=== PATIENT | male | born 1945 | race Caucasian/White ===

== ENCOUNTER 2025-01-19 14:40 | Outpatient (CLI) | payer MEDICARE, SELFPAY ==
--- OUTSIDE RECORDS SUMMARY | 2025-01-13 06:00 | XMS_ITS ---
Author Organization [facility] Address [address] [place] [id number] Care Team Providers Care [employer] Associate Name Role Phone UNRULY SYKES Primary Care Provider [phone] REASON FOR VISIT LV, acute for L arm swelling Medications Medication SIG (Take, Route, Frequency, Duration) Notes Start Date End Date Status Aspirin Adult Low Dose 81 MG Tablet Delayed Release 1 tablet Orally Once a day Active traMADol HCl 50 MG Tablet 1 tablet as ne eded Orally every 6 hours; Duration: 30 days 01/01/2025 Active Arginaid - Packet 1 pack with meals Or ally daily Active Silvadene 1 % Cream 1 application [place] Cutter ally Once a day Active Acetaminophen 500 MG Tablet 2 TABLET Ora lly 3 times a day Active Lansoprazole 30 MG Capsule Delayed Release 1 capsule 1/2 to 1 hour before morning meal Orally Once a day Active Remeron 15 MG Tablet 1 tablet at bedtime Orally Once a day Active Modafinil 100 MG Tablet 2 tablet in the morning Orally Once a day 11/16/2024 Active Midodrine HCl 5 MG Tablet 1 tablet as ne eded Orally Twice a day Active metFORMIN HCl 500 MG Tablet 1 tablet wit h a meal Orally Once a day Active Gabapentin 300 MG Capsule 1 capsule Oral ly 3 times a day; Duration: 30 days 11/27/2024 Active Farxiga 10 MG Tablet 1 tablet Orally Onc e a day Active Bisacodyl 10 MG Suppository 1 suppository Rectal Once a day after dinner Active Atorvastatin Calcium 40 MG Tablet 2 tablet Orally Once a day at bedtime Active Encounters Encounter Location Date Provider Diagnosis [facility] [address] [place] [id number] 01/13/2025 UNRULY SYKES Plan Of Treatment Next Appt Details Provider Name:Anjali Paez , 01/22/2025 06:30:00 AM, [address], [place], [address], History and Physical Notes * HPI (History of Present Illness) Category Sub-Category Detail Notes Category Not es Redacted due to State Laws: He has got left arm swelling. Reportedly had an ultrasound a while ago with no DVT concerns, but nursing reports at times he does feel cold and hot in his arm. Also, has color changes in his arm, but currently, it is warm. He reports no fevers, no chest pain, no shortness of breath, and no edema on exam, except for in the left arm. Planning to repeat the ultrasound to rule out DVT. Also, gets CT of his left shoulder and chest to rule out any type of obstruction with contrast. Progress Notes * Elvin MCCLUREOB:1945 (79 yo M)Acc No.[id number]:01/13/2025 Patient: Pillo Rodarte Provider: Adriane Sykes DO :1945 A ge:79 Y S ex:Male Date:01/13/2025 Address:[address] [place] [address] Subjective: * Chief Complaints: * L V, acute for L arm swelling * HPI: R edacted due to State Laws:: He has got left arm swelling. Reportedly had an ultrasound a while ago with no DVT concerns, but nursing reports at times he does feel cold and hot in his arm. Also, has color changes in his arm, but currently, it is warm. He reports no fevers, no chest pain, no shortness of breath, and no edema on exam, except for in the left arm. Planning to repeat the ultrasound to rule out DVT. Also, gets CT of his left shoulder and chest to rule out any type of obstruction with contrast. * Medications: T akingAcetaminophen 500 MG Tablet 2 TABLET Orally 3 times a day Arginaid - Packet 1 pack with meals Orally daily Aspirin Adult Low Dose 81 MG Tablet Delayed Release 1 tablet Orally Once a day Atorvastatin Calcium 40 MG Tablet 2 tablet Orally Once a day at bedtimeBisacodyl 10 MG Suppository 1 suppository Rectal Once a day after dinnerFarxiga 10 MG Tablet 1 tablet Orally Once a day Gabapentin 300 MG Capsule 1 capsule Orally 3 times a day Lansoprazole 30 MG Capsule Delayed Release 1 capsule 1/2 to 1 hour before morning meal Orally Once a day metFORMIN HCl 500 MG Tablet 1 tablet with a meal Orally Once a day Midodrine HCl 5 MG Tablet 1 tablet as needed Orally Twice a day Modafinil 100 MG Tablet 2 tablet in the morning Orally Once a day Remeron 15 MG Tablet 1 tablet at bedtime Orally Once a day Silvadene 1 % Cream 1 application Externally Once a day traMADol HCl 50 MG Tablet 1 tablet as needed Orally every 6 hours Taking Acetaminophen 500 MG Tablet 2 TABLET Orally 3 times a day Taking Arginaid - Packet 1 pack with meals Orally daily Taking Aspirin Adult Low Dose 81 MG Tablet Delayed Release 1 tablet Orally Once a day Taking Atorvastatin Calcium 40 MG Tablet 2 tablet Orally Once a day at bedtimeTaking Bisacodyl 10 MG Suppository 1 suppository Rectal Once a day after dinnerTaking Farxiga 10 MG Tablet 1 tablet Orally Once a day Taking Gabapentin 300 MG Capsule 1 capsule Orally 3 times a day Taking Lansoprazole 30 MG Capsule Delayed Release 1 capsule 1/2 to 1 hour before morning meal Orally Once a day Taking metFORMIN HCl 500 MG Tablet 1 tablet with a meal Orally Once a day Taking Midodrine HCl 5 MG Tablet 1 tablet as needed Orally Twice a day Taking Modafinil 100 MG Tablet 2 tablet in the morning Orally Once a day Taking Remeron 15 MG Tablet 1 tablet at bedtime Orally Once a day Taking Silvadene 1 % Cream 1 application Externally Once a day Taking traMADol HCl 50 MG Tablet 1 tablet as needed Orally every 6 hours * Electronic signature of UNRULY SYKES D.O. on 01/19/2025 at 02:45 PM CDT Sign off status: Pending * Provider: Adriane Sykes DO Date: 01/13/2025 Generated for Lay chadwick/Lasha/Cherelle on: 01/19/2025 02:45 PM CDT
--- NOTE | ~2025-01-19 | CT_ITS ---
EXAMINATION: CT diagnostic chest w con DATE: 01/19/2025 16:19 INDICATION: Swelling and pain. We brachial pressure. TECHNIQUE: Computed tomography (CT) of the chest was performed with 100 cc Omnipaque 350 intravenous contrast. The dose-length product was 443.43 mGy-cm. Automated exposure control and iterative reconstruction technique were employed. COMPARISON: None FINDINGS: There is pulmonary embolism involving the left upper and lower lobe pulmonary arteries, moderate thrombus burden. No significant pleural or pericardial effusion. No thoracic lymphadenopathy. Status post median sternotomy for CABG. There is a 1.7 x 0.9 8 x 1.5 cm pleural-based mass right lower lobe. No thoracic lymphadenopathy. There is dependent atelectasis in the lower lobes. No endobronchial lesions. Elevation of the right diaphragm. Small 3 mm fissural nodule on the left, likely benign. Mild thoracic spondylosis. No focal lytic or sclerotic lesions. IMPRESSION: 1. Left-sided pulmonary embolism, moderate thrombus burden. 2: Right lower lobe pleural-based 1.7 x 0.9 x1.5 cm mass, suspicious for bronchogenic carcinoma. Recommend further evaluation with percutaneous biopsy or pet/CT scan. Attempts are being made to contact Dr. John Sykes regarding patient information. Reviewed, dictated and finalized at location O. IMPRESSION: 1. Left-sided pulmonary embolism, moderate thrombus burden. 2: Right lower lobe pleural-based 1.7 x 0.9 x1.5 cm mass, suspicious for bronc hogenic carcinoma. Recommend further evaluation with percutaneous biopsy or pet /CT scan. Attempts are being made to contact Dr. John Sykes regarding patient information .
--- NOTE | ~2025-01-19 | CT_ITS ---
Clinical history:Swelling, pain, weak brachial pulse EXAM:CTA upper extremity left TECHNIQUE:Multiple contiguous axial images were obtained of the left upper extremity. Sagittal and coronal reformatted images were obtained. IV contrast was administered. Comparisons:None available FINDINGS: The left subclavian artery, left axillary artery, left radial artery, left ulnar artery are patent. The visualized arteries in the left wrist and hand are patent. There is a moderate to severe atherosclerotic disease from calcified plaques in the distal left radial artery causing approximately 75% stenosis. Nonspecific left hip joint effusion. There are a few small patchy opacities in the left lower lung. 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 If continued concern, consider an ultrasound for further assessment. 2.Otherwise, grossly unremarkable study. 3.Nonspecific left hip joint effusion. Reviewed, dictated and finalized at location Q. IMPRESSION: 1.Moderate to severe atherosclerotic disease in the distal left radial artery c ausing approximately 75% stenosis. If continued concern, consider an ultrasound for further assessment. 2.Otherwise, grossly unremarkable study. 3.Nonspecific left hip joint effusion.
--- OUTSIDE RECORDS SUMMARY | 2025-01-19 14:45 | XMS_ITS | Patient Health Record ---
Author Organization [facility] Address [address] [place] [phone] Care Team Providers Care Drawing Tender Name Role Phone UNRULY RINCON Primary Care Provider Anjali Paez Unavailable [phone] Krystal Engle Unavailable [phone] Allergies Allergen (clinical drug ingredient) Drug/Non Drug Allergy documented on EMR Reaction Allergy Type Onset Date Status sulfacetamide Sulfacetamide Sodium Unknown Drug Allergy Active Results Component Value Reference Range Notes Lipid Panel Reviewed date:10/23/2024 10:59:06 AM Interpretation: Performing Lab: Notes/Report: Comp. 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 (I69.254) Referral Organization [facility] Referring Provider First Name UNRULY Referring Provider Last Name SERGEY Referring Provider Speciality Internal M edicine Referred Organization [facility] Referred Address [address] [place] [phone],[place] Referred Provider Specialty Neurology Referral Priority Routine Reason Arterial disease wit h possible stenosis Diagnosis 1 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 (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.01) Referral Organization [facility] Referring Provider First Name Anjali Referring Provider Last Name Philippe Referred Organization [facility] Referred Address [address] [place] [phone] Referred Provider Specialty Vascular [place] Referral Priority Routine Medications Medication SIG (Take, Route, Frequency, Duration) Notes Start Date End Date Status Modafinil 100 MG Tablet 2 tablet in the morning Orally Once a day 11/16/2024 Active Lansoprazole 30 MG Capsule Delayed Release 1 capsule 1/2 to 1 hour before morning meal Orally Once a day Active Gabapentin 300 MG Capsule 1 capsule Oral ly 3 times a day; Duration: 30 days 11/27/2024 Active Farxiga 10 MG Tablet 1 tablet Orally Onc e a day Active Bisacodyl 10 MG Suppository 1 suppository Rectal Once a day after dinner Active Atorvastatin Calcium 40 MG Tablet 2 tablet Orally Once a day at bedtime Active Aspirin Adult Low Dose 81 MG Tablet Delayed Release 1 tablet Orally Once a day Active traMADol HCl 50 MG Tablet 1 tablet as ne eded Orally every 6 hours; Duration: 30 days 01/01/2025 Active Arginaid - Packet 1 pack with meals Or ally daily Active Silvadene 1 % Cream 1 application Return To Vendor ally Once a day Active Acetaminophen 500 MG Tablet 2 TABLET Ora lly 3 times a day Active Remeron 15 MG Tablet 1 tablet at bedtime Orally Once a day Active Midodrine HCl 5 MG Tablet 1 tablet as ne eded Orally Twice a day Active metFORMIN HCl 500 MG Tablet 1 tablet wit h a meal Orally Once a day Active Social History Tobacco Use: Social History Observation Description Date Details (start date - stop date) Never Smoker NA - NA Social History Drug/Alcohol: Social Info Question Answer Notes Drugs Have you used drugs other than those for medical reasons in the past 12 months? No AUDIT-C (Standard) Did you have a drink containing alcohol in the past year? 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) Active confirmed Problem Hemiplegia of nondominant side as late effect of cerebrovascular disease (140918145) 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) Active confirmed Problem Gastro-esophageal reflux disease without esophagitis (097489057) Gastro-esophageal reflux disease without esophagitis (K21.9) Active confirmed Problem Constipation (59602759) Constipation, unspecified (K59.00) Active confirmed Problem Dysphagia (02095944) Dysphagia, unspecified (R13.10) Active confirmed Problem Somnolence (55298119) Somnolence (R40.0) Active confirmed Problem Type II diabetes mellitus without complication (470917078) Type 2 diabetes mellitus without complication, unspecified whether snf insulin use (E11.9) Active confirmed Problem Hyperlipidemia (12900270) Hyperlipidemia (E78.5) Active confirmed Problem Recurrent major depression (disorder) (71710326) Major depressive disorder, recurrent episode, unspecified (F33.9) Active confirmed Vital Signs Heart Rate 98 /min 12/25/2024 Temperature 97.8 degrees Fahrenheit 12/25/2024 Respiratory Rate 18 /min 12/25/2024 Height-cm 182.88 cm 12/08/2024 Oximetry 94 % 12/25/2024 Blood pressure diastolic 56 mm Hg 12/25/2024 Weight-kg 84.23 kg 12/25/2024 Height 72 in 12/08/2024 BMI Percentile 25.63 % 10/28/2024 Blood pressure systolic 98 mm Hg 12/25/2024 Weight 185.7 lbs 12/25/2024 Encounters Encounter Location Date Provider Diagnosis [address] [address] 01/13/[address] [address] 10/16/[address] [address] 10/21/2024 Anjali Paez 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 I69.254 ; Physical deconditioning R53.81 ; Essential (primary) hypertension I10 ; Major depressive disorder, recurrent episode, unspecified F33.9 ; Hyperlipidemia E78.5 and Left hip pain M25.[address] [address] 10/23/2024 Anjali Paez 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 I69.254 ; Physical deconditioning R53.81 ; Essential (primary) hypertension I10 ; Major depressive disorder, recurrent episode, unspecified F33.9 ; Hyperlipidemia E78.5 and Left hip pain M25.552 [place] [id number] 10/28/2024 Anjali Paez 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 I69.254 ; Physical deconditioning R53.81 ; Essential (primary) hypertension I10 ; Major depressive disorder, recurrent episode, unspecified F33.9 ; Hyperlipidemia E78.5 and Left hip pain M25.552 [place] [id number] 10/30/2024 Anjali Paez 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 I69.254 ; Physical deconditioning R53.81 ; Essential (primary) hypertension I10 ; Major depressive disorder, recurrent episode, unspecified F33.9 ; Hyperlipidemia E78.5 and Left hip pain M25.552 [place] [id number] 11/03/2024 Anjali Paez 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 I69.254 ; Physical deconditioning R53.81 ; Essential (primary) hypertension I10 ; Major depressive disorder, recurrent episode, unspecified F33.9 ; Hyperlipidemia E78.5 and Left hip pain M25.552 [place] [id number] 11/06/2024 Krystal Engle 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 I69.254 ; Physical deconditioning R53.81 ; Essential (primary) hypertension I10 ; Major depressive disorder, recurrent episode, unspecified F33.9 and Left hip pain M25.552 [place] [id number] 11/10/2024 Anjali Paez 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 I69.254 ; Physical deconditioning R53.81 ; Essential (primary) hypertension I10 ; Major depressive disorder, recurrent episode, unspecified F33.9 ; Hyperlipidemia E78.5 ; Left hip pain M25.552 and Weight loss R63.4 [place] [id number] 11/17/2024 Anjali Paez 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 I69.254 ; Physical deconditioning R53.81 ; Essential (primary) hypertension I10 ; Major depressive disorder, recurrent episode, unspecified F33.9 ; Hyperlipidemia E78.5 ; Left hip pain M25.552 and Weight loss R63.4 [place] [id number] 11/20/2024 Anjali Paez 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 I69.254 ; Physical deconditioning R53.81 ; Essential (primary) hypertension I10 ; Major depressive disorder, recurrent episode, unspecified F33.9 ; Hyperlipidemia E78.5 ; Left hip pain M25.552 and Weight loss R63.4 [place] [id number] 11/24/2024 Anjali Paez 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 I69.254 ; Physical deconditioning R53.81 ; Essential (primary) hypertension I10 ; Major depressive disorder, recurrent episode, unspecified F33.9 ; Hyperlipidemia E78.5 ; Left hip pain M25.552 and Weight loss R63.[address] [address] 11/26/2024 Anjali Paez 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 I69.254 ; Physical deconditioning R53.81 ; Essential (primary) hypertension I10 ; Major depressive disorder, recurrent episode, unspecified F33.9 ; Hyperlipidemia E78.5 ; Left hip pain M25.552 and Weight loss R63.[address] [address] 12/01/2024 Anjali Philippe 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 I69.254 ; Physical deconditioning R53.81 ; Essential (primary) hypertension I10 ; Major depressive disorder, recurrent episode, unspecified F33.9 ; Hyperlipidemia E78.5 ; Left hip pain M25.552 and Weight loss R63.4 [place] [id number] 12/03/2024 Anjali Paez 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 I69.254 ; Physical deconditioning R53.81 ; Essential (primary) hypertension I10 ; Major depressive disorder, recurrent episode, unspecified F33.9 ; Hyperlipidemia E78.5 ; Left hip pain M25.552 and Weight loss R63.4 [place] [id number] 12/08/2024 Anjali Paez 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 I69.254 ; Physical deconditioning R53.81 ; Essential (primary) hypertension I10 ; Major depressive disorder, recurrent episode, unspecified F33.9 ; Hyperlipidemia E78.5 ; Left hip pain M25.552 and Weight loss R63.4 [place] [id number] 12/10/2024 Anjali Paez 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 I69.254 ; Physical deconditioning R53.81 ; Essential (primary) hypertension I10 ; Major depressive disorder, recurrent episode, unspecified F33.9 ; Hyperlipidemia E78.5 ; Left hip pain M25.552 and Weight loss R63.[address] [address] 12/15/2024 Anjali Paez 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 I69.254 ; Physical deconditioning R53.81 ; Essential (primary) hypertension I10 ; Major depressive disorder, recurrent episode, unspecified F33.9 ; Hyperlipidemia E78.5 ; Left hip pain M25.552 and Weight loss R63.4 [place] [id number] 12/18/2024 UNRULY RINCON [place] [address] [place] [address] 12/25/2024 UNRULY RINCON [place] [address] [place] [address] 10/15/2024 UNRULY RINCON [place] [address] [place] [address] 10/16/2024 Anjali Paez [place] [address] [place] [address] 10/20/2024 UNRULY RINCON [place] [address] [place] [address] 10/20/2024 Anjali Paez [facility] [address] [id number] 10/21/2024 Anjali Paez [place] [address] [place] [address] 10/22/2024 Anjalialva Paez [place] [address] [place] [address] 10/28/2024 Anjali Paez [place] [address] [place] [address] 10/30/2024 Anjali Paez [place] [address] [place] [address] 11/02/2024 Anjali [place] [address] [place] [address] 11/05/2024 Krystal Engle [place] [address] [place] [address] 11/09/2024 UNRULY RINCON [place] [address] [place] [address] 11/10/2024 Anjali Paez [place] [address] [place] [address] 11/12/2024 Anjali Paez [place] [address] [place] [address] 11/16/2024 Anjali [place] [address] [place] [address] 11/16/2024 Anjali Paez [place] [address] [place] [address] 11/23/2024 Anjali Paez [place] [address] [place] [address] 11/23/2024 Anjali Paez [place] [address] [place] [address] 12/02/2024 UNRULY RINCON [place] [address] [address] 12/02/2024 UNRULY RINCON [place] [address] [address] 12/08/2024 [place] [address] [address] 12/10/2024 UNRULY RINCON [place] [address] [address] 12/15/2024 UNRULY RINCON [place] [address] [address] 12/15/2024 Anjali Paez [place] [address] [place] [address] 12/16/2024 UNRULY RINCON [place] [address] [address] 12/18/2024 UNRULY RINCON [place] [address] [address] 12/22/2024 UNRULY RINCON [place] [address] [address] 12/23/2024 UNRULY RINCON [place] [address] [address] 12/23/2024 Anjali Paez [place] [address] [address] 12/24/2024 UNRULY RINCON [address] [address] 01/01/[address] [address] 01/04/2025 UNRULY RINCON [address] [address] 01/12/2025 UNRULY RINCON [place] [address] [address] 01/14/2025 UNRULY RINCON Assessments Encounter Date Diagnosis (ICD Code) Assessment Notes Treatment Notes Treatment Clinical Notes Section Notes 10/21/2024 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 He is unable to move the left side very well. 10/21/2024 Physical deconditioning (ICD-10 - R53.81) The patient working with PT&OT for strengthening and mobility. Reports that therapy is going okay. He utilizes a high back wheelchair for ambulation and a Kin lift for transfers. 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 He is unable to move the left side very well. 10/23/2024 Physical deconditioning (ICD-10 - R53.81) The patient working with PT&OT for strengthening and mobility. Reports that therapy is going okay. He utilizes a high back wheelchair for ambulation and a Kin lift for transfers. 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 He is unable to move the left side very well. 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 He is unable to move the left side very well. 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 He is unable to move the left side very well. 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 (ICD-10 - I69.254) The following can help prevent another stroke and reduce the risk of heart attack: Take all of your prescription medication as prescribed Follow up with your medical providers as recommended Goal is to keep your blod pressure under 130/80 Goal is to keep your bad cholesterol (LDL) under 70% If you are diabetic, goal is to keep your HgbA1C under 8% Eat plenty of fruits and vegetables, whole grains, fish and lean proteins Limit saturated fats and processed sugars Education provided on when to call 911 for transport to ER if stroke symptoms occur 11/06/2024 Physical deconditioning (ICD-10 - R53.81) Frail older adults are at increased risk of falls, disability, hospitalizations, and . Frailty may initially be overlooked or incorrectly identified as part of the normal aging process because of the variable nature of the presentation and diagnosis. Symptoms include generalized weakness, exhaustion, slow gait, poor balance, decreased physical activity, cognitive impairment, and weight loss. 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 He is unable to move the left side very well. 11/10/2024 Physical deconditioning (ICD-10 - R53.81) The patient working with PT&OT for strengthening and mobility. Reports that therapy is going okay. He utilizes a high back wheelchair for ambulation and a Kin lift for transfers. 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 Continue to use ice for comfort. 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 Continue to use ice for comfort. 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 Continue to use ice for comfort. 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 Continues to have some discomfort in the left arm. He reports that he does get comfort in the left arm with the ice. Continue to use ice for comfort. 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 Continues to have some discomfort in the left arm. He reports that he does get comfort in the left arm with the ice. Continue to use ice for comfort. 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 Continues to have some discomfort in the left arm. He reports that he does get comfort in the left arm with the ice. Continue to use ice for comfort. 12/15/2024 Physical deconditioning (ICD-10 - R53.81) The patient working with PT&OT for strengthening and mobility. Reports that therapy is going okay. He utilizes a high back wheelchair for ambulation and a Kin lift for transfers. 12/10/2024 Physical deconditioning (ICD-10 - R53.81) The patient working with PT&OT for strengthening and mobility. Reports that therapy is going okay. He utilizes a high back wheelchair for ambulation and a Kin lift for transfers. 12/08/2024 Physical deconditioning (ICD-10 - R53.81) The patient working with PT&OT for strengthening and mobility. Reports that therapy is going okay. He utilizes a high back wheelchair for ambulation and a Kin lift for transfers. 12/03/2024 Physical deconditioning (ICD-10 - R53.81) The patient working with PT&OT for strengthening and mobility. Reports that therapy is going okay. He utilizes a high back wheelchair for ambulation and a Kin lift for transfers. 12/01/2024 Physical deconditioning (ICD-10 - R53.81) The patient working with PT&OT for strengthening and mobility. Reports that therapy is going okay. He utilizes a high back wheelchair for ambulation and a Kin lift for transfers. 11/26/2024 Physical deconditioning (ICD-10 - R53.81) The patient working with PT&OT for strengthening and mobility. Reports that therapy is going okay. He utilizes a high back wheelchair for ambulation and a Kin lift for transfers. 11/24/2024 Physical deconditioning (ICD-10 - R53.81) The patient working with PT&OT for strengthening and mobility. Reports that therapy is going okay. He utilizes a high back wheelchair for ambulation and a Kin lift for transfers. 11/20/2024 Physical deconditioning (ICD-10 - R53.81) The patient working with PT&OT for strengthening and mobility. Reports that therapy is going okay. He utilizes a high back wheelchair for ambulation and a Kin lift for transfers. 11/10/2024 Essential (primary) hypertension (ICD-10 - I10) The patient's blood pressure is stable. Managed well on current medications. Continue current treatment plan and monitoring. 11/17/2024 Physical deconditioning (ICD-10 - R53.81) The patient working with PT&OT for strengthening and mobility. Reports that therapy is going okay. He utilizes a high back wheelchair for ambulation and a Kin lift for transfers. 11/06/2024 Essential (primary) hypertension (ICD-10 - I10) Stable with current management Continue current medication Report persistent BP elevated greater than 140/90 Report new or worsening symptoms of h/a, dizziness, chest pain, shortness of breath, new or worsening edema 11/03/2024 Physical deconditioning (ICD-10 - R53.81) The patient working with PT&OT for strengthening and mobility. Reports that therapy is going okay. He utilizes a high back wheelchair for ambulation and a Kin lift for transfers. 10/23/2024 Essential (primary) hypertension (ICD-10 - I10) The patient's blood pressure is stable. Managed well on current medications. Continue current treatment plan and monitoring. 10/30/2024 Physical deconditioning (ICD-10 - R53.81) The patient working with PT&OT for strengthening and mobility. Reports that therapy is going okay. He utilizes a high back wheelchair for ambulation and a Kin lift for transfers. 10/28/2024 Physical deconditioning (ICD-10 - R53.81) The patient working with PT&OT for strengthening and mobility. Reports that therapy is going okay. He utilizes a high back wheelchair for ambulation and a Kin lift for transfers. 10/21/2024 Essential (primary) hypertension (ICD-10 - I10) The patient's blood pressure is stable. Managed well on current medications. Continue current treatment plan and monitoring. 10/21/2024 Major depressive disorder, recurrent episode, unspecified (ICD-10 - F33.9) The patient denies any problems at this time. Not currently on any medications. 10/23/2024 Major depressive disorder, recurrent episode, unspecified (ICD-10 - F33.9) The patient denies any problems at this time. Not currently on any medications. 10/28/2024 Essential (primary) hypertension (ICD-10 - I10) The patient's blood pressure is stable. Managed well on current medications. Continue current treatment plan and monitoring. 10/30/2024 Essential (primary) hypertension (ICD-10 - I10) The patient's blood pressure is stable. Managed well on current medications. Continue current treatment plan and monitoring. 11/03/2024 Essential (primary) hypertension (ICD-10 - I10) The patient's blood pressure is stable. Managed well on current medications. Continue current treatment plan and monitoring. 11/06/2024 Major depressive disorder, recurrent episode, unspecified (ICD-10 - F33.9) stable with current management Continue to assist with ADL/IADL as needed Provide redirection as needed Report changes or concerns as needed 11/10/2024 Major depressive disorder, recurrent episode, unspecified (ICD-10 - F33.9) The patient denies any problems at this time. Not currently on any medications. 11/17/2024 Essential (primary) hypertension (ICD-10 - I10) The patient's blood pressure is stable. Managed well on current medications. Continue current treatment plan and monitoring. 11/20/2024 Essential (primary) hypertension (ICD-10 - I10) The patient's blood pressure is stable. Managed well on current medications. Continue current treatment plan and monitoring. 11/26/2024 Essential (primary) hypertension (ICD-10 - I10) Blood pressure is stable. Managed well on current medications. Continue current treatment plan and monitoring. 11/24/2024 Essential (primary) hypertension (ICD-10 - I10) Blood pressure is slightly elevated today. Continue to monitor and update provider if continues to be elevated. 12/01/2024 Essential (primary) hypertension (ICD-10 - I10) Blood pressure is stable. Managed well on current medications. Continue current treatment plan and monitoring. 12/03/2024 Essential (primary) hypertension (ICD-10 - I10) Blood pressure is stable. Managed well on current medications. Continue current treatment plan and monitoring. 12/10/2024 Essential (primary) hypertension (ICD-10 - I10) Blood pressure is stable. Managed well on current medications. Continue current treatment plan and monitoring. 12/08/2024 Essential (primary) hypertension (ICD-10 - I10) Blood pressure is stable. Managed well on current medications. Continue current treatment plan and monitoring. 12/15/2024 Essential (primary) hypertension (ICD-10 - I10) Blood pressure is stable. Managed well on current medications. Continue current treatment plan and monitoring. 12/15/2024 Major depressive disorder, recurrent episode, unspecified (ICD-10 - F33.9) The patient denies any problems at this time. Not currently on any medications. 12/08/2024 Major depressive disorder, recurrent episode, unspecified (ICD-10 - F33.9) The patient denies any problems at this time. Not currently on any medications. 12/10/2024 Major depressive disorder, recurrent episode, unspecified (ICD-10 - F33.9) The patient denies any problems at this time. Not currently on any medications. 12/03/2024 Major depressive disorder, recurrent episode, unspecified (ICD-10 - F33.9) The patient denies any problems at this time. Not currently on any medications. 12/01/2024 Major depressive disorder, recurrent episode, unspecified (ICD-10 - F33.9) The patient denies any problems at this time. Not currently on any medications. 11/24/2024 Major depressive disorder, recurrent episode, unspecified (ICD-10 - F33.9) The patient denies any problems at this time. Not currently on any medications. 11/26/2024 Major depressive disorder, recurrent episode, unspecified (ICD-10 - F33.9) The patient denies any problems at this time. Not currently on any medications. 11/20/2024 Major depressive disorder, recurrent episode, unspecified (ICD-10 - F33.9) The patient denies any problems at this time. Not currently on any medications. 11/10/2024 Hyperlipidemia (ICD-10 - E78.5) On 10/22/2024, the lipid panel showed trigclyrides were slightly elevated at 156. HDL was low at 30. Encouraged low saturated fat diet and to repeat the lipid panel in one year. 11/17/2024 Major depressive disorder, recurrent episode, unspecified (ICD-10 - F33.9) The patient denies any problems at this time. Not currently on any medications. 11/03/2024 Major depressive disorder, recurrent episode, unspecified (ICD-10 - F33.9) The patient denies any problems at this time. Not currently on any medications. 11/06/2024 Left hip pain (ICD-10 - M25.552) pain continues but has improved with pain regimen 10/30/2024 Major depressive disorder, recurrent episode, unspecified (ICD-10 - F33.9) The patient denies any problems at this time. Not currently on any medications. 10/28/2024 Major depressive disorder, recurrent episode, unspecified (ICD-10 - F33.9) The patient denies any problems at this time. Not currently on any medications. 10/23/2024 Hyperlipidemia (ICD-10 - E78.5) On 10/22/2024, the lipid panel showed trigclyrides were slightly elevated at 156. HDL was low at 30. Encouraged low saturated fat diet and to repeat the lipid panel in one year. 10/21/2024 Hyperlipidemia (ICD-10 - E78.5) On 10/22/2024, the lipid panel showed trigclyrides were slightly elevated at 156. HDL was low at 30. Encouraged low saturated fat diet and to repeat the lipid panel in one year. 10/21/2024 Left hip pain (ICD-10 - M25.552) Script for hydrocodone 5/325 one tab q. 6h p.r.n. was given. Change the Tylenol that was scheduled to p.r.n. and do not exceed 4 gm of Tylenol in 24 hours. 10/23/2024 Left hip pain (ICD-10 - M25.552) Reports that the left hip pain has improved with taking the hydrocodone. 10/28/2024 Hyperlipidemia (ICD-10 - E78.5) On 10/22/2024, the lipid panel showed trigclyrides were slightly elevated at 156. HDL was low at 30. Encouraged low saturated fat diet and to repeat the lipid panel in one year. 10/30/2024 Hyperlipidemia (ICD-10 - E78.5) On 10/22/2024, the lipid panel showed trigclyrides were slightly elevated at 156. HDL was low at 30. Encouraged low saturated fat diet and to repeat the lipid panel in one year. 11/03/2024 Hyperlipidemia (ICD-10 - E78.5) On 10/22/2024, the lipid panel showed trigclyrides were slightly elevated at 156. HDL was low at 30. Encouraged low saturated fat diet and to repeat the lipid panel in one year. 11/20/2024 Hyperlipidemia (ICD-10 - E78.5) On 10/22/2024, the lipid panel showed trigclyrides were slightly elevated at 156. HDL was low at 30. Encouraged low saturated fat diet and to repeat the lipid panel in one year. 11/17/2024 Hyperlipidemia (ICD-10 - E78.5) On 10/22/2024, the lipid panel showed trigclyrides were slightly elevated at 156. HDL was low at 30. Encouraged low saturated fat diet and to repeat the lipid panel in one year. 11/10/2024 Left hip pain (ICD-10 - M25.552) The patient reports that he feels like the pain to his left has gotten slightly better since starting the gabapentin. We will continue with that treatment plan and see how it goes. 11/24/2024 Hyperlipidemia (ICD-10 - E78.5) On 10/22/2024, the lipid panel showed trigclyrides were slightly elevated at 156. HDL was low at 30. Encouraged low saturated fat diet and to repeat the lipid panel in one year. 11/26/2024 Hyperlipidemia (ICD-10 - E78.5) On 10/22/2024, the lipid panel showed trigclyrides were slightly elevated at 156. HDL was low at 30. Encouraged low saturated fat diet and to repeat the lipid panel in one year. 12/03/2024 Hyperlipidemia (ICD-10 - E78.5) On 10/22/2024, the lipid panel showed trigclyrides were slightly elevated at 156. HDL was low at 30. Encouraged low saturated fat diet and to repeat the lipid panel in one year. 12/01/2024 Hyperlipidemia (ICD-10 - E78.5) On 10/22/2024, the lipid panel showed trigclyrides were slightly elevated at 156. HDL was low at 30. Encouraged low saturated fat diet and to repeat the lipid panel in one year. 12/08/2024 Hyperlipidemia (ICD-10 - E78.5) On 10/22/2024, the lipid panel showed trigclyrides were slightly elevated at 156. HDL was low at 30. Encouraged low saturated fat diet and to repeat the lipid panel in one year. 12/10/2024 Hyperlipidemia (ICD-10 - E78.5) On 10/22/2024, the lipid panel showed trigclyrides were slightly elevated at 156. HDL was low at 30. Encouraged low saturated fat diet and to repeat the lipid panel in one year. 12/15/2024 Hyperlipidemia (ICD-10 - E78.5) On 10/22/2024, the lipid panel showed trigclyrides were slightly elevated at 156. HDL was low at 30. Encouraged low saturated fat diet and to repeat the lipid panel in one year. 12/15/2024 Left hip pain (ICD-10 - M25.552) The patient reports that his left hip pain continues especially when moved. Continue current treatment plan and monitoring. Advised the patient to ask for pain medication if needed. 12/10/2024 Left hip pain (ICD-10 - M25.552) The patient reports that his left hip pain continues especially when moved. Continue current treatment plan and monitoring. Advised the patient to ask for pain medication if needed. 12/08/2024 Left hip pain (ICD-10 - M25.552) The patient reports that his left hip pain continues especially when moved. Continue current treatment plan and monitoring. Advised the patient to ask for pain medication if needed. 12/03/2024 Left hip pain (ICD-10 - M25.552) The patient reports that his left hip pain continues especially when moved. Continue current treatment plan and monitoring. Advised the patient to ask for pain medication if needed. 12/01/2024 Left hip pain (ICD-10 - M25.552) The patient reports that his left hip pain continues especially when moved. Continue current treatment plan and monitoring. Advised the patient to ask for pain medication if needed. 11/26/2024 Left hip pain (ICD-10 - M25.552) The patient reports that his let-sidedp pain has been more in the last two days It seems to be better at night with the higher dose of gabapentin. New order given to increase the gabapentin to 300 mg t.i.d. and update if it makes him too sleepy. 11/24/2024 Left hip pain (ICD-10 - M25.552) The patient reports that the left hip pain seems to have gotten better with the increase of the gabapentin at bedtime. We will continue to monitor. 11/20/2024 Left hip pain (ICD-10 - M25.552) The patient reports that the left hip pain seems to have gotten better with the increase of the gabapentin at bedtime. We will continue to monitor. 11/10/2024 Weight loss (ICD-10 - R63.4) The patient is concerned with patient not eatingenough. Ordered to get weekly weightsand update if weight continues to drop. 11/17/2024 Left hip pain (ICD-10 - M25.552) Patient does continue to have left hip pain, especially when he's being rolled, but reports that it does seem to be getting a little bit better since starting the Gabapentin, but is unable to sleep very well at night due to the discomfort in that left hip. Order given to increase Gabapentin to 300 mg at bedtime and to continue the 100 mg in the morning and noon dose. 11/03/2024 Left hip pain (ICD-10 - M25.552) left hip still bothering patient, very painful. Thinking it may be nerve related, start gabapentin 100 mg TID for for left hip pain. _update in one week on how it is helping. 10/30/2024 Left hip pain (ICD-10 - M25.552) The patient reports that his left hip is bothering him more again. Order given to change hydrocodoen to q. 4h as-needed. _update if that is not helping patient. 10/28/2024 Left hip pain (ICD-10 - M25.552) Reports that the left hip pain has improved with taking the hydrocodone. 11/17/2024 Weight loss (ICD-10 - R63.4) Continue to monitor weekly weights and update provider any concern arise. 11/20/2024 Weight loss (ICD-10 - R63.4) The patient agreed to start appetite stimulant medication. Order given for Remeron 15 mg at h.s. Another order written for weekly weights due to them not putting in her weight for this week. Asked them to update once the weight was received. 11/24/2024 Weight loss (ICD-10 - R63.4) Remeron 15 mg at h.s. was started last week. The patient reports that his appetite could be better. I explained that it would take a little bit time for the medication to take a full effect. The patient verbalizes understaindg. No weekly weights were given again this week. Asked staff to please update their system with the new weight weekly. 11/26/2024 Weight loss (ICD-10 - R63.4) Remeron 15 mg at h.s. was started last week. The patient reports that his appetite could be better. I explained that it would take a little bit time for the medication to take a full effect. The patient verbalizes understanding. No weekly weights were given again this week. Asked staff to please update their system with the new weight weekly. 12/01/2024 Weight loss (ICD-10 - R63.4) The patient reports that appetite is still not very good. He continues on the Remeron at bedtime. No other suggestions at this time. 12/03/2024 Weight loss (ICD-10 - R63.4) The patient reports that appetite is still not very good. He continues on the Remeron at bedtime. No other suggestions at this time. 12/08/2024 Weight loss (ICD-10 - R63.4) The patient reports that appetite is still not very good. He continues on the Remeron at bedtime. No other suggestions at this time. 12/10/2024 Weight loss (ICD-10 - R63.4) The patient reports that appetite is still not very good. He continues on the Remeron at bedtime. No other suggestions at this time. 12/15/2024 Weight loss (ICD-10 - R63.4) The patient does not have any complaints at this time. He appears to be eating okay at this time. Continue current plan and monitoring. 10/21/2024 Other Continue current treatment plan. Staff to continue to monitor and report any changes. Patient education provided and questions/concern s addressed. Follow up in 1 week unless necessary sooner. Reviewed HIPAA Right to Privacy Practices with patient/family/ca regiver. 10/23/2024 Other Continue current treatment plan. Staff to continue to monitor and report any changes. Patient education provided and questions/concern s addressed. Follow up in 1 week unless necessary sooner. Reviewed HIPAA Right to Privacy Practices with patient/family/ca regiver. 10/28/2024 Other Continue current treatment plan. Staff to continue to monitor and report any changes. Patient education provided and questions/concern s addressed. Follow up in 1 week unless necessary sooner. Reviewed HIPAA Right to Privacy Practices with patient/family/ca regiver. 10/30/2024 Other Continue current treatment plan. Staff to continue to monitor and report any changes. Patient education provided and questions/concern s addressed. Follow up in 1 week unless necessary sooner. Reviewed HIPAA Right to Privacy Practices with patient/family/ca regiver. 11/03/2024 Other Continue current treatment plan. Staff to continue to monitor and report any changes. Patient education provided and questions/concern s addressed. Follow up in 1 week unless necessary sooner. Reviewed HIPAA Right to Privacy Practices with patient/family/ca regiver. 11/06/2024 Other REVIEWED HIPAA RIGHTS PRIVACY PRACTICES WITH PT/FAMILY/CAREGIV ER COPY OF HIPAA RIGHTS PRIVACY PRACTICES GIVEN TO PT/FAMLY/CAREGIVE R 11/10/2024 Other Continue current treatment plan. Staff to continue to monitor and report any changes. Patient education provided and questions/concern s addressed. Follow up in 1 week unless necessary sooner. Reviewed HIPAA Right to Privacy Practices with patient/family/ca regiver. 11/17/2024 Other Continue current treatment plan. Staff to continue to monitor and report any changes. Patient education provided and questions/concern s addressed. Follow up in 1 week unless necessary sooner. Reviewed HIPAA Right to Privacy Practices with patient/family/ca regiver. 11/20/2024 Other Continue current treatment plan. Staff to continue to monitor and report any changes. Patient education provided and questions/concern s addressed. Follow up in 1 week unless necessary sooner. Reviewed HIPAA Right to Privacy Practices with patient/family/ca regiver. 11/24/2024 Other Continue current treatment plan. Staff to continue to monitor and report any changes. Patient education provided and questions/concern s addressed. Follow up in 1 week unless necessary sooner. Reviewed HIPAA Right to Privacy Practices with patient/family/ca regiver. 11/26/2024 Other Continue current treatment plan. Staff to continue to monitor and report any changes. Patient education provided and questions/concern s addressed. Follow up in 1 week unless necessary sooner. Reviewed HIPAA Right to Privacy Practices with patient/family/ca regiver. 12/01/2024 Other Continue current treatment plan. Staff to continue to monitor and report any changes. Patient education provided and questions/concern s addressed. Follow up in 1 week unless necessary sooner. Reviewed HIPAA Right to Privacy Practices with patient/family/ca regiver. 12/03/2024 Other Continue current treatment plan. Staff to continue to monitor and report any changes. Patient education provided and questions/concern s addressed. Follow up in 1 week unless necessary sooner. Reviewed HIPAA Right to Privacy Practices with patient/family/ca regiver. 12/08/2024 Other Continue current treatment plan. Staff to continue to monitor and report any changes. Patient education provided and questions/concern s addressed. Follow up in 1 week unless necessary sooner. Reviewed HIPAA Right to Privacy Practices with patient/family/ca regiver. 12/10/2024 Other Continue current treatment plan. Staff to continue to monitor and report any changes. Patient education provided and questions/concern s addressed. Follow up in 1 week unless necessary sooner. Reviewed HIPAA Right to Privacy Practices with patient/family/ca regiver. 12/15/2024 Other Continue current treatment plan. Staff to continue to monitor and report any changes. Patient education provided and questions/concern s addressed. Follow up in 1 week unless necessary sooner. Plan Of Treatment Next Appt Details Provider Name:Anjali Paez , 01/22/2025 06:30:00 AM, [address], [place], [address], Insurance Providers Payer Name Payer Address Payer Phone Subscriber Number Group Number Insured Name Patient Relationship to Insured Coverage Start Date Coverage End Date [employer] of [place] [address] [place] [id number] Pillo Mcclure Self - patient is the insured [facility] [address] [place], [place] [id number] Pillo Mcclure Self - patient is the insured Medical (General) History Medical History History ICD Code 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
[2025-01-19 15:42] LABS: Estimated Glomerular Filt Rate > 60
== END 2025-01-19 14:41 | disposition home or self-care (01) ==
PROVIDERS: PCP Internal Medicine; Visit Provider Internal Medicine
DX: I66.01 Occlusion and stenosis of right middle cerebral artery (principal); I69.254 Hemiplegia and hemiparesis following other nontraumatic intracranial hemorrhage affecting left non-dominant side; E11.9 Type 2 diabetes mellitus without complications; I50.9 Heart failure, unspecified; R13.11 Dysphagia, oral phase; M62.81 Muscle weakness (generalized)
CPT/HCPCS: 71260; 73206; Q9967

== ENCOUNTER 2025-02-11 21:17 | Inpatient (IN) | payer MEDICARE, SELFPAY ==
--- NOTE | ~2025-02-11 | CT_ITS ---
EXAMINATION: CT brain wo con DATE: 02/11/2025 21:25 INDICATION: Stroke TECHNIQUE: Computed tomography (CT) of the head was performed without intravenous contrast. Sagittal and coronal reconstructions were performed. The mA was adjusted according to patient size. Iterative reconstruction technique was employed. The dose-length product was 681.00 mGy-cm. COMPARISON: None FINDINGS: There is a large region of encephalomalacia involving portions of the right frontal, parietal and temporal lobes as well as portions of the insula and right basal ganglia consistent with chronic infarct involving the right middle cerebral artery vascular distribution. No acute intracranial hemorrhage, acute infarction or abnormal extra axial fluid collection. Symmetric prominence of the sulci and ventricles consistent with mild age-appropriate diffuse cerebral volume loss. No mass/mass effect. Intracranial calcified cerebral atherosclerosis is noted at the bilateral carotid siphons. The orbits, paranasal sinuses and mastoid air cells are normal. IMPRESSION: 1. No acute intracranial process. 2. 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 Reviewed, dictated and finalized at location A. IMPRESSION: 1. No acute intracranial process. 2. Large chronic infarct with encephalomalacia involving the right middle cereb ral artery vascular distribution.
--- NOTE | ~2025-02-11 | CT_ITS ---
CTA NECK, CTA HEAD Clinical History: cva w/u Comparison: Noncontrast CT head stenosis TECHNIQUE: Helical images thoracic inlet to vertex 100 mL Omnipaque 350 Coronal, sagittal reformats. Multi planar MIPS CT images acquired with automatic exposure control for dose reduction DLP: 1267 mGy-cm Findings: NASCET Criteria utilized CTA NECK Aortic arch: No aneurysm or dissection. Great vessel origins: No stenosis. CCAs: No stenosis. Cervical ICAs: Significant bulb disease but no stenosis. Vertebral Arteries: Patent. Left side dominant. Right-sided diminutive Lung Apices: Clear. Thyroid: Unremarkable. Nodes: No enlarged nodes. Bones: No acute bony abnormality. CTA HEAD: Aneurysms: None. Intracranial ICAs: Cavernous segment calcifications but patent. ACAs and their distal branches: Patent, unremarkable. A-Comm: Identified. Patent, unremarkable. MCAs and their distal branches: Patent, unremarkable. Basilar artery: Patent, unremarkable. manufactured buildings repairer and their distal branches: Patent, unremarkable. P-Comms: Neither definitely identified. IMPRESSION: CTA NECK: 1. No acute findings. CTA HEAD: 1. No acute findings. Reviewed, dictated and finalized at location R.
--- NOTE | ~2025-02-11 | CT_ITS ---
EXAMINATION: CT brain wo con DATE: 02/13/2025 20:42 INDICATION: Decreased level of consciousness. TECHNIQUE: Computed tomography (CT) of the head was performed without intravenous contrast. The mA was adjusted according to patient size. Iterative reconstruction technique was employed. The dose-length product was 983.67 mGy-cm. COMPARISON: CTA 02/11/2025 FINDINGS: There is an old infarct involving the right frontal lobe, right temporal lobe, right insula, and right basal ganglia. 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 There are scattered areas of low attenuation in the cerebral white matter, likely chronic small vessel ischemic disease. There is no intracranial hemorrhage, acute infarction, or abnormal intracranial mass lesion. There is ex vacuo dilatation of right lateral ventricle. There is mild mucosal thickening in the paranasal sinuses. The orbits are normal. The mastoid air cells are normal. IMPRESSION: 1. Large old infarct in the expected distribution of right middle cerebral artery. Reviewed, dictated and finalized at location E. IMPRESSION: 1. Large old infarct in the expected distribution of right middle cerebral ignacio ry.
--- NOTE | ~2025-02-11 | MR_ITS ---
EXAMINATION: MR brain/brain stem wo con DATE: 02/16/2025 13:06 INDICATION: Possible new seizure TECHNIQUE: Magnetic resonance imaging (MRI) of the brain and brainstem was performed without intravenous contrast. Sequences included sagittal and axial T1-weighted SE, axial diffusion-weighted FS SE, axial T2*-weighted GRE, axial T2-weighted FLAIR, and axial T2-weighted FSE. Apparent diffusion coefficient (ADC) maps were created. COMPARISON: Head CT and CT angiogram dated 02/11/2025 FINDINGS: Again seen is a large region of encephalomalacia involving portions of the right frontal, parietal and temporal lobes as well as portions of the insula and right basal ganglia consistent with chronic infarct involving the right middle cerebral artery vascular distribution. There is some serpiginous increased T1 signal along the margins of the region of infarct consistent with secondary laminar necrosis. There are no areas of restricted diffusion to suggest acute infarction. No intracranial hemorrhage or abnormal intracranial mass lesion. There is nonspecific mild increased T2-weighted signal intensity in the kevin as well as the right cerebral peduncle and in the right thalamus. There are no intraparenchymal signal abnormalities seen on the other pulse sequences. The ventricles are symmetric and normal in size. There are no abnormal extra-axial fluid collections. Flow voids are seen in the cerebral arteries on the T2- weighted sequences consistent with their expected patency. Left vertebral artery is dominant. Visualized orbits and soft tissues are unremarkable. IMPRESSION: 1. 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 No acute intracranial process. 2. Increased white matter T2 hyperintensity kevin, right cerebral peduncle and right thalamus which suggests possible Wallerian degeneration related to the right middle cerebral artery infarct with differential including sequela of chronic small vessel ischemic disease. Reviewed, dictated and finalized at location A. IMPRESSION: 1. Large chronic infarct with encephalomalacia involving the right middle cereb ral artery vascular distribution. No acute intracranial process. 2. Increased white matter T2 hyperintensity kevin, right cerebral peduncle and r ight thalamus which suggests possible Wallerian degeneration related to the rig ht middle cerebral artery infarct with differential including sequela of chroni c small vessel ischemic disease.
--- NOTE | ~2025-02-11 | US_ITS ---
EXAMINATION: US venous doppler [facility] DATE: 02/17/2025 16:47 INDICATION: Left lower limb swelling TECHNIQUE: Grayscale ultrasound images without and with compression and Doppler ultrasound images of the left lower extremity veins were obtained. COMPARISON: None. FINDINGS: The visualized portions of left common femoral vein, profunda (deep) femoral vein, femoral vein, popliteal vein, gastrocnemius vein and greater saphenous vein outflow are patent. The left posterior tibial and peroneal veins do not appear compressed on the provided images however visualization of the vessels is very poor which decreases specificity. IMPRESSION: 1. Possible noncompressible deep venous thrombosis in the left posterior tibial and peroneal veins however specificity is decreased by the poor visualization of the vessels. No deep venous thrombosis at or proximal to the left popliteal vein. Reviewed, dictated and finalized at location A. IMPRESSION: 1. Possible noncompressible deep venous thrombosis in the left posterior tibia l and peroneal veins however specificity is decreased by the poor visualization of the vessels. No deep venous thrombosis at or proximal to the left popliteal vein.
--- NOTE | ~2025-02-11 | US_ITS ---
EXAMINATION: US venous doppler [facility] DATE: 02/17/2025 16:47 INDICATION: Left upper limb swelling TECHNIQUE: Grayscale images without and with compression and Doppler images of the left upper extremity veins were obtained. COMPARISON: None. FINDINGS: The left internal jugular vein, subclavian vein, axillary vein, brachial vein, basilic vein, cephalic vein, radial vein, and ulnar vein are patent. IMPRESSION: 1. Patent left upper extremity veins. No evidence of venous thrombosis. Reviewed, dictated and finalized at location A.
--- NOTE | ~2025-02-11 | XR_ITS ---
Examination: XR chest 1V Clinical History: cva w/u Comparison: None Technique: Portable AP Findings: Loop recorder. Heart size normal. Elevated right hemidiaphragm with associated basilar atelectasis. Trace left basilar atelectasis. No acute bony abnormality. IMPRESSION: 1. No acute cardiopulmonary findings given portable technique. Reviewed, dictated and finalized at location R.
--- NOTE | ~2025-02-11 | XR_ITS ---
MODIFIED ESOPHAGRAM HISTORY: Looking TECHNIQUE: Modified barium esophagram was performed on 02/15/2025. I administered fluoroscopy and performed the exam with speech pathologist. Patient was seated for lateral fluoroscopic imaging for ingestion of thin liquids, pudding, solids and quantified amounts, followed by thin liquids in uncontrolled amounts. This was recorded on tape. A single fluoroscopic spot image was also recorded. The DAP for this procedure was 3.536 Gycm2. The amount of fluoroscopy time used during this procedure was 5.1 minutes. FINDINGS: Oral stage: Prolonged oral bolus holding which could be due to decreased cognition versus apraxia. Pharyngeal stage: Reduced laryngeal elevation and adduction. Reduced tongue base retraction. Minimal vallecular and piriform sinus residue. There was laryngeal penetration with aspiration. Cervical/esophageal stage: Adequate function. IMPRESSION: Oropharyngeal dysphagia with laryngeal penetration and aspiration. Please correlate with speech pathologist findings and specific feeding recommendations. Reviewed, dictated and finalized at location A. IMPRESSION: Oropharyngeal dysphagia with laryngeal penetration and aspiration. Please correlate with speech pathologist findings and specific feeding recomme ndations.
--- NOTE | ~2025-02-11 | US_ITS ---
Clinical History: hx cva Examination: US carotid duplex BI Comparison: CTA head and neck one day prior Technique: Grayscale, color, duplex/spectral Doppler sonography carotid and vertebral arteries. Distal CCA and Peak ICA systolic velocities provided. Society of Radiologists in Ultrasound (SRU) consensus criteria utilized, indirectly assessing stenosis by velocities. Findings: Scattered plaque and severe carotid bulb plaque Right side: CCA - 56 cm/sec. ICA - 71 cm/sec. ICA/CCA - 1.3 Left Side: CCA - 60 cm/sec. ICA - 91 cm/sec. ICA/CCA - 1.5 Normal antegrade flow measured bilateral vertebral arteries. IMPRESSION: 1. No hemodynamically significant ICA stenosis (i.e., if any stenosis, less than 50%). 2. Normal bilateral antegrade vertebral artery flow. Stenosis measured by Society of Radiologists in Ultrasound (SRU) criteria. Reviewed, dictated and finalized at location R. IMPRESSION: 1. No hemodynamically significant ICA stenosis (i.e., if any stenosis, less th an 50%). 2. Normal bilateral antegrade vertebral artery flow. Stenosis measured by Society of Radiologists in Ultrasound (SRU) criteria.
[2025-02-11 21:26] LABS: Estimated Glomerular Filt Rate > 60
[2025-02-11 21:33] LABS: Hematocrit 39.1 % (42.0-52.0); Hemoglobin 12.7 g/dL (14.0-18.0); Immature Granulocyte Percent A 0.4 % (0-0.5); Lymphocytes Absolute Auto 2.79 K/mm3 (0.9-3.2); Mean Corpuscular HGB Conc 32.5 g/dl (32-36); Mean Corpuscular Hemoglobin 28.5 pg (26-34); Mean Corpuscular Volume 87.7 fl (80-100); Nucleated Red Blood Cells Absolute Auto 0.000 K/mm3 (0.0-0.012); Nucleated Red Blood Cells Perc 0.0 % (0.0-0.2); Platelet Count Result 320 k/mm3 (150-375); Red Blood Count 4.46 M/mm3 (4.6-6.20); White Blood Count 7.9 K/mm3 (4.5-10.0)
[2025-02-11 21:41] LABS: INR 1.1; Prothrombin Time 13.9 Seconds (11.1-14.7)
[2025-02-11 21:42] LABS: Partial Thromboplastin Time 37.3 Seconds (22.3-36.8)
[2025-02-11 21:48] LABS: Alanine Aminotransferase 35 U/L (6-50); Albumin Level 3.5 g/dL (3.5-5.1); Alkaline Phosphatase 158 U/L (38-126); Anion Gap 7 mmol/L (4-12); Aspartate Amino Transferase 44 U/L (17-59); Bilirubin,Total 0.6 mg/dL (0.2-1.3); Blood Urea Nitrogen 13 mg/dL (9-20); Calcium 8.6 mg/dL (8.4-10.2); Carbon Dioxide 34 mmol/L (22-30); Chloride 93 mmol/L (98-107); Estimated Glomerular Filt Rate > 60; Glucose 138 mg/dL (65-110); Potassium 2.7 mmol/L (3.4-5.0); Sodium 134 mmol/L (137-145); Total Protein 7.3 g/dL (6.3-8.2)
[2025-02-11 21:51] VITALS: BP 133/94; PULSE 117; RESP 17; TEMP 36.8; O2SAT 94
[2025-02-11 21:52] LABS: Troponin I 0.031 ng/mL (0.000-0.034)
[2025-02-11 21:55] VITALS: BP 133/94; PULSE 116; RESP 17; O2SAT 95
[2025-02-11 21:56] VITALS: PULSE 117
--- NOTE | 2025-02-11 22:07 | ECG_ITS ---
Test Date: 2025-02-11 22:07:21 Measurements Intervals [place] Rate: 111 P: 76 DC: 160 QRS: 74 QRSD: 174 T: 75 QT: 442 QTc: 603 Interpretive Statements SINUS TACHYCARDIA WITH OCCASIONAL VENTRICULAR PREMATURE COMPLEXES POSSIBLE LEFT ATRIAL ENLARGEMENT [-0.1mV P WAVE IN V1/V2] RIGHT BUNDLE BRANCH BLOCK [120+ ms QRS DURATION, UPRIGHT V1, 40+ ms S IN I/aVL/V4/V5/V6] ANTERIOR MYOCARDIAL INFARCTION , OF INDETERMINATE AGE [40+ ms Q WAVE AND/OR ST/T ABNORMALITY IN V3/V4] ABNORMAL ECG No previous ECG available for comparison Electronically Signed On 02-12-2025 08:07:02 CDT by Juvenal Minor M.D.
[2025-02-11 22:16] LABS: Magnesium 1.4 mg/dL (1.6-2.3)
--- NOTE | 2025-02-11 22:20 | PC.NURSE ---
pt daughter states pt has hx of blood clot in his lungs, three in left leg, one in the left arm, and one in the bottom of his heart.
[2025-02-11] MEDS: POTASSIUM CHLORIDE 20 MEQ PACKET (FOR LIQUID) 40 MEQ PO (22:21)
[2025-02-11] MEDS: LACTATED RINGERS 1,000 ML 999 ML IV CONT (22:24)
[2025-02-11] MEDS: POTASSIUM CHLORIDE INJ 40 MEQ in SODIUM CHLORIDE 0.9% IV 500 ML 130 MEQ IVPB (23:45)
[2025-02-11] MEDS: SODIUM CHLORIDE 0.9% IV 250 ML 100 ML (23:46)
[2025-02-12] VITALS (10 sets, daily range): BP systolic 105–153; BP diastolic 46–98; PULSE 56–101; RESP 16–100; TEMP 36.2–36.9; O2SAT 70–100; BMI 21.5
--- NOTE | 2025-02-12 | ECHO_ITS ---
Patient Info Name: Pillo Danielle Age: 79 years : 1945 Gender: Male Ht: 75 in Wt: 172 lbs BSA: 2.02 m2 HR: 101 bpm BP: 139 / 75 mmHg Technical Quality: Good Exam Date: 02/12/2025 9:25 AM Patient Status: I Admit Date: 02/12/2025 Exam Type: CA echo dop bubble study w con Complete two-dimentional, color flow and Doppler transthoracic echocardiogram is performed with agitated saline and with contrast to opacify the left ventricle and to improve the delineation of the left ventricle endocardial borders. Staff Referring Physician: Lissa Wilson Wood Patternmaker Apprentice: Skye Sun Attending Provider: Linda Copeland Contrast/Agitated Saline Contrast/Ag. Saline: Definity Amount: 2.00 ml Contrast/Ag. Saline: Agitated Saline Amount: 20.00 ml Summary 1. Definity contrast administered improved wall motion interpretation. 2. Left ventricular chamber dimension is severely enlarged. 3. Left ventricular systolic function is severely globally reduced, estimated at 25-30. 4. There is moderate concentric increased left ventricular wall thickness. 5. Mid to apical anteroseptum and septum are akinetic. 6. E/e' 7 is not elevated. 7. Left atrial chamber dimension is mildly enlarged. 8. There is mild aortic valve sclerosis. 9. There is mild mitral valve regurgitation. 10. There is trace tricuspid valve regurgitation. 11. No pulmonary hypertension, estimated pulmonary arterial systolic pressure is 17 mmHg. Left Ventricle E/e' 7 is not elevated. Left ventricular chamber dimension is severely enlarged. Left ventricular systolic function is severely globally reduced, estimated at 25-30. There is moderate concentric increased left ventricular wall thickness. The left ventricular diastolic function is grade I diastolic dysfunction. Definity contrast administered improved wall motion interpretation. Mid to apical anteroseptum and septum are akinetic. Right Ventricle Right ventricular chamber dimension is normal. Right ventricular systolic function is normal and with normal TAPSE 1.8 cm. Left Atria Left atrial chamber dimension is mildly enlarged. Right Atria Right atrial chamber dimension is normal. Atrial Septum Intact interatrial septum visualized by 2D and agitated saline imaging. Agitated saline injection with and without valsalva maneuver opacified right side cardiac chambers without shunt to left side cardiac chambers. Aortic Valve The aortic valve is trileaflet. There is mild aortic valve sclerosis. There is no aortic valve stenosis. There is no aortic valve regurgitation. Pulmonic Valve There is no pulmonic regurgitation. Mitral Valve There is no mitral valve stenosis. There is mild mitral valve regurgitation. Tricuspid Valve There is trace tricuspid valve regurgitation. No pulmonary hypertension, estimated pulmonary arterial systolic pressure is 17 mmHg. Pericardium/Pleural There is no pericardial effusion. Inferior Vena Cava Normal inferior vena cava with >50% collapse upon inspiration consistent with normal right atrial pressure, 5 mmHg. Aorta The aortic root size at the sinus of Valsalva is normal. Left Ventricular Outflow Tract Name Value Normal LVOT 2D LVOT Diameter 2.1 cm LVOT Doppler LVOT Peak Velocity 82 cm/s LVOT Peak Gradient 3 mmHg LVOT Mean Gradient 2 mmHg LVOT VTI 19 cm LVOT VTI/AV VTI Ratio 0.8 LVOT Stroke Volume 64 ml LVOT CO 13.0 l/min LVOT CI 6.4 l/min/m2 Pulmonic Valve Name Value Normal PV Doppler PV Peak Velocity 80 cm/s PV Peak Gradient 3 mmHg Mitral Valve Name Value Normal MV Diastolic Function MV E Peak Velocity 44 cm/s MV A Peak Velocity 73 cm/s MV E/A 0.6 MV Decel Time (PW) 70 ms MV Annular TDI MV E/e' (Septal) 8.3 MV E/e' (Lateral) 6.1 MV E/e' (Average) 7.2 Tricuspid Valve Name Value Normal TV Regurgitation Doppler TR Peak Velocity 176 cm/s TR Peak Gradient 11 mmHg Estimated PAP/RSVP RA Pressure 5 mmHg <=5 PA Systolic Pressure 17 mmHg <36 RV Systolic Pressure 17 mmHg <36 TV Annular TDI TV Lateral Yue s' Velocity 10.3 cm/s >=9.5 Aorta Name Value Normal Ascending Aorta Ao Root Diameter (MM) 3.5 cm Ao Root Diam Index (MM) 1.7 cm/m2 Aortic Valve Name Value Normal AV Doppler AV Peak Velocity 122 cm/s AV Peak Gradient 6 mmHg AV Mean Gradient 3 mmHg AV VTI 23 cm AV Area (Cont Eq VTI) 2.8 cm2 >=3.0 AV Area (Cont Eq Jas) 2.3 cm2 AV DI (Jas) 0.67 AV Regurgitation 2D LVOT Area 3.4 cm2 Ventricles Name Value Normal LV Dimensions 2D/MM IVS Diastolic Thickness (2D) 1.5 cm 0.6-1.0 LVID Diastole (2D) 5.3 cm 4.2-5.8 LVIW Diastolic Thickness (2D) 1.3 cm 0.6-1.0 LVID Systole (2D) 4.0 cm 2.5-4.0 LVOT Diameter 2.1 cm LV Mass (2D Cubed) 324.28 g 88.00-224.00 LV Mass Index (2D Cubed) 160 g/m2 49-115 Relative Wall Thickness (2D) 0.50 <=0.42 LV Fractional Shortening/Ejection Fraction 2D/MM LV Fractional Shortening (2D) 25 % 25-43 LV EF (2D Teichholz) 49 % LV Diastolic Volume (4C MOD) 202 ml LV EF (4C MOD) 30 % LV Diastolic Volume (2C MOD) 167 ml LV EF (2C MOD) 37 % LV Diastolic Volume (BP MOD) 184 ml 62-150 LV Diastolic Volume Index (BP MOD) 91 ml/m2 34-74 LV Systolic Volume (BP MOD) 129 ml 21-61 LV Systolic Volume Index (BP MOD) 64 ml/m2 11-31 LV EF (BP MOD) 30 % 52-72 LV Diastolic Length (4C) 9.6 cm LV Systolic Length (4C) 9.6 cm LV Stroke Volume (4C MOD) 61 ml RV Dimensions 2D/MM RVID Diastole (2D) 4.3 cm 2.1-3.5 Atria Name Value Normal LA Dimensions LA Dimension (MM) 3.2 cm 3.0-4.0 LA Volume (4C A-L) 66 ml LA Volume (BP A-L) 61 ml RA Dimensions RA Systolic Major [place] Length (4C) 4.2 cm 2.1-2.7 RA Area (4C) 16.1 cm2 <=18.0 Report Signatures
--- NOTE | 2025-02-12 00:02 | ED_ITS ---
HPI - Neuro Symptoms/Deficit General Chief Complaint: Suspected CVA Stated Complaint: POSSIBLE CVA VS SZ History of Present Illness HPI Narrative: Patient presenting here after being seen at the long-term altered, foaming at the mouth, had last been seen normal by his family member around 4 or 5 tonight. Has history of prior stroke with left-sided deficits. Patient slow to speech currently but denies any pain anywhere. Is not sure why he is here. Can not recall what happened. No history of seizure Related Data Allergies Allergy/AdvReac Type Severity Reaction Status Date / Time Sulfa (Sulfonamide Allergy Unknown Unknown Verified 02/11/25 22:21 Antibiotics) Review of Systems 2 Review of Systems: All systems reviewed & are unremarkable except as noted in HPI and below Exam 2 Narrative: EXAMINATION OF ORGAN SYSTEMS/BODY AREAS: Constitutional: Vital signs per nursing GENERAL:[No acute distress, non-toxic appearing.] Appears slightly tired HEAD: Normal with no signs of head trauma. EYES: EOMI, conjunctiva normal ENT: Hearing grossly intact LUNGS: Nonlabored breathing. HEART: [Regular rate and rhythm] ABD: [Soft], [nontender to palpation] EXT: No obvious deformity SKIN: [No rashes or lesions.] NEURO: [Slightly tired but able to tell me his name. Obvious left-sided paralysis] PSYCH: Normal affect Course Vital Signs Vital signs: Vital Signs Temperature 98.3 F 02/11/25 21:51 Pulse Rate 117 H 02/11/25 21:51 Respiratory Rate 17 02/11/25 21:51 Blood Pressure 133/94 H 02/11/25 21:51 Pulse Oximetry 94 02/11/25 21:51 Oxygen Delivery Room Air 02/11/25 21:51 Temperature 98.3 F 02/11/25 21:51 Pulse Rate 117 H 02/11/25 21:56 Respiratory Rate 17 02/11/25 21:55 Blood Pressure 133/94 H 02/11/25 21:55 Pulse Oximetry 95 02/11/25 21:55 Oxygen Delivery Room Air 02/11/25 21:51 MDM - Neuro Symptoms/Deficit MDM Narrative Medical decision making narrative: Patient presents here with episode of altered mental status, found around 8:30 p.m. at long-term, frothing at the mouth. Since arrival here with EMS they report that he has started coming back, is a little bit more alert. On exam he has left-sided flaccid paralysis which is reported to be normal for him, he is moving his right side without issues, NIH stroke scale here is 13 (though this may be baseline). I suspect likely seizure based on his history and postictal state here, also consider possible CVA, CT brain without any obvious signs of acute stroke, regardless he is not a tPA candidate if he is on blood thinners and last known well was 4+ hours ago. Labs notable for low potassium and magnesium which are repleted. EKG on my independent interpretation shows sinus tachycardia rate 111, OK 160, QRS 174, QTC 508. No obvious ST elevations or depressions or signs of acute ischemia or arrhythmia On re-evaluation patient now back to baseline per family, he cannot recall exactly what happened. Discussed this with neurologist on-call, recommend starting Keppra at this time, 750mg twice a day, admission for EEG and MRI. It turns out that we will not have a neurologist this weekend, discussed this with the patient and family at bedside, this likely will not influence management or treatment, especially if he is already on all treatment for CVA and is not candidate for any intervention at this time. They are offered transfer if desired for a neurologist specialist for the weekend, and after long discussion with patient and family, and hospitalist here, they are agreeable to staying here and can re-evaluate after scans performed. They already have a neurologist appointment set up in the next week with his own neurologist. Lab Data 02/11/25 21:22 02/11/25 21:23 Labs: Lab Results 02/11/25 02/11/25 Range/Units 21:22 21:23 WBC 7.9 (4.5-10.0) K/mm3 RBC 4.46 L (4.6-6.20) M/mm3 Hgb 12.7 L (14.0-18.0) g/dL Hct 39.1 L (42.0-52.0) % MCV 87.7 (80-100) fl MCH 28.5 (26-34) pg MCHC 32.5 (32-36) g/dl RDW 15.4 H (11.5-14.5) % Plt Count 320 (150-375) k/mm3 MPV 9.6 (7.4-10.4) fl Immature Gran % (Auto) 0.4 (0-0.5) % Neut % (Auto) 54.0 (45.5-73.1) % Lymph % (Auto) 35.2 (18.3-44.2) % [place] % (Auto) 8.0 (2.6-8.5) % Eos % (Auto) 2.0 (0-4.4) % Baso % (Auto) 0.4 (0.2-1.2) % Lymph # (Auto) 2.79 (0.9-3.2) K/mm3 [place] # (Auto) 0.6 (0.1-0.6) K/mm3 Eos # (Auto) 0.2 (0-0.3) K/mm3 Baso # (Auto) 0.0 (0.0-0.1) K/mm3 Abs Immat Gran (auto) 0.03 (0.00-0.031) K/mm3 Absolute Neuts (auto) 4.3 (1.3-6.7) K/mm3 Absolute Nucleated RBC 0.000 (0.0-0.012) K/mm3 Nucleated RBC % 0.0 (0.0-0.2) % PT 13.9 (11.1-14.7) Seconds INR 1.1 APTT 37.3 H (22.3-36.8) Seconds Sodium 134 L (137-145) mmol/L Potassium 2.7 L* (3.4-5.0) mmol/L Chloride 93 L (98-107) mmol/L Carbon Dioxide 34 H (22-30) mmol/L Anion Gap 7 (4-12) mmol/L BUN 13 (9-20) mg/dL Creatinine 0.60 L 0.70 L (0.7-1.3) mg/dL Estim Creat Clear Calc Not Reportable Not Reportable Estimated GFR > 60 > 60 (59 - ) Glucose 138 H (65-110) mg/dL Calcium 8.6 (8.4-10.2) mg/dL Magnesium 1.4 L (1.6-2.3) mg/dL Total Bilirubin 0.6 (0.2-1.3) mg/dL AST 44 (17-59) U/L ALT 35 (6-50) U/L Alkaline Phosphatase 158 H (38-126) U/L Troponin I 0.031 (0.000-0.034) ng/mL Total Protein 7.3 (6.3-8.2) g/dL Albumin 3.5 (3.5-5.1) g/dL Critical Care Time Critical Care Time Critical Care Time: Yes Total Critical Care Time: 31 Discharge Plan Discharge Clinical Impression: Acute alteration in mental status, Hypokalemia, Hypomagnesemia Patient Disposition: Still a Patient Condition: Stable Patient Language: Venezuelan Follow-up/Referrals: Onel,John Kirk DO [Primary Care Provider, Unknown]
--- NOTE | 2025-02-12 00:06 | PM.IMHP ---
H&P: HPI History of Present Illness Date/Time: 02/12/25 00:06 Chief Complaint: Suspected CVA Narrative: This is a 79-year-old male patient with a history of CVA with left-sided affect who currently resides at [facility]. 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 The patient presented to the emergency room after he was found to have altered mentation at the half-way. It was noted that the patient was foaming at the mouth. Patient's last normal was over 4 hours ago. The patient is answering some of the questions with the family members are helping him. The patient has no prior history of any seizure activity. He has been on a statin and aspirin for his previous stroke. According to the family members he has no new acute neurological symptoms. Head CT was read as no acute intracranial process. 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 CTA brain carotid was read as atherosclerotic calcifications without atheromatous changes involving the left carotid bifurcation. All 3 of his children are at the bedside. The patient is a modified code with no intubation. I had a long discussion with all through the children in the patient. I explained that there is a neurologist environmental economist [facility] who is aware of the patient. I explained to the family that the neurologist would not be available to evaluate the patient in person. We offered to transfer the patient to [facility] however the family members declined at this time. It was explained to the family that the patient is already on Eliquis and aspirin. The patient is outside the window and is not a candidate for anti thrombolytics. The ER physician also discussed this with the family members. The ER physician determine that the patient is not a candidate for tPA. His potassium level was 2.7 and he was given supplemental potassium in the emergency room. His magnesium level was 1.4 and was replaced in the emergency room. The patient is being admitted to observation status on medical tele on the date of service of 02/12/2025 Review of Systems Constitutional: Constitutional: Reports as per HPI and Reports no additional constitutional complaints Eyes: Eyes: Reports as per HPI and Reports no additional eye complaints ENT: Reports no additional ear, nose, mouth, and throat complaints and Reports Normal hearing present Cardiovascular: Cardiovascular: Reports no additional cardiovascular complaints Respiratory: Respiratory: Reports as per HPI and Reports no additional respiratory complaints Gastrointestinal: Gastrointestinal: Reports as per HPI and Reports no additional gastrointestinal complaints Musculoskeletal: Musculoskeletal: Reports no additional musculoskeletal complaints Integumentary/Breasts: Skin/Breast: Reports system reviewed and no additional complaints, except as docu Neurologic: Reports no additional neurologic complaints and Reports Normal hearing present Psychiatric: Psychiatric: Reports no additional psychiatric complaints and Reports as per HPI Hematologic/Lymphatic: Hematologic/Lymphatic: Reports no additional hematologic/lymphatic complaints Allergic/Immunologic: Allergic/Immunologic: Reports no additional allergic/immunologic complaints [facility] Past Medical History Medical History (Updated 02/12/25 @ 03:53 by Anna Ray APRN) CABG (coronary artery bypass graft) planned Depression Hemiplegia left side Hyperlipidemia Pressure ulcer HTN (hypertension) with goal to be determined Chronic GERD Congestive heart failure Implantable loop recorder present Pulmonary embolism DM2 (diabetes mellitus, type 2) CVA (cerebral vascular accident) Family History Family History Mother Congestive heart failure Sibling Hypertension Social History Social History (Updated 02/12/25 @ 03:55 by Anna Ray APRN) Social History: He resides that [facility] currently. 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 Code status: Modify no intubation. Smoking status: Never smoker Alcohol intake: never Substance use: never Lack of Transportation: No Lack of Food: Never True Current Housing: I Have Housing Concerned About Future Housing: No Difficulty Paying Gas/Electric Bills: No Difficulty Paying for Meds: No Currently Unemployed: No Education: High School Diploma/GED Difficulty w/ Childcare or Family Care: No Spiritual care concerns: No Meds Home Medications and Allergies Home Medications ?Medication ?Instructions ?Recorded ?Confirmed ?Type acetaminophen 500 mg capsule 1,000 mg PO TID PRN fever or pain 02/12/25 02/12/25 History apixaban 5 mg tablet (Eliquis) 5 mg PO BID 02/12/25 02/12/25 History arginine-vitamin C-vitamin E oral 4.5 g PO .WM 02/12/25 02/12/25 History 4.5 gram-156 mg/9.2 gram powder pkt (Arginaid) aspirin 81 mg tablet,delayed 81 mg PO DAILY 02/12/25 02/12/25 History release (Adult Aspirin Regimen) atorvastatin 80 mg tablet 80 mg PO QPM 02/12/25 02/12/25 History dapagliflozin propanediol 10 mg 10 mg PO DAILY 02/12/25 02/12/25 History tablet (Farxiga) eplerenone 25 mg tablet 25 mg PO DAILY 02/12/25 02/12/25 History gabapentin 300 mg capsule 300 mg PO TID 02/12/25 02/12/25 History lansoprazole 30 mg capsule,delayed 30 mg PO DAILY 02/12/25 02/12/25 History release lisinopril 20 mg tablet 20 mg PO DAILY 02/12/25 02/12/25 History metformin 500 mg tablet 500 mg PO DAILY 02/12/25 02/12/25 History metoprolol succinate 100 mg 100 mg PO DAILY 02/12/25 02/12/25 History tablet,extended release 24 hr midodrine 5 mg tablet 5 mg PO Q8H PRN LOW BP 02/12/25 02/12/25 History mirtazapine 15 mg tablet 15 mg PO HS 02/12/25 02/12/25 History modafinil 200 mg tablet 200 mg PO QAM 02/12/25 02/12/25 History silver sulfadiazine 1 % topical 1 applic topical DAILY 02/12/25 02/12/25 History cream tramadol 50 mg tablet 50 mg PO Q6H PRN pain 02/12/25 02/12/25 History Allergies Allergy/AdvReac Type Severity Reaction Status Date / Time Sulfa (Sulfonamide Allergy Unknown Unknown Verified 02/11/25 22:21 Antibiotics) Vital Signs Vital Signs - 24 hr 02/11/25 21:51 02/11/25 21:55 02/11/25 21:56 Temperature 98.3 F Pulse Rate 117 H 116 H 117 H Respiratory Rate 17 17 Blood Pressure 133/94 H 133/94 H Pulse Oximetry 94 95 Oxygen Delivery Room Air Exam Const: General: cooperative, comfortable, no acute distress, well developed, awake and Physically active Nutritional Appearance: underweight Orientation/consciousness: oriented to person and oriented to place HENMT: Head: normal to inspection, No palpable skull fracture present, normocephalic, atraumatic and abrasion Ears: hearing grossly normal bilaterally Eyes: General: appearance normal, both eyes and all related structures Alignment and Position: alignment normal Periorbital: periorbital findings normal Eyelids: eyelids normal Pupils: Equal, round and reactive pupils present and Pupil accommodation reflex normal EOM: EOMs intact bilaterally Neck: Neck: normal visual inspection, full ROM, no lymphadenopathy, trachea midline and supple Chest: Chest palpation & inspection: normal inspection of the chest Resp: Effort & Inspection: normal respiratory effort Auscultation: clear to auscultation bilaterally Cardio: Palpation: normal PMI Rate: regular rate Rhythm: regular rhythm Heart sounds: S1 normal heart sound present and S2 normal heart sound present Peripheral pulses: Peripheral pulses 2+ throughout GI: Inspection: normal to inspection Auscultation: normal bowel sounds Rectal Exam: deferred Back/Spine/Pelvis: Back: no CVA tenderness Cervical Spine: cervical ROM normal Thoracic/Lumbar Spine: thoracic and lumbar spine normal to inspection Pelvis: no pain with anterior-posterior compression Skin: General skin exam: normal color Lesions: no lesions Rashes: no rashes Trauma: no lacerations or abrasions Wounds: no wounds Hair: normal Nails: normal Other: Pressure ulcer noted to sacral area unstageable. No drainage noted Neuro: General: oriented to person, oriented to place, oriented to time and patient oriented x3 Cranial nerves: Yes Equal, round and reactive pupils present Speech: Abnormal speech present Motor exam (neuro): Abnormal muscle tone present (Left arm flaccid from previous CVA, left facial droop from previous CVA,) Other: Left lower extremity flaccid from previous CVA. Patient is forgetful at times. Patient has word searching at times. Extrem: General: normal to inspection Right upper extremity: normal to inspection and shoulder/upper arm Other: Left upper and left lower extremity flaccid from previous CVA Psych: Appearance: grossly normal Mental Status: mental status grossly normal Speech and movement: Normal speech and movement present Affect: normal affect Attitude: cooperative Thought process: Normal thought process present Thought content: Yes Normal thought content present H&P: Results Labs Labs: Short CBC 02/11/25 Range/Units 21:22 WBC 7.9 (4.5-10.0) K/mm3 Hgb 12.7 L (14.0-18.0) g/dL Hct 39.1 L (42.0-52.0) % Plt Count 320 (150-375) k/mm3 [facility] 02/11/25 02/11/25 21:22 21:23 Sodium 134 L Potassium 2.7 L* Chloride 93 L Carbon Dioxide 34 H BUN 13 Creatinine 0.60 L 0.70 L Glucose 138 H Calcium 8.6 Cardiac Enzymes 02/11/25 Range/Units 21:22 Troponin I 0.031 (0.000-0.034) ng/mL Liver Function 02/11/25 Range/Units 21:22 Total Bilirubin 0.6 (0.2-1.3) mg/dL AST 44 (17-59) U/L ALT 35 (6-50) U/L Alkaline Phosphatase 158 H (38-126) U/L Albumin 3.5 (3.5-5.1) g/dL Imaging CT scan - head: Radiologist's impression: Impressions Head CT 02/11/25 21:29 IMPRESSION: 1. No acute intracranial process. 2. 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 Assessment and Plan Assessment and plan (1) CVA (cerebral vascular accident): Code(s): I63.9 - Cerebral infarction, unspecified Status: Acute Assessment and Plan: -Head CT 02/11/25 21:29 IMPRESSION: 1. No acute intracranial process. 2. 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 -the ER physician and I had a long talk with the family members concerning possible transfer. It was explained to the family that the patient is outside the window for any tPA and does not fit criteria for tPA. The patient is contraindicated for tPA. We did offer transfer to [facility] at the patient's family wanted this. However the patient is already on current treatment for his most recent CVA. The patient has no new neurological symptoms. It was explained to the patient's family that Neurology is unavailable after tonight and would not be able to physically assess the patient our evaluate the patient at this facility at this time. After all of this has been explained to the family, they declined transfer to tertiary care. The ER physician had spoken with the neurologist who gave orders to start Keppra for possible seizure. The family is agreeable to further workup here and declined transfer to tertiary care at this time. -he has flaccid left upper lower extremity with a left facial droop. The family stated this is his baseline with no new neurological symptoms. -he is on aspirin, atorvastatin, and Eliquis -MRI of the brain, ultrasound carotid Dopplers, and echo have been ordered. -eeg (2) Acute alteration in mental status: Code(s): R41.82 - Altered mental status, unspecified Status: Acute Assessment and Plan: -the ER physician did talk to the neurologist environmental economist tonight it is felt that the patient may have had a seizure. However family members are agreeable to further workup in the hospital and they are aware that the neurologist not available to evaluate the patient. -the ER physician spoke with the neurologist who agreed to start the patient on Keppra. (3) Hemiplegia: Code(s): G81.90 - Hemiplegia, unspecified affecting unspecified side Status: Acute Assessment and Plan: -according the family members this is from her his previous stroke -PT OT evaluation greatly appreciated. (4) Hypomagnesemia: Code(s): E83.42 - Hypomagnesemia Status: Acute Assessment and Plan: -his magnesium level was 1.4 and it has been replaced. -the goal is to keep the magnesium level above 2 -repeat magnesium level this a.m.. (5) DM2 (diabetes mellitus, type 2): Code(s): E11.9 - Type 2 diabetes mellitus without complications Status: Acute Assessment and Plan: -metformin is on hold at this time due CT dye -Accu-Cheks AC and HS with sliding scale insulin. -check A1c -his glucose is 138 on his chemistry. (6) Pulmonary embolism: Code(s): I26.99 - Other pulmonary embolism without acute cor pulmonale Status: Acute Assessment and Plan: -continue with Eliquis and aspirin (7) Hyperlipidemia: Code(s): E78.5 - Hyperlipidemia, unspecified Status: Acute Assessment and Plan: -continue with statin and monitor liver function (8) Congestive heart failure: Code(s): I50.9 - Heart failure, unspecified Status: Acute Assessment and Plan: -continue with Eplerenone and Farxiga -continue metoprolol lisinopril -echo ordered (9) HTN (hypertension) with goal to be determined: Code(s): I10 - Essential (primary) hypertension Status: Acute Assessment and Plan: Continue with metoprolol and lisinopril (10) Depression: Code(s): F32.A - Depression, unspecified Status: Acute Assessment and Plan: -continue with current treatment (11) Pressure ulcer: Code(s): L89.90 - Pressure ulcer of unspecified site, unspecified stage Status: Acute Assessment and Plan: -wound care consult greatly be appreciated. -may consider specialty mattress. -may consider dietary consult for healing process (12) Hypokalemia: Code(s): E87.6 - Hypokalemia Status: Acute Assessment and Plan: -potassium was 2.7 and has been replaced in the emergency room. -daily BMP Quality VTE Prophylaxis VTE prophylaxis: pharmacologic ordered
--- NOTE | 2025-02-12 00:32 | ADMGEN ---
This patient, Pillo Danielle, was admitted to Medical Room 341-01. Patient/family oriented to hospital policies and general routines including ID bracelet, bed and alarms, visiting hours, pain management, procedures, bathroom and other care routines, personal items, smoking policy, room service/diet, and visiting hours. Information on how to activate the Rapid Response Team has been discussed. Patient/Family are encouraged to report perceived risks to care and to ask questions if they do not understand what they are told or what they should do.
--- NOTE | 2025-02-12 00:45 | WNDPHOTO ---
PHOTO ONLY - See Nursing Notes and/ or assessments for documentation.
[2025-02-12] MEDS: levETIRAcetam 1500MG/NACL100ML 1,500 MG/100 ML BAG 400 MG IVPB (02:10)
[2025-02-12] MEDS: MAGNESIUM SULF 2 GM/WATER 50ML 2 GM/50 ML BAG IVPB (02:48)
[2025-02-12] MEDS: traMADol HCL (*CRX) 50 MG TABLET PO ×3 (04:53→15:11)
[2025-02-12 05:55] LABS: Hematocrit 36.7 % (42.0-52.0); Hemoglobin 12.0 g/dL (14.0-18.0); Immature Granulocyte Percent A 0.4 % (0-0.5); Lymphocytes Absolute Auto 2.15 K/mm3 (0.9-3.2); Mean Corpuscular HGB Conc 32.7 g/dl (32-36); Mean Corpuscular Hemoglobin 29.0 pg (26-34); Mean Corpuscular Volume 88.6 fl (80-100); Nucleated Red Blood Cells Absolute Auto 0.000 K/mm3 (0.0-0.012); Nucleated Red Blood Cells Perc 0.0 % (0.0-0.2); Platelet Count Result 326 k/mm3 (150-375); Red Blood Count 4.14 M/mm3 (4.6-6.20); White Blood Count 8.9 K/mm3 (4.5-10.0)
[2025-02-12 06:09] LABS: Anion Gap 3 mmol/L (4-12); Blood Urea Nitrogen 10 mg/dL (9-20); Calcium 8.3 mg/dL (8.4-10.2); Carbon Dioxide 37 mmol/L (22-30); Chloride 95 mmol/L (98-107); Estimated CRCL calculation 114 ml/min; Estimated Glomerular Filt Rate > 60; Glucose 91 mg/dL (65-110); Magnesium 1.8 mg/dL (1.6-2.3); Potassium 2.9 mmol/L (3.4-5.0); Sodium 135 mmol/L (137-145)
--- NOTE | 2025-02-12 06:40 | PC.NURSE ---
LATE ENTRY This note is being entered to document information to the patient's record. The following information was omitted on 02/12/25 by Cortney HIGH. Pt family stated concerns about using IV due to pt blood clot in the left arm and weakness with right due to past stroke. EDP aware of these concerns. EDP ok to use current IV line. This RN started potassium due to pt having a critical lab value. EDP wanting having potassium run first.
[2025-02-12 06:59] LABS: Hemoglobin A1C 5.4 % (<5.7)
[2025-02-12] MEDS: GABAPENTIN 300 MG CAPSULE PO ×3 (08:26→17:34)
[2025-02-12] MEDS: EMPAGLIFLOZIN 25 MG TABLET BY MOUTH (08:27)
[2025-02-12] MEDS: APIXABAN 5 MG TABLET PO ×2 (08:27→20:53)
[2025-02-12] MEDS: METOPROLOL SUCCINATE EXT REL 100 MG TABCR PO (08:27)
[2025-02-12] MEDS: ASPIRIN 81 MG ENTERIC TABLET PO (08:27)
[2025-02-12] MEDS: PANTOPRAZOLE 40 MG TABLET PO (08:27)
[2025-02-12] MEDS: modafiniL (*CRX) 200 MG TABLET PO (08:39)
[2025-02-12] MEDS: PERFLUTREN LIPID MICROSPHERES 1.5 ML VIAL DILUTED TO 10 ML TOTAL VOLUME IV PUSH (09:40)
[2025-02-12] MEDS: SILVER SULFADIAZINE 1% CR 400 GM JAR (*BKC) 1 APPLIC TOPICAL (10:30)
[2025-02-12] MEDS: POTASSIUM CHLORIDE INJ 40 MEQ in SODIUM CHLORIDE 0.9% IV 500 ML 130 MEQ IVPB (10:30)
--- NOTE | 2025-02-12 10:43 | IVDEFINITY ---
Prior to administration of IV Definity the patient was educated on the risks and benefits of the imaging enhancing agent including potential adverse side effects. The patient verbalized understanding. Allergies were verified. No exclusion criteria were identified and at least one of the following inclusion criteria were met: 1) physician request, 2) patient technically difficult to image (per the [place] [employer] guidelines of two or more segments not discernable within the apical view), or 3) questionable left ventricular function. ?
--- NOTE | 2025-02-12 13:42 | PCPTNOTE ---
Pt is a tanya lift/wheelchair at baseline. Pt is a long term in a half-way. No physical therapy needs noted at this time.
--- NOTE | 2025-02-12 14:42 | PCOTNOTE ---
Spoke with pt and daughter. Pt [place] a [place] resident at [facility] since September and has been using a tanya lift for transfers with assist for ADLs. Pt is currently at his functional baseline at this time and has no skilled acute OT needs. Will d/c order.
[2025-02-12 16:48] LABS: Anion Gap 2 mmol/L (4-12); Blood Urea Nitrogen 10 mg/dL (9-20); Calcium 8.3 mg/dL (8.4-10.2); Carbon Dioxide 36 mmol/L (22-30); Chloride 96 mmol/L (98-107); Estimated CRCL calculation 103 ml/min; Estimated Glomerular Filt Rate > 60; Glucose 121 mg/dL (65-110); Magnesium 1.8 mg/dL (1.6-2.3); Potassium 3.5 mmol/L (3.4-5.0); Sodium 134 mmol/L (137-145)
[2025-02-12] MEDS: ATORVASTATIN 40 MG TABLET 80 MG PO (17:34)
[2025-02-12] MEDS: MIRTAZAPINE 15 MG TABLET PO (20:53)
[2025-02-13] VITALS (11 sets, daily range): BP systolic 109–130; BP diastolic 55–70; PULSE 59–71; RESP 14–20; TEMP 36.6–37.1; O2SAT 96–100
[2025-02-13 05:59] LABS: Hematocrit 38.3 % (42.0-52.0); Hemoglobin 12.1 g/dL (14.0-18.0); Immature Granulocyte Percent A 0.3 % (0-0.5); Lymphocytes Absolute Auto 2.35 K/mm3 (0.9-3.2); Mean Corpuscular HGB Conc 31.6 g/dl (32-36); Mean Corpuscular Hemoglobin 28.3 pg (26-34); Mean Corpuscular Volume 89.7 fl (80-100); Nucleated Red Blood Cells Absolute Auto 0.000 K/mm3 (0.0-0.012); Nucleated Red Blood Cells Perc 0.0 % (0.0-0.2); Platelet Count Result 308 k/mm3 (150-375); Red Blood Count 4.27 M/mm3 (4.6-6.20); White Blood Count 7.2 K/mm3 (4.5-10.0)
[2025-02-13 06:17] LABS: Anion Gap 2 mmol/L (4-12); Blood Urea Nitrogen 10 mg/dL (9-20); Calcium 8.7 mg/dL (8.4-10.2); Carbon Dioxide 35 mmol/L (22-30); Chloride 99 mmol/L (98-107); Estimated CRCL calculation 97 ml/min; Estimated Glomerular Filt Rate > 60; Glucose 70 mg/dL (65-110); Potassium 3.5 mmol/L (3.4-5.0); Sodium 136 mmol/L (137-145)
[2025-02-13] MEDS: ASPIRIN 81 MG ENTERIC TABLET PO (08:45)
[2025-02-13] MEDS: EMPAGLIFLOZIN 25 MG TABLET BY MOUTH (08:45)
[2025-02-13] MEDS: APIXABAN 5 MG TABLET PO (08:45)
[2025-02-13] MEDS: GABAPENTIN 300 MG CAPSULE PO ×2 (08:45→12:56)
[2025-02-13] MEDS: modafiniL (*CRX) 200 MG TABLET PO (08:45)
[2025-02-13] MEDS: PANTOPRAZOLE 40 MG TABLET PO (08:45)
[2025-02-13] MEDS: METOPROLOL SUCCINATE EXT REL 100 MG TABCR PO (08:45)
--- NOTE | 2025-02-13 12:57 | PCSTNOTE ---
Please refer to the Bedside Swallow Evaluation in the EMR. Please note, silent aspiration cannot be ruled out at bedside.
--- NOTE | 2025-02-13 13:10 | PM.IMPN ---
Progress Note: A&P Assessment and Plan (1) Acute alteration in mental status: Code(s): R41.82 - Altered mental status, unspecified Status: Acute Plan Altered mental status now resolved. No evidence of CVA on CT brain. Pending MRI, could not have a completed on 02/12/2025 due to the patient fidgeting too much. Nursing staff report will try again. Neurology back on Saturday02/15/2025. Continue Keppra for possible seizure. EEG procedure has been completed, awaiting neurology interpretation. He is at his baseline left facial droop, left-sided paralysis. Continue [employer] aspirin atorvastatin and Eliquis. Hypo magnesemia resolved status post replacement. Daily labs. Accu-Cheks a.c. HS. Wound care consulted. Patient did not do well with liquids. I spoke with the speech pathologist. Planning for barium swallow on 02/15/2025, for now he will be on thin liquids. Full code. Pending MRI. Pending EEG interpretation and Neurology consultation. Aspiration and fall precautions. Time Spent With Patient Time with patient: Greater than 35 minutes Subjective Date/time seen: 02/13/25 13:10 Interval history: Patient unable to obtain MRI yesterday because he was fidgeting too much. Patient denies any complaints today. He reports chronic swelling of his left upper extremity after the stroke. Review of Systems Review of Systems: All systems reviewed & are unremarkable except as noted in HPI and below (Subjective) Exam Const: General: comfortable and no acute distress Other: A&O x3, dysarthria HENMT: Mouth: Yes moist mucous membranes Eyes: Pupils: Equal, round and reactive pupils present Neck: Neck: supple Resp: Effort & Inspection: normal respiratory effort Auscultation: clear to auscultation bilaterally Cardio: Rate: regular rate Rhythm: regular rhythm GI: GI Palp: Yes Soft to palpation Extrem: General: no edema Objective Data Vital Signs Vital Signs: Vital Signs - 24 hr 02/12/25 14:00 02/12/25 14:00 02/12/25 16:00 Temperature 98.4 F Pulse Rate 70 70 Respiratory Rate 100 H Blood Pressure 105/46 L Pulse Oximetry 97 70 L Oxygen Delivery Room Air 02/12/25 21:00 02/12/25 21:00 02/12/25 21:00 Temperature 97.8 F Pulse Rate 56 L 70 Respiratory Rate 16 Blood Pressure 118/50 L Pulse Oximetry 98 Oxygen Delivery Room Air 02/13/25 00:00 02/13/25 04:00 02/13/25 04:12 Temperature 97.8 F Pulse Rate 59 L 62 69 Respiratory Rate 14 Blood Pressure 130/64 Pulse Oximetry 100 Oxygen Delivery 02/13/25 08:00 02/13/25 08:45 Temperature Pulse Rate 69 Respiratory Rate Blood Pressure Pulse Oximetry Oxygen Delivery Room Air Intake/Output Intake/Output: Intake & Output 02/10/25 02/11/25 02/12/25 02/13/25 23:59 23:59 23:59 23:59 Intake Total 1015.2 1670 220 Output Total 1000 900 Balance 1015.2 670 -680 Meds/Results Medications: Active Medications Generic Name Dose Route Start Last Admin Trade Name Freq PRN Reason Stop Dose Admin Acetaminophen 1,000 mg 02/12/25 03:49 Acetaminophen 500 Mg Tablet PO TID PRN fever or pain 1-3 Apixaban 5 mg 02/12/25 09:00 02/13/25 08:45 Apixaban 5 Mg Tablet PO 5 mg Q12HR ELISA Administration Aspirin 81 mg 02/12/25 09:00 02/13/25 08:45 Aspirin 81 Mg Enteric Tablet PO 81 mg DAILY ELISA Administration Atorvastatin Calcium 80 mg 02/12/25 18:00 02/12/25 17:34 Atorvastatin 40 Mg Tablet PO 80 mg QPM ELISA Administration Dextrose 12.5 gm 02/12/25 03:52 Dextrose 50% 25 Gm/50 Ml Syringe IV PUSH PRN PRN Hypoglycemia Protocol Empagliflozin 25 mg 02/12/25 09:00 02/13/25 08:45 Empagliflozin 25 Mg Tablet BY MOUTH 25 mg DAILY ELISA Administration Gabapentin 300 mg 02/12/25 09:00 02/13/25 12:56 Gabapentin 300 Mg Capsule PO 300 mg TID ELISA Administration Glucagon 1 mg 02/12/25 03:52 Glucagon For Inj 1 Mg Vial IM PRN PRN Hypoglycemia Protocol Glucose 15 gm 02/12/25 03:52 Glucose Oral Gel 15 Gm Of Glucse In 37.5 Gm Tube PO PRN PRN Hypoglycemia Protocol Dextrose 1,000 mls @ 100 mls/hr 02/12/25 03:52 Dextrose 5% 1,000 Ml IVPB PRN PRN Hypoglycemia Protocol Insulin Aspart 1 - 2 units 02/12/25 21:00 02/12/25 20:53 Insulin Aspart (*Bkc) 100 Units/Ml SUB-Q Not Given HS [facility] Protocol Insulin Aspart 2 - 5 units 02/12/25 08:00 02/13/25 12:55 Insulin Aspart (*Bkc) 100 Units/Ml SUB-Q Not Given TIDWM [facility] Protocol Lisinopril 20 mg 02/12/25 09:00 02/13/25 08:45 Lisinopril 20 Mg Tablet PO 20 mg DAILY ELISA Administration Metoprolol Succinate 100 mg 02/12/25 09:00 02/13/25 08:45 Metoprolol Succinate Ext Rel 100 Mg Tabcr PO 100 mg DAILY [facility] Administration Midodrine 5 mg 02/12/25 03:39 Midodrine Hcl 2.5 Mg Tablet PO Q8H PRN LOW BP Mirtazapine 15 mg 02/12/25 21:00 02/12/25 20:53 Mirtazapine 15 Mg Tablet PO 15 mg HS [facility] Administration Modafinil 200 mg 02/12/25 09:00 02/13/25 08:45 Modafinil (*Crx) 200 Mg Tablet PO 200 mg QAM [facility] Administration Non-Formulary Medication 25 mg 02/12/25 09:00 Eplerenone PO 03/14/25 08:59 DAILY [facility] Pantoprazole Sodium 40 mg 02/12/25 09:00 02/13/25 08:45 Pantoprazole 40 Mg Tablet PO 40 mg QAM [facility] Administration Silver Sulfadiazine 1 applic 02/12/25 09:00 02/12/25 10:30 Silver Sulfadiazine 1% Cr 400 Gm Jar (*Bkc) TOPICAL 1 applic DAILY [facility] Administration Tramadol HCl 50 mg 02/12/25 03:46 02/12/25 15:11 Tramadol Hcl (*Crx) 50 Mg Tablet PO 50 mg Q6H PRN Administration Pain Rated 4-6 Radiology Results: ITS Impressions Head CT 02/11/25 21:29 IMPRESSION: 1. No acute intracranial process. 2. 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 Chest X-Ray 02/12/25 06:03 IMPRESSION: 1. No acute cardiopulmonary findings given portable technique. Head/Neck CTA 02/12/25 06:45 IMPRESSION: CTA NECK: 1. No acute findings. CTA HEAD: 1. No acute findings. Carotid Doppler Study 02/12/25 10:44 IMPRESSION: 1. No hemodynamically significant ICA stenosis (i.e., if any stenosis, less than 50%). 2. Normal bilateral antegrade vertebral artery flow. Stenosis measured by Society of Radiologists in Ultrasound (SRU) criteria. Labs Labs: Laboratory Results - last 24 hr 02/11/25 02/12/25 02/12/25 21:04 16:22 17:18 WBC RBC Hgb Hct MCV MCH MCHC RDW Plt Count MPV Immature Gran % (Auto) Neut % (Auto) Lymph % (Auto) Whitman % (Auto) Eos % (Auto) Baso % (Auto) Lymph # (Auto) Whitman # (Auto) Eos # (Auto) Baso # (Auto) Abs Immat Gran (auto) Absolute Neuts (auto) Absolute Nucleated RBC Nucleated RBC % Sodium 134 L Potassium 3.5 Chloride 96 L Carbon Dioxide 36 H Anion Gap 2 L BUN 10 Creatinine 0.55 L Estim Creat Clear Calc 103 Estimated GFR > 60 Glucose 121 H POC Capillary Glucose 137 H 130 H Calcium 8.3 L Magnesium 1.8 02/12/25 02/13/25 02/13/25 20:51 05:20 08:11 WBC 7.2 RBC 4.27 L Hgb 12.1 L Hct 38.3 L MCV 89.7 MCH 28.3 MCHC 31.6 L RDW 15.9 H Plt Count 308 MPV 10.0 Immature Gran % (Auto) 0.3 Neut % (Auto) 51.3 Lymph % (Auto) 32.8 Whitman % (Auto) 10.9 H Eos % (Auto) 4.0 Baso % (Auto) 0.7 Lymph # (Auto) 2.35 Whitman # (Auto) 0.8 H Eos # (Auto) 0.3 Baso # (Auto) 0.1 Abs Immat Gran (auto) 0.02 Absolute Neuts (auto) 3.7 Absolute Nucleated RBC 0.000 Nucleated RBC % 0.0 Sodium 136 L Potassium 3.5 Chloride 99 Carbon Dioxide 35 H Anion Gap 2 L BUN 10 Creatinine 0.59 L Estim Creat Clear Calc 97 Estimated GFR > 60 Glucose 70 POC Capillary Glucose 81 85 Calcium 8.7 Magnesium 02/13/25 12:18 WBC RBC Hgb Hct MCV MCH MCHC RDW Plt Count MPV Immature Gran % (Auto) Neut % (Auto) Lymph % (Auto) Whitman % (Auto) Eos % (Auto) Baso % (Auto) Lymph # (Auto) Whitman # (Auto) Eos # (Auto) Baso # (Auto) Abs Immat Gran (auto) Absolute Neuts (auto) Absolute Nucleated RBC Nucleated RBC % Sodium Potassium Chloride Carbon Dioxide Anion Gap BUN Creatinine Estim Creat Clear Calc Estimated GFR Glucose POC Capillary Glucose 96 Calcium Magnesium
[2025-02-13 20:31] LABS: Hematocrit 38.2 % (42.0-52.0); Hemoglobin 12.1 g/dL (14.0-18.0); Immature Granulocyte Percent A 0.5 % (0-0.5); Lymphocytes Absolute Auto 2.17 K/mm3 (0.9-3.2); Mean Corpuscular HGB Conc 31.7 g/dl (32-36); Mean Corpuscular Hemoglobin 28.5 pg (26-34); Mean Corpuscular Volume 90.1 fl (80-100); Nucleated Red Blood Cells Absolute Auto 0.000 K/mm3 (0.0-0.012); Nucleated Red Blood Cells Perc 0.0 % (0.0-0.2); Platelet Count Result 299 k/mm3 (150-375); Red Blood Count 4.24 M/mm3 (4.6-6.20); White Blood Count 8.0 K/mm3 (4.5-10.0)
[2025-02-13 21:06] LABS: Anion Gap 1 mmol/L (4-12); Blood Urea Nitrogen 14 mg/dL (9-20); Calcium 8.7 mg/dL (8.4-10.2); Carbon Dioxide 37 mmol/L (22-30); Chloride 97 mmol/L (98-107); Estimated CRCL calculation 86 ml/min; Estimated Glomerular Filt Rate > 60; Glucose 94 mg/dL (65-110); Potassium 3.7 mmol/L (3.4-5.0); Sodium 135 mmol/L (137-145)
[2025-02-13] MEDS: levETIRAcetam 500MG/NACL 100ML 500 MG/100 ML BAG 400 MG IVPB (21:33)
[2025-02-13] MEDS: LIDOCAINE 2% VISC SOLN 30 ML, ALUMINUM/MAGNESIUM/SIMETH SUSP 30 ML, diphenhydrAMINE HCl... PO (21:39)
[2025-02-14] VITALS (10 sets, daily range): BP systolic 102–138; BP diastolic 64–73; PULSE 59–75; RESP 18–20; TEMP 36.3–36.9; O2SAT 98–100
--- NOTE | 2025-02-14 05:49 | PCRCNOTE ---
pt refused ABG RN is aware
[2025-02-14 05:56] LABS: Hematocrit 39.5 % (42.0-52.0); Hemoglobin 12.5 g/dL (14.0-18.0); Immature Granulocyte Percent A 0.2 % (0-0.5); Lymphocytes Absolute Auto 2.22 K/mm3 (0.9-3.2); Mean Corpuscular HGB Conc 31.6 g/dl (32-36); Mean Corpuscular Hemoglobin 28.5 pg (26-34); Mean Corpuscular Volume 90.2 fl (80-100); Nucleated Red Blood Cells Absolute Auto 0.000 K/mm3 (0.0-0.012); Nucleated Red Blood Cells Perc 0.0 % (0.0-0.2); Platelet Count Result 299 k/mm3 (150-375); Red Blood Count 4.38 M/mm3 (4.6-6.20); White Blood Count 8.6 K/mm3 (4.5-10.0)
[2025-02-14 06:55] LABS: Anion Gap 3 mmol/L (4-12); Blood Urea Nitrogen 13 mg/dL (9-20); Calcium 8.6 mg/dL (8.4-10.2); Carbon Dioxide 34 mmol/L (22-30); Chloride 99 mmol/L (98-107); Estimated CRCL calculation 95 ml/min; Estimated Glomerular Filt Rate > 60; Glucose 82 mg/dL (65-110); Magnesium 1.8 mg/dL (1.6-2.3); Potassium 3.5 mmol/L (3.4-5.0); Sodium 136 mmol/L (137-145)
--- NOTE | 2025-02-14 08:21 | P.PNIM_ITS ---
Progress Note: A&P Assessment and Plan (1) Acute alteration in mental status: Code(s): R41.82 - Altered mental status, unspecified Status: Acute Assessment and Plan: * Altered mental status now resolved. No evidence of CVA on CT brain. * Pending MRI, could not have a completed on 02/12/2025 due to the patient fidgeting too much. Nursing staff report will try again. * Neurology back on Saturday02/15/2025 for consult * Continue Keppra for possible seizure. * EEG procedure has been completed - awaiting neurology interpretation. (2) Hemiplegia: Code(s): G81.90 - Hemiplegia, unspecified affecting unspecified side Status: Acute Assessment and Plan: * according the family members this is from her his previous stroke * PT OT evaluation greatly appreciated. (3) Dysphagia: Code(s): R13.10 - Dysphagia, unspecified Status: Acute Assessment and Plan: * Speech therapy consulted regarding aspiration risk * Noted coughing and choking episode * Puree diet started on 02/[address] recommendations * Barium swallow study ordered - planned for Saturday (4) Hypomagnesemia: Code(s): E83.42 - Hypomagnesemia Status: Acute Assessment and Plan: * his magnesium level was 1.4 and it has been replaced. * the goal is to keep the magnesium level above 2 * 02/14: 1.8 (5) DM2 (diabetes mellitus, type 2): Code(s): E11.9 - Type 2 diabetes mellitus without complications Status: Acute Assessment and Plan: * metformin is on hold at this time due CT dye * Accu-Cheks AC and HS with sliding scale insulin. * check A1c 5.4 * 02/14: 82 (6) Pressure ulcer: Code(s): L89.90 - Pressure ulcer of unspecified site, unspecified stage Status: Acute Assessment and Plan: * wound care consult greatly be appreciated. * may consider specialty mattress. * may consider dietary consult for healing process (7) Hypokalemia: Code(s): E87.6 - Hypokalemia Status: Acute Assessment and Plan: * potassium was 2.7 and has been replaced in the emergency room. * daily BMP (8) Pulmonary embolism: Code(s): I26.99 - Other pulmonary embolism without acute cor pulmonale Status: Acute Assessment and Plan: * continue with Eliquis and aspirin (9) Congestive heart failure: Code(s): I50.9 - Heart failure, unspecified Status: Acute Assessment and Plan: * continue with Eplerenone and Farxiga * continue metoprolol lisinopril * echo ordered Plan Patient did not do well with liquids. I spoke with the speech pathologist. Planning for barium swallow on 02/15/2025, for now he will be on thin liquids. Subjective Date/time seen: 02/14/25 08:21 Interval history: 79-year-old male patient with a history of CVA with left-sided affect who currently resides at [facility]. 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 The patient presented to the emergency room after he was found to have altered mentation at the intermediate. 02/14/2025 Patient sitting comfortably in bed at time of exam. Denies any chest pain, shortness of breath, n/v at this time. MRI pending, EEG taken but results are pending. Neurology back on Saturday and will assess for possible seizure like activity. Puree diet started 02/14 lunchtime. Barium swallow to be performed tomorrow. Pt otherwise has no concerns at this time. Review of Systems Review of Systems: All systems reviewed & are unremarkable except as noted in HPI and below (Subjective) Constitutional: Constitutional: Reports as per HPI and Reports no additional constitutional complaints Eyes: Eyes: Reports as per HPI and Reports no additional eye complaints ENT: Reports system reviewed and no additional complaints, except as documented and Reports Normal hearing present Cardiovascular: Cardiovascular: Reports no additional cardiovascular complaints Respiratory: Respiratory: Reports as per HPI and Reports no additional respiratory complaints Gastrointestinal: Gastrointestinal: Reports as per HPI and Reports no additional gastrointestinal complaints Musculoskeletal: Musculoskeletal: Reports no additional musculoskeletal complaints Integumentary/Breasts: Skin/Breast: Reports system reviewed and no additional complaints, except as docu Neurologic: Reports system reviewed and no additional complaints, except as documented, Reports Normal hearing present and Reports Abnormal speech present Psychiatric: Psychiatric: Reports no additional psychiatric complaints and Reports as per HPI Hematologic/Lymphatic: Hematologic/Lymphatic: Reports no additional hematologic/lymphatic complaints Allergic/Immunologic: Allergic/Immunologic: Reports no additional allergic/immunologic complaints Exam Const: General: cooperative, comfortable, no acute distress, well developed, awake, Physically active and underweight Nutritional Appearance: underweight Orientation/consciousness: oriented to person, oriented to place, oriented to time and patient oriented x3 Other: A&O x3, dysarthria HENMT: Head: normal to inspection, No palpable skull fracture present, normocephalic, atraumatic and abrasion Ears: hearing grossly normal bilaterally Mouth: Yes moist mucous membranes Eyes: General: appearance normal, both eyes and all related structures Alignment and Position: alignment normal Periorbital: periorbital findings normal Eyelids: eyelids normal Pupils: Equal, round and reactive pupils present and Pupil accommodation reflex normal EOM: EOMs intact bilaterally Neck: Neck: normal visual inspection, full ROM, no lymphadenopathy, trachea midline and supple Chest: Chest palpation & inspection: normal inspection of the chest Resp: Effort & Inspection: normal respiratory effort Auscultation: clear to auscultation bilaterally Cardio: Palpation: normal PMI Rate: regular rate Rhythm: regular rhythm Heart sounds: S1 normal heart sound present and S2 normal heart sound present Peripheral pulses: Peripheral pulses 2+ throughout GI: Inspection: normal to inspection Auscultation: normal bowel sounds Rectal Exam: deferred : General: Yes no CVA tenderness Back/Spine/Pelvis: Back: no CVA tenderness Cervical Spine: cervical ROM normal Thoracic/Lumbar Spine: thoracic and lumbar spine normal to inspection Pelvis: no pain with anterior-posterior compression Skin: General skin exam: normal color Lesions: no lesions Rashes: no rashes Trauma: no lacerations or abrasions Wounds: no wounds Hair: normal Nails: normal Other: Pressure ulcer noted to sacral area unstageable. 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 Patient is forgetful at times. Patient has word searching at times. Extrem: General: normal to inspection and no edema Right upper extremity: normal to inspection and shoulder/upper arm Other: Left upper and left lower extremity flaccid from previous CVA Psych: Appearance: grossly normal Mental Status: mental status grossly normal Speech and movement: Normal speech and movement present Affect: normal affect Attitude: cooperative Thought process: Normal thought process present Objective Data Vital Signs Vital Signs: Vital Signs - 24 hr 02/13/25 08:45 02/13/25 12:00 02/13/25 14:00 Temperature 98.3 F Pulse Rate 69 71 66 Respiratory Rate 20 Blood Pressure 109/55 L Pulse Oximetry 98 Oxygen Delivery Fraction of Inspired Oxygen 02/13/25 16:00 02/13/25 20:00 02/13/25 20:00 Temperature Pulse Rate 62 68 Respiratory Rate Blood Pressure Pulse Oximetry Oxygen Delivery Room Air Fraction of Inspired Oxygen 02/13/25 20:52 02/13/25 21:09 02/14/25 00:00 Temperature 98.8 F Pulse Rate 63 61 59 L Respiratory Rate 20 16 Blood Pressure 128/70 Pulse Oximetry 96 99 Oxygen Delivery Room Air Fraction of Inspired Oxygen 21 02/14/25 04:00 02/14/25 06:00 Temperature 97.4 F L Pulse Rate 63 66 Respiratory Rate 18 Blood Pressure 132/73 Pulse Oximetry 100 Oxygen Delivery Fraction of Inspired Oxygen Intake/Output Intake/Output: Intake & Output 02/11/25 02/12/25 02/13/25 02/14/25 23:59 23:59 23:59 23:59 Intake Total 1015.2 1670 1040 240 Output Total 1000 1700 800 Balance 1015.2 099 -425 -581 Meds/Results Medications: Active Medications Generic Name Dose Route Start Last Admin Trade Name Freq PRN Reason Stop Dose Admin Acetaminophen 1,000 mg 02/12/25 03:49 Acetaminophen 500 Mg Tablet PO On Hold: 02/13/25 18:49 TID PRN fever or pain 1-3 Apixaban 5 mg 02/12/25 09:00 02/13/25 08:45 Apixaban 5 Mg Tablet PO 5 mg On Hold: 02/13/25 18:49 Q12HR ELISA Administration Aspirin 81 mg 02/12/25 09:00 02/13/25 08:45 Aspirin 81 Mg Enteric Tablet PO 81 mg On Hold: 02/13/25 18:49 DAILY ELISA Administration Atorvastatin Calcium 80 mg 02/12/25 18:00 02/13/25 18:31 Atorvastatin 40 Mg Tablet PO Not Given On Hold: 02/13/25 18:49 QPM ELISA Lidocaine HCl 30 ml/ Al Hydrox 0 ml 02/13/25 21:00 02/14/25 07:36 /Mg Hydrox/Simethicone 30 ml/ PO Not Given Diphenhydramine HCl 75 mg Q4HWA [facility] Dextrose 12.5 gm 02/12/25 03:52 Dextrose 50% 25 Gm/50 Ml Syringe IV PUSH PRN PRN Hypoglycemia Protocol Empagliflozin 25 mg 02/12/25 09:00 02/13/25 08:45 Empagliflozin 25 Mg Tablet BY MOUTH 25 mg On Hold: 02/13/25 18:50 DAILY ELISA Administration Gabapentin 300 mg 02/12/25 09:00 02/13/25 18:31 Gabapentin 300 Mg Capsule PO Not Given On Hold: 02/13/25 18:50 TID ELIAS Glucagon 1 mg 02/12/25 03:52 Glucagon For Inj 1 Mg Vial IM PRN PRN Hypoglycemia Protocol Glucose 15 gm 02/12/25 03:52 Glucose Oral Gel 15 Gm Of Glucse In 37.5 Gm Tube PO PRN PRN Hypoglycemia Protocol Dextrose 1,000 mls @ 100 mls/hr 02/12/25 03:52 Dextrose 5% 1,000 Ml IVPB PRN PRN Hypoglycemia Protocol Levetiracetam 500 mg in 100 mls @ 400 mls/hr 02/13/25 21:00 02/13/25 21:50 Keppra Iv IVPB Infused Q12HR ELISA Infusion Insulin Aspart 1 - 2 units 02/12/25 21:00 02/13/25 20:14 Insulin Aspart (*Bkc) 100 Units/Ml SUB-Q Not Given HS [facility] Protocol Insulin Aspart 2 - 5 units 02/12/25 08:00 02/13/25 17:31 Insulin Aspart (*Bkc) 100 Units/Ml SUB-Q Not Given TIDWM [facility] Protocol Levetiracetam 250 mg/ 750 mg 02/13/25 21:00 Levetiracetam 500 mg PO On Hold: 02/13/25 21:00 Q12HR [facility] Lisinopril 20 mg 02/12/25 09:00 02/13/25 08:45 Lisinopril 20 Mg Tablet PO 20 mg On Hold: 02/13/25 18:50 DAILY ELISA Administration Metoprolol Succinate 100 mg 02/12/25 09:00 02/13/25 08:45 Metoprolol Succinate Ext Rel 100 Mg Tabcr PO 100 mg On Hold: 02/13/25 18:50 DAILY ELISA Administration Midodrine 5 mg 02/12/25 03:39 Midodrine Hcl 2.5 Mg Tablet PO On Hold: 02/13/25 18:51 Q8H PRN LOW BP Mirtazapine 15 mg 02/12/25 21:00 02/12/25 20:53 Mirtazapine 15 Mg Tablet PO 15 mg On Hold: 02/13/25 18:51 HS ELISA Administration Modafinil 200 mg 02/12/25 09:00 02/13/25 08:45 Modafinil (*Crx) 200 Mg Tablet PO 200 mg On Hold: 02/13/25 18:51 QAM ELISA Administration Non-Formulary Medication 25 mg 02/12/25 09:00 Eplerenone PO 03/14/25 08:59 DAILY ELISA Pantoprazole Sodium 40 mg 02/12/25 09:00 02/13/25 08:45 Pantoprazole 40 Mg Tablet PO 40 mg On Hold: 02/13/25 18:51 QAM ELISA Administration Silver Sulfadiazine 1 applic 02/12/25 09:00 02/13/25 18:30 Silver Sulfadiazine 1% Cr 400 Gm Jar (*Bkc) TOPICAL Not Given DAILY ELISA Tramadol HCl 50 mg 02/12/25 03:46 02/12/25 15:11 Tramadol Hcl (*Crx) 50 Mg Tablet PO 50 mg On Hold: 02/13/25 18:51 Q6H PRN Administration Pain Rated 4-6 Radiology Results: ITS Impressions Chest X-Ray 02/12/25 06:03 IMPRESSION: 1. No acute cardiopulmonary findings given portable technique. Head/Neck CTA 02/12/25 06:45 IMPRESSION: CTA NECK: 1. No acute findings. CTA HEAD: 1. No acute findings. Carotid Doppler Study 02/12/25 10:44 IMPRESSION: 1. No hemodynamically significant ICA stenosis (i.e., if any stenosis, less than 50%). 2. Normal bilateral antegrade vertebral artery flow. Stenosis measured by Society of Radiologists in Ultrasound (SRU) criteria. Labs Labs: Laboratory Results - last 24 hr 02/12/25 02/13/25 02/13/25 05:03 08:11 12:18 WBC RBC Hgb Hct MCV MCH MCHC RDW Plt Count MPV Immature Gran % (Auto) Neut % (Auto) Lymph % (Auto) Dickson % (Auto) Eos % (Auto) Baso % (Auto) Lymph # (Auto) Dickson # (Auto) Eos # (Auto) Baso # (Auto) Abs Immat Gran (auto) Absolute Neuts (auto) Absolute Nucleated RBC Nucleated RBC % Sodium Potassium Chloride Carbon Dioxide Anion Gap BUN Creatinine Estim Creat Clear Calc Estimated GFR Glucose POC Capillary Glucose 85 96 Calcium Magnesium Urine Color Cancelled Urine Appearance Cancelled Urine pH Cancelled Ur Specific [place] Cancelled Urine Protein Cancelled Urine Glucose (UA) Cancelled Urine Ketones Cancelled Ur Blood (Man) Cancelled Urine Nitrate Cancelled Urine Bilirubin Cancelled Urine Urobilinogen Cancelled Add Ur Microanalysis Cancelled Leukocyte Esterase Rfl Cancelled Urine RBC Cancelled Urine WBC Cancelled Urine WBC Clumps Cancelled Ur Squamous Epith Cells Cancelled Ur Transition Epith Cell Cancelled Ur Renal Epithelial Cell Cancelled [place] Biurate Crystals Cancelled Calcium Carbonate Cryst Cancelled Calcium Phosphate Cryst Cancelled Calcium Oxalate Crystal Cancelled Leucine Crystals Cancelled Cystine Crystals Cancelled Uric Acid Crystals Cancelled Triple Phos Crystals Cancelled Sulfonamide Crystals Cancelled Cholesterol Crystals Cancelled Talc Crystals Cancelled Tyrosine Crystals Cancelled Hippuric Acid Crystals Cancelled Bilirubin Crystals Cancelled Other Crystals Cancelled Amorphous Sediment Cancelled Other Sediment Cancelled Urine Bacteria Cancelled Urine Casts Cancelled Cellular Casts Cancelled Epithelial Casts Cancelled Fatty Casts Cancelled Hyaline Casts Cancelled Granular Casts Cancelled Waxy Casts Cancelled Broad Casts Cancelled RBC Casts Cancelled WBC Casts Cancelled Urine Starch Cancelled Urine Mucus Cancelled Urine Trichomonas Cancelled Urine Yeast (Budding) Cancelled Ur Oval Fat Bodies Cancelled Sperm Presence Cancelled 02/13/25 02/13/25 02/13/25 17:26 19:47 20:26 WBC 8.0 RBC 4.24 L Hgb 12.1 L Hct 38.2 L MCV 90.1 MCH 28.5 MCHC 31.7 L RDW 16.1 H Plt Count 299 MPV 9.3 Immature Gran % (Auto) 0.5 Neut % (Auto) 59.9 Lymph % (Auto) 27.1 Dickson % (Auto) 8.6 H Eos % (Auto) 3.4 Baso % (Auto) 0.5 Lymph # (Auto) 2.17 Dickson # (Auto) 0.7 H Eos # (Auto) 0.3 Baso # (Auto) 0.0 Abs Immat Gran (auto) 0.04 H Absolute Neuts (auto) 4.8 Absolute Nucleated RBC 0.000 Nucleated RBC % 0.0 Sodium 135 L Potassium 3.7 Chloride 97 L Carbon Dioxide 37 H Anion Gap 1 L BUN 14 Creatinine 0.67 L Estim Creat Clear Calc 86 Estimated GFR > 60 Glucose 94 POC Capillary Glucose 153 H 99 Calcium 8.7 Magnesium Urine Color Urine Appearance Urine pH Ur Specific [place] Urine Protein Urine Glucose (UA) Urine Ketones Ur Blood (Man) Urine Nitrate Urine Bilirubin Urine Urobilinogen Add Ur Microanalysis Leukocyte Esterase Rfl Urine RBC Urine WBC Urine WBC Clumps Ur Squamous Epith Cells Ur Transition Epith Cell Ur Renal Epithelial Cell Alvin Biurate Crystals Calcium Carbonate Cryst Calcium Phosphate Cryst Calcium Oxalate Crystal Leucine Crystals Cystine Crystals Uric Acid Crystals Triple Phos Crystals Sulfonamide Crystals Cholesterol Crystals Talc Crystals Tyrosine Crystals Hippuric Acid Crystals Bilirubin Crystals Other Crystals Amorphous Sediment Other Sediment Urine Bacteria Urine Casts Cellular Casts Epithelial Casts Fatty Casts Hyaline Casts Granular Casts Waxy Casts Broad Casts RBC Casts WBC Casts Urine Starch Urine Mucus Urine Trichomonas Urine Yeast (Budding) Ur Oval Fat Bodies Sperm Presence 02/14/25 05:17 WBC 8.6 RBC 4.38 L Hgb 12.5 L Hct 39.5 L MCV 90.2 MCH 28.5 MCHC 31.6 L RDW 16.0 H Plt Count 299 MPV 10.0 Immature Gran % (Auto) 0.2 Neut % (Auto) 61.5 Lymph % (Auto) 25.8 Dickson % (Auto) 8.3 Eos % (Auto) 3.7 Baso % (Auto) 0.5 Lymph # (Auto) 2.22 Dickson # (Auto) 0.7 H Eos # (Auto) 0.3 Baso # (Auto) 0.0 Abs Immat Gran (auto) 0.02 Absolute Neuts (auto) 5.3 Absolute Nucleated RBC 0.000 Nucleated RBC % 0.0 Sodium 136 L Potassium 3.5 Chloride 99 Carbon Dioxide 34 H Anion Gap 3 L BUN 13 Creatinine 0.60 L Estim Creat Clear Calc 95 Estimated GFR > 60 Glucose 82 POC Capillary Glucose Calcium 8.6 Magnesium 1.8 Urine Color Urine Appearance Urine pH Ur Specific [place] Urine Protein Urine Glucose (UA) Urine Ketones Ur Blood (Man) Urine Nitrate Urine Bilirubin Urine Urobilinogen Add Ur Microanalysis Leukocyte Esterase Rfl Urine RBC Urine WBC Urine WBC Clumps Ur Squamous Epith Cells Ur Transition Epith Cell Ur Renal Epithelial Cell Alvin Biurate Crystals Calcium Carbonate Cryst Calcium Phosphate Cryst Calcium Oxalate Crystal Leucine Crystals Cystine Crystals Uric Acid Crystals Triple Phos Crystals Sulfonamide Crystals Cholesterol Crystals Talc Crystals Tyrosine Crystals Hippuric Acid Crystals Bilirubin Crystals Other Crystals Amorphous Sediment Other Sediment Urine Bacteria Urine Casts Cellular Casts Epithelial Casts Fatty Casts Hyaline Casts Granular Casts Waxy Casts Broad Casts RBC Casts WBC Casts Urine Starch Urine Mucus Urine Trichomonas Urine Yeast (Budding) Ur Oval Fat Bodies Sperm Presence Quality VTE Prophylaxis VTE prophylaxis: pharmacologic ordered
[2025-02-14] MEDS: levETIRAcetam 500MG/NACL 100ML 500 MG/100 ML BAG 400 MG IVPB ×2 (08:49→21:07)
[2025-02-14] MEDS: LIDOCAINE 2% VISC SOLN 30 ML, ALUMINUM/MAGNESIUM/SIMETH SUSP 30 ML, diphenhydrAMINE HCl... PO ×3 (08:49→21:07)
[2025-02-14] MEDS: SILVER SULFADIAZINE 1% CR 50 GM JAR (*BKC) 1 APPLIC TOPICAL (12:08)
[2025-02-15] VITALS (8 sets, daily range): BP systolic 151–156; BP diastolic 61–72; PULSE 67–86; RESP 16–20; TEMP 35.9–36.4; O2SAT 97–100
[2025-02-15] MEDS: levETIRAcetam 500MG/NACL 100ML 500 MG/100 ML BAG 400 MG IVPB (08:32)
[2025-02-15] MEDS: SILVER SULFADIAZINE 1% CR 50 GM JAR (*BKC) 1 APPLIC TOPICAL (08:33)
[2025-02-15] MEDS: LIDOCAINE 2% VISC SOLN 30 ML, ALUMINUM/MAGNESIUM/SIMETH SUSP 30 ML, diphenhydrAMINE HCl... PO ×3 (08:35→20:57)
--- NOTE | 2025-02-15 10:18 | WPDNEUROLOGY ---
Neurology EEG Report General Information Date of Study: 02/12/25 TEST EEG DIAGNOSIS Possible seizures CONDITION OF RECORDING awake, drowsy and asleep. EEG NUMBER [id number] CLINICAL HISTORY 79 years old male had a possible seizure. Patient needed reinforcement throughout the whole tracing and recording , seemed confused about instructions being given. Patient complained of multiple for the body hurting repetitively. Patient had trouble talking because he said he bit his tongue but patient was also talking slowly. EEG DESCRIPTION Diffuse low-voltage 15 to 18 hertz per 2nd beta activity seen admixed with multiple eye movement artifacts and movement artifacts generally. Intermittent 6 to 7 hertz per 2nd theta activity is seen during drowsiness. Bilateral symmetrical sleep activity is noted with symmetrical sleep spindles. Photic stimulation not done. Hyperventilation not done. Non paroxysmal. Nonfocal P nonlateralizing. IMPRESSION No significant abnormalities noted. Clinical correlation recommended as this tracing is not diagnostic of seizure but the EEG can be normal with a history of seizure disorder.
--- NOTE | 2025-02-15 11:13 | P.PNIM_ITS ---
Progress Note: A&P Assessment and Plan (1) Acute alteration in mental status: Code(s): R41.82 - Altered mental status, unspecified Status: Acute Assessment and Plan: Altered mental status improved. Not yet back to prior baseline. No evidence of CVA on CT brain. Consider arrhthymia given electrolyte abnormalities and heart failure * Pending MRI, could not have a completed on 02/12/2025 due to the patient fi dgeting too much. Nursing staff report will try again. * Neurology consulted, appreciate recommendations. Changed keppra to depakote. Stopped tramadol * Continue Keppra for possible seizure. * EEG procedure has been completed - awaiting neurology interpretation. * Interrogate loop recorder ([employer]) * Continue to monitor on telemetry (2) Hemiplegia: Code(s): G81.90 - Hemiplegia, unspecified affecting unspecified side Status: Acute Assessment and Plan: * according the family members this is from her his previous stroke * PT OT evaluation greatly appreciated. * q2 turns (3) Dysphagia: Code(s): R13.10 - Dysphagia, unspecified Status: Acute Assessment and Plan: * Speech therapy consulted regarding aspiration risk * Noted coughing and choking episode * Puree diet started on 02/[address] recommendations * Barium swallow study ordered -Recommended pureed and thickened liquids. Holding food in mouth. Alternating bites and sips, 1:1 supervision (4) Hypomagnesemia: Code(s): E83.42 - Hypomagnesemia Status: Acute Assessment and Plan: * his magnesium level was 1.4 and it has been replaced. * Follow magnesium (5) DM2 (diabetes mellitus, type 2): Code(s): E11.9 - Type 2 diabetes mellitus without complications Status: Acute Assessment and Plan: * metformin is on hold at this time due CT dye * Continuing empagliflozine * Accu-Cheks AC and HS with sliding scale insulin. * check A1c 5.4 * Blood sugars controlled (6) Pressure ulcer: Code(s): L89.90 - Pressure ulcer of unspecified site, unspecified stage Status: Acute Assessment and Plan: * wound care consult greatly be appreciated. * may consider specialty mattress. * may consider dietary consult for healing process (7) Hypokalemia: Code(s): E87.6 - Hypokalemia Status: Acute Assessment and Plan: * potassium was 2.7 and has been replaced in the emergency room. * daily BMP (8) Pulmonary embolism: Code(s): I26.99 - Other pulmonary embolism without acute cor pulmonale Status: Acute Assessment and Plan: * continue with Eliquis and aspirin (9) Congestive heart failure: Code(s): I50.9 - Heart failure, unspecified Status: Acute Assessment and Plan: * continue with Eplerenone and Farxiga * continue metoprolol lisinopril * echo ordered Plan Patient did not do well with liquids. I spoke with the speech pathologist. Planning for barium swallow on 02/15/2025, for now he will be on thin liquids. Time Spent With Patient Time: 59 minutes Subjective Date/time seen: 02/15/25 11:13 Interval history: Family at bedside reports he is not yet back to his baseline. His daughter reports she recently saw him 02/11 during the day and he was A&Ox4, speech less slurred. He has needed to get up in a lift since his stroke due to residual left sided weakness. Also noted chronic left sided pain and had planned follow up with [facility] On tele he is NSR with frequent PVC's. Has a [employer] loop recorder. Will request interrogation given episode of unresponsiveness. TTE showed LVEF 25-30% with WMA's Denies chest pain or shortness of breath MBS done today. Pureed diet but holding food in his mouth, likely change of cognition. Discussed 1:1 supervision, alternating bites and sips. EEG no evidence of seizures Reason for hospitalization 79-year-old male patient with a history of recent CVA, heart failure, with residual left-sided weakness, at [facility]. Found at the The patient presented to the emergency room after he was found to have altered mentation at the intermediate. On arrival he was noted to have very low potassium and magnesium levels Exam Narrative: General - Awake and alert. No acute distress Eyes - PERRLA, EOM intact ENT - No thrush, No erythema Neck - No noticeable or palpable swelling Lymph Nodes - No lymphadenopathy Cardiovascular - RRR no m/r/g, no JVD Lungs: Clear to auscultation, No wheezing, use of accessory muscles, no crackles Skin - Skin warm and dry, no wounds or rashes Abdomen - Normal bowel sounds, abdomen soft and nontender Extremities - No edema, cyanosis or clubbing Musculoskeletal - 1/5 strength left, 2/5 strength Right leg, Left arm flaccid, mild edema. No swollen or erythematous joints. Neurological ? Alert and oriented x 1-2, CN 2-12 grossly intact. Making jokes Psych: Normal mood and affect Objective Data Vital Signs Vital Signs: Vital Signs - 24 hr 02/14/25 12:00 02/14/25 14:00 02/14/25 16:00 Temperature 98.4 F Pulse Rate 61 68 62 Respiratory Rate 20 Blood Pressure 102/64 Pulse Oximetry 100 Oxygen Delivery Fraction of Inspired Oxygen 02/14/25 20:00 02/14/25 20:00 02/14/25 20:21 Temperature 97.8 F Pulse Rate 75 75 75 Respiratory Rate 18 18 Blood Pressure 138/71 Pulse Oximetry 98 98 Oxygen Delivery Room Air Fraction of Inspired Oxygen 21 02/14/25 23:35 02/15/25 03:19 02/15/25 06:00 Temperature 96.9 F L Pulse Rate 69 72 67 Respiratory Rate 16 Blood Pressure 156/61 H Pulse Oximetry 97 Oxygen Delivery Fraction of Inspired Oxygen Intake/Output Intake/Output: Intake & Output 02/12/25 02/13/25 02/14/25 02/15/25 23:59 23:59 23:59 23:59 Intake Total 1670 1040 1720 Output Total 1000 1700 800 Balance 670 -660 920 Meds/Results Medications: Active Medications Generic Name Dose Route Start Last Admin Trade Name Freq PRN Reason Stop Dose Admin Acetaminophen 1,000 mg 02/12/25 03:49 Acetaminophen 500 Mg Tablet PO On Hold: 02/13/25 18:49 TID PRN fever or pain 1-3 Apixaban 5 mg 02/12/25 09:00 02/13/25 08:45 Apixaban 5 Mg Tablet PO 5 mg On Hold: 02/13/25 18:49 Q12HR ELISA Administration Aspirin 81 mg 02/12/25 09:00 02/13/25 08:45 Aspirin 81 Mg Enteric Tablet PO 81 mg On Hold: 02/13/25 18:49 DAILY ELISA Administration Atorvastatin Calcium 80 mg 02/12/25 18:00 02/13/25 18:31 Atorvastatin 40 Mg Tablet PO Not Given On Hold: 02/13/25 18:49 QPM ELISA Lidocaine HCl 30 ml/ Al Hydrox 0 ml 02/13/25 21:00 02/15/25 08:35 /Mg Hydrox/Simethicone 30 ml/ PO 5 ml Diphenhydramine HCl 75 mg Q4HWA ELISA Administration Dextrose 12.5 gm 02/12/25 03:52 Dextrose 50% 25 Gm/50 Ml Syringe IV PUSH PRN PRN Hypoglycemia Protocol Empagliflozin 25 mg 02/12/25 09:00 02/13/25 08:45 Empagliflozin 25 Mg Tablet BY MOUTH 25 mg On Hold: 02/13/25 18:50 DAILY ELISA Administration Gabapentin 300 mg 02/12/25 09:00 02/13/25 18:31 Gabapentin 300 Mg Capsule PO Not Given On Hold: 02/13/25 18:50 TID ELISA Glucagon 1 mg 02/12/25 03:52 Glucagon For Inj 1 Mg Vial IM PRN PRN Hypoglycemia Protocol Glucose 15 gm 02/12/25 03:52 Glucose Oral Gel 15 Gm Of Glucse In 37.5 Gm Tube PO PRN PRN Hypoglycemia Protocol Dextrose 1,000 mls @ 100 mls/hr 02/12/25 03:52 Dextrose 5% 1,000 Ml IVPB PRN PRN Hypoglycemia Protocol Levetiracetam 500 mg in 100 mls @ 400 mls/hr 02/13/25 21:00 02/15/25 08:32 Keppra Iv IVPB 400 mls/hr Q12HR ELISA Administration Insulin Aspart 1 - 2 units 02/12/25 21:00 02/14/25 21:05 Insulin Aspart (*Bkc) 100 Units/Ml SUB-Q Not Given HS ELISA Protocol Insulin Aspart 2 - 5 units 02/12/25 08:00 02/15/25 08:17 Insulin Aspart (*Bkc) 100 Units/Ml SUB-Q Not Given TIDWM ELISA Protocol Levetiracetam 250 mg/ 750 mg 02/13/25 21:00 Levetiracetam 500 mg PO On Hold: 02/13/25 21:00 Q12HR ELISA Lisinopril 20 mg 02/12/25 09:00 02/13/25 08:45 Lisinopril 20 Mg Tablet PO 20 mg On Hold: 02/13/25 18:50 DAILY ELISA Administration Metoprolol Succinate 100 mg 02/12/25 09:00 02/13/25 08:45 Metoprolol Succinate Ext Rel 100 Mg Tabcr PO 100 mg On Hold: 02/13/25 18:50 DAILY ELISA Administration Midodrine 5 mg 02/12/25 03:39 Midodrine Hcl 2.5 Mg Tablet PO On Hold: 02/13/25 18:51 Q8H PRN LOW BP Mirtazapine 15 mg 02/12/25 21:00 02/12/25 20:53 Mirtazapine 15 Mg Tablet PO 15 mg On Hold: 02/13/25 18:51 HS ELISA Administration Miscellaneous Information 1 each 02/15/25 00:01 Order Clarification -Eplerenone 25 Mg Tablet Is Non-Formulary XX 03/17/25 00:00 CLARIFY ELISA Modafinil 200 mg 02/12/25 09:00 02/13/25 08:45 Modafinil (*Crx) 200 Mg Tablet PO 200 mg On Hold: 02/13/25 18:51 QAM ELISA Administration Non-Formulary Medication 25 mg 02/12/25 09:00 Eplerenone PO 03/14/25 08:59 DAILY ELISA Pantoprazole Sodium 40 mg 02/12/25 09:00 02/13/25 08:45 Pantoprazole 40 Mg Tablet PO 40 mg On Hold: 02/13/25 18:51 QAM ELISA Administration Silver Sulfadiazine 1 applic 02/14/25 09:00 02/15/25 08:33 Silver Sulfadiazine 1% Cr 50 Gm Jar (*Bkc) TOPICAL 1 applic DAILY ELISA Administration Tramadol HCl 50 mg 02/12/25 03:46 02/12/25 15:11 Tramadol Hcl (*Crx) 50 Mg Tablet PO 50 mg On Hold: 02/13/25 18:51 Q6H PRN Administration Pain Rated 4-6 Radiology Results: ITS Impressions Chest X-Ray 02/12/25 06:03 IMPRESSION: 1. No acute cardiopulmonary findings given portable technique. Head/Neck CTA 02/12/25 06:45 IMPRESSION: CTA NECK: 1. No acute findings. CTA HEAD: 1. No acute findings. Carotid Doppler Study 02/12/25 10:44 IMPRESSION: 1. No hemodynamically significant ICA stenosis (i.e., if any stenosis, less than 50%). 2. Normal bilateral antegrade vertebral artery flow. Stenosis measured by Society of Radiologists in Ultrasound (SRU) criteria. Head CT 02/14/25 08:46 IMPRESSION: 1. Large old infarct in the expected distribution of right middle cerebral artery. Labs Labs: Laboratory Results - last 24 hr 02/13/25 02/14/25 02/14/25 20:47 12:27 17:16 Puncture Site Cancelled ABG pH Cancelled ABG pCO2 Cancelled ABG pO2 Cancelled ABG PO2/FiO2 Ratio Cancelled ABG HCO3 Cancelled ABG O2 Saturation Cancelled ABG O2 Content Cancelled ABG Base Excess Cancelled A-a Gradient Cancelled Oxyhemoglobin Cancelled Total Hemoglobin Cancelled O2 Delivery Device Cancelled O2 Liters/Min Cancelled FiO2 Cancelled POC Capillary Glucose 118 H 85 02/14/25 02/15/25 20:33 08:15 Puncture Site ABG pH ABG pCO2 ABG pO2 ABG PO2/FiO2 Ratio ABG HCO3 ABG O2 Saturation ABG O2 Content ABG Base Excess A-a Gradient Oxyhemoglobin Total Hemoglobin O2 Delivery Device O2 Liters/Min FiO2 POC Capillary Glucose 90 75 Quality VTE Prophylaxis VTE prophylaxis: pharmacologic ordered Hospitalist [facility] Advance Care Plan I have confirmed that the patient's Advanced Care Plan is present, code status is documented, or surrogate decision maker is listed in patient medical record.: Yes Medication Reconciliation I have utilized all available resources to obtain, update and review the patients current medications (includes all prescriptions, OTC, herbals, cannabis, and nutritional supplements).: Yes
--- NOTE | 2025-02-15 11:57 | PCSTNOTE ---
Please refer to the Modified Barium Swallow Evaluation in the EMR. The above pt was seen for an MBS due to overt s/s of aspiration exhibited during the BSE; pt has a h/o a CVA and dysphagia with residual left facial droop/weakness; the left arm is flaccid. Pt was admitted after a suspected seizure and was very confused during the MBS; pt is edentulous. Pt was seated for a lateral view and presented with thin liquids via spoon, cup sip, and straw sip, mildly thick liquid via a cup sip, pudding consistency barium via a spoon, and a crumbled cracker via a spoon. For all trials, during the oral stages, the pt held the contents in his mouth, which at times lasted up to 25 seconds. Oral hold is felt to be either r/t swallow apraxia or related to his obvious cognitive impairment. With the crumbled cracker, due to length of time of the oral hold, a cup sip was given to facilitate oral/bolus movement. Oral hold continued for another 5 seconds before he propelled contents posteriorly. No oral leakage or residual was exhibited once pt propelled contents posteriorly and triggered the swallow. During the pharyngeal stage, reduced laryngeal elevation was exhibited as evidenced by laryngeal penetration during the swallow of thin liquids; reduced tongue base retraction was also exhibited as evidenced by vallecular residue (mild), with pudding, crumbled cracker, and the thin liquid when taken via the straw. Pt independently dry swallow and at least partially cleared vallecular and pyriform sinus residuals with each swallow. Reduced laryngeal closure was exhibited as evidenced by aspiration during the swallow of thin liquid when taken via the straw. A weak cough occurred after the aspiration, but no contents were ejected. Impression: Moderate oral and pharyngeal dysphagia; long abnormal oral hold at times up to 25 seconds; pt also aspirated thin liquids when taken via a straw. Weak cough did not clear any aspirate. Recommendation: level 4 puree with level 2 mildly thick liquids; 1:1 supervision during all oral intake for small sips and bites and monitor that he swallows before taking the next bite. Pt should be positioned upright with all oral intake. ST to treat.
--- NOTE | 2025-02-15 11:59 | WPDNEURCNPN ---
Assessment and Plan Assessment and plan (1) Acute alteration in mental status: Code(s): R41.82 - Altered mental status, unspecified Status: Acute Assessment and Plan: The patient was noted to have some foaming around the mouth and there was change in altered mental status. He has history of stroke and he developed memory loss after that. It was suspected that he might have had a seizure. His started on anticonvulsant. Currently on Keppra 500 mg twice a day. He has not had any further spells since admission. An MRI of the brain has a performed the results of which awaited. CT angiogram of the head and neck did not show any significant abnormalities. A carotid Doppler study also performed did not show any significant narrowing. (2) CVA (cerebral vascular accident): Code(s): I63.9 - Cerebral infarction, unspecified Status: Acute (3) Pulmonary embolism: Code(s): I26.99 - Other pulmonary embolism without acute cor pulmonale Status: Acute (4) Congestive heart failure: Code(s): I50.9 - Heart failure, unspecified Status: Acute (5) Hyperlipidemia: Code(s): E78.5 - Hyperlipidemia, unspecified Status: Acute (6) DM2 (diabetes mellitus, type 2): Code(s): E11.9 - Type 2 diabetes mellitus without complications Status: Acute Plan The patient appears to be aggressive and combative and I am concerned about him being on Keppra which can cause this problem a certain number patients. Hence I will suggest to discontinue Keppra and put him on Depakote ER 500 mg twice a day. Which should follow up the results MRI of the brain. Overall this no evidence for new stroke however certainly MRI would be helpful further evaluation of this finding. An EEG may also be helpful. Would also suggest to stop tramadol in view of the possibility of seizure. He is also on modafinil the reason for this is not clear to me but since this is all was also a stimulant probably need to investigate the reason for him to be on this Consult date: 02/15/25 HPI: Pillo Danielle is a 79 year old male with history of previous stroke with residual left hemiplegia [facility] was brought to the emergency room with history that he was found to have some foaming around the mouth has altered mental status. The ER physician talked to me and I advised to start him on anticonvulsant. Patient known to have cardiac disease with a ejection fraction of 25-30%. A CT scan of brain was performed which shows a large infarct in the right cerebral hemisphere. CT angiogram did not show any large vessel occlusion. The patient has been belligerent and has been fighting nursing staff in at times coursing them. He is currently on Keppra 1500 mg a day. He has not had any further seizure-like events. According to history the patient has had memory loss after his stroke and MRI of the brain has a performed this morning the results are pending. Prior to the 2 attempts made to get MRI but he was unable to cooperate. He has 3 children. He has history of coronary artery bypass grafting diabetes mellitus and he has implanted loop recorder. History of diabetes mellitus and pulmonary embolism. He is currently on anticoagulation. Further I noted that the dose of levetiracetam has been reduced to 500 mg twice a day. He is also on tramadol and modafinil. Review of Systems Review of Systems: Patient does not appear to be reliable historian however he denies any specific symptoms. [facility] Past Medical History Medical History CABG (coronary artery bypass graft) planned Depression Hemiplegia left side Hyperlipidemia Pressure ulcer HTN (hypertension) with goal to be determined Chronic GERD Congestive heart failure Implantable loop recorder present Pulmonary embolism DM2 (diabetes mellitus, type 2) CVA (cerebral vascular accident) Family History Family History Mother Congestive heart failure Sibling Hypertension Social History Social History Social History: He resides that [facility] currently. The patient is a and has 3 children who are his power of divorce attorney. He is a retired red. Code status: Modify no intubation. Smoking status: Never smoker Alcohol intake: never Substance use: never Lack of Transportation: No Lack of Food: Never True Current Housing: I Have Housing Concerned About Future Housing: No Difficulty Paying Gas/Electric Bills: No Difficulty Paying for Meds: No Currently Unemployed: No Education: High School Diploma/GED Difficulty w/ Childcare or Family Care: No Spiritual care concerns: No Meds Home Medications and Allergies Home Medications ?Medication ?Instructions ?Recorded ?Confirmed ?Type acetaminophen 500 mg capsule 1,000 mg PO TID PRN fever or pain 02/12/25 02/12/25 History apixaban 5 mg tablet (Eliquis) 5 mg PO BID 02/12/25 02/12/25 History arginine-vitamin C-vitamin E oral 4.5 g PO .WM 02/12/25 02/12/25 History 4.5 gram-156 mg/9.2 gram powder pkt (Arginaid) aspirin 81 mg tablet,delayed 81 mg PO DAILY 02/12/25 02/12/25 History release (Adult Aspirin Regimen) atorvastatin 80 mg tablet 80 mg PO QPM 02/12/25 02/12/25 History dapagliflozin propanediol 10 mg 10 mg PO DAILY 02/12/25 02/12/25 History tablet (Farxiga) eplerenone 25 mg tablet 25 mg PO DAILY 02/12/25 02/12/25 History gabapentin 300 mg capsule 300 mg PO TID 02/12/25 02/12/25 History lansoprazole 30 mg capsule,delayed 30 mg PO DAILY 02/12/25 02/12/25 History release lisinopril 20 mg tablet 20 mg PO DAILY 02/12/25 02/12/25 History metformin 500 mg tablet 500 mg PO DAILY 02/12/25 02/12/25 History metoprolol succinate 100 mg 100 mg PO DAILY 02/12/25 02/12/25 History tablet,extended release 24 hr midodrine 5 mg tablet 5 mg PO Q8H PRN LOW BP 02/12/25 02/12/25 History mirtazapine 15 mg tablet 15 mg PO HS 02/12/25 02/12/25 History modafinil 200 mg tablet 200 mg PO QAM 02/12/25 02/12/25 History silver sulfadiazine 1 % topical 1 applic topical DAILY 02/12/25 02/12/25 History cream tramadol 50 mg tablet 50 mg PO Q6H PRN pain 02/12/25 02/12/25 History Allergies Allergy/AdvReac Type Severity Reaction Status Date / Time Sulfa (Sulfonamide Allergy Unknown Unknown Verified 02/11/25 22:21 Antibiotics) Vital Signs Vital Signs - 24 hr 02/14/25 12:00 02/14/25 14:00 02/14/25 16:00 Temperature 98.4 F Pulse Rate 61 68 62 Respiratory Rate 20 Blood Pressure 102/64 Pulse Oximetry 100 Oxygen Delivery Fraction of Inspired Oxygen 02/14/25 20:00 02/14/25 20:00 02/14/25 20:21 Temperature 97.8 F Pulse Rate 75 75 75 Respiratory Rate 18 18 Blood Pressure 138/71 Pulse Oximetry 98 98 Oxygen Delivery Room Air Fraction of Inspired Oxygen 21 02/14/25 23:35 02/15/25 03:19 02/15/25 06:00 Temperature 96.9 F L Pulse Rate 69 72 67 Respiratory Rate 16 Blood Pressure 156/61 H Pulse Oximetry 97 Oxygen Delivery Fraction of Inspired Oxygen 02/15/25 08:00 Temperature Pulse Rate Respiratory Rate Blood Pressure Pulse Oximetry Oxygen Delivery Room Air Fraction of Inspired Oxygen Exam Narrative: Fully conscious alert no aphasia and dysarthria. Examination head and neck shows no evidence of external trauma. No carotid bruit. Cranial nerves is mild flattening of the left nasolabial fold. No tongue deviation. Extraocular movements intact. Visual hightower by confrontation were normal. Motor system he has significant weakness of the left upper limb is unable to move her lift against gravity. Left lower limb also weak but he does not cooperate well with the lower limb examination at this time. Deep tendon reflexes did not show any significant spasticity. Sensory examination also could not be reliably performed. No involuntary movements are seen. Specifically no cogwheeling. Results Labs 02/14/25 05:17 02/14/25 05:17 Imaging Attestation: I personally reviewed and interpreted this imaging study as follows: (CT scan of brain) My impression: Old large infarct in the right middle cerebral artery distribution. Radiologist's impression: Same
[2025-02-15 14:00] LABS: Cholesterol 204 mg/dL (0-200); HDL Direct 36 mg/dL; Triglycerides 146 mg/dL (<150)
[2025-02-15 14:31] LABS: Thyroid Stimulating Hormone 1.860 uIU/mL (0.465-4.680)
[2025-02-15 15:06] LABS: Vitamin B12 724.0 pg/mL (239-931)
[2025-02-15] MEDS: DIVALPROEX SODIUM SPRINKLE 125 MG CAP.DR 500 MG PO (18:05)
[2025-02-16] VITALS (10 sets, daily range): BP systolic 144–157; BP diastolic 67–89; PULSE 72–93; RESP 16–18; TEMP 36.3–36.9; O2SAT 97–100
[2025-02-16] MEDS: LIDOCAINE 2% VISC SOLN 30 ML, ALUMINUM/MAGNESIUM/SIMETH SUSP 30 ML, diphenhydrAMINE HCl... PO ×4 (05:55→23:48)
[2025-02-16 06:37] LABS: Anion Gap 4 mmol/L (4-12); Blood Urea Nitrogen 13 mg/dL (9-20); Calcium 8.3 mg/dL (8.4-10.2); Carbon Dioxide 34 mmol/L (22-30); Chloride 97 mmol/L (98-107); Estimated CRCL calculation 100 ml/min; Estimated Glomerular Filt Rate > 60; Glucose 94 mg/dL (65-110); Potassium 3.2 mmol/L (3.4-5.0); Sodium 135 mmol/L (137-145)
[2025-02-16] MEDS: SILVER SULFADIAZINE 1% CR 50 GM JAR (*BKC) 1 APPLIC TOPICAL (08:16)
--- NOTE | 2025-02-16 10:33 | P.PNIM_ITS ---
Progress Note: A&P Assessment and Plan (1) Acute alteration in mental status: Code(s): R41.82 - Altered mental status, unspecified Status: Acute Assessment and Plan: Altered mental status improved. Not yet back to prior baseline. No evidence of CVA on CT brain. Consider arrhthymia given electrolyte abnormalities and heart failure * Pending MRI, could not have a completed on 02/12/2025 due to the patient fi dgeting too much. Nursing staff report will try again. * Neurology consulted, appreciate recommendations. Changed keppra to depakote. Stopped tramadol * Continue depakote for possible seizure. * EEG procedure has been completed - awaiting neurology interpretation. * Interrogate loop recorder ([facility]) * Continue to monitor on telemetry (2) Hemiplegia: Code(s): G81.90 - Hemiplegia, unspecified affecting unspecified side Status: Acute Assessment and Plan: * according the family members this is from her his previous stroke * PT OT evaluation greatly appreciated. * q2 turns (3) Dysphagia: Code(s): R13.10 - Dysphagia, unspecified Status: Acute Assessment and Plan: * Speech therapy consulted regarding aspiration risk * Noted coughing and choking episode * Puree diet started on 02/[address] recommendations * Barium swallow study ordered -Recommended pureed and thickened liquids. Holding food in mouth. Alternating bites and sips, 1:1 supervision (4) Hypomagnesemia: Code(s): E83.42 - Hypomagnesemia Status: Acute Assessment and Plan: * his magnesium level was 1.4 and it has been replaced. * Follow magnesium (5) DM2 (diabetes mellitus, type 2): Code(s): E11.9 - Type 2 diabetes mellitus without complications Status: Acute Assessment and Plan: * metformin is on hold at this time due CT dye * Continuing empagliflozine * Accu-Cheks AC and HS with sliding scale insulin. * check A1c 5.4 * Blood sugars controlled (6) Pressure ulcer: Code(s): L89.90 - Pressure ulcer of unspecified site, unspecified stage Status: Acute Assessment and Plan: * wound care consult greatly be appreciated. * may consider specialty mattress. * may consider dietary consult for healing process (7) Hypokalemia: Code(s): E87.6 - Hypokalemia Status: Acute Assessment and Plan: * potassium was 2.7 and has been replaced in the emergency room. * daily BMP (8) Pulmonary embolism: Code(s): I26.99 - Other pulmonary embolism without acute cor pulmonale Status: Acute Assessment and Plan: * continue with Eliquis and aspirin (9) Congestive heart failure: Code(s): I50.9 - Heart failure, unspecified Status: Acute Assessment and Plan: * continue with Eplerenone and Farxiga * continue metoprolol--decrease to 50mg daily, continue lisinopril 02/15 TTE 1. Definity contrast administered improved wall motion interpretation. 2. Left ventricular chamber dimension is severely enlarged. 3. Left ventricular systolic function is severely globally reduced, estimated at 25-30. 4. There is moderate concentric increased left ventricular wall thickness. 5. Mid to apical anteroseptum and septum are akinetic. 6. E/e' 7 is not elevated. 7. Left atrial chamber dimension is mildly enlarged. 8. There is mild aortic valve sclerosis. 9. There is mild mitral valve regurgitation. 10. There is trace tricuspid valve regurgitation. 11. No pulmonary hypertension, estimated pulmonary arterial systolic pressure is 17 mmHg. Plan Time Spent With Patient Time: 57 minutes Subjective Date/time seen: 02/16/25 15:35 Interval history: Somnolent this morning, didn't eat breakfast. Was able to eat lunch. Awake and alert this afternoon Interrogation done but results not in chart. Calling medtronic 40meq Kcl for 3.2 Reason for hospitalization 79-year-old male patient with a history of recent CVA, heart failure, with residual left-sided weakness, at [facility]. Found at the The patient presented to the emergency room after he was found to have altered mentation at the senior living. On arrival he was noted to have very low potassium and magnesium levels Exam Narrative: General - Awake and alert. No acute distress Eyes - PERRLA, EOM intact ENT - No thrush, No erythema Neck - No noticeable or palpable swelling Lymph Nodes - No lymphadenopathy Cardiovascular - RRR no m/r/g, no JVD Lungs: Clear to auscultation, No wheezing, use of accessory muscles, no crackles Skin - Skin warm and dry, no wounds or rashes Abdomen - Normal bowel sounds, abdomen soft and nontender Extremities - No edema, cyanosis or clubbing Musculoskeletal - 1/5 strength left, 2/5 strength Right leg, Left arm flaccid, mild edema. No swollen or erythematous joints. Neurological ? Alert and oriented x 1-2, CN 2-12 grossly intact. Making jokes Psych: Normal mood and affect Objective Data Vital Signs Vital Signs: Vital Signs - 24 hr 02/15/25 15:51 02/15/25 16:00 02/15/25 19:27 Temperature 96.6 F L Pulse Rate 83 86 75 Respiratory Rate 17 20 Blood Pressure 153/72 H Pulse Oximetry 99 98 Oxygen Delivery Room Air Fraction of Inspired Oxygen 02/15/25 19:52 02/15/25 19:52 02/15/25 20:33 Temperature 97.6 F Pulse Rate 75 75 76 Respiratory Rate 20 20 Blood Pressure 151/69 H Pulse Oximetry 98 100 Oxygen Delivery Room Air Fraction of Inspired Oxygen 02/16/25 00:00 02/16/25 03:54 02/16/25 05:48 Temperature 97.4 F L Pulse Rate 78 73 74 Respiratory Rate 16 Blood Pressure 144/85 H Pulse Oximetry 98 Oxygen Delivery Fraction of Inspired Oxygen 02/16/25 08:17 Temperature Pulse Rate Respiratory Rate Blood Pressure Pulse Oximetry Oxygen Delivery Room Air Fraction of Inspired Oxygen Intake/Output Intake/Output: Intake & Output 02/13/25 02/14/25 02/15/25 02/16/25 23:59 23:59 23:59 23:59 Intake Total 1040 1720 240 0 Output Total 1700 853 833 9340 Balance -660 920 -260 -1200 Meds/Results Medications: Active Medications Generic Name Dose Route Start Last Admin Trade Name Dario PRN Reason Stop Dose Admin Acetaminophen 1,000 mg 02/12/25 03:49 Acetaminophen 500 Mg Tablet PO On Hold: 02/13/25 18:49 TID PRN fever or pain 1-3 Apixaban 5 mg 02/12/25 09:00 02/13/25 08:45 Apixaban 5 Mg Tablet PO 5 mg On Hold: 02/13/25 18:49 Q12HR ELISA Administration Aspirin 81 mg 02/12/25 09:00 02/13/25 08:45 Aspirin 81 Mg Enteric Tablet PO 81 mg On Hold: 02/13/25 18:49 DAILY ELISA Administration Atorvastatin Calcium 80 mg 02/12/25 18:00 02/13/25 18:31 Atorvastatin 40 Mg Tablet PO Not Given On Hold: 02/13/25 18:49 QPM ELISA Lidocaine HCl 30 ml/ Al Hydrox 0 ml 02/13/25 21:00 02/16/25 05:55 /Mg Hydrox/Simethicone 30 ml/ PO 5 ml Diphenhydramine HCl 75 mg Q4HWA ELISA Administration Dextrose 12.5 gm 02/12/25 03:52 Dextrose 50% 25 Gm/50 Ml Syringe IV PUSH PRN PRN Hypoglycemia Protocol Divalproex Sodium 500 mg 02/15/25 17:55 02/15/25 18:05 Divalproex Sodium Sprinkle 125 Mg Cap.Dr PO 500 mg BID ELISA Administration Empagliflozin 25 mg 02/12/25 09:00 02/13/25 08:45 Empagliflozin 25 Mg Tablet BY MOUTH 25 mg On Hold: 02/13/25 18:50 DAILY ELISA Administration Gabapentin 300 mg 02/12/25 09:00 02/13/25 18:31 Gabapentin 300 Mg Capsule PO Not Given On Hold: 02/13/25 18:50 TID ELISA Glucagon 1 mg 02/12/25 03:52 Glucagon For Inj 1 Mg Vial IM PRN PRN Hypoglycemia Protocol Glucose 15 gm 02/12/25 03:52 Glucose Oral Gel 15 Gm Of Glucse In 37.5 Gm Tube PO PRN PRN Hypoglycemia Protocol Dextrose 1,000 mls @ 100 mls/hr 02/12/25 03:52 Dextrose 5% 1,000 Ml IVPB PRN PRN Hypoglycemia Protocol Insulin Aspart 1 - 2 units 02/12/25 21:00 02/15/25 20:56 Insulin Aspart (*Bkc) 100 Units/Ml SUB-Q Not Given HS ELISA Protocol Insulin Aspart 2 - 5 units 02/12/25 08:00 02/15/25 18:04 Insulin Aspart (*Bkc) 100 Units/Ml SUB-Q Not Given TIDWM ELISA Protocol Lisinopril 20 mg 02/12/25 09:00 02/13/25 08:45 Lisinopril 20 Mg Tablet PO 20 mg On Hold: 02/13/25 18:50 DAILY ELISA Administration Metoprolol Succinate 100 mg 02/12/25 09:00 02/13/25 08:45 Metoprolol Succinate Ext Rel 100 Mg Tabcr PO 100 mg On Hold: 02/13/25 18:50 DAILY ELISA Administration Midodrine 5 mg 02/12/25 03:39 Midodrine Hcl 2.5 Mg Tablet PO On Hold: 02/13/25 18:51 Q8H PRN LOW BP Mirtazapine 15 mg 02/12/25 21:00 02/12/25 20:53 Mirtazapine 15 Mg Tablet PO 15 mg On Hold: 02/13/25 18:51 HS ELISA Administration Miscellaneous Information 1 each 02/15/25 00:01 02/16/25 05:54 Order Clarification -Eplerenone 25 Mg Tablet Is Non-Formulary XX 03/17/25 00:00 Not Given CLARIFY ELISA Modafinil 200 mg 02/12/25 09:00 02/13/25 08:45 Modafinil (*Crx) 200 Mg Tablet PO 200 mg On Hold: 02/13/25 18:51 QAM ELISA Administration Non-Formulary Medication 25 mg 02/12/25 09:00 Eplerenone PO 03/14/25 08:59 DAILY ELISA Pantoprazole Sodium 40 mg 02/12/25 09:00 02/13/25 08:45 Pantoprazole 40 Mg Tablet PO 40 mg On Hold: 02/13/25 18:51 QAM ELISA Administration Silver Sulfadiazine 1 applic 02/14/25 09:00 02/16/25 08:16 Silver Sulfadiazine 1% Cr 50 Gm Jar (*Bkc) TOPICAL 1 applic DAILY ELISA Administration Radiology Results: ITS Impressions Chest X-Ray 02/12/25 06:03 IMPRESSION: 1. No acute cardiopulmonary findings given portable technique. Head/Neck CTA 02/12/25 06:45 IMPRESSION: CTA NECK: 1. No acute findings. CTA HEAD: 1. No acute findings. Carotid Doppler Study 02/12/25 10:44 IMPRESSION: 1. No hemodynamically significant ICA stenosis (i.e., if any stenosis, less than 50%). 2. Normal bilateral antegrade vertebral artery flow. Stenosis measured by Society of Radiologists in Ultrasound (SRU) criteria. Head CT 02/14/25 08:46 IMPRESSION: 1. Large old infarct in the expected distribution of right middle cerebral artery. Modified Barium Swallow 02/15/25 12:11 IMPRESSION: Oropharyngeal dysphagia with laryngeal penetration and aspiration. Please correlate with speech pathologist findings and specific feeding recommendations. Labs Labs: Laboratory Results - last 24 hr 02/12/25 02/13/25 02/15/25 05:03 20:47 12:01 Puncture Site Cancelled ABG pH Cancelled ABG pCO2 Cancelled ABG pO2 Cancelled ABG PO2/FiO2 Ratio Cancelled ABG HCO3 Cancelled ABG O2 Saturation Cancelled ABG O2 Content Cancelled ABG Base Excess Cancelled A-a Gradient Cancelled Oxyhemoglobin Cancelled Total Hemoglobin Cancelled O2 Delivery Device Cancelled O2 Liters/Min Cancelled FiO2 Cancelled Sodium Potassium Chloride Carbon Dioxide Anion Gap BUN Creatinine Estim Creat Clear Calc Estimated GFR Glucose POC Capillary Glucose 77 Calcium Phosphorus Triglycerides Cholesterol LDL Cholesterol Direct HDL Direct Vitamin B12 Vitamin D 25-Hydroxy Folate TSH Add Ur Microanalysis Not Reportable Urine RBC Not Reportable Urine WBC Not Reportable Urine WBC Clumps Not Reportable Ur Squamous Epith Cells Not Reportable Ur Transition Epith Cell Not Reportable Ur Renal Epithelial Cell Not Reportable [place] Biurate Crystals Not Reportable Calcium Carbonate Cryst Not Reportable Calcium Phosphate Cryst Not Reportable Calcium Oxalate Crystal Not Reportable Leucine Crystals Not Reportable Cystine Crystals Not Reportable Uric Acid Crystals Not Reportable Triple Phos Crystals Not Reportable Sulfonamide Crystals Not Reportable Cholesterol Crystals Not Reportable Talc Crystals Not Reportable Tyrosine Crystals Not Reportable Hippuric Acid Crystals Not Reportable Bilirubin Crystals Not Reportable Other Crystals Not Reportable Amorphous Sediment Not Reportable Other Sediment Not Reportable Urine Bacteria Not Reportable Urine Casts Not Reportable Cellular Casts Not Reportable Epithelial Casts Not Reportable Fatty Casts Not Reportable Hyaline Casts Not Reportable Granular Casts Not Reportable Waxy Casts Not Reportable Broad Casts Not Reportable RBC Casts Not Reportable WBC Casts Not Reportable Urine Starch Not Reportable Urine Mucus Not Reportable Urine Trichomonas Not Reportable Urine Yeast (Budding) Not Reportable Ur Oval Fat Bodies Not Reportable Sperm Presence Not Reportable 02/15/25 02/15/25 02/15/25 13:32 17:34 20:39 Puncture Site ABG pH ABG pCO2 ABG pO2 ABG PO2/FiO2 Ratio ABG HCO3 ABG O2 Saturation ABG O2 Content ABG Base Excess A-a Gradient Oxyhemoglobin Total Hemoglobin O2 Delivery Device O2 Liters/Min FiO2 Sodium Potassium Chloride Carbon Dioxide Anion Gap BUN Creatinine Estim Creat Clear Calc Estimated GFR Glucose POC Capillary Glucose 135 H 119 H Calcium Phosphorus Triglycerides 146 Cholesterol 204 H LDL Cholesterol Direct 106 HDL Direct 36 Vitamin B12 724.0 Vitamin D 25-Hydroxy 22.4 Folate 4.7 TSH 1.860 Add Ur Microanalysis Urine RBC Urine WBC Urine WBC Clumps Ur Squamous Epith Cells Ur Transition Epith Cell Ur Renal Epithelial Cell Alvin Biurate Crystals Calcium Carbonate Cryst Calcium Phosphate Cryst Calcium Oxalate Crystal Leucine Crystals Cystine Crystals Uric Acid Crystals Triple Phos Crystals Sulfonamide Crystals Cholesterol Crystals Talc Crystals Tyrosine Crystals Hippuric Acid Crystals Bilirubin Crystals Other Crystals Amorphous Sediment Other Sediment Urine Bacteria Urine Casts Cellular Casts Epithelial Casts Fatty Casts Hyaline Casts Granular Casts Waxy Casts Broad Casts RBC Casts WBC Casts Urine Starch Urine Mucus Urine Trichomonas Urine Yeast (Budding) Ur Oval Fat Bodies Sperm Presence 02/16/25 02/16/25 05:20 08:06 Puncture Site ABG pH ABG pCO2 ABG pO2 ABG PO2/FiO2 Ratio ABG HCO3 ABG O2 Saturation ABG O2 Content ABG Base Excess A-a Gradient Oxyhemoglobin Total Hemoglobin O2 Delivery Device O2 Liters/Min FiO2 Sodium 135 L Potassium 3.2 L Chloride 97 L Carbon Dioxide 34 H Anion Gap 4 BUN 13 Creatinine 0.57 L Estim Creat Clear Calc 100 Estimated GFR > 60 Glucose 94 POC Capillary Glucose 86 Calcium 8.3 L Phosphorus 3.1 Triglycerides Cholesterol LDL Cholesterol Direct HDL Direct Vitamin B12 Vitamin D 25-Hydroxy Folate TSH Add Ur Microanalysis Urine RBC Urine WBC Urine WBC Clumps Ur Squamous Epith Cells Ur Transition Epith Cell Ur Renal Epithelial Cell Alvin Biurate Crystals Calcium Carbonate Cryst Calcium Phosphate Cryst Calcium Oxalate Crystal Leucine Crystals Cystine Crystals Uric Acid Crystals Triple Phos Crystals Sulfonamide Crystals Cholesterol Crystals Talc Crystals Tyrosine Crystals Hippuric Acid Crystals Bilirubin Crystals Other Crystals Amorphous Sediment Other Sediment Urine Bacteria Urine Casts Cellular Casts Epithelial Casts Fatty Casts Hyaline Casts Granular Casts Waxy Casts Broad Casts RBC Casts WBC Casts Urine Starch Urine Mucus Urine Trichomonas Urine Yeast (Budding) Ur Oval Fat Bodies Sperm Presence Quality VTE Prophylaxis VTE prophylaxis: pharmacologic ordered Hospitalist MIPS Advance Care Plan I have confirmed that the patient's Advanced Care Plan is present, code status is documented, or surrogate decision maker is listed in patient medical record.: Yes Medication Reconciliation I have utilized all available resources to obtain, update and review the patients current medications (includes all prescriptions, OTC, herbals, cannabis, and nutritional supplements).: Yes
--- NOTE | 2025-02-16 11:05 | PCSTNOTE ---
TECHNICAL PROJECT COORDINATOR attempted swallowing therapy at 10:50 on this date; patient would not arouse for treatment.
[2025-02-16] MEDS: POTASSIUM CHLORIDE 20 MEQ PACKET (FOR LIQUID) 40 MEQ PO (14:14)
[2025-02-16] MEDS: DIVALPROEX SODIUM SPRINKLE 125 MG CAP.DR 500 MG PO (16:59)
[2025-02-16] MEDS: APIXABAN 5 MG TABLET PO (22:22)
[2025-02-17] VITALS (11 sets, daily range): BP systolic 106–151; BP diastolic 60–81; PULSE 80–105; RESP 16; TEMP 36.7–36.9; O2SAT 96–98
[2025-02-17] MEDS: LIDOCAINE 2% VISC SOLN 30 ML, ALUMINUM/MAGNESIUM/SIMETH SUSP 30 ML, diphenhydrAMINE HCl... PO ×5 (04:40→22:26)
[2025-02-17 05:47] LABS: Anion Gap 3 mmol/L (4-12); Blood Urea Nitrogen 16 mg/dL (9-20); Calcium 8.6 mg/dL (8.4-10.2); Carbon Dioxide 31 mmol/L (22-30); Chloride 98 mmol/L (98-107); Estimated CRCL calculation 105 ml/min; Estimated Glomerular Filt Rate > 60; Glucose 94 mg/dL (65-110); Magnesium 1.9 mg/dL (1.6-2.3); Potassium 3.5 mmol/L (3.4-5.0); Sodium 132 mmol/L (137-145)
[2025-02-17] MEDS: ASPIRIN 81 MG ENTERIC TABLET PO (09:08)
[2025-02-17] MEDS: APIXABAN 5 MG TABLET PO ×2 (09:08→22:27)
[2025-02-17] MEDS: DIVALPROEX SODIUM SPRINKLE 125 MG CAP.DR 500 MG PO ×2 (09:08→17:24)
[2025-02-17] MEDS: PANTOPRAZOLE 40 MG TABLET PO (09:08)
[2025-02-17] MEDS: SILVER SULFADIAZINE 1% CR 50 GM JAR (*BKC) 1 APPLIC TOPICAL (09:17)
--- NOTE | 2025-02-17 09:45 | P.PNIM_ITS ---
Progress Note: A&P Assessment and Plan (1) Acute alteration in mental status: Code(s): R41.82 - Altered mental status, unspecified Status: Acute Assessment and Plan: Altered mental status improved. Not yet back to prior baseline. No evidence of CVA on CT brain. Consider arrhthymia given electrolyte abnormalities and heart failure * Pending MRI, could not have a completed on 02/12/2025 due to the patient fi dgeting too much. Nursing staff report will try again. * Neurology consulted, appreciate recommendations. Changed keppra to depakote. Stopped tramadol * Continue depakote for possible seizure. * EEG procedure has been completed - awaiting neurology interpretation. * Interrogate loop recorder ([employer]) [address] with PVC's and PAC's, rate of 160's at 8:26 pm * Continue to monitor on telemetry (2) Hemiplegia: Code(s): G81.90 - Hemiplegia, unspecified affecting unspecified side Status: Acute Assessment and Plan: * according the family members this is from her his previous stroke * PT OT evaluation greatly appreciated. * q2 turns (3) Dysphagia: Code(s): R13.10 - Dysphagia, unspecified Status: Acute Assessment and Plan: * Speech therapy consulted regarding aspiration risk * Noted coughing and choking episode * Puree diet started on 02/[address] recommendations * Barium swallow study ordered -Recommended pureed and thickened liquids. Holding food in mouth. Alternating bites and sips, 1:1 supervision (4) Hypomagnesemia: Code(s): E83.42 - Hypomagnesemia Status: Acute Assessment and Plan: * his magnesium level was 1.4 and it has been replaced. * Follow magnesium (5) DM2 (diabetes mellitus, type 2): Code(s): E11.9 - Type 2 diabetes mellitus without complications Status: Acute Assessment and Plan: * metformin is on hold at this time due CT dye * Continuing empagliflozine * Accu-Cheks AC and HS with sliding scale insulin. * check A1c 5.4 * Blood sugars controlled (6) Pressure ulcer: Code(s): L89.90 - Pressure ulcer of unspecified site, unspecified stage Status: Acute Assessment and Plan: * wound care consult greatly be appreciated. * may consider specialty mattress. * may consider dietary consult for healing process (7) Hypokalemia: Code(s): E87.6 - Hypokalemia Status: Acute Assessment and Plan: * potassium was 2.7 and has been replaced in the emergency room. * daily BMP (8) Pulmonary embolism: Code(s): I26.99 - Other pulmonary embolism without acute cor pulmonale Status: Acute Assessment and Plan: * continue with Eliquis and aspirin (9) Congestive heart failure: Code(s): I50.9 - Heart failure, unspecified Status: Acute Assessment and Plan: * continue with Eplerenone and Farxiga * continue metoprolol--additional 50mg today and resume 100mg daily tomorrow, continue lisinopril 02/15 TTE 1. Definity contrast administered improved wall motion interpretation. 2. Left ventricular chamber dimension is severely enlarged. 3. Left ventricular systolic function is severely globally reduced, estimated at 25-30. 4. There is moderate concentric increased left ventricular wall thickness. 5. Mid to apical anteroseptum and septum are akinetic. 6. E/e' 7 is not elevated. 7. Left atrial chamber dimension is mildly enlarged. 8. There is mild aortic valve sclerosis. 9. There is mild mitral valve regurgitation. 10. There is trace tricuspid valve regurgitation. 11. No pulmonary hypertension, estimated pulmonary arterial systolic pressure is 17 mmHg. Plan Time Spent With Patient Time: 57 minutes Subjective Date/time seen: 02/17/25 09:45 Interval history: Interrogated [employer] device and night of admission had an episode of ST with PVC's and PAC's at 2025, rate 160's for 38 seconds. Otherwise no concerning arrhythmias Sodium 132. Potassium 3.5 meq--giving 40meq Follow intake, more awake this morning Reason for hospitalization 79-year-old male patient with a history of recent CVA, heart failure, with residual left-sided weakness, at [facility]. Found at the The patient presented to the emergency room after he was found to have altered mentation at the [facility]. On arrival he was noted to have very low potassium and magnesium levels Exam Narrative: General - Awake and alert. No acute distress Eyes - PERRLA, EOM intact ENT - No thrush, No erythema Neck - No noticeable or palpable swelling Lymph Nodes - No lymphadenopathy Cardiovascular - RRR no m/r/g, no JVD Lungs: Clear to auscultation, No wheezing, use of accessory muscles, no crackles Skin - Skin warm and dry, no wounds or rashes Abdomen - Normal bowel sounds, abdomen soft and nontender Extremities - No edema, cyanosis or clubbing Musculoskeletal - 1/5 strength left, 2/5 strength Right leg, Left arm flaccid, mild edema. No swollen or erythematous joints. Neurological ? Alert and oriented x 1-2, CN 2-12 grossly intact. Making jokes Psych: Normal mood and affect Objective Data Vital Signs Vital Signs: Vital Signs - 24 hr 02/16/25 12:06 02/16/25 14:00 02/16/25 16:05 Temperature 98.2 F Pulse Rate 72 88 77 Respiratory Rate 18 Blood Pressure 146/67 H Pulse Oximetry 100 Oxygen Delivery 02/16/25 20:00 02/16/25 20:00 02/16/25 20:23 Temperature 98.5 F Pulse Rate 93 92 Respiratory Rate 18 Blood Pressure 157/89 H Pulse Oximetry 98 Oxygen Delivery Room Air 02/16/25 21:01 02/17/25 00:00 02/17/25 04:00 Temperature Pulse Rate 89 81 Respiratory Rate Blood Pressure Pulse Oximetry 97 Oxygen Delivery Room Air 02/17/25 04:16 Temperature 98.4 F Pulse Rate 83 Respiratory Rate 16 Blood Pressure 151/81 H Pulse Oximetry 98 Oxygen Delivery Intake/Output Intake/Output: Intake & Output 02/14/25 02/15/25 02/16/25 02/17/25 23:59 23:59 23:59 23:59 Intake Total 1720 240 270 115 Output Total 375 355 5080 300 Balance 922 -260 -1680 -185 Meds/Results Medications: Active Medications Generic Name Dose Route Start Last Admin Trade Name Freq PRN Reason Stop Dose Admin Acetaminophen 1,000 mg 02/16/25 17:30 Acetaminophen 500 Mg Tablet PO Q8HR PRN fever or pain 1-3 Apixaban 5 mg 02/12/25 09:00 02/17/25 09:08 Apixaban 5 Mg Tablet PO 5 mg Q12HR ELISA Administration Aspirin 81 mg 02/12/25 09:00 02/17/25 09:08 Aspirin 81 Mg Enteric Tablet PO 81 mg DAILY ELISA Administration Atorvastatin Calcium 80 mg 02/12/25 18:00 02/16/25 22:23 Atorvastatin 40 Mg Tablet PO Not Given QPM ELISA Lidocaine HCl 30 ml/ Al Hydrox 0 ml 02/13/25 21:00 02/17/25 09:15 /Mg Hydrox/Simethicone 30 ml/ PO 5 ml Diphenhydramine HCl 75 mg Q4HWA ELISA Administration Dextrose 12.5 gm 02/12/25 03:52 Dextrose 50% 25 Gm/50 Ml Syringe IV PUSH PRN PRN Hypoglycemia Protocol Divalproex Sodium 500 mg 02/15/25 17:55 02/17/25 09:08 Divalproex Sodium Sprinkle 125 Mg Cap.Dr PO 500 mg BID ELISA Administration Empagliflozin 25 mg 02/12/25 09:00 02/13/25 08:45 Empagliflozin 25 Mg Tablet BY MOUTH 25 mg On Hold: 02/13/25 18:50 DAILY ELISA Administration Gabapentin 300 mg 02/12/25 09:00 02/13/25 18:31 Gabapentin 300 Mg Capsule PO Not Given On Hold: 02/13/25 18:50 TID ELISA Glucagon 1 mg 02/12/25 03:52 Glucagon For Inj 1 Mg Vial IM PRN PRN Hypoglycemia Protocol Glucose 15 gm 02/12/25 03:52 Glucose Oral Gel 15 Gm Of Glucse In 37.5 Gm Tube PO PRN PRN Hypoglycemia Protocol Dextrose 1,000 mls @ 100 mls/hr 02/12/25 03:52 Dextrose 5% 1,000 Ml IVPB PRN PRN Hypoglycemia Protocol Insulin Aspart 1 - 2 units 02/12/25 21:00 02/16/25 22:21 Insulin Aspart (*Bkc) 100 Units/Ml SUB-Q Not Given HS ELISA Protocol Insulin Aspart 2 - 5 units 02/12/25 08:00 02/17/25 09:14 Insulin Aspart (*Bkc) 100 Units/Ml SUB-Q Not Given TIDWM [facility] Protocol Lisinopril 20 mg 02/12/25 09:00 02/13/25 08:45 Lisinopril 20 Mg Tablet PO 20 mg On Hold: 02/13/25 18:50 DAILY ELISA Administration Metoprolol Succinate 50 mg 02/17/25 09:00 Metoprolol Succinate Ext Rel 50 Mg Tabcr PO On Hold: 02/17/25 09:00 DAILY ELISA Midodrine 5 mg 02/12/25 03:39 Midodrine Hcl 2.5 Mg Tablet PO Q8H PRN LOW BP Mirtazapine 15 mg 02/12/25 21:00 02/12/25 20:53 Mirtazapine 15 Mg Tablet PO 15 mg On Hold: 02/13/25 18:51 HS ELISA Administration Miscellaneous Information 1 each 02/15/25 00:01 02/16/25 05:54 Order Clarification -Eplerenone 25 Mg Tablet Is Non-Formulary XX 03/17/25 00:00 Not Given CLARIFY ELISA Modafinil 200 mg 02/12/25 09:00 02/13/25 08:45 Modafinil (*Crx) 200 Mg Tablet PO 200 mg QAM ELISA Administration Non-Formulary Medication 25 mg 02/12/25 09:00 Eplerenone PO 03/14/25 08:59 DAILY ELISA Pantoprazole Sodium 40 mg 02/12/25 09:00 02/17/25 09:08 Pantoprazole 40 Mg Tablet PO 40 mg QAM ELISA Administration Silver Sulfadiazine 1 applic 02/14/25 09:00 02/17/25 09:17 Silver Sulfadiazine 1% Cr 50 Gm Jar (*Bkc) TOPICAL 1 applic DAILY ELISA Administration Radiology Results: ITS Impressions Chest X-Ray 02/12/25 06:03 IMPRESSION: 1. No acute cardiopulmonary findings given portable technique. Head/Neck CTA 02/12/25 06:45 IMPRESSION: CTA NECK: 1. No acute findings. CTA HEAD: 1. No acute findings. Carotid Doppler Study 02/12/25 10:44 IMPRESSION: 1. No hemodynamically significant ICA stenosis (i.e., if any stenosis, less than 50%). 2. Normal bilateral antegrade vertebral artery flow. Stenosis measured by Society of Radiologists in Ultrasound (SRU) criteria. Head CT 02/14/25 08:46 IMPRESSION: 1. Large old infarct in the expected distribution of right middle cerebral artery. Modified Barium Swallow 02/15/25 12:11 IMPRESSION: Oropharyngeal dysphagia with laryngeal penetration and aspiration. Please correlate with speech pathologist findings and specific feeding recommendations. Brain MRI 02/16/25 14:14 IMPRESSION: 1. 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 No acute intracranial process. 2. Increased white matter T2 hyperintensity kevin, right cerebral peduncle and right thalamus which suggests possible Wallerian degeneration related to the right middle cerebral artery infarct with differential including sequela of chronic small vessel ischemic disease. Labs Labs: Laboratory Results - last 24 hr 02/16/25 02/16/25 02/16/25 11:27 16:36 20:28 Sodium Potassium Chloride Carbon Dioxide Anion Gap BUN Creatinine Estim Creat Clear Calc Estimated GFR Glucose POC Capillary Glucose 93 104 118 H Calcium Magnesium 02/17/25 02/17/25 05:02 08:38 Sodium 132 L Potassium 3.5 Chloride 98 Carbon Dioxide 31 H Anion Gap 3 L BUN 16 Creatinine 0.54 L Estim Creat Clear Calc 105 Estimated GFR > 60 Glucose 94 POC Capillary Glucose 88 Calcium 8.6 Magnesium 1.9 Hospitalist [facility] Advance Care Plan I have confirmed that the patient's Advanced Care Plan is present, code status is documented, or surrogate decision maker is listed in patient medical record.: Yes Medication Reconciliation The patient is not eligible for med reconciliation; the patient is in a emergent medical situation where delaying treatment would jeopardize the patients health.: Yes
[2025-02-17] MEDS: modafiniL (*CRX) 200 MG TABLET PO (10:05)
[2025-02-17] MEDS: POTASSIUM CHLORIDE 20 MEQ PACKET (FOR LIQUID) 40 MEQ PO (10:05)
--- NOTE | 2025-02-17 11:21 | PCNFU ---
Nutrition Follow-Up Complete: Increased Protein needs as related to wounds as evidenced by pressure ulcers reported. Goal:adequate intake of at least 75% of meals/supplements Pt not meeting goal, continue with same goal Pt current nutrition is Pureed level 4, level 2 thickened liquids per PUG MACHINE OPERATOR and bedside eval. Nutrition recommendation: Add Ensure TID with meals for an additional 350kcals, 20g protein per shake Last recorded weight is 78.1 kg. Bowel Motility: +BM 02/17 Labs Reviewed: NA:132, Cr:0.54 Meds Noted:remeron, protonix, novolog, MVI, jardiance Skin: Stage III to sacrum Additional Notes: Pt diet downgraded to pureed level 4, level 2 mildly thick liquids per speech evaluation. Breakfast tray at bedside and barely touched. Pt states he is not hungry. Encouraged po intake of meals and supplements. Will add Ensure shakes TID RD will monitor weight, labs, skin, diet orders, meds every 5 days.
[2025-02-17] MEDS: ATORVASTATIN 40 MG TABLET 80 MG PO (17:23)
[2025-02-17] MEDS: METOPROLOL SUCCINATE EXT REL 50 MG TABCR PO (17:24)
[2025-02-18] VITALS (11 sets, daily range): BP systolic 109–146; BP diastolic 60–71; PULSE 60–77; RESP 16–20; TEMP 36.7–36.9; O2SAT 95–97
[2025-02-18] MEDS: LIDOCAINE 2% VISC SOLN 30 ML, ALUMINUM/MAGNESIUM/SIMETH SUSP 30 ML, diphenhydrAMINE HCl... PO ×5 (05:52→20:48)
[2025-02-18 06:35] LABS: Anion Gap 4 mmol/L (4-12); Blood Urea Nitrogen 17 mg/dL (9-20); Calcium 8.6 mg/dL (8.4-10.2); Carbon Dioxide 33 mmol/L (22-30); Chloride 98 mmol/L (98-107); Estimated CRCL calculation 97 ml/min; Estimated Glomerular Filt Rate > 60; Glucose 94 mg/dL (65-110); Potassium 3.8 mmol/L (3.4-5.0); Sodium 135 mmol/L (137-145)
[2025-02-18] MEDS: DIVALPROEX SODIUM SPRINKLE 125 MG CAP.DR 500 MG PO ×2 (09:08→17:47)
[2025-02-18] MEDS: METOPROLOL SUCCINATE EXT REL 50 MG TABCR 100 MG PO (09:08)
[2025-02-18] MEDS: PANTOPRAZOLE 40 MG TABLET PO (09:09)
[2025-02-18] MEDS: ASPIRIN 81 MG ENTERIC TABLET PO (09:09)
[2025-02-18] MEDS: APIXABAN 5 MG TABLET PO ×2 (09:09→20:47)
[2025-02-18] MEDS: modafiniL (*CRX) 200 MG TABLET PO (09:09)
[2025-02-18] MEDS: THERAPEUTIC MULTIVITAMINS/MINERALS TAB (*BKC) 1 TABLET PO (09:09)
[2025-02-18] MEDS: SILVER SULFADIAZINE 1% CR 50 GM JAR (*BKC) 1 APPLIC TOPICAL (09:09)
--- NOTE | 2025-02-18 12:09 | WNDPHOTO ---
PHOTO ONLY - See Nursing Notes and/ or assessments for documentation.
--- NOTE | 2025-02-18 15:20 | PM.IMPN ---
Progress Note: A&P Assessment and Plan (1) Acute alteration in mental status: Code(s): R41.82 - Altered mental status, unspecified Status: Acute Assessment and Plan: Altered mental status improved. Not yet back to prior baseline. No evidence of CVA on CT brain. Consider arrhthymia given electrolyte abnormalities and heart failure Pending MRI, could not have a completed on 02/12/2025 due to the patient fidgeting too much. Nursing staff report will try again. Neurology consulted, appreciate recommendations. Changed keppra to depakote. Stopped tramadol Continue depakote for possible seizure. EEG procedure has been completed - awaiting neurology interpretation. Interrogate loop recorder ([place]) [address] with PVC's and PAC's, rate of 160's at 8:26 pm Continue to monitor on telemetry. Had a 5 beat run of NSVT (2) Hemiplegia: Code(s): G81.90 - Hemiplegia, unspecified affecting unspecified side Status: Acute Assessment and Plan: according the family members this is from her his previous stroke PT OT evaluation greatly appreciated. q2 turns resume gabapentin 300mg hs instead of TID (3) Dysphagia: Code(s): R13.10 - Dysphagia, unspecified Status: Acute Assessment and Plan: Speech therapy consulted regarding aspiration risk Noted coughing and choking episode Puree diet started on 02/[address] recommendations Barium swallow study ordered -Recommended pureed and thickened liquids. Holding food in mouth. Alternating bites and sips, 1:1 supervision Overall intake is poor. Discussed with family that since he is eating less than 50% of meals, not drinking supplements, he may need a feeding tube eventually. They are going to discuss it. Poor PO intake likely contributing to electrolyte abnormality which would increase risk of arrhythmias (4) Hypomagnesemia: Code(s): E83.42 - Hypomagnesemia Status: Acute Assessment and Plan: his magnesium level was 1.4 and it has been replaced. Follow magnesium every 2 days (5) DM2 (diabetes mellitus, type 2): Code(s): E11.9 - Type 2 diabetes mellitus without complications Status: Acute Assessment and Plan: metformin is on hold at this time due CT dye Continuing empagliflozine Accu-Cheks AC and HS with sliding scale insulin. check A1c 5.4 Blood sugars controlled (6) Pressure ulcer: Code(s): L89.90 - Pressure ulcer of unspecified site, unspecified stage Status: Acute Assessment and Plan: wound care consult greatly be appreciated. may consider specialty mattress. may consider dietary consult for healing process (7) Hypokalemia: Code(s): E87.6 - Hypokalemia Status: Acute Assessment and Plan: potassium was 2.7 and has been replaced in the emergency room. daily BMP (8) Pulmonary embolism: Code(s): I26.99 - Other pulmonary embolism without acute cor pulmonale Status: Acute Assessment and Plan: continue with Eliquis and aspirin 02/17 Left LE venous doppler showing possible noncompressible DVT in the left posterior tibial and peroneal veins however specificity is decreased by the poor visualization of the vessels. No DVT at or proximal to the left popliteal vein. --Patient was off his Eliquis for 3 days and now has been resumed. --Since the DVTs are not confirmed and they are below the knee, would not advance Eliquis to full dose at this time but would repeat US in 1 week to make sure this has not propagated to the popliteal (9) Congestive heart failure: Code(s): I50.9 - Heart failure, unspecified Status: Acute Assessment and Plan: continue with Eplerenone and Farxiga continue metoprolol-- 100mg daily , continue lisinopril 02/15 TTE 1. Definity contrast administered improved wall motion interpretation. 2. Left ventricular chamber dimension is severely enlarged. 3. Left ventricular systolic function is severely globally reduced, estimated at 25-30. 4. There is moderate concentric increased left ventricular wall thickness. 5. Mid to apical anteroseptum and septum are akinetic. 6. E/e' 7 is not elevated. 7. Left atrial chamber dimension is mildly enlarged. 8. There is mild aortic valve sclerosis. 9. There is mild mitral valve regurgitation. 10. There is trace tricuspid valve regurgitation. 11. No pulmonary hypertension, estimated pulmonary arterial systolic pressure is 17 mmHg. Plan Time Spent With Patient Time: 57 minutes Subjective Date/time seen: 02/18/25 07:28 Interval history: 5 beat run NSVT Discussed with cardiology. Requesting records to evaluate prior LVEF/WMA's. Family believe he had a cardiac cath in August Having left arm/leg pain, resume gabapentin hs only Reason for hospitalization 79-year-old male patient with a history of recent CVA, heart failure, with residual left-sided weakness, at [facility]. Found at the The patient presented to the emergency room after he was found to have altered mentation at the [facility]. On arrival he was noted to have very low potassium and magnesium levels Exam Narrative: General - Awake and alert. No acute distress Eyes - PERRLA, EOM intact ENT - No thrush, No erythema Neck - No noticeable or palpable swelling Lymph Nodes - No lymphadenopathy Cardiovascular - RRR no m/r/g, no JVD Lungs: Clear to auscultation, No wheezing, use of accessory muscles, no crackles Skin - Skin warm and dry, no wounds or rashes Abdomen - Normal bowel sounds, abdomen soft and nontender Extremities - No edema, cyanosis or clubbing Musculoskeletal - 1/5 strength left, 2/5 strength Right leg, Left arm flaccid, mild edema. No swollen or erythematous joints. Neurological ? Alert and oriented x 1-2, CN 2-12 grossly intact. Making jokes Psych: Normal mood and affect Objective Data Vital Signs Vital Signs: Vital Signs - 24 hr 02/17/25 08:05 02/17/25 09:17 02/17/25 12:05 Temperature Pulse Rate 81 105 H Respiratory Rate Blood Pressure Pulse Oximetry Oxygen Delivery Room Air Fraction of Inspired Oxygen 02/17/25 14:00 02/17/25 16:05 02/17/25 17:24 Temperature 98.0 F Pulse Rate 98 87 80 Respiratory Rate 16 Blood Pressure 146/76 H Pulse Oximetry 97 Oxygen Delivery Fraction of Inspired Oxygen 02/17/25 19:58 02/17/25 20:00 02/17/25 20:00 Temperature Pulse Rate 85 85 Respiratory Rate Blood Pressure Pulse Oximetry 96 Oxygen Delivery Room Air Room Air Fraction of Inspired Oxygen 21 02/17/25 21:56 02/18/25 00:00 02/18/25 04:00 Temperature 98.2 F Pulse Rate 85 77 70 Respiratory Rate 16 Blood Pressure 106/60 Pulse Oximetry 98 Oxygen Delivery Fraction of Inspired Oxygen 02/18/25 06:00 Temperature 98.0 F Pulse Rate 70 Respiratory Rate 20 Blood Pressure 146/71 H Pulse Oximetry 95 Oxygen Delivery Fraction of Inspired Oxygen Intake/Output Intake/Output: Intake & Output 02/15/25 02/16/25 02/17/25/25/25 23:59 23:59 23:59 23:59 Intake Total 240 270 375 0 Output Total 756 1691 715 125 Balance -260 -1680 -340 -125 Meds/Results Medications: Active Medications Generic Name Dose Route Start Last Admin Trade Name Freq PRN Reason Stop Dose Admin Acetaminophen 1,000 mg 02/16/25 17:30 Acetaminophen 500 Mg Tablet PO Q8HR PRN fever or pain 1-3 Apixaban 5 mg 02/12/25 09:00 02/17/25 22:27 Apixaban 5 Mg Tablet PO 5 mg Q12HR ELISA Administration Aspirin 81 mg 02/12/25 09:00 02/17/25 09:08 Aspirin 81 Mg Enteric Tablet PO 81 mg DAILY ELISA Administration Atorvastatin Calcium 80 mg 02/12/25 18:00 02/17/25 17:23 Atorvastatin 40 Mg Tablet PO 80 mg QPM ELISA Administration Lidocaine HCl 30 ml/ Al Hydrox 0 ml 02/13/25 21:00 02/18/25 05:52 /Mg Hydrox/Simethicone 30 ml/ PO 5 ml Diphenhydramine HCl 75 mg Q4HWA ELISA Administration Dextrose 12.5 gm 02/12/25 03:52 Dextrose 50% 25 Gm/50 Ml Syringe IV PUSH PRN PRN Hypoglycemia Protocol Divalproex Sodium 500 mg 02/15/25 17:55 02/17/25 17:24 Divalproex Sodium Sprinkle 125 Mg Cap.Dr PO 500 mg BID ELISA Administration Empagliflozin 25 mg 02/12/25 09:00 02/13/25 08:45 Empagliflozin 25 Mg Tablet BY MOUTH 25 mg On Hold: 02/13/25 18:50 DAILY ELISA Administration Gabapentin 300 mg 02/12/25 09:00 02/13/25 18:31 Gabapentin 300 Mg Capsule PO Not Given On Hold: 02/13/25 18:50 TID ELISA Glucagon 1 mg 02/12/25 03:52 Glucagon For Inj 1 Mg Vial IM PRN PRN Hypoglycemia Protocol Glucose 15 gm 02/12/25 03:52 Glucose Oral Gel 15 Gm Of Glucse In 37.5 Gm Tube PO PRN PRN Hypoglycemia Protocol Dextrose 1,000 mls @ 100 mls/hr 02/12/25 03:52 Dextrose 5% 1,000 Ml IVPB PRN PRN Hypoglycemia Protocol Insulin Aspart 1 - 2 units 02/12/25 21:00 02/17/25 22:27 Insulin Aspart (*Bkc) 100 Units/Ml SUB-Q Not Given HS [facility] Protocol Insulin Aspart 2 - 5 units 02/12/25 08:00 02/17/25 18:36 Insulin Aspart (*Bkc) 100 Units/Ml SUB-Q Not Given TIDWM [facility] Protocol Lisinopril 20 mg 02/12/25 09:00 02/13/25 08:45 Lisinopril 20 Mg Tablet PO 20 mg On Hold: 02/13/25 18:50 DAILY ELISA Administration Metoprolol Succinate 100 mg 02/18/25 09:00 Metoprolol Succinate Ext Rel 50 Mg Tabcr PO DAILY ELISA Midodrine 5 mg 02/12/25 03:39 Midodrine Hcl 2.5 Mg Tablet PO Q8H PRN LOW BP Mirtazapine 15 mg 02/12/25 21:00 02/12/25 20:53 Mirtazapine 15 Mg Tablet PO 15 mg On Hold: 02/13/25 18:51 HS [facility] Administration Miscellaneous Information 1 each 02/15/25 00:01 02/17/25 22:34 Order Clarification -Eplerenone 25 Mg Tablet Is Non-Formulary XX 03/17/25 00:00 Not Given CLARIFY [facility] Modafinil 200 mg 02/12/25 09:00 02/17/25 10:05 Modafinil (*Crx) 200 Mg Tablet PO 200 mg QAM [facility] Administration Multivitamins/Calcium 1 tablet 02/18/25 09:00 Therapeutic Multivitamins/Minerals Tab (*Bkc) PO DAILY [facility] Non-Formulary Medication 25 mg 02/12/25 09:00 Eplerenone PO 03/14/25 08:59 DAILY ELISA Pantoprazole Sodium 40 mg 02/12/25 09:00 02/17/25 09:08 Pantoprazole 40 Mg Tablet PO 40 mg QAM [facility] Administration Silver Sulfadiazine 1 applic 02/14/25 09:00 02/17/25 09:17 Silver Sulfadiazine 1% Cr 50 Gm Jar (*Bkc) TOPICAL 1 applic DAILY ELISA Administration Radiology Results: ITS Impressions Chest X-Ray 02/12/25 06:03 IMPRESSION: 1. No acute cardiopulmonary findings given portable technique. Head/Neck CTA 02/12/25 06:45 IMPRESSION: CTA NECK: 1. No acute findings. CTA HEAD: 1. No acute findings. Carotid Doppler Study 02/12/25 10:44 IMPRESSION: 1. No hemodynamically significant ICA stenosis (i.e., if any stenosis, less than 50%). 2. Normal bilateral antegrade vertebral artery flow. Stenosis measured by Society of Radiologists in Ultrasound (SRU) criteria. Head CT 02/14/25 08:46 IMPRESSION: 1. Large old infarct in the expected distribution of right middle cerebral artery. Modified Barium Swallow 02/15/25 12:11 IMPRESSION: Oropharyngeal dysphagia with laryngeal penetration and aspiration. Please correlate with speech pathologist findings and specific feeding recommendations. Brain MRI 02/16/25 14:14 IMPRESSION: 1. 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 No acute intracranial process. 2. Increased white matter T2 hyperintensity kevin, right cerebral peduncle and right thalamus which suggests possible Wallerian degeneration related to the right middle cerebral artery infarct with differential including sequela of chronic small vessel ischemic disease. Venous Doppler Study 02/17/25 17:06 IMPRESSION: 1. Possible noncompressible deep venous thrombosis in the left posterior tibial and peroneal veins however specificity is decreased by the poor visualization of the vessels. No deep venous thrombosis at or proximal to the left popliteal vein. Labs Labs: Laboratory Results - last 24 hr 02/16/25 02/17/25 02/17/25 05:03 08:38 11:48 Sodium Potassium Chloride Carbon Dioxide Anion Gap BUN Creatinine Estim Creat Clear Calc Estimated GFR Glucose POC Capillary Glucose 88 111 H Calcium Urine Color Cancelled Urine Appearance Cancelled Urine pH Cancelled Ur Specific [place] Cancelled Urine Protein Cancelled Urine Glucose (UA) Cancelled Urine Ketones Cancelled Ur Blood (Man) Cancelled Urine Nitrate Cancelled Urine Bilirubin Cancelled Urine Urobilinogen Cancelled Add Ur Microanalysis Cancelled Leukocyte Esterase Rfl Cancelled Urine RBC Cancelled Urine WBC Cancelled Urine WBC Clumps Cancelled Ur Squamous Epith Cells Cancelled Ur Transition Epith Cell Cancelled Ur Renal Epithelial Cell Cancelled [place] Biurate Crystals Cancelled Calcium Carbonate Cryst Cancelled Calcium Phosphate Cryst Cancelled Calcium Oxalate Crystal Cancelled Leucine Crystals Cancelled Cystine Crystals Cancelled Uric Acid Crystals Cancelled Triple Phos Crystals Cancelled Sulfonamide Crystals Cancelled Cholesterol Crystals Cancelled [place] Crystals Cancelled Tyrosine Crystals Cancelled Hippuric Acid Crystals Cancelled Bilirubin Crystals Cancelled Other Crystals Cancelled Amorphous Sediment Cancelled Other Sediment Cancelled Urine Bacteria Cancelled Urine Casts Cancelled Cellular Casts Cancelled Epithelial Casts Cancelled Fatty Casts Cancelled Hyaline Casts Cancelled Granular Casts Cancelled Waxy Casts Cancelled Broad Casts Cancelled RBC Casts Cancelled WBC Casts Cancelled Urine Starch Cancelled Urine Mucus Cancelled Urine Trichomonas Cancelled Urine Yeast (Budding) Cancelled Ur Oval Fat Bodies Cancelled Sperm Presence Cancelled 02/17/25 02/17/25 02/18/25 16:50 21:45 06:06 Sodium 135 L Potassium 3.8 Chloride 98 Carbon Dioxide 33 H Anion Gap 4 BUN 17 Creatinine 0.59 L Estim Creat Clear Calc 97 Estimated GFR > 60 Glucose 94 POC Capillary Glucose 86 128 H Calcium 8.6 Urine Color Urine Appearance Urine pH Ur Specific [place] Urine Protein Urine Glucose (UA) Urine Ketones Ur Blood (Man) Urine Nitrate Urine Bilirubin Urine Urobilinogen Add Ur Microanalysis Leukocyte Esterase Rfl Urine RBC Urine WBC Urine WBC Clumps Ur Squamous Epith Cells Ur Transition Epith Cell Ur Renal Epithelial Cell [place] Biurate Crystals Calcium Carbonate Cryst Calcium Phosphate Cryst Calcium Oxalate Crystal Leucine Crystals Cystine Crystals Uric Acid Crystals Triple Phos Crystals Sulfonamide Crystals Cholesterol Crystals Talc Crystals Tyrosine Crystals Hippuric Acid Crystals Bilirubin Crystals Other Crystals Amorphous Sediment Other Sediment Urine Bacteria Urine Casts Cellular Casts Epithelial Casts Fatty Casts Hyaline Casts Granular Casts Waxy Casts Broad Casts RBC Casts WBC Casts Urine Starch Urine Mucus Urine Trichomonas Urine Yeast (Budding) Ur Oval Fat Bodies Sperm Presence Quality VTE Prophylaxis VTE prophylaxis: pharmacologic ordered Hospitalist MIPS Advance Care Plan I have confirmed that the patient's Advanced Care Plan is present, code status is documented, or surrogate decision maker is listed in patient medical record.: Yes Medication Reconciliation I have utilized all available resources to obtain, update and review the patients current medications (includes all prescriptions, OTC, herbals, cannabis, and nutritional supplements).: Yes
--- NOTE | 2025-02-18 17:45 | WPDNEUROPN ---
Progress Note: A&P Assessment and Plan (1) Seizure disorder: Code(s): G40.909 - Epilepsy, unspecified, not intractable, without status epilepticus Status: Acute Assessment and Plan: He is considered to have a new onset seizure disorder. He has side effects from Keppra such as combativeness which has improved after stretching him to Depakote and it should be continued. 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 (3) Pulmonary embolism: Code(s): I26.99 - Other pulmonary embolism without acute cor pulmonale Status: Acute Assessment and Plan: The patient is on anticoagulation. (4) CVA (cerebral vascular accident): Code(s): I63.9 - Cerebral infarction, unspecified Status: Acute (5) DM2 (diabetes mellitus, type 2): Code(s): E11.9 - Type 2 diabetes mellitus without complications Status: Acute Plan The patient is on gabapentin for peripheral neuropathy. I would suggest to continue the current medications unless there is new problems arise. 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 MRI of the brain has shown a old infarct in the right middle cerebral artery distribution. CT angiogram did not show any significant abnormal large vessel occlusion. Ejection fraction on the echocardiogram was 25-30%. He was given Keppra but he became aggressive and thereafter it was changed over to Depakote 500 mg twice a day. Patient is also on gabapentin 900 mg a day. In addition from the stroke point of view his Eliquis and aspirin and Lipitor 80 mg a day. Overall his condition has stabilized and improved he is gradually improving. He has not been as was trial as he was previously. Review of Systems Review of Systems: All systems reviewed & are unremarkable except as noted in HPI and below Exam Narrative: Patient pleasant and cooperative fully conscious alert. No aphasia or dysarthria. Weakness the left upper and lower limb as before affect the left upper limb greater than lower limb. No involuntary movements are seen. Objective Data Vital Signs Vital Signs: Vital Signs - 24 hr 02/17/25 19:58 02/17/25 20:00 02/17/25 20:00 Temperature Pulse Rate 85 85 Respiratory Rate Blood Pressure Pulse Oximetry 96 Oxygen Delivery Room Air Room Air Fraction of Inspired Oxygen 21 02/17/25 21:56 02/18/25 00:00 02/18/25 04:00 Temperature 98.2 F Pulse Rate 85 77 70 Respiratory Rate 16 Blood Pressure 106/60 Pulse Oximetry 98 Oxygen Delivery Fraction of Inspired Oxygen 02/18/25 06:00 02/18/25 08:05 02/18/25 09:08 Temperature 98.0 F Pulse Rate 70 61 74 Respiratory Rate 20 Blood Pressure 146/71 H Pulse Oximetry 95 Oxygen Delivery Fraction of Inspired Oxygen 02/18/25 09:40 02/18/25 12:05 02/18/25 14:00 Temperature 98.1 F Pulse Rate 64 65 Respiratory Rate 16 Blood Pressure 109/60 Pulse Oximetry 97 Oxygen Delivery Room Air Fraction of Inspired Oxygen 02/18/25 16:05 Temperature Pulse Rate 60 Respiratory Rate Blood Pressure Pulse Oximetry Oxygen Delivery Fraction of Inspired Oxygen Intake/Output Intake/Output: Intake & Output 02/15/25 02/16/25 02/17/25 02/18/25 23:59 23:59 23:59 23:59 Intake Total 240 270 375 380 Output Total 500 4702 715 125 Balance -260 -1680 -340 255 Meds/Results Medications: Active Medications Generic Name Dose Route Start Last Admin Trade Name Freq PRN Reason Stop Dose Admin Acetaminophen 1,000 mg 02/16/25 17:30 Acetaminophen 500 Mg Tablet PO Q8HR PRN fever or pain 1-3 Apixaban 5 mg 02/12/25 09:00 02/18/25 09:09 Apixaban 5 Mg Tablet PO 5 mg Q12HR ELISA Administration Aspirin 81 mg 02/12/25 09:00 02/18/25 09:09 Aspirin 81 Mg Enteric Tablet PO 81 mg DAILY ELISA Administration Atorvastatin Calcium 80 mg 02/12/25 18:00 02/17/25 17:23 Atorvastatin 40 Mg Tablet PO 80 mg QPM ELISA Administration Lidocaine HCl 30 ml/ Al Hydrox 0 ml 02/13/25 21:00 02/18/25 13:27 /Mg Hydrox/Simethicone 30 ml/ PO 5 ml Diphenhydramine HCl 75 mg Q4HWA ELISA Administration Dextrose 12.5 gm 02/12/25 03:52 Dextrose 50% 25 Gm/50 Ml Syringe IV PUSH PRN PRN Hypoglycemia Protocol Divalproex Sodium 500 mg 02/15/25 17:55 02/18/25 09:08 Divalproex Sodium Sprinkle 125 Mg Cap.Dr PO 500 mg BID ELISA Administration Empagliflozin 25 mg 02/12/25 09:00 02/13/25 08:45 Empagliflozin 25 Mg Tablet BY MOUTH 25 mg On Hold: 02/13/25 18:50 DAILY ELISA Administration Gabapentin 300 mg 02/12/25 09:00 02/13/25 18:31 Gabapentin 300 Mg Capsule PO Not Given On Hold: 02/13/25 18:50 TID ELISA Glucagon 1 mg 02/12/25 03:52 Glucagon For Inj 1 Mg Vial IM PRN PRN Hypoglycemia Protocol Glucose 15 gm 02/12/25 03:52 Glucose Oral Gel 15 Gm Of Glucse In 37.5 Gm Tube PO PRN PRN Hypoglycemia Protocol Dextrose 1,000 mls @ 100 mls/hr 02/12/25 03:52 Dextrose 5% 1,000 Ml IVPB PRN PRN Hypoglycemia Protocol Insulin Aspart 1 - 2 units 02/12/25 21:00 02/17/25 22:27 Insulin Aspart (*Bkc) 100 Units/Ml SUB-Q Not Given HS ELISA Protocol Insulin Aspart 2 - 5 units 02/12/25 08:00 02/18/25 17:02 Insulin Aspart (*Bkc) 100 Units/Ml SUB-Q Not Given TIDWM ELISA Protocol Lisinopril 20 mg 02/12/25 09:00 02/18/25 09:08 Lisinopril 20 Mg Tablet PO 20 mg DAILY ELISA Administration Metoprolol Succinate 100 mg 02/18/25 09:00 02/18/25 09:08 Metoprolol Succinate Ext Rel 50 Mg Tabcr PO 100 mg DAILY ELISA Administration Midodrine 5 mg 02/12/25 03:39 Midodrine Hcl 2.5 Mg Tablet PO Q8H PRN LOW BP Mirtazapine 15 mg 02/12/25 21:00 02/12/25 20:53 Mirtazapine 15 Mg Tablet PO 15 mg HS ELISA Administration Miscellaneous Information 1 each 02/15/25 00:01 02/17/25 22:34 Order Clarification -Eplerenone 25 Mg Tablet Is Non-Formulary XX 03/17/25 00:00 Not Given CLARIFY ELISA Modafinil 200 mg 02/12/25 09:00 02/18/25 09:09 Modafinil (*Crx) 200 Mg Tablet PO 200 mg QAM ELISA Administration Multivitamins/Calcium 1 tablet 02/18/25 09:00 02/18/25 09:09 Therapeutic Multivitamins/Minerals Tab (*Bkc) PO 1 tablet DAILY ELISA Administration Non-Formulary Medication 25 mg 02/12/25 09:00 Eplerenone PO 03/14/25 08:59 DAILY ELISA Pantoprazole Sodium 40 mg 02/12/25 09:00 02/18/25 09:09 Pantoprazole 40 Mg Tablet PO 40 mg QAM ELISA Administration Silver Sulfadiazine 1 applic 02/14/25 09:00 02/18/25 09:09 Silver Sulfadiazine 1% Cr 50 Gm Jar (*Bkc) TOPICAL 1 applic DAILY ELISA Administration Radiology Results: ITS Impressions Chest X-Ray 02/12/25 06:03 IMPRESSION: 1. No acute cardiopulmonary findings given portable technique. Head/Neck CTA 02/12/25 06:45 IMPRESSION: CTA NECK: 1. No acute findings. CTA HEAD: 1. No acute findings. Carotid Doppler Study 02/12/25 10:44 IMPRESSION: 1. No hemodynamically significant ICA stenosis (i.e., if any stenosis, less than 50%). 2. Normal bilateral antegrade vertebral artery flow. Stenosis measured by Society of Radiologists in Ultrasound (SRU) criteria. Head CT 02/14/25 08:46 IMPRESSION: 1. Large old infarct in the expected distribution of right middle cerebral artery. Modified Barium Swallow 02/15/25 12:11 IMPRESSION: Oropharyngeal dysphagia with laryngeal penetration and aspiration. Please correlate with speech pathologist findings and specific feeding recommendations. Brain MRI 02/16/25 14:14 IMPRESSION: 1. 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 No acute intracranial process. 2. Increased white matter T2 hyperintensity kevin, right cerebral peduncle and right thalamus which suggests possible Wallerian degeneration related to the right middle cerebral artery infarct with differential including sequela of chronic small vessel ischemic disease. Venous Doppler Study 02/17/25 17:06 IMPRESSION: 1. Possible noncompressible deep venous thrombosis in the left posterior tibial and peroneal veins however specificity is decreased by the poor visualization of the vessels. No deep venous thrombosis at or proximal to the left popliteal vein. Labs Labs: Laboratory Results - last 24 hr 02/16/25 02/17/25 02/18/25 05:03 21:45 06:06 Sodium 135 L Potassium 3.8 Chloride 98 Carbon Dioxide 33 H Anion Gap 4 BUN 17 Creatinine 0.59 L Estim Creat Clear Calc 97 Estimated GFR > 60 Glucose 94 POC Capillary Glucose 128 H Calcium 8.6 Urine Color Cancelled Urine Appearance Cancelled Urine pH Cancelled Ur Specific [place] Cancelled Urine Protein Cancelled Urine Glucose (UA) Cancelled Urine Ketones Cancelled Ur Blood (Man) Cancelled Urine Nitrate Cancelled Urine Bilirubin Cancelled Urine Urobilinogen Cancelled Add Ur Microanalysis Cancelled Leukocyte Esterase Rfl Cancelled Urine RBC Cancelled Urine WBC Cancelled Urine WBC Clumps Cancelled Ur Squamous Epith Cells Cancelled Ur Transition Epith Cell Cancelled Ur Renal Epithelial Cell Cancelled [place] Biurate Crystals Cancelled Calcium Carbonate Cryst Cancelled Calcium Phosphate Cryst Cancelled Calcium Oxalate Crystal Cancelled Leucine Crystals Cancelled Cystine Crystals Cancelled Uric Acid Crystals Cancelled Triple Phos Crystals Cancelled Sulfonamide Crystals Cancelled Cholesterol Crystals Cancelled [place] Crystals Cancelled Tyrosine Crystals Cancelled Hippuric Acid Crystals Cancelled Bilirubin Crystals Cancelled Other Crystals Cancelled Amorphous Sediment Cancelled Other Sediment Cancelled Urine Bacteria Cancelled Urine Casts Cancelled Cellular Casts Cancelled Epithelial Casts Cancelled Fatty Casts Cancelled Hyaline Casts Cancelled Granular Casts Cancelled Waxy Casts Cancelled Broad Casts Cancelled RBC Casts Cancelled WBC Casts Cancelled Urine Starch Cancelled Urine Mucus Cancelled Urine Trichomonas Cancelled Urine Yeast (Budding) Cancelled Ur Oval Fat Bodies Cancelled Sperm Presence Cancelled 02/18/25 02/18/25 02/18/25 07:50 11:45 15:42 Sodium Potassium Chloride Carbon Dioxide Anion Gap BUN Creatinine Estim Creat Clear Calc Estimated GFR Glucose POC Capillary Glucose 97 139 H 136 H Calcium Urine Color Urine Appearance Urine pH Ur Specific [place] Urine Protein Urine Glucose (UA) Urine Ketones Ur Blood (Man) Urine Nitrate Urine Bilirubin Urine Urobilinogen Add Ur Microanalysis Leukocyte Esterase Rfl Urine RBC Urine WBC Urine WBC Clumps Ur Squamous Epith Cells Ur Transition Epith Cell Ur Renal Epithelial Cell [place] Biurate Crystals Calcium Carbonate Cryst Calcium Phosphate Cryst Calcium Oxalate Crystal Leucine Crystals Cystine Crystals Uric Acid Crystals Triple Phos Crystals Sulfonamide Crystals Cholesterol Crystals Talc Crystals Tyrosine Crystals Hippuric Acid Crystals Bilirubin Crystals Other Crystals Amorphous Sediment Other Sediment Urine Bacteria Urine Casts Cellular Casts Epithelial Casts Fatty Casts Hyaline Casts Granular Casts Waxy Casts Broad Casts RBC Casts WBC Casts Urine Starch Urine Mucus Urine Trichomonas Urine Yeast (Budding) Ur Oval Fat Bodies Sperm Presence
[2025-02-18] MEDS: ATORVASTATIN 40 MG TABLET 80 MG PO (17:47)
[2025-02-18] MEDS: MIRTAZAPINE 15 MG TABLET PO (20:47)
[2025-02-18] MEDS: GABAPENTIN 300 MG CAPSULE PO (20:47)
[2025-02-19] VITALS (10 sets, daily range): BP systolic 118–154; BP diastolic 56–82; PULSE 59–78; RESP 16–18; TEMP 36.4–36.7; O2SAT 97–100
[2025-02-19] MEDS: LIDOCAINE 2% VISC SOLN 30 ML, ALUMINUM/MAGNESIUM/SIMETH SUSP 30 ML, diphenhydrAMINE HCl... PO ×3 (05:26→17:39)
[2025-02-19 06:08] LABS: Anion Gap 6 mmol/L (4-12); Blood Urea Nitrogen 21 mg/dL (9-20); Calcium 8.9 mg/dL (8.4-10.2); Carbon Dioxide 30 mmol/L (22-30); Chloride 99 mmol/L (98-107); Estimated CRCL calculation 100 ml/min; Estimated Glomerular Filt Rate > 60; Glucose 113 mg/dL (65-110); Magnesium 2.0 mg/dL (1.6-2.3); Potassium 3.6 mmol/L (3.4-5.0); Sodium 135 mmol/L (137-145)
--- NOTE | 2025-02-19 11:10 | P.PNIM_ITS ---
Progress Note: A&P Assessment and Plan (1) Acute alteration in mental status: Code(s): R41.82 - Altered mental status, unspecified Status: Acute Assessment and Plan: Altered mental status improved. Not yet back to prior baseline. No evidence of CVA on CT brain. Consider arrhthymia given electrolyte abnormalities and heart failure * Pending MRI, could not have a completed on 02/12/2025 due to the patient f idgeting too much. Nursing staff report will try again. * Neurology consulted, appreciate recommendations. Changed keppra to depakote. Stopped tramadol * Continue depakote for possible seizure. * EEG procedure has been completed - awaiting neurology interpretation. * Interrogate loop recorder ([employer]) [address] with PVC's and PAC's, rate of 160's at 8:26 pm * Continue to monitor on telemetry. Had a 5 beat run of NSVT 02/18 (2) Hemiplegia: Code(s): G81.90 - Hemiplegia, unspecified affecting unspecified side Status: Acute Assessment and Plan: * according the family members this is from her his previous stroke * PT OT evaluation greatly appreciated. * q2 turns * resume gabapentin 300mg>100 hs instead of TID (3) Dysphagia: Code(s): R13.10 - Dysphagia, unspecified Status: Acute Assessment and Plan: Speech therapy consulted regarding aspiration risk * Noted coughing and choking episode * Puree diet started on 02/[address] recommendations * Barium swallow study ordered -Recommended pureed and thickened liquids. Holding food in mouth. Alternating bites and sips, 1:1 supervision * Overall intake is poor. Discussed with family that since he is eating less than 50% of meals, not drinking supplements, he may need a feeding tube eventually. They are going to discuss it. Poor PO intake likely contributing to electrolyte abnormality which would increase risk of arrhythmias (4) Hypomagnesemia: Code(s): E83.42 - Hypomagnesemia Status: Acute Assessment and Plan: * his magnesium level was 1.4 and it has been replaced. * Follow magnesium every 2 days (5) DM2 (diabetes mellitus, type 2): Code(s): E11.9 - Type 2 diabetes mellitus without complications Status: Acute Assessment and Plan: * metformin is on hold at this time due CT dye * Continuing empagliflozin * Accu-Cheks AC and HS with sliding scale insulin. * check A1c 5.4 * Blood sugars controlled (6) Pressure ulcer: Code(s): L89.90 - Pressure ulcer of unspecified site, unspecified stage Status: Acute Assessment and Plan: * wound care consult greatly be appreciated. * may consider specialty mattress. * may consider dietary consult for healing process (7) Hypokalemia: Code(s): E87.6 - Hypokalemia Status: Acute Assessment and Plan: * potassium was 2.7 and has been replaced in the emergency room. * daily BMP (8) Pulmonary embolism: Code(s): I26.99 - Other pulmonary embolism without acute cor pulmonale Status: Acute Assessment and Plan: * continue with Eliquis and aspirin 02/17 Left LE venous doppler showing possible noncompressible DVT in the left po sterior tibial and peroneal veins however specificity is decreased by the poor visualization of the vessels. No DVT at or proximal to the left popliteal vein. --Patient was off his Eliquis for 3 days and now has been resumed. --Since the DVTs are not confirmed and they are below the knee, would not advance Eliquis to full dose at this time but would repeat US in 1 week to make sure this has not propagated to the popliteal (9) Congestive heart failure: Code(s): I50.9 - Heart failure, unspecified Status: Acute Assessment and Plan: * continue with Eplerenone and Farxiga * continue metoprolol-- 100mg daily , continue lisinopril 02/15 TTE 1. Definity contrast administered improved wall motion interpretation. 2. Left ventricular chamber dimension is severely enlarged. 3. Left ventricular systolic function is severely globally reduced, estimated at 25-30. 4. There is moderate concentric increased left ventricular wall thickness. 5. Mid to apical anteroseptum and septum are akinetic. 6. E/e' 7 is not elevated. 7. Left atrial chamber dimension is mildly enlarged. 8. There is mild aortic valve sclerosis. 9. There is mild mitral valve regurgitation. 10. There is trace tricuspid valve regurgitation. 11. No pulmonary hypertension, estimated pulmonary arterial systolic pressure is 17 mmHg. Plan Time Spent With Patient Time: 57 minutes Subjective Date/time seen: 02/19/25 11:10 Interval history: Discussed with cardiology. Requesting records to evaluate prior LVEF/WMA's. Family believe he had a cardiac cath in August Having left arm/leg pain, resumed gabapentin hs only. Very sleepy this morning, reducing dose to 100mg No events on tele Reason for hospitalization 79-year-old male patient with a history of recent CVA, heart failure, with residual left-sided weakness, at [facility]. Found at the The patient presented to the emergency room after he was found to have altered mentation at the [facility]. On arrival he was noted to have very low potassium and magnesium levels Exam Narrative: General - Awake and alert. No acute distress Eyes - PERRLA, EOM intact ENT - No thrush, No erythema Neck - No noticeable or palpable swelling Lymph Nodes - No lymphadenopathy Cardiovascular - RRR no m/r/g, no JVD Lungs: Clear to auscultation, No wheezing, use of accessory muscles, no crackles Skin - Skin warm and dry, no wounds or rashes Abdomen - Normal bowel sounds, abdomen soft and nontender Extremities - No edema, cyanosis or clubbing Musculoskeletal - 1/5 strength left, 2/5 strength Right leg, Left arm flaccid, mild edema. No swollen or erythematous joints. Neurological ? Alert and oriented x 1-2, CN 2-12 grossly intact. Making jokes Psych: Normal mood and affect Objective Data Vital Signs Vital Signs: Vital Signs - 24 hr 02/18/25 12:05 02/18/25 14:00 02/18/25 16:05 Temperature 98.1 F Pulse Rate 64 65 60 Respiratory Rate 16 Blood Pressure 109/60 Pulse Oximetry 97 Oxygen Delivery 02/18/25 20:00 02/18/25 20:00 02/18/25 21:31 Temperature Pulse Rate 67 Respiratory Rate Blood Pressure Pulse Oximetry 96 Oxygen Delivery Room Air Room Air 02/18/25 21:32 02/19/25 00:00 02/19/25 04:00 Temperature 98.4 F Pulse Rate 67 68 61 Respiratory Rate 16 Blood Pressure 131/62 Pulse Oximetry 96 Oxygen Delivery 02/19/25 06:00 02/19/25 08:00 Temperature 98.1 F Pulse Rate 63 59 L Respiratory Rate 16 Blood Pressure 154/82 H Pulse Oximetry 100 Oxygen Delivery Intake/Output Intake/Output: Intake & Output 02/16/25 02/17/25 02/18/25 02/19/25 23:59 23:59 23:59 23:59 Intake Total 270 375 380 Output Total 4883 426 940 Balance -3080 -761 128 Meds/Results Medications: Active Medications Generic Name Dose Route Start Last Admin Trade Name Freq PRN Reason Stop Dose Admin Acetaminophen 1,000 mg 02/16/25 17:30 Acetaminophen 500 Mg Tablet PO Q8HR PRN fever or pain 1-3 Apixaban 5 mg 02/12/25 09:00 02/18/25 20:47 Apixaban 5 Mg Tablet PO 5 mg Q12HR ELISA Administration Aspirin 81 mg 02/12/25 09:00 02/18/25 09:09 Aspirin 81 Mg Enteric Tablet PO 81 mg DAILY ELISA Administration Atorvastatin Calcium 80 mg 02/12/25 18:00 02/18/25 17:47 Atorvastatin 40 Mg Tablet PO 80 mg QPM ELISA Administration Lidocaine HCl 30 ml/ Al Hydrox 0 ml 02/13/25 21:00 02/19/25 05:26 /Mg Hydrox/Simethicone 30 ml/ PO 5 ml Diphenhydramine HCl 75 mg Q4HWA ELISA Administration Dextrose 12.5 gm 02/12/25 03:52 Dextrose 50% 25 Gm/50 Ml Syringe IV PUSH PRN PRN Hypoglycemia Protocol Divalproex Sodium 500 mg 02/15/25 17:55 02/18/25 17:47 Divalproex Sodium Sprinkle 125 Mg Cap.Dr PO 500 mg BID ELISA Administration Empagliflozin 25 mg 02/12/25 09:00 02/13/25 08:45 Empagliflozin 25 Mg Tablet BY MOUTH 25 mg On Hold: 02/13/25 18:50 DAILY ELISA Administration Gabapentin 300 mg 02/18/25 21:00 02/18/25 20:47 Gabapentin 300 Mg Capsule PO 300 mg HS ELISA Administration Glucagon 1 mg 02/12/25 03:52 Glucagon For Inj 1 Mg Vial IM PRN PRN Hypoglycemia Protocol Glucose 15 gm 02/12/25 03:52 Glucose Oral Gel 15 Gm Of Glucse In 37.5 Gm Tube PO PRN PRN Hypoglycemia Protocol Dextrose 1,000 mls @ 100 mls/hr 02/12/25 03:52 Dextrose 5% 1,000 Ml IVPB PRN PRN Hypoglycemia Protocol Insulin Aspart 1 - 2 units 02/12/25 21:00 02/18/25 22:38 Insulin Aspart (*Bkc) 100 Units/Ml SUB-Q Not Given HS [facility] Protocol Insulin Aspart 2 - 5 units 02/12/25 08:00 02/18/25 17:02 Insulin Aspart (*Bkc) 100 Units/Ml SUB-Q Not Given TIDWM [facility] Protocol Lisinopril 20 mg 02/12/25 09:00 02/18/25 09:08 Lisinopril 20 Mg Tablet PO 20 mg DAILY ELISA Administration Metoprolol Succinate 100 mg 02/18/25 09:00 02/18/25 09:08 Metoprolol Succinate Ext Rel 50 Mg Tabcr PO 100 mg DAILY ELISA Administration Midodrine 5 mg 02/12/25 03:39 Midodrine Hcl 2.5 Mg Tablet PO Q8H PRN LOW BP Mirtazapine 15 mg 02/12/25 21:00 02/18/25 20:47 Mirtazapine 15 Mg Tablet PO 15 mg HS ELISA Administration Miscellaneous Information 1 each 02/15/25 00:01 02/17/25 22:34 Order Clarification -Eplerenone 25 Mg Tablet Is Non-Formulary XX 03/17/25 00:00 Not Given CLARIFY ELISA Modafinil 200 mg 02/12/25 09:00 02/18/25 09:09 Modafinil (*Crx) 200 Mg Tablet PO 200 mg QAM [facility] Administration Multivitamins/Calcium 1 tablet 02/18/25 09:00 02/18/25 09:09 Therapeutic Multivitamins/Minerals Tab (*Bkc) PO 1 tablet DAILY ELISA Administration Non-Formulary Medication 25 mg 02/12/25 09:00 Eplerenone PO 03/14/25 08:59 DAILY [facility] Pantoprazole Sodium 40 mg 02/12/25 09:00 02/18/25 09:09 Pantoprazole 40 Mg Tablet PO 40 mg QAM ELISA Administration Silver Sulfadiazine 1 applic 02/14/25 09:00 02/18/25 09:09 Silver Sulfadiazine 1% Cr 50 Gm Jar (*Bkc) TOPICAL 1 applic DAILY ELISA Administration Radiology Results: ITS Impressions Chest X-Ray 02/12/25 06:03 IMPRESSION: 1. No acute cardiopulmonary findings given portable technique. Head/Neck CTA 02/12/25 06:45 IMPRESSION: CTA NECK: 1. No acute findings. CTA HEAD: 1. No acute findings. Carotid Doppler Study 02/12/25 10:44 IMPRESSION: 1. No hemodynamically significant ICA stenosis (i.e., if any stenosis, less than 50%). 2. Normal bilateral antegrade vertebral artery flow. Stenosis measured by Society of Radiologists in Ultrasound (SRU) criteria. Head CT 02/14/25 08:46 IMPRESSION: 1. Large old infarct in the expected distribution of right middle cerebral artery. Modified Barium Swallow 02/15/25 12:11 IMPRESSION: Oropharyngeal dysphagia with laryngeal penetration and aspiration. Please correlate with speech pathologist findings and specific feeding recommendations. Brain MRI 02/16/25 14:14 IMPRESSION: 1. 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 No acute intracranial process. 2. Increased white matter T2 hyperintensity kevin, right cerebral peduncle and right thalamus which suggests possible Wallerian degeneration related to the right middle cerebral artery infarct with differential including sequela of chronic small vessel ischemic disease. Venous Doppler Study 02/17/25 17:06 IMPRESSION: 1. Possible noncompressible deep venous thrombosis in the left posterior tibial and peroneal veins however specificity is decreased by the poor visualization of the vessels. No deep venous thrombosis at or proximal to the left popliteal vein. Labs Labs: Laboratory Results - last 24 hr 02/16/25 02/18/25 02/18/25 05:03 11:45 15:42 Sodium Potassium Chloride Carbon Dioxide Anion Gap BUN Creatinine Estim Creat Clear Calc Estimated GFR Glucose POC Capillary Glucose 139 H 136 H Calcium Phosphorus Magnesium Add Ur Microanalysis Not Reportable Urine RBC Not Reportable Urine WBC Not Reportable Urine WBC Clumps Not Reportable Ur Squamous Epith Cells Not Reportable Ur Transition Epith Cell Not Reportable Ur Renal Epithelial Cell Not Reportable Alvin Biurate Crystals Not Reportable Calcium Carbonate Cryst Not Reportable Calcium Phosphate Cryst Not Reportable Calcium Oxalate Crystal Not Reportable Leucine Crystals Not Reportable Cystine Crystals Not Reportable Uric Acid Crystals Not Reportable Triple Phos Crystals Not Reportable Sulfonamide Crystals Not Reportable Cholesterol Crystals Not Reportable Talc Crystals Not Reportable Tyrosine Crystals Not Reportable Hippuric Acid Crystals Not Reportable Bilirubin Crystals Not Reportable Other Crystals Not Reportable Amorphous Sediment Not Reportable Other Sediment Not Reportable Urine Bacteria Not Reportable Urine Casts Not Reportable Cellular Casts Not Reportable Epithelial Casts Not Reportable Fatty Casts Not Reportable Hyaline Casts Not Reportable Granular Casts Not Reportable Waxy Casts Not Reportable Broad Casts Not Reportable RBC Casts Not Reportable WBC Casts Not Reportable Urine Starch Not Reportable Urine Mucus Not Reportable Urine Trichomonas Not Reportable Urine Yeast (Budding) Not Reportable Ur Oval Fat Bodies Not Reportable Sperm Presence Not Reportable 02/18/25 02/19/25 02/19/25 20:46 05:17 08:38 Sodium 135 L Potassium 3.6 Chloride 99 Carbon Dioxide 30 Anion Gap 6 BUN 21 H Creatinine 0.57 L Estim Creat Clear Calc 100 Estimated GFR > 60 Glucose 113 H POC Capillary Glucose 167 H 94 Calcium 8.9 Phosphorus 2.4 L Magnesium 2.0 Add Ur Microanalysis Urine RBC Urine WBC Urine WBC Clumps Ur Squamous Epith Cells Ur Transition Epith Cell Ur Renal Epithelial Cell Alvin Biurate Crystals Calcium Carbonate Cryst Calcium Phosphate Cryst Calcium Oxalate Crystal Leucine Crystals Cystine Crystals Uric Acid Crystals Triple Phos Crystals Sulfonamide Crystals Cholesterol Crystals Talc Crystals Tyrosine Crystals Hippuric Acid Crystals Bilirubin Crystals Other Crystals Amorphous Sediment Other Sediment Urine Bacteria Urine Casts Cellular Casts Epithelial Casts Fatty Casts Hyaline Casts Granular Casts Waxy Casts Broad Casts RBC Casts WBC Casts Urine Starch Urine Mucus Urine Trichomonas Urine Yeast (Budding) Ur Oval Fat Bodies Sperm Presence Quality VTE Prophylaxis VTE prophylaxis: pharmacologic ordered Hospitalist MIPS Advance Care Plan I have confirmed that the patient's Advanced Care Plan is present, code status is documented, or surrogate decision maker is listed in patient medical record.: Yes Medication Reconciliation I have utilized all available resources to obtain, update and review the patients current medications (includes all prescriptions, OTC, herbals, cannabis, and nutritional supplements).: Yes
[2025-02-19] MEDS: ASPIRIN 81 MG ENTERIC TABLET PO (12:53)
[2025-02-19] MEDS: PANTOPRAZOLE 40 MG TABLET PO (12:53)
[2025-02-19] MEDS: APIXABAN 5 MG TABLET PO ×2 (12:54→20:48)
[2025-02-19] MEDS: modafiniL (*CRX) 200 MG TABLET PO (12:54)
[2025-02-19] MEDS: DIVALPROEX SODIUM SPRINKLE 125 MG CAP.DR 500 MG PO ×2 (12:54→17:39)
[2025-02-19] MEDS: METOPROLOL SUCCINATE EXT REL 50 MG TABCR 100 MG PO (12:54)
[2025-02-19] MEDS: THERAPEUTIC MULTIVITAMINS/MINERALS TAB (*BKC) 1 TABLET PO (12:54)
[2025-02-19] MEDS: SILVER SULFADIAZINE 1% CR 50 GM JAR (*BKC) 1 APPLIC TOPICAL (13:26)
[2025-02-19] MEDS: ATORVASTATIN 40 MG TABLET 80 MG PO (17:39)
[2025-02-19] MEDS: GABAPENTIN 100 MG CAPSULE PO (20:48)
[2025-02-19] MEDS: MIRTAZAPINE 15 MG TABLET PO (20:48)
[2025-02-20] VITALS (10 sets, daily range): BP systolic 107–124; BP diastolic 53–70; PULSE 66–85; RESP 16–18; TEMP 36.2–36.8; O2SAT 98–100
[2025-02-20 06:16] LABS: Anion Gap 5 mmol/L (4-12); Blood Urea Nitrogen 22 mg/dL (9-20); Calcium 8.8 mg/dL (8.4-10.2); Carbon Dioxide 31 mmol/L (22-30); Chloride 98 mmol/L (98-107); Estimated CRCL calculation 107 ml/min; Estimated Glomerular Filt Rate > 60; Glucose 132 mg/dL (65-110); Potassium 4.0 mmol/L (3.4-5.0); Sodium 134 mmol/L (137-145)
--- NOTE | 2025-02-20 08:30 | P.PNIM_ITS ---
Progress Note: A&P Assessment and Plan (1) Acute alteration in mental status: Code(s): R41.82 - Altered mental status, unspecified Status: Acute Assessment and Plan: Altered mental status improved. Not yet back to prior baseline. No evidence of CVA on CT brain. Consider arrhthymia given electrolyte abnormalities and heart failure * Pending MRI, could not have a completed on 02/12/2025 due to the patient f idgeting too much. Nursing staff report will try again. * Neurology consulted, appreciate recommendations. Changed keppra to depakote. Stopped tramadol * Continue depakote for possible seizure. * EEG procedure has been completed - awaiting neurology interpretation. * Interrogate loop recorder ([employer]) [address] with PVC's and PAC's, rate of 160's at 8:26 pm * Continue to monitor on telemetry. Had a 5 beat run of NSVT 02/18 (2) Hemiplegia: Code(s): G81.90 - Hemiplegia, unspecified affecting unspecified side Status: Acute Assessment and Plan: * according the family members this is from her his previous stroke * PT OT evaluation greatly appreciated. * q2 turns * resumed gabapentin 300mg>100 hs instead of TID (3) Dysphagia: Code(s): R13.10 - Dysphagia, unspecified Status: Acute Assessment and Plan: Speech therapy consulted regarding aspiration risk * Noted coughing and choking episode * Puree diet started on 02/[address] recommendations * Barium swallow study ordered -Recommended pureed and thickened liquids. Holding food in mouth. Alternating bites and sips, 1:1 supervision * Overall intake is poor. Discussed with family that since he is eating less than 50% of meals, not drinking supplements, he may need a feeding tube eventually. They are going to discuss it. Poor PO intake likely contributing to electrolyte abnormality which would increase risk of arrhythmias (4) Hypomagnesemia: Code(s): E83.42 - Hypomagnesemia Status: Acute Assessment and Plan: * his magnesium level was 1.4 and it has been replaced. * Follow magnesium every 2 days (5) DM2 (diabetes mellitus, type 2): Code(s): E11.9 - Type 2 diabetes mellitus without complications Status: Acute Assessment and Plan: * metformin is on hold at this time due CT dye * Continuing empagliflozin * Accu-Cheks AC and HS with sliding scale insulin. * check A1c 5.4 * Blood sugars controlled (6) Pressure ulcer: Code(s): L89.90 - Pressure ulcer of unspecified site, unspecified stage Status: Acute Assessment and Plan: * wound care consult greatly be appreciated. * may consider specialty mattress. * may consider dietary consult for healing process (7) Hypokalemia: Code(s): E87.6 - Hypokalemia Status: Acute Assessment and Plan: * potassium was 2.7 and has been replaced in the emergency room. * daily BMP (8) Pulmonary embolism: Code(s): I26.99 - Other pulmonary embolism without acute cor pulmonale Status: Acute Assessment and Plan: * continue with Eliquis and aspirin 02/17 Left LE venous doppler showing possible noncompressible DVT in the left p osterior tibial and peroneal veins however specificity is decreased by the poor visualization of the vessels. No DVT at or proximal to the left popliteal vein. --Patient was off his Eliquis for 3 days and now has been resumed. --Since the DVTs are not confirmed and they are below the knee, would not advance Eliquis to full dose at this time but would repeat US in 1 week to make sure this has not propagated to the popliteal (9) Congestive heart failure: Code(s): I50.9 - Heart failure, unspecified Status: Acute Assessment and Plan: * continue with Eplerenone and Farxiga * continue metoprolol-- 100mg daily , continue lisinopril 02/15 TTE 1. Definity contrast administered improved wall motion interpretation. 2. Left ventricular chamber dimension is severely enlarged. 3. Left ventricular systolic function is severely globally reduced, estimated at 25-30. 4. There is moderate concentric increased left ventricular wall thickness. 5. Mid to apical anteroseptum and septum are akinetic. 6. E/e' 7 is not elevated. 7. Left atrial chamber dimension is mildly enlarged. 8. There is mild aortic valve sclerosis. 9. There is mild mitral valve regurgitation. 10. There is trace tricuspid valve regurgitation. 11. No pulmonary hypertension, estimated pulmonary arterial systolic pressure is 17 mmHg. Plan Time Spent With Patient Time: 59 minutes Subjective Date/time seen: 02/20/25 08:30 Interval history: Records from [facility] pending Occasional PVC's on tele but otherwise NSR Eating better and labs improved Somnolent in the morning, changed methylphenidate to 7am. Not taking meds well sometimes. Other meds scheduled for 9am tomorrow Reason for hospitalization 79-year-old male patient with a history of recent CVA, heart failure, with residual left-sided weakness, at [facility]. Found at the The patient presented to the emergency room after he was found to have altered mentation at the [facility]. On arrival he was noted to have very low potassium and magnesium levels. Family believe he had a cardiac cath in August. Records requested from [facility]. Requested Exam Narrative: General - Awake and alert. No acute distress Eyes - PERRLA, EOM intact ENT - No thrush, No erythema Neck - No noticeable or palpable swelling Lymph Nodes - No lymphadenopathy Cardiovascular - RRR no m/r/g, no JVD Lungs: Clear to auscultation, No wheezing, use of accessory muscles, no crackles Skin - Skin warm and dry, no wounds or rashes Abdomen - Normal bowel sounds, abdomen soft and nontender Extremities - No edema, cyanosis or clubbing Musculoskeletal - 1/5 strength left, 2/5 strength Right leg, Left arm flaccid, mild edema. No swollen or erythematous joints. Neurological ? Alert and oriented x 1-2, CN 2-12 grossly intact. Making jokes Psych: Normal mood and affect Objective Data Vital Signs Vital Signs: Vital Signs - 24 hr 02/19/25 12:00 02/19/25 12:54 02/19/25 14:00 Temperature 97.9 F Pulse Rate 70 67 70 Respiratory Rate 18 Blood Pressure 118/56 L Pulse Oximetry 97 02/19/25 16:00 02/19/25 20:00 02/19/25 22:00 Temperature 97.5 F L Pulse Rate 69 78 71 Respiratory Rate 16 Blood Pressure 145/67 H Pulse Oximetry 100 02/20/25 00:00 02/20/25 04:00 02/20/25 05:25 Temperature 97.4 F L Pulse Rate 69 66 85 Respiratory Rate 16 Blood Pressure 124/70 Pulse Oximetry 100 Intake/Output Intake/Output: Intake & Output 02/17/25 02/18/25 02/19/25 02/20/25 23:59 23:59 23:59 23:59 Intake Total 375 380 540 Output Total 715 125 350 Balance -340 255 190 Meds/Results Medications: Active Medications Generic Name Dose Route Start Last Admin Trade Name Freq PRN Reason Stop Dose Admin Acetaminophen 1,000 mg 02/16/25 17:30 Acetaminophen 500 Mg Tablet PO Q8HR PRN fever or pain 1-3 Apixaban 5 mg 02/12/25 09:00 02/19/25 20:48 Apixaban 5 Mg Tablet PO 5 mg Q12HR ELISA Administration Aspirin 81 mg 02/12/25 09:00 02/19/25 12:53 Aspirin 81 Mg Enteric Tablet PO 81 mg DAILY ELISA Administration Atorvastatin Calcium 80 mg 02/12/25 18:00 02/19/25 17:39 Atorvastatin 40 Mg Tablet PO 80 mg QPM ELISA Administration Lidocaine HCl 30 ml/ Al Hydrox 0 ml 02/13/25 21:00 02/20/25 08:00 /Mg Hydrox/Simethicone 30 ml/ PO Not Given Diphenhydramine HCl 75 mg Q4HWA ELISA Dextrose 12.5 gm 02/12/25 03:52 Dextrose 50% 25 Gm/50 Ml Syringe IV PUSH PRN PRN Hypoglycemia Protocol Divalproex Sodium 500 mg 02/15/25 17:55 02/19/25 17:39 Divalproex Sodium Sprinkle 125 Mg Cap.Dr PO 500 mg BID ELISA Administration Empagliflozin 25 mg 02/12/25 09:00 02/13/25 08:45 Empagliflozin 25 Mg Tablet BY MOUTH 25 mg On Hold: 02/13/25 18:50 DAILY ELISA Administration Gabapentin 100 mg 02/19/25 21:00 02/19/25 20:48 Gabapentin 100 Mg Capsule PO 100 mg HS ELISA Administration Glucagon 1 mg 02/12/25 03:52 Glucagon For Inj 1 Mg Vial IM PRN PRN Hypoglycemia Protocol Glucose 15 gm 02/12/25 03:52 Glucose Oral Gel 15 Gm Of Glucse In 37.5 Gm Tube PO PRN PRN Hypoglycemia Protocol Dextrose 1,000 mls @ 100 mls/hr 02/12/25 03:52 Dextrose 5% 1,000 Ml IVPB PRN PRN Hypoglycemia Protocol Insulin Aspart 1 - 2 units 02/12/25 21:00 02/19/25 21:00 Insulin Aspart (*Bkc) 100 Units/Ml SUB-Q Not Given HS ELISA Protocol Insulin Aspart 2 - 5 units 02/12/25 08:00 02/19/25 17:42 Insulin Aspart (*Bkc) 100 Units/Ml SUB-Q Not Given TIDWM [facility] Protocol Lisinopril 20 mg 02/12/25 09:00 02/19/25 12:54 Lisinopril 20 Mg Tablet PO 20 mg DAILY ELISA Administration Metoprolol Succinate 100 mg 02/18/25 09:00 02/19/25 12:54 Metoprolol Succinate Ext Rel 50 Mg Tabcr PO 100 mg DAILY ELISA Administration Midodrine 5 mg 02/12/25 03:39 Midodrine Hcl 2.5 Mg Tablet PO Q8H PRN LOW BP Mirtazapine 15 mg 02/12/25 21:00 02/19/25 20:48 Mirtazapine 15 Mg Tablet PO 15 mg HS ELISA Administration Miscellaneous Information 1 each 02/15/25 00:01 02/20/25 07:59 Order Clarification -Eplerenone 25 Mg Tablet Is Non-Formulary XX 03/17/25 00:00 Not Given CLARIFY [facility] Modafinil 200 mg 02/12/25 09:00 02/19/25 12:54 Modafinil (*Crx) 200 Mg Tablet PO 200 mg QAM ELISA Administration Multivitamins/Calcium 1 tablet 02/18/25 09:00 02/19/25 12:54 Therapeutic Multivitamins/Minerals Tab (*Bkc) PO 1 tablet DAILY ELISA Administration Non-Formulary Medication 25 mg 02/12/25 09:00 Eplerenone PO 03/14/25 08:59 DAILY [facility] Pantoprazole Sodium 40 mg 02/12/25 09:00 02/19/25 12:53 Pantoprazole 40 Mg Tablet PO 40 mg QAM ELISA Administration Silver Sulfadiazine 1 applic 02/14/25 09:00 02/19/25 13:26 Silver Sulfadiazine 1% Cr 50 Gm Jar (*Bkc) TOPICAL 1 applic DAILY ELISA Administration Radiology Results: ITS Impressions Chest X-Ray 02/12/25 06:03 IMPRESSION: 1. No acute cardiopulmonary findings given portable technique. Head/Neck CTA 02/12/25 06:45 IMPRESSION: CTA NECK: 1. No acute findings. CTA HEAD: 1. No acute findings. Carotid Doppler Study 02/12/25 10:44 IMPRESSION: 1. No hemodynamically significant ICA stenosis (i.e., if any stenosis, less than 50%). 2. Normal bilateral antegrade vertebral artery flow. Stenosis measured by Society of Radiologists in Ultrasound (SRU) criteria. Head CT 02/14/25 08:46 IMPRESSION: 1. Large old infarct in the expected distribution of right middle cerebral artery. Modified Barium Swallow 02/15/25 12:11 IMPRESSION: Oropharyngeal dysphagia with laryngeal penetration and aspiration. Please correlate with speech pathologist findings and specific feeding recommendations. Brain MRI 02/16/25 14:14 IMPRESSION: 1. 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 No acute intracranial process. 2. Increased white matter T2 hyperintensity kevin, right cerebral peduncle and right thalamus which suggests possible Wallerian degeneration related to the right middle cerebral artery infarct with differential including sequela of chronic small vessel ischemic disease. Venous Doppler Study 02/17/25 17:06 IMPRESSION: 1. Possible noncompressible deep venous thrombosis in the left posterior tibial and peroneal veins however specificity is decreased by the poor visualization of the vessels. No deep venous thrombosis at or proximal to the left popliteal vein. Labs Labs: Laboratory Results - last 24 hr 02/16/25 02/19/25 02/19/25 05:03 08:38 11:44 Sodium Potassium Chloride Carbon Dioxide Anion Gap BUN Creatinine Estim Creat Clear Calc Estimated GFR Glucose POC Capillary Glucose 94 82 Calcium Urine Color Cancelled Urine Appearance Cancelled Urine pH Cancelled Ur Specific [place] Cancelled Urine Protein Cancelled Urine Glucose (UA) Cancelled Urine Ketones Cancelled Ur Blood (Man) Cancelled Urine Nitrate Cancelled Urine Bilirubin Cancelled Urine Urobilinogen Cancelled Add Ur Microanalysis Cancelled Leukocyte Esterase Rfl Cancelled Urine RBC Cancelled Urine WBC Cancelled Urine WBC Clumps Cancelled Ur Squamous Epith Cells Cancelled Ur Transition Epith Cell Cancelled Ur Renal Epithelial Cell Cancelled [place] Biurate Crystals Cancelled Calcium Carbonate Cryst Cancelled Calcium Phosphate Cryst Cancelled Calcium Oxalate Crystal Cancelled Leucine Crystals Cancelled Cystine Crystals Cancelled Uric Acid Crystals Cancelled Triple Phos Crystals Cancelled Sulfonamide Crystals Cancelled Cholesterol Crystals Cancelled Talc Crystals Cancelled Tyrosine Crystals Cancelled Hippuric Acid Crystals Cancelled Bilirubin Crystals Cancelled Other Crystals Cancelled Amorphous Sediment Cancelled Other Sediment Cancelled Urine Bacteria Cancelled Urine Casts Cancelled Cellular Casts Cancelled Epithelial Casts Cancelled Fatty Casts Cancelled Hyaline Casts Cancelled Granular Casts Cancelled Waxy Casts Cancelled Broad Casts Cancelled RBC Casts Cancelled WBC Casts Cancelled Urine Starch Cancelled Urine Mucus Cancelled Urine Trichomonas Cancelled Urine Yeast (Budding) Cancelled Ur Oval Fat Bodies Cancelled Sperm Presence Cancelled 02/19/25 02/19/25 02/20/25 16:56 20:45 05:22 Sodium 134 L Potassium 4.0 Chloride 98 Carbon Dioxide 31 H Anion Gap 5 BUN 22 H Creatinine 0.53 L Estim Creat Clear Calc 107 Estimated GFR > 60 Glucose 132 H POC Capillary Glucose 167 H 131 H Calcium 8.8 Urine Color Urine Appearance Urine pH Ur Specific [place] Urine Protein Urine Glucose (UA) Urine Ketones Ur Blood (Man) Urine Nitrate Urine Bilirubin Urine Urobilinogen Add Ur Microanalysis Leukocyte Esterase Rfl Urine RBC Urine WBC Urine WBC Clumps Ur Squamous Epith Cells Ur Transition Epith Cell Ur Renal Epithelial Cell [place] Biurate Crystals Calcium Carbonate Cryst Calcium Phosphate Cryst Calcium Oxalate Crystal Leucine Crystals Cystine Crystals Uric Acid Crystals Triple Phos Crystals Sulfonamide Crystals Cholesterol Crystals Talc Crystals Tyrosine Crystals Hippuric Acid Crystals Bilirubin Crystals Other Crystals Amorphous Sediment Other Sediment Urine Bacteria Urine Casts Cellular Casts Epithelial Casts Fatty Casts Hyaline Casts Granular Casts Waxy Casts Broad Casts RBC Casts WBC Casts Urine Starch Urine Mucus Urine Trichomonas Urine Yeast (Budding) Ur Oval Fat Bodies Sperm Presence Quality VTE Prophylaxis VTE prophylaxis: pharmacologic ordered Hospitalist MIPS Advance Care Plan I have confirmed that the patient's Advanced Care Plan is present, code status is documented, or surrogate decision maker is listed in patient medical record.: Yes Medication Reconciliation I have utilized all available resources to obtain, update and review the patients current medications (includes all prescriptions, OTC, herbals, cannabis, and nutritional supplements).: Yes
[2025-02-20] MEDS: METOPROLOL SUCCINATE EXT REL 50 MG TABCR 100 MG PO (10:20)
[2025-02-20] MEDS: DIVALPROEX SODIUM SPRINKLE 125 MG CAP.DR 500 MG PO ×2 (10:20→17:45)
[2025-02-20] MEDS: THERAPEUTIC MULTIVITAMINS/MINERALS TAB (*BKC) 1 TABLET PO (10:20)
[2025-02-20] MEDS: APIXABAN 5 MG TABLET PO ×2 (10:20→20:17)
[2025-02-20] MEDS: modafiniL (*CRX) 200 MG TABLET PO (10:20)
[2025-02-20] MEDS: ATORVASTATIN 40 MG TABLET 80 MG PO (17:44)
[2025-02-20] MEDS: SILVER SULFADIAZINE 1% CR 50 GM JAR (*BKC) 1 APPLIC TOPICAL (17:45)
[2025-02-20] MEDS: MIRTAZAPINE 15 MG TABLET PO (20:17)
[2025-02-20] MEDS: GABAPENTIN 100 MG CAPSULE PO (20:17)
[2025-02-21] VITALS (11 sets, daily range): BP systolic 90–117; BP diastolic 48–61; PULSE 56–84; RESP 16–18; TEMP 36.4–36.9; O2SAT 99–100
[2025-02-21] MEDS: LANSOPRAZOLE ODT 30 MG TAB.RAP.DR PO (05:57)
--- NOTE | 2025-02-21 09:24 | PM.IMPN ---
Progress Note: A&P Assessment and Plan (1) Acute alteration in mental status: Code(s): R41.82 - Altered mental status, unspecified Status: Acute Assessment and Plan: Altered mental status improved. Not yet back to prior baseline. No evidence of CVA on CT brain. Consider arrhthymia given electrolyte abnormalities and heart failure Pending MRI, could not have a completed on 02/12/2025 due to the patient fidgeting too much. Nursing staff report will try again. Neurology consulted, appreciate recommendations. Changed keppra to depakote. Stopped tramadol Continue depakote for possible seizure. EEG procedure has been completed - awaiting neurology interpretation. Interrogate loop recorder (Jump[employer]) [address] with PVC's and PAC's, rate of 160's at 8:26 pm Continue to monitor on telemetry. Had a 5 beat run of NSVT 02/18 (2) Hemiplegia: Code(s): G81.90 - Hemiplegia, unspecified affecting unspecified side Status: Acute Assessment and Plan: according the family members this is from her his previous stroke PT OT evaluation greatly appreciated. q2 turns resumed gabapentin 300mg>100 hs instead of TID (3) Dysphagia: Code(s): R13.10 - Dysphagia, unspecified Status: Acute Assessment and Plan: Speech therapy consulted regarding aspiration risk Noted coughing and choking episode Puree diet started on 02/[address] recommendations Barium swallow study ordered -Recommended pureed and thickened liquids. Holding food in mouth. Alternating bites and sips, 1:1 supervision Overall intake is poor. Discussed with family that since he is eating less than 50% of meals, not drinking supplements, he may need a feeding tube eventually. They are going to discuss it. Poor PO intake likely contributing to electrolyte abnormality which would increase risk of arrhythmias [employer] Reviewer following (4) Hypomagnesemia: Code(s): E83.42 - Hypomagnesemia Status: Acute Assessment and Plan: his magnesium level was 1.4 and it has been replaced. Follow magnesium every 2 days (5) DM2 (diabetes mellitus, type 2): Code(s): E11.9 - Type 2 diabetes mellitus without complications Status: Acute Assessment and Plan: metformin is on hold at this time due CT dye Continuing empagliflozin Accu-Cheks AC and HS with sliding scale insulin. check A1c 5.4 Blood sugars controlled (6) Pressure ulcer: Code(s): L89.90 - Pressure ulcer of unspecified site, unspecified stage Status: Acute Assessment and Plan: wound care consult greatly be appreciated. may consider specialty mattress. may consider dietary consult for healing process (7) Hypokalemia: Code(s): E87.6 - Hypokalemia Status: Acute Assessment and Plan: potassium was 2.7 and has been replaced in the emergency room. daily BMP (8) Pulmonary embolism: Code(s): I26.99 - Other pulmonary embolism without acute cor pulmonale Status: Acute Assessment and Plan: continue with Eliquis and aspirin 02/17 Left LE venous doppler showing possible noncompressible DVT in the left posterior tibial and peroneal veins however specificity is decreased by the poor visualization of the vessels. No DVT at or proximal to the left popliteal vein. --Patient was off his Eliquis for 3 days and now has been resumed. --Since the DVTs are not confirmed and they are below the knee, would not advance Eliquis to full dose at this time but would repeat US in 1 week to make sure this has not propagated to the popliteal (9) Congestive heart failure: Code(s): I50.9 - Heart failure, unspecified Status: Acute Assessment and Plan: continue with Eplerenone and Farxiga continue metoprolol-- 100mg daily , continue lisinopril Records requested from [facility] to confirm if he had a recent cath and for his prior echo. I spoke with cardiology and if heart failure is reduced from prior would need a cardiology consult. If unchanged can discharge with follow up with cardiology and electrophysiology for a possible ICD 9/22 TTE 1. Definity contrast administered improved wall motion interpretation. 2. Left ventricular chamber dimension is severely enlarged. 3. Left ventricular systolic function is severely globally reduced, estimated at 25-30. 4. There is moderate concentric increased left ventricular wall thickness. 5. Mid to apical anteroseptum and septum are akinetic. 6. E/e' 7 is not elevated. 7. Left atrial chamber dimension is mildly enlarged. 8. There is mild aortic valve sclerosis. 9. There is mild mitral valve regurgitation. 10. There is trace tricuspid valve regurgitation. 11. No pulmonary hypertension, estimated pulmonary arterial systolic pressure is 17 mmHg. Plan Time Spent With Patient Time: 59 minutes Subjective Date/time seen: 02/21/25 15:24 Interval history: Records from [facility] pending Occasional PVC's on tele but otherwise NSR Didn't eat breakfast or lunch today, sleepy, but woke up and visited with friends Reason for hospitalization 79-year-old male patient with a history of recent CVA, heart failure, with residual left-sided weakness, at [facility]. Found at the The patient presented to the emergency room after he was found to have altered mentation at the care home. On arrival he was noted to have very low potassium and magnesium levels. Family believe he had a cardiac cath in August. Records requested from [facility]. Spoke with family about intermittently low appetite. May need an eventual G-tube, could be outpatient. Review of Systems Review of Systems: All systems reviewed & are unremarkable except as noted in HPI and below (Subjective) Constitutional: Constitutional: Reports as per HPI and Reports no additional constitutional complaints Eyes: Eyes: Reports as per HPI and Reports no additional eye complaints ENT: Reports system reviewed and no additional complaints, except as documented and Reports Normal hearing present Cardiovascular: Cardiovascular: Reports no additional cardiovascular complaints Respiratory: Respiratory: Reports as per HPI and Reports no additional respiratory complaints Gastrointestinal: Gastrointestinal: Reports as per HPI and Reports no additional gastrointestinal complaints Musculoskeletal: Musculoskeletal: Reports no additional musculoskeletal complaints Integumentary/Breasts: Skin/Breast: Reports system reviewed and no additional complaints, except as docu Neurologic: Reports system reviewed and no additional complaints, except as documented, Reports Normal hearing present and Reports Abnormal speech present Psychiatric: Psychiatric: Reports no additional psychiatric complaints and Reports as per HPI Hematologic/Lymphatic: Hematologic/Lymphatic: Reports no additional hematologic/lymphatic complaints Allergic/Immunologic: Allergic/Immunologic: Reports no additional allergic/immunologic complaints Exam Narrative: General - Awake and alert. No acute distress Eyes - PERRLA, EOM intact ENT - No thrush, No erythema Neck - No noticeable or palpable swelling Lymph Nodes - No lymphadenopathy Cardiovascular - RRR no m/r/g, no JVD Lungs: Clear to auscultation, No wheezing, use of accessory muscles, no crackles Skin - Skin warm and dry, no wounds or rashes Abdomen - Normal bowel sounds, abdomen soft and nontender Extremities - No edema, cyanosis or clubbing Musculoskeletal - 1/5 strength left, 2/5 strength Right leg, Left arm flaccid, mild edema. No swollen or erythematous joints. Neurological ? Alert and oriented x 1-2, CN 2-12 grossly intact. Making jokes Psych: Normal mood and affect Objective Data Vital Signs Vital Signs: Vital Signs - 24 hr 02/20/25 10:20 02/20/25 10:20 02/20/25 12:00 Temperature Pulse Rate 69 73 Respiratory Rate Blood Pressure Pulse Oximetry Oxygen Delivery Room Air 02/20/25 15:42 02/20/25 16:00 02/20/25 20:00 Temperature 97.1 F L Pulse Rate 67 67 71 Respiratory Rate 16 Blood Pressure 109/64 Pulse Oximetry 98 Oxygen Delivery 02/20/25 21:46 02/21/25 00:00 02/21/25 04:00 Temperature 98.2 F Pulse Rate 70 84 63 Respiratory Rate 18 Blood Pressure 107/53 L Pulse Oximetry 98 Oxygen Delivery 02/21/25 06:00 Temperature 98.4 F Pulse Rate 60 Respiratory Rate 16 Blood Pressure 117/61 Pulse Oximetry 100 Oxygen Delivery Intake/Output Intake/Output: Intake & Output 02/18/25 02/19/25 02/20/25 02/21/25 23:59 23:59 23:59 23:59 Intake Total 380 540 600 50 Output Total 125 350 600 Balance 255 190 0 50 Meds/Results Medications: Active Medications Generic Name Dose Route Start Last Admin Trade Name Freq PRN Reason Stop Dose Admin Acetaminophen 1,000 mg 02/16/25 17:30 Acetaminophen 500 Mg Tablet PO Q8HR PRN fever or pain 1-3 Apixaban 5 mg 02/12/25 09:00 02/20/25 20:17 Apixaban 5 Mg Tablet PO 5 mg Q12HR ELISA Administration Aspirin 81 mg 02/21/25 09:00 Aspirin 81 Mg Chewable Tablet PO DAILY ELISA Atorvastatin Calcium 80 mg 02/12/25 18:00 02/20/25 17:44 Atorvastatin 40 Mg Tablet PO 80 mg QPM ELISA Administration Dextrose 12.5 gm 02/12/25 03:52 Dextrose 50% 25 Gm/50 Ml Syringe IV PUSH PRN PRN Hypoglycemia Protocol Divalproex Sodium 500 mg 02/15/25 17:55 02/20/25 17:45 Divalproex Sodium Sprinkle 125 Mg Cap.Dr PO 500 mg BID ELISA Administration Empagliflozin 25 mg 02/12/25 09:00 02/13/25 08:45 Empagliflozin 25 Mg Tablet BY MOUTH 25 mg On Hold: 02/13/25 18:50 DAILY ELISA Administration Gabapentin 100 mg 02/19/25 21:00 02/20/25 20:17 Gabapentin 100 Mg Capsule PO 100 mg HS ELISA Administration Glucagon 1 mg 02/12/25 03:52 Glucagon For Inj 1 Mg Vial IM PRN PRN Hypoglycemia Protocol Glucose 15 gm 02/12/25 03:52 Glucose Oral Gel 15 Gm Of Glucse In 37.5 Gm Tube PO PRN PRN Hypoglycemia Protocol Dextrose 1,000 mls @ 100 mls/hr 02/12/25 03:52 Dextrose 5% 1,000 Ml IVPB PRN PRN Hypoglycemia Protocol Insulin Aspart 1 - 2 units 02/12/25 21:00 02/20/25 21:00 Insulin Aspart (*Bkc) 100 Units/Ml SUB-Q Not Given HS ELISA Protocol Insulin Aspart 2 - 5 units 02/12/25 08:00 02/20/25 17:45 Insulin Aspart (*Bkc) 100 Units/Ml SUB-Q Not Given TIDWM [facility] Protocol Lansoprazole 30 mg 02/21/25 06:30 02/21/25 05:57 Lansoprazole Odt 30 Mg Tab.Rap.Dr PO 30 mg DAILY@0630 ELISA Administration Lisinopril 20 mg 02/12/25 09:00 02/20/25 10:20 Lisinopril 20 Mg Tablet PO 20 mg DAILY ELISA Administration Metoprolol Tartrate 50 mg 02/21/25 09:00 Metoprolol Tartrate 50 Mg Tab PO Q12HR ELISA Midodrine 5 mg 02/12/25 03:39 Midodrine Hcl 2.5 Mg Tablet PO Q8H PRN LOW BP Mirtazapine 15 mg 02/12/25 21:00 02/20/25 20:17 Mirtazapine 15 Mg Tablet PO 15 mg HS [facility] Administration Miscellaneous Information 1 each 02/15/25 00:01 02/20/25 10:21 Order Clarification -Eplerenone 25 Mg Tablet Is Non-Formulary XX 03/17/25 00:00 Not Given CLARIFY ELISA Modafinil 200 mg 02/21/25 07:00 Modafinil (*Crx) 200 Mg Tablet PO 0700 [facility] Multivitamins/Calcium 1 tablet 02/18/25 09:00 02/20/25 10:20 Therapeutic Multivitamins/Minerals Tab (*Bkc) PO 1 tablet DAILY ELISA Administration Non-Formulary Medication 25 mg 02/12/25 09:00 Eplerenone PO 03/14/25 08:59 DAILY ELISA Silver Sulfadiazine 1 applic 02/14/25 09:00 02/20/25 17:45 Silver Sulfadiazine 1% Cr 50 Gm Jar (*Bkc) TOPICAL 1 applic DAILY ELISA Administration Radiology Results: ITS Impressions Chest X-Ray 02/12/25 06:03 IMPRESSION: 1. No acute cardiopulmonary findings given portable technique. Head/Neck CTA 02/12/25 06:45 IMPRESSION: CTA NECK: 1. No acute findings. CTA HEAD: 1. No acute findings. Carotid Doppler Study 02/12/25 10:44 IMPRESSION: 1. No hemodynamically significant ICA stenosis (i.e., if any stenosis, less than 50%). 2. Normal bilateral antegrade vertebral artery flow. Stenosis measured by Society of Radiologists in Ultrasound (SRU) criteria. Head CT 02/14/25 08:46 IMPRESSION: 1. Large old infarct in the expected distribution of right middle cerebral artery. Modified Barium Swallow 02/15/25 12:11 IMPRESSION: Oropharyngeal dysphagia with laryngeal penetration and aspiration. Please correlate with speech pathologist findings and specific feeding recommendations. Brain MRI 02/16/25 14:14 IMPRESSION: 1. 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 No acute intracranial process. 2. Increased white matter T2 hyperintensity kevin, right cerebral peduncle and right thalamus which suggests possible Wallerian degeneration related to the right middle cerebral artery infarct with differential including sequela of chronic small vessel ischemic disease. Venous Doppler Study 02/17/25 17:06 IMPRESSION: 1. Possible noncompressible deep venous thrombosis in the left posterior tibial and peroneal veins however specificity is decreased by the poor visualization of the vessels. No deep venous thrombosis at or proximal to the left popliteal vein. Labs Labs: Laboratory Results - last 24 hr 02/15/25 02/16/25 02/20/25 13:32 05:03 12:28 POC Capillary Glucose 138 H Methylmalonic Acid 76 Add Ur Microanalysis Not Reportable Urine RBC Not Reportable Urine WBC Not Reportable Urine WBC Clumps Not Reportable Ur Squamous Epith Cells Not Reportable Ur Transition Epith Cell Not Reportable Ur Renal Epithelial Cell Not Reportable [place] Biurate Crystals Not Reportable Calcium Carbonate Cryst Not Reportable Calcium Phosphate Cryst Not Reportable Calcium Oxalate Crystal Not Reportable Leucine Crystals Not Reportable Cystine Crystals Not Reportable Uric Acid Crystals Not Reportable Triple Phos Crystals Not Reportable Sulfonamide Crystals Not Reportable Cholesterol Crystals Not Reportable Talc Crystals Not Reportable Tyrosine Crystals Not Reportable Hippuric Acid Crystals Not Reportable Bilirubin Crystals Not Reportable Other Crystals Not Reportable Amorphous Sediment Not Reportable Other Sediment Not Reportable Urine Bacteria Not Reportable Urine Casts Not Reportable Cellular Casts Not Reportable Epithelial Casts Not Reportable Fatty Casts Not Reportable Hyaline Casts Not Reportable Granular Casts Not Reportable Waxy Casts Not Reportable Broad Casts Not Reportable RBC Casts Not Reportable WBC Casts Not Reportable Urine Starch Not Reportable Urine Mucus Not Reportable Urine Trichomonas Not Reportable Urine Yeast (Budding) Not Reportable Ur Oval Fat Bodies Not Reportable Sperm Presence Not Reportable 02/20/25 02/20/25 17:15 21:27 POC Capillary Glucose 118 H 105 Methylmalonic Acid Add Ur Microanalysis Urine RBC Urine WBC Urine WBC Clumps Ur Squamous Epith Cells Ur Transition Epith Cell Ur Renal Epithelial Cell [place] Biurate Crystals Calcium Carbonate Cryst Calcium Phosphate Cryst Calcium Oxalate Crystal Leucine Crystals Cystine Crystals Uric Acid Crystals Triple Phos Crystals Sulfonamide Crystals Cholesterol Crystals Talc Crystals Tyrosine Crystals Hippuric Acid Crystals Bilirubin Crystals Other Crystals Amorphous Sediment Other Sediment Urine Bacteria Urine Casts Cellular Casts Epithelial Casts Fatty Casts Hyaline Casts Granular Casts Waxy Casts Broad Casts RBC Casts WBC Casts Urine Starch Urine Mucus Urine Trichomonas Urine Yeast (Budding) Ur Oval Fat Bodies Sperm Presence Quality VTE Prophylaxis VTE prophylaxis: pharmacologic ordered Hospitalist [facility] Advance Care Plan I have confirmed that the patient's Advanced Care Plan is present, code status is documented, or surrogate decision maker is listed in patient medical record.: Yes Medication Reconciliation I have utilized all available resources to obtain, update and review the patients current medications (includes all prescriptions, OTC, herbals, cannabis, and nutritional supplements).: Yes
[2025-02-21] MEDS: METOPROLOL TARTRATE 50 MG TAB PO ×2 (10:20→20:57)
[2025-02-21] MEDS: APIXABAN 5 MG TABLET PO ×2 (10:20→20:57)
[2025-02-21] MEDS: modafiniL (*CRX) 200 MG TABLET PO (10:20)
[2025-02-21] MEDS: DIVALPROEX SODIUM SPRINKLE 125 MG CAP.DR 500 MG PO ×2 (10:21→17:48)
[2025-02-21] MEDS: ASPIRIN 81 MG CHEWABLE TABLET PO (10:21)
[2025-02-21] MEDS: THERAPEUTIC MULTIVITAMINS/MINERALS TAB (*BKC) 1 TABLET PO (10:21)
[2025-02-21] MEDS: ATORVASTATIN 40 MG TABLET 80 MG PO (17:48)
[2025-02-21] MEDS: ACETAMINOPHEN 500 MG TABLET 1000 MG PO (17:57)
[2025-02-21] MEDS: SILVER SULFADIAZINE 1% CR 50 GM JAR (*BKC) 1 APPLIC TOPICAL (17:58)
[2025-02-21] MEDS: GABAPENTIN 100 MG CAPSULE PO (20:57)
[2025-02-21] MEDS: MIRTAZAPINE 15 MG TABLET PO (20:57)
[2025-02-22] VITALS (13 sets, daily range): BP systolic 94–103; BP diastolic 47–54; PULSE 61–78; RESP 14–16; TEMP 35.9–37; O2SAT 92–100
[2025-02-22] MEDS: ACETAMINOPHEN 500 MG TABLET 1000 MG PO ×2 (02:41→10:49)
[2025-02-22 05:41] LABS: Hematocrit 37.3 % (42.0-52.0); Hemoglobin 11.8 g/dL (14.0-18.0); Immature Granulocyte Percent A 0.3 % (0-0.5); Lymphocytes Absolute Auto 3.46 K/mm3 (0.9-3.2); Mean Corpuscular HGB Conc 31.6 g/dl (32-36); Mean Corpuscular Hemoglobin 28.7 pg (26-34); Mean Corpuscular Volume 90.8 fl (80-100); Nucleated Red Blood Cells Absolute Auto 0.000 K/mm3 (0.0-0.012); Nucleated Red Blood Cells Perc 0.0 % (0.0-0.2); Platelet Count Result 262 k/mm3 (150-375); Red Blood Count 4.11 M/mm3 (4.6-6.20); White Blood Count 8.7 K/mm3 (4.5-10.0)
[2025-02-22] MEDS: LANSOPRAZOLE ODT 30 MG TAB.RAP.DR PO (06:10)
[2025-02-22] MEDS: modafiniL (*CRX) 200 MG TABLET PO (06:10)
[2025-02-22 06:11] LABS: Anion Gap 3 mmol/L (4-12); Blood Urea Nitrogen 25 mg/dL (9-20); Calcium 8.6 mg/dL (8.4-10.2); Carbon Dioxide 35 mmol/L (22-30); Chloride 98 mmol/L (98-107); Estimated CRCL calculation 84 ml/min; Estimated Glomerular Filt Rate > 60; Glucose 95 mg/dL (65-110); Magnesium 1.9 mg/dL (1.6-2.3); Potassium 3.6 mmol/L (3.4-5.0); Sodium 136 mmol/L (137-145)
[2025-02-22] MEDS: DIVALPROEX SODIUM SPRINKLE 125 MG CAP.DR 500 MG PO ×2 (10:50→17:49)
[2025-02-22] MEDS: THERAPEUTIC MULTIVITAMINS/MINERALS TAB (*BKC) 1 TABLET PO (10:50)
[2025-02-22] MEDS: APIXABAN 5 MG TABLET PO ×2 (10:51→22:09)
[2025-02-22] MEDS: ASPIRIN 81 MG CHEWABLE TABLET PO (10:51)
[2025-02-22] MEDS: METOPROLOL TARTRATE 50 MG TAB PO ×2 (10:51→22:09)
[2025-02-22] MEDS: SILVER SULFADIAZINE 1% CR 50 GM JAR (*BKC) 1 APPLIC TOPICAL (10:52)
--- NOTE | 2025-02-22 13:33 | PCNFU ---
Nutrition Follow-Up Complete: Increased Protein needs as related to wounds as evidenced by pressure ulcers reported. adequate intake of at least 75% of meals/supplements - Not able to meet goal PO Goal: Pt current nutrition is Puree, heart healthy diet, diabetic consistent carb diet. Stevenson BID for wounds (90 kcal, 2.5 g protein) and Ensure + HP BID (350 kcal, 20 g protein) . Nutrition recommendation: Hold nutrition until MD okays PO intake due to choking. If tube feeding is needed: Jevity 1.5 @ goal rate 60 ml/h to provide 1980 kcal, 84 g protein, 1003 ml free water. Flush 150 ml q 4 h for total water 1903 ml/day Last recorded weight is 78.1 kg. Bowel Motility: +1 BM 02/21 Labs Reviewed: Hgb 11.8, Hct 37.2, Na 136, BUN 25, Cre 0.69 Meds Noted: Remeron, protonix, novolog, jardiance Skin: Sacrum stage 3 pressure injury Additional Notes: MD sent consult for possible tube feeding. Personally witnessed patient choking/coughing while being fed lunch puree with thickened liquids. Per RN, pt had no trouble eating and drinking this morning at breakfast. Placed call to MD re: choking episode and had to leave message. RN aware. RD will monitor weight, labs, skin, diet orders, meds every 5 days.
--- NOTE | 2025-02-22 16:57 | P.PNIM_ITS ---
Progress Note: A&P Assessment and Plan (1) Acute alteration in mental status: Code(s): R41.82 - Altered mental status, unspecified Status: Acute Assessment and Plan: Altered mental status improved. Not yet back to prior baseline. No evidence of CVA on CT brain. 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 Changed keppra to depakote. Stopped tramadol * Continue depakote for possible seizure. * EEG procedure has been completed - awaiting neurology interpretation. 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 Had a 5 beat run of NSVT 02/18 (2) Hemiplegia: Code(s): G81.90 - Hemiplegia, unspecified affecting unspecified side Status: Acute Assessment and Plan: * according the family members this is from his previous stroke * PT OT evaluation greatly appreciated. * q2 turns * resumed gabapentin 300mg>100 hs instead of TID (3) Dysphagia: Code(s): R13.10 - Dysphagia, unspecified Status: Acute Assessment and Plan: Speech therapy consulted regarding aspiration risk * Noted coughing and choking episode * Thickened diet started on 02/[address] recommendations * Barium swallow study ordered -Recommended pureed and thickened liquids. Holding food in mouth. Alternating bites and sips, 1:1 supervision * Overall intake is poor. Discussed with family that since he is eating less than 50% of meals, not drinking supplements, he may need a feeding tube eventually. They are going to discuss it. Poor PO intake likely contributing to electrolyte abnormality which would increase risk of arrhythmias * Sprayer Leather following * Patient might need feeding tube (4) Hypomagnesemia: Code(s): E83.42 - Hypomagnesemia Status: Acute Assessment and Plan: * his magnesium level was 1.4 and it has been replaced. * Follow magnesium every 2 days (5) DM2 (diabetes mellitus, type 2): Code(s): E11.9 - Type 2 diabetes mellitus without complications Status: Acute Assessment and Plan: * metformin is on hold at this time due CT dye * Continuing empagliflozin * Accu-Cheks AC and HS with sliding scale insulin. * check A1c 5.4 * Blood sugars controlled (6) Pressure ulcer: Code(s): L89.90 - Pressure ulcer of unspecified site, unspecified stage Status: Acute Assessment and Plan: * wound care consult greatly be appreciated. * may consider specialty mattress. * may consider dietary consult for healing process (7) Hypokalemia: Code(s): E87.6 - Hypokalemia Status: Acute Assessment and Plan: * potassium was 2.7 and has been replaced in the emergency room. * daily BMP (8) Pulmonary embolism: Code(s): I26.99 - Other pulmonary embolism without acute cor pulmonale Status: Acute Assessment and Plan: * continue with Eliquis and aspirin 02/17 Left LE venous doppler showing possible noncompressible DVT in the left posterior tibial and peroneal veins however specificity is decreased by the poor visualization of the vessels. No DVT at or proximal to the left popliteal vein. --Patient was off his Eliquis for 3 days and now has been resumed. --Since the DVTs are not confirmed and they are below the knee, would not advance Eliquis to full dose at this time but would repeat US in 1 week to make sure this has not propagated to the popliteal (9) Congestive heart failure: Code(s): I50.9 - Heart failure, unspecified Status: Acute Assessment and Plan: * continue with Eplerenone and Farxiga * continue metoprolol-- 100mg daily , continue lisinopril * Records requested from [facility] to confirm if he had a recent cath and for his prior echo. I spoke with cardiology and if heart failure is reduced from joaquin or would need a cardiology consult. If unchanged can discharge with follow up with cardiology and electrophysiology for a possible ICD 02/15 TTE 1. Definity contrast administered improved wall motion interpretation. 2. Left ventricular chamber dimension is severely enlarged. 3. Left ventricular systolic function is severely globally reduced, estimated at 25-30. 4. There is moderate concentric increased left ventricular wall thickness. 5. Mid to apical anteroseptum and septum are akinetic. 6. E/e' 7 is not elevated. 7. Left atrial chamber dimension is mildly enlarged. 8. There is mild aortic valve sclerosis. 9. There is mild mitral valve regurgitation. 10. There is trace tricuspid valve regurgitation. 11. No pulmonary hypertension, estimated pulmonary arterial systolic pressure is 17 mmHg. Plan Palliative care consult goal of care discussion Time Spent With Patient Time: 35 minutes Subjective Date/time seen: 02/22/25 16:57 Interval history: Left hip pain-apply lidocaine patch. Exam Narrative: APPEARANCE: Apart from left hip pain no acute distress EYES: EOMI HEENT: Normocephalic, atraumatic, OMM RESPIRATORY: No respiratory distress Clear to auscultation bilaterally with no rhonchi wheezing or rales. CARDIOVASCULAR: RRR, S1 and S2 without murmurs rubs or gallops. ABDOMINAL: Soft, nontender, nondistended, no rebound or guarding MUSCULOSKELETAl: Right hemiplegia. Aphasia NEURO: Awake and alert. Following commands, aphasic SKIN:: Warm, dry. No rashes lesions or abrasions PSYCHIATRIC: Normal affect/mood, Objective Data Vital Signs Vital Signs: Vital Signs - 24 hr 02/21/25 20:00 02/21/25 20:00 02/21/25 20:17 Temperature 36.4 C Pulse Rate 72 69 72 Respiratory Rate 18 18 Blood Pressure 90/58 L Pulse Oximetry 100 100 Oxygen Delivery Room Air Fraction of Inspired Oxygen 21 02/21/25 20:57 02/22/25 00:00 02/22/25 04:00 Temperature Pulse Rate 72 74 75 Respiratory Rate Blood Pressure Pulse Oximetry Oxygen Delivery Fraction of Inspired Oxygen 02/22/25 06:00 02/22/25 09:43 02/22/25 10:40 Temperature 37.0 C Pulse Rate 67 71 62 Respiratory Rate 14 16 Blood Pressure 103/47 L 98/52 L Pulse Oximetry 97 100 99 Oxygen Delivery Room Air Fraction of Inspired Oxygen 02/22/25 10:40 02/22/25 10:51 02/22/25 14:00 Temperature 35.9 C L Pulse Rate 62 78 62 Respiratory Rate 16 Blood Pressure 99/54 L Pulse Oximetry 99 Oxygen Delivery Fraction of Inspired Oxygen Intake/Output Intake/Output: Intake & Output 02/19/25 02/20/25 02/21/25 02/22/25 23:59 23:59 23:59 23:59 Intake Total 540 600 130 240 Output Total 350 600 150 Balance 190 0 130 90 Meds/Results Medications: Active Medications Generic Name Dose Route Start Last Admin Trade Name Freq PRN Reason Stop Dose Admin Acetaminophen 1,000 mg 02/16/25 17:30 02/22/25 10:49 Acetaminophen 500 Mg Tablet PO 1,000 mg Q8HR PRN Administration fever or pain 1-3 Apixaban 5 mg 02/12/25 09:00 02/22/25 10:51 Apixaban 5 Mg Tablet PO 5 mg Q12HR ELISA Administration Aspirin 81 mg 02/21/25 09:00 02/22/25 10:51 Aspirin 81 Mg Chewable Tablet PO 81 mg DAILY ELISA Administration Atorvastatin Calcium 80 mg 02/12/25 18:00 02/21/25 17:48 Atorvastatin 40 Mg Tablet PO 80 mg QPM ELISA Administration Dextrose 12.5 gm 02/12/25 03:52 Dextrose 50% 25 Gm/50 Ml Syringe IV PUSH PRN PRN Hypoglycemia Protocol Divalproex Sodium 500 mg 02/15/25 17:55 02/22/25 10:50 Divalproex Sodium Sprinkle 125 Mg Cap. PO 500 mg BID ELISA Administration Empagliflozin 25 mg 02/12/25 09:00 02/13/25 08:45 Empagliflozin 25 Mg Tablet BY MOUTH 25 mg On Hold: 02/13/25 18:50 DAILY ELISA Administration Gabapentin 100 mg 02/19/25 21:00 02/21/25 20:57 Gabapentin 100 Mg Capsule PO 100 mg HS ELISA Administration Glucagon 1 mg 02/12/25 03:52 Glucagon For Inj 1 Mg Vial IM PRN PRN Hypoglycemia Protocol Glucose 15 gm 02/12/25 03:52 Glucose Oral Gel 15 Gm Of Glucse In 37.5 Gm Tube PO PRN PRN Hypoglycemia Protocol Dextrose 1,000 mls @ 100 mls/hr 02/12/25 03:52 Dextrose 5% 1,000 Ml IVPB PRN PRN Hypoglycemia Protocol Insulin Aspart 1 - 2 units 02/12/25 21:00 02/21/25 22:00 Insulin Aspart (*Bkc) 100 Units/Ml SUB-Q Not Given HS ELISA Protocol Insulin Aspart 2 - 5 units 02/12/25 08:00 02/22/25 12:16 Insulin Aspart (*Bkc) 100 Units/Ml SUB-Q Not Given TIDWM ELISA Protocol Lansoprazole 30 mg 02/21/25 06:30 02/22/25 06:10 Lansoprazole Odt 30 Mg Tab.Rap. PO 30 mg DAILY@0630 ELISA Administration Lisinopril 20 mg 02/12/25 09:00 02/22/25 10:51 Lisinopril 20 Mg Tablet PO 20 mg DAILY ELISA Administration Metoprolol Tartrate 50 mg 02/21/25 09:00 02/22/25 10:51 Metoprolol Tartrate 50 Mg Tab PO 50 mg Q12HR ELISA Administration Midodrine 5 mg 02/12/25 03:39 Midodrine Hcl 2.5 Mg Tablet PO Q8H PRN LOW BP Mirtazapine 15 mg 02/12/25 21:00 02/21/25 20:57 Mirtazapine 15 Mg Tablet PO 15 mg HS ELISA Administration Miscellaneous Information 1 each 02/15/25 00:01 02/21/25 10:13 Order Clarification -Eplerenone 25 Mg Tablet Is Non-Formulary XX 03/17/25 00:00 Not Given CLARIFY ELISA Modafinil 200 mg 02/21/25 07:00 02/22/25 06:10 Modafinil (*Crx) 200 Mg Tablet PO 200 mg 0700 ELISA Administration Multivitamins/Calcium 1 tablet 02/18/25 09:00 02/22/25 10:50 Therapeutic Multivitamins/Minerals Tab (*Bkc) PO 1 tablet DAILY ELISA Administration Non-Formulary Medication 25 mg 02/12/25 09:00 Eplerenone PO 03/14/25 08:59 DAILY ELISA Silver Sulfadiazine 1 applic 02/14/25 09:00 02/22/25 10:52 Silver Sulfadiazine 1% Cr 50 Gm Jar (*Bkc) TOPICAL 1 applic DAILY ELISA Administration Radiology Results: ITS Impressions Chest X-Ray 02/12/25 06:03 IMPRESSION: 1. No acute cardiopulmonary findings given portable technique. Head/Neck CTA 02/12/25 06:45 IMPRESSION: CTA NECK: 1. No acute findings. CTA HEAD: 1. No acute findings. Carotid Doppler Study 02/12/25 10:44 IMPRESSION: 1. No hemodynamically significant ICA stenosis (i.e., if any stenosis, less than 50%). 2. Normal bilateral antegrade vertebral artery flow. Stenosis measured by Society of Radiologists in Ultrasound (SRU) criteria. Head CT 02/14/25 08:46 IMPRESSION: 1. Large old infarct in the expected distribution of right middle cerebral artery. Modified Barium Swallow 02/15/25 12:11 IMPRESSION: Oropharyngeal dysphagia with laryngeal penetration and aspiration. Please correlate with speech pathologist findings and specific feeding recommendations. Brain MRI 02/16/25 14:14 IMPRESSION: 1. 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 No acute intracranial process. 2. Increased white matter T2 hyperintensity kevin, right cerebral peduncle and right thalamus which suggests possible Wallerian degeneration related to the right middle cerebral artery infarct with differential including sequela of chronic small vessel ischemic disease. Venous Doppler Study 02/17/25 17:06 IMPRESSION: 1. Possible noncompressible deep venous thrombosis in the left posterior tibial and peroneal veins however specificity is decreased by the poor visualization of the vessels. No deep venous thrombosis at or proximal to the left popliteal vein . Labs Labs: Laboratory Results - last 24 hr 02/16/25 02/21/25 02/21/25 05:03 16:51 19:46 WBC RBC Hgb Hct MCV MCH MCHC RDW Plt Count MPV Immature Gran % (Auto) Neut % (Auto) Lymph % (Auto) [place] % (Auto) Eos % (Auto) Baso % (Auto) Lymph # (Auto) [place] # (Auto) Eos # (Auto) Baso # (Auto) Abs Immat Gran (auto) Absolute Neuts (auto) Absolute Nucleated RBC Nucleated RBC % Sodium Potassium Chloride Carbon Dioxide Anion Gap BUN Creatinine Estim Creat Clear Calc Estimated GFR Glucose POC Capillary Glucose 91 179 H Calcium Phosphorus Magnesium Urine Color Cancelled Urine Appearance Cancelled Urine pH Cancelled Ur Specific [place] Cancelled Urine Protein Cancelled Urine Glucose (UA) Cancelled Urine Ketones Cancelled Ur Blood (Man) Cancelled Urine Nitrate Cancelled Urine Bilirubin Cancelled Urine Urobilinogen Cancelled Add Ur Microanalysis Cancelled Leukocyte Esterase Rfl Cancelled Urine RBC Cancelled Urine WBC Cancelled Urine WBC Clumps Cancelled Ur Squamous Epith Cells Cancelled Ur Transition Epith Cell Cancelled Ur Renal Epithelial Cell Cancelled [place] Biurate Crystals Cancelled Calcium Carbonate Cryst Cancelled Calcium Phosphate Cryst Cancelled Calcium Oxalate Crystal Cancelled Leucine Crystals Cancelled Cystine Crystals Cancelled Uric Acid Crystals Cancelled Triple Phos Crystals Cancelled Sulfonamide Crystals Cancelled Cholesterol Crystals Cancelled Talc Crystals Cancelled Tyrosine Crystals Cancelled Hippuric Acid Crystals Cancelled Bilirubin Crystals Cancelled Other Crystals Cancelled Amorphous Sediment Cancelled Other Sediment Cancelled Urine Bacteria Cancelled Urine Casts Cancelled Cellular Casts Cancelled Epithelial Casts Cancelled Fatty Casts Cancelled Hyaline Casts Cancelled Granular Casts Cancelled Waxy Casts Cancelled Broad Casts Cancelled RBC Casts Cancelled WBC Casts Cancelled Urine Starch Cancelled Urine Mucus Cancelled Urine Trichomonas Cancelled Urine Yeast (Budding) Cancelled Ur Oval Fat Bodies Cancelled Sperm Presence Cancelled 02/22/25 02/22/25 02/22/25 05:18 08:17 11:30 WBC 8.7 RBC 4.11 L Hgb 11.8 L Hct 37.3 L MCV 90.8 MCH 28.7 MCHC 31.6 L RDW 16.5 H Plt Count 262 MPV 10.1 Immature Gran % (Auto) 0.3 Neut % (Auto) 46.9 Lymph % (Auto) 39.7 [place] % (Auto) 9.4 H Eos % (Auto) 3.4 Baso % (Auto) 0.3 Lymph # (Auto) 3.46 H [place] # (Auto) 0.8 H Eos # (Auto) 0.3 Baso # (Auto) 0.0 Abs Immat Gran (auto) 0.03 Absolute Neuts (auto) 4.1 Absolute Nucleated RBC 0.000 Nucleated RBC % 0.0 Sodium 136 L Potassium 3.6 Chloride 98 Carbon Dioxide 35 H Anion Gap 3 L BUN 25 H Creatinine 0.69 L Estim Creat Clear Calc 84 Estimated GFR > 60 Glucose 95 POC Capillary Glucose 87 126 H Calcium 8.6 Phosphorus 3.0 Magnesium 1.9 Urine Color Urine Appearance Urine pH Ur Specific Chancellor Urine Protein Urine Glucose (UA) Urine Ketones Ur Blood (Man) Urine Nitrate Urine Bilirubin Urine Urobilinogen Add Ur Microanalysis Leukocyte Esterase Rfl Urine RBC Urine WBC Urine WBC Clumps Ur Squamous Epith Cells Ur Transition Epith Cell Ur Renal Epithelial Cell [place] Biurate Crystals Calcium Carbonate Cryst Calcium Phosphate Cryst Calcium Oxalate Crystal Leucine Crystals Cystine Crystals Uric Acid Crystals Triple Phos Crystals Sulfonamide Crystals Cholesterol Crystals Talc Crystals Tyrosine Crystals Hippuric Acid Crystals Bilirubin Crystals Other Crystals Amorphous Sediment Other Sediment Urine Bacteria Urine Casts Cellular Casts Epithelial Casts Fatty Casts Hyaline Casts Granular Casts Waxy Casts Broad Casts RBC Casts WBC Casts Urine Starch Urine Mucus Urine Trichomonas Urine Yeast (Budding) Ur Oval Fat Bodies Sperm Presence 02/22/25 16:33 WBC RBC Hgb Hct MCV MCH MCHC RDW Plt Count MPV Immature Gran % (Auto) Neut % (Auto) Lymph % (Auto) [place] % (Auto) Eos % (Auto) Baso % (Auto) Lymph # (Auto) [place] # (Auto) Eos # (Auto) Baso # (Auto) Abs Immat Gran (auto) Absolute Neuts (auto) Absolute Nucleated RBC Nucleated RBC % Sodium Potassium Chloride Carbon Dioxide Anion Gap BUN Creatinine Estim Creat Clear Calc Estimated GFR Glucose POC Capillary Glucose 114 H Calcium Phosphorus Magnesium Urine Color Urine Appearance Urine pH Ur Specific [place] Urine Protein Urine Glucose (UA) Urine Ketones Ur Blood (Man) Urine Nitrate Urine Bilirubin Urine Urobilinogen Add Ur Microanalysis Leukocyte Esterase Rfl Urine RBC Urine WBC Urine WBC Clumps Ur Squamous Epith Cells Ur Transition Epith Cell Ur Renal Epithelial Cell [place] Biurate Crystals Calcium Carbonate Cryst Calcium Phosphate Cryst Calcium Oxalate Crystal Leucine Crystals Cystine Crystals Uric Acid Crystals Triple Phos Crystals Sulfonamide Crystals Cholesterol Crystals Talc Crystals Tyrosine Crystals Hippuric Acid Crystals Bilirubin Crystals Other Crystals Amorphous Sediment Other Sediment Urine Bacteria Urine Casts Cellular Casts Epithelial Casts Fatty Casts Hyaline Casts Granular Casts Waxy Casts Broad Casts RBC Casts WBC Casts Urine Starch Urine Mucus Urine Trichomonas Urine Yeast (Budding) Ur Oval Fat Bodies Sperm Presence
[2025-02-22] MEDS: ATORVASTATIN 40 MG TABLET 80 MG PO (17:48)
[2025-02-22] MEDS: LIDOCAINE 5% PATCH 1 PATCH TRANSDERM (17:49)
[2025-02-22] MEDS: GABAPENTIN 100 MG CAPSULE PO (22:10)
[2025-02-22] MEDS: MIRTAZAPINE 15 MG TABLET PO (22:10)
[2025-02-23] VITALS (12 sets, daily range): BP systolic 100–134; BP diastolic 50–71; PULSE 67–84; RESP 18–20; TEMP 36.2–36.9; O2SAT 94–100
[2025-02-23 06:01] LABS: Hematocrit 38.0 % (42.0-52.0); Hemoglobin 11.9 g/dL (14.0-18.0); Immature Granulocyte Percent A 0.3 % (0-0.5); Lymphocytes Absolute Auto 2.20 K/mm3 (0.9-3.2); Mean Corpuscular HGB Conc 31.3 g/dl (32-36); Mean Corpuscular Hemoglobin 28.5 pg (26-34); Mean Corpuscular Volume 90.9 fl (80-100); Nucleated Red Blood Cells Absolute Auto 0.000 K/mm3 (0.0-0.012); Nucleated Red Blood Cells Perc 0.0 % (0.0-0.2); Platelet Count Result 255 k/mm3 (150-375); Red Blood Count 4.18 M/mm3 (4.6-6.20); White Blood Count 6.9 K/mm3 (4.5-10.0)
[2025-02-23 06:05] LABS: Anion Gap 2 mmol/L (4-12); Blood Urea Nitrogen 26 mg/dL (9-20); Calcium 8.8 mg/dL (8.4-10.2); Carbon Dioxide 37 mmol/L (22-30); Chloride 97 mmol/L (98-107); Estimated CRCL calculation 83 ml/min; Estimated Glomerular Filt Rate > 60; Glucose 106 mg/dL (65-110); Potassium 4.0 mmol/L (3.4-5.0); Sodium 136 mmol/L (137-145)
[2025-02-23] MEDS: LANSOPRAZOLE ODT 30 MG TAB.RAP.DR PO (06:11)
[2025-02-23] MEDS: modafiniL (*CRX) 200 MG TABLET PO (06:11)
[2025-02-23] MEDS: DIVALPROEX SODIUM SPRINKLE 125 MG CAP.DR 500 MG PO ×2 (08:46→17:32)
[2025-02-23] MEDS: APIXABAN 5 MG TABLET PO ×2 (08:47→20:23)
[2025-02-23] MEDS: ASPIRIN 81 MG CHEWABLE TABLET PO (08:47)
[2025-02-23] MEDS: THERAPEUTIC MULTIVITAMINS/MINERALS TAB (*BKC) 1 TABLET PO (08:47)
[2025-02-23] MEDS: METOPROLOL TARTRATE 50 MG TAB PO ×2 (08:47→20:23)
[2025-02-23] MEDS: LIDOCAINE 5% PATCH 1 PATCH TRANSDERM (08:47)
[2025-02-23] MEDS: SILVER SULFADIAZINE 1% CR 50 GM JAR (*BKC) 1 APPLIC TOPICAL (08:48)
--- NOTE | 2025-02-23 09:58 | ECG_ITS ---
Test Date: 2025-02-23 10:40:12 Measurements Intervals [place] Rate: 75 P: 75 NH: 181 QRS: 50 QRSD: 157 T: 58 QT: 422 QTc: 472 Interpretive Statements SINUS RHYTHM INTRAVENTRICULAR CONDUCTION DELAY [130+ ms QRS DURATION] ANTEROSEPTAL MYOCARDIAL INFARCTION , OF INDETERMINATE AGE [40+ ms Q WAVE IN V1-V4] Electronically Signed On 02-23-2025 14:44:34 CDT by Arnulfo Eason M.D.
[2025-02-23 10:43] LABS: Alanine Aminotransferase 17 U/L (6-50); Albumin Level 3.0 g/dL (3.5-5.1); Alkaline Phosphatase 96 U/L (38-126); Anion Gap 1 mmol/L (4-12); Aspartate Amino Transferase 43 U/L (17-59); Bilirubin,Total 0.4 mg/dL (0.2-1.3); Blood Urea Nitrogen 25 mg/dL (9-20); Calcium 8.6 mg/dL (8.4-10.2); Carbon Dioxide 35 mmol/L (22-30); Chloride 98 mmol/L (98-107); Estimated CRCL calculation 89 ml/min; Estimated Glomerular Filt Rate > 60; Glucose 122 mg/dL (65-110); Potassium 3.9 mmol/L (3.4-5.0); Sodium 134 mmol/L (137-145); Total Protein 6.3 g/dL (6.3-8.2)
[2025-02-23 10:44] LABS: Magnesium 1.8 mg/dL (1.6-2.3)
[2025-02-23] MEDS: POTASSIUM CHLORIDE 20 MEQ ER TABLET PO (13:05)
[2025-02-23] MEDS: MAGNESIUM SULF 1 GM/D5W 100 ML 1 GM/100 ML BAG IVPB (13:05)
--- NOTE | 2025-02-23 16:18 | P.PNIM_ITS ---
Progress Note: A&P Assessment and Plan (1) Acute alteration in mental status: Code(s): R41.82 - Altered mental status, unspecified Status: Acute Assessment and Plan: Altered mental status improved. Not yet back to prior baseline. No evidence of CVA on CT brain. 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 Changed keppra to depakote. Stopped tramadol * Continue depakote for possible seizure. * EEG procedure has been completed - awaiting neurology interpretation. * Interrogate loop recorder (Populr) [address] with PVC's and PAC's, rate of 160's at 8:26 pm * Continue to monitor on telemetry. Had a 5 beat run of NSVT 02/18 (2) Hemiplegia: Code(s): G81.90 - Hemiplegia, unspecified affecting unspecified side Status: Acute Assessment and Plan: * according the family members this is from his previous stroke * PT OT evaluation greatly appreciated. * q2 turns * resumed gabapentin 300mg>100 hs instead of TID (3) Dysphagia: Code(s): R13.10 - Dysphagia, unspecified Status: Acute Assessment and Plan: Speech therapy consulted regarding aspiration risk * Noted coughing and choking episode * Thickened diet started on 02/[address] recommendations * Barium swallow study ordered -Recommended pureed and thickened liquids. Holding food in mouth. Alternating bites and sips, 1:1 supervision * Overall intake is poor. Discussed with family that since he is eating less than 50% of meals, not drinking supplements, he may need a feeding tube eventually. They are going to discuss it. Poor PO intake likely contributing to electrolyte abnormality which would increase risk of arrhythmias * Electronic Assembler following * Patient might need feeding tube (4) Hypomagnesemia: Code(s): E83.42 - Hypomagnesemia Status: Acute Assessment and Plan: * his magnesium level was 1.4 and it has been replaced. * Follow magnesium every 2 days (5) DM2 (diabetes mellitus, type 2): Code(s): E11.9 - Type 2 diabetes mellitus without complications Status: Acute Assessment and Plan: * metformin is on hold at this time due CT dye * Continuing empagliflozin * Accu-Cheks AC and HS with sliding scale insulin. * check A1c 5.4 * Blood sugars controlled (6) Pressure ulcer: Code(s): L89.90 - Pressure ulcer of unspecified site, unspecified stage Status: Acute Assessment and Plan: * wound care consult greatly be appreciated. * may consider specialty mattress. * may consider dietary consult for healing process (7) Hypokalemia: Code(s): E87.6 - Hypokalemia Status: Acute Assessment and Plan: * potassium was 2.7 and has been replaced in the emergency room. * daily BMP (8) Pulmonary embolism: Code(s): I26.99 - Other pulmonary embolism without acute cor pulmonale Status: Acute Assessment and Plan: * continue with Eliquis and aspirin 02/17 Left LE venous doppler showing possible noncompressible DVT in the left posterior tibial and peroneal veins however specificity is decreased by the poor visualization of the vessels. No DVT at or proximal to the left popliteal vein. --Patient was off his Eliquis for 3 days and now has been resumed. continue Eliquis (9) Congestive heart failure: Code(s): I50.9 - Heart failure, unspecified Status: Acute Assessment and Plan: * continue with Eplerenone and Farxiga * continue metoprolol-- 100mg daily , continue lisinopril * Records requested from [facility] to confirm if he had a recent cath and for his prior echo. I spoke with cardiology and if heart failure is reduced from prior would need a cardiology consult. If unchanged can discharge with follow up with cardiology and electrophysiology for a possible ICD 02/15 TTE 1. Definity contrast administered improved wall motion interpretation. 2. Left ventricular chamber dimension is severely enlarged. 3. Left ventricular systolic function is severely globally reduced, estimated at 25-30. 4. There is moderate concentric increased left ventricular wall thickness. 5. Mid to apical anteroseptum and septum are akinetic. 6. E/e' 7 is not elevated. 7. Left atrial chamber dimension is mildly enlarged. 8. There is mild aortic valve sclerosis. 9. There is mild mitral valve regurgitation. 10. There is trace tricuspid valve regurgitation. 11. No pulmonary hypertension, estimated pulmonary arterial systolic pressure is 17 mmHg. Further cardiology workup contigent on family [place] about palliative care Plan Palliative care consult goal of care discussion still ongoing as family are yet to decided Subjective Date/time seen: 02/23/25 16:18 Interval history: Patient mostly somnolent on my 2 visits today Discussed with family at bedside and they are still thinking about palliative care Review of Systems Review of Systems: All systems reviewed & are unremarkable except as noted in HPI and below (Subjective) Constitutional: Constitutional: Reports as per HPI and Reports no additional constitutional complaints Eyes: Eyes: Reports as per HPI and Reports no additional eye complaints ENT: Reports system reviewed and no additional complaints, except as documented and Reports Normal hearing present Cardiovascular: Cardiovascular: Reports no additional cardiovascular complaints Respiratory: Respiratory: Reports as per HPI and Reports no additional respiratory complaints Gastrointestinal: Gastrointestinal: Reports as per HPI and Reports no additional gastrointestinal complaints Musculoskeletal: Musculoskeletal: Reports no additional musculoskeletal compla ints Integumentary/Breasts: Skin/Breast: Reports system reviewed and no additional complaints, except as docu Neurologic: Reports system reviewed and no additional complaints, except as documented, Reports Normal hearing present and Reports Abnormal speech present Psychiatric: Psychiatric: Reports no additional psychiatric complaints and Reports as per HPI Hematologic/Lymphatic: Hematologic/Lymphatic: Reports no additional hematologic/lymphatic complaints Allergic/Immunologic: Allergic/Immunologic: Reports no additional allergic/immunologic complaints Exam Narrative: APPEARANCE: Apart from left hip pain no acute distress EYES: EOMI HEENT: Normocephalic, atraumatic, OMM RESPIRATORY: No respiratory distress Clear to auscultation bilaterally with no rhonchi wheezing or rales. CARDIOVASCULAR: RRR, S1 and S2 without murmurs rubs or gallops. ABDOMINAL: Soft, nontender, nondistended, no rebound or guarding MUSCULOSKELETAl: Right hemiplegia. Aphasia NEURO: Awake and alert. Following commands, aphasic SKIN:: Warm, dry. No rashes lesions or abrasions PSYCHIATRIC: Normal affect/mood, Const: General: cooperative, comfortable, no acute distress, well developed, awake, Physically active and underweight Nutritional Appearance: underweight Orientation/consciousness: oriented to person, oriented to place, oriented to time and patient oriented x3 Other: A&O x3, dysarthria HENMT: Head: normal to inspection, No palpable skull fracture present, normocephalic, atraumatic and abrasion Ears: hearing grossly normal bilaterally Mouth: Yes moist mucous membranes Eyes: General: appearance normal, both eyes and all related structures Alignment and Position: alignment normal Periorbital: periorbital findings normal Eyelids: eyelids normal Pupils: Equal, round and reactive pupils present and Pupil accommodation reflex normal EOM: EOMs intact bilaterally Neck: Neck: normal visual inspection, full ROM, no lymphadenopathy, trachea midline and supple Chest: Chest palpation & inspection: normal inspection of the chest Resp: Effort & Inspection: normal respiratory effort Auscultation: clear to auscultation bilaterally Cardio: Palpation: normal PMI Rate: regular rate Rhythm: regular rhythm Heart sounds: S1 normal heart sound present and S2 normal heart sound present Peripheral pulses: Peripheral pulses 2+ throughout GI: Inspection: normal to inspection Auscultation: normal bowel sounds Rectal Exam: deferred : General: Yes no CVA tenderness Back/Spine/Pelvis: Back: no CVA tenderness Cervical Spine: cervical ROM normal Thoracic/Lumbar Spine: thoracic and lumbar spine normal to inspection Pelvis: no pain with anterior-posterior compression Skin: General skin exam: normal color Lesions: no lesions Rashes: no rashes Trauma: no lacerations or abrasions Wounds: no wounds Hair: normal Nails: normal Other: Pressure ulcer noted to sacral area unstageable. 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 Patient is forgetful at times. Patient has word searching at times. Extrem: General: normal to inspection and no edema Right upper extremity: normal to inspection and shoulder/upper arm Other: Left upper and left lower extremity flaccid from previous CVA Psych: Appearance: grossly normal Mental Status: mental status grossly normal Speech and movement: Normal speech and movement present Affect: normal affect Attitude: cooperative Thought process: Normal thought process present Objective Data Vital Signs Vital Signs: Vital Signs - 24 hr 02/22/25 20:00 02/22/25 20:00 02/22/25 20:05 Temperature 97.0 F L Pulse Rate 73 72 Respiratory Rate 16 Blood Pressure 94/50 L Pulse Oximetry 92 Oxygen Delivery Room Air Fraction of Inspired Oxygen 02/22/25 21:21 02/22/25 22:09 02/23/25 00:00 Temperature Pulse Rate 72 75 69 Respiratory Rate Blood Pressure Pulse Oximetry 92 Oxygen Delivery Room Air Fraction of Inspired Oxygen 21 02/23/25 04:00 02/23/25 04:22 02/23/25 08:00 Temperature 97.2 F L Pulse Rate 67 67 70 Respiratory Rate 20 Blood Pressure 100/50 L Pulse Oximetry 98 Oxygen Delivery Fraction of Inspired Oxygen 02/23/25 08:47 02/23/25 08:50 02/23/25 12:00 Temperature Pulse Rate 77 72 Respiratory Rate Blood Pressure Pulse Oximetry 98 Oxygen Delivery Room Air Fraction of Inspired Oxygen 02/23/25 14:00 Temperature 98.4 F Pulse Rate 72 Respiratory Rate 18 Blood Pressure 134/71 Pulse Oximetry 100 Oxygen Delivery Fraction of Inspired Oxygen Intake/Output Intake/Output: Intake & Output 02/20/25 02/21/25 02/22/25 02/23/25 23:59 23:59 23:59 23:59 Intake Total 600 130 940 520 Output Total 600 150 900 Balance 0 130 790 -380 Meds/Results Medications: Active Medications Generic Name Dose Route Start Last Admin Trade Name Freq PRN Reason Stop Dose Admin Acetaminophen 1,000 mg 02/16/25 17:30 02/22/25 10:49 Acetaminophen 500 Mg Tablet PO 1,000 mg Q8HR PRN Administration fever or pain 1-3 Apixaban 5 mg 02/12/25 09:00 02/23/25 08:47 Apixaban 5 Mg Tablet PO 5 mg Q12HR ELISA Administration Aspirin 81 mg 02/21/25 09:00 02/23/25 08:47 Aspirin 81 Mg Chewable Tablet PO 81 mg DAILY ELISA Administration Atorvastatin Calcium 80 mg 02/12/25 18:00 02/22/25 17:48 Atorvastatin 40 Mg Tablet PO 80 mg QPM ELISA Administration Dextrose 12.5 gm 02/12/25 03:52 Dextrose 50% 25 Gm/50 Ml Syringe IV PUSH PRN PRN Hypoglycemia Protocol Divalproex Sodium 500 mg 02/15/25 17:55 02/23/25 08:46 Divalproex Sodium Sprinkle 125 Mg Cap.Dr PO 500 mg BID ELISA Administration Empagliflozin 25 mg 02/12/25 09:00 02/13/25 08:45 Empagliflozin 25 Mg Tablet BY MOUTH 25 mg On Hold: 02/13/25 18:50 DAILY ELISA Administration Gabapentin 100 mg 02/19/25 21:00 02/22/25 22:10 Gabapentin 100 Mg Capsule PO 100 mg HS ELISA Administration Glucagon 1 mg 02/12/25 03:52 Glucagon For Inj 1 Mg Vial IM PRN PRN Hypoglycemia Protocol Glucose 15 gm 02/12/25 03:52 Glucose Oral Gel 15 Gm Of Glucse In 37.5 Gm Tube PO PRN PRN Hypoglycemia Protocol Dextrose 1,000 mls @ 100 mls/hr 02/12/25 03:52 Dextrose 5% 1,000 Ml IVPB PRN PRN Hypoglycemia Protocol Insulin Aspart 1 - 2 units 02/12/25 21:00 02/22/25 22:20 Insulin Aspart (*Bkc) 100 Units/Ml SUB-Q Not Given HS ELISA Protocol Insulin Aspart 2 - 5 units 02/12/25 08:00 02/23/25 11:47 Insulin Aspart (*Bkc) 100 Units/Ml SUB-Q Not Given TIDWM ELISA Protocol Lansoprazole 30 mg 02/21/25 06:30 02/23/25 06:11 Lansoprazole Odt 30 Mg Tab.Rap. PO 30 mg DAILY@0630 ELISA Administration Lidocaine 1 patch 02/22/25 17:00 02/23/25 08:47 Lidocaine 5% Patch TRANSDERM 1 patch DAILY ELISA Administration Lisinopril 20 mg 02/12/25 09:00 02/23/25 08:47 Lisinopril 20 Mg Tablet PO 20 mg DAILY ELISA Administration Metoprolol Tartrate 50 mg 02/21/25 09:00 02/23/25 08:47 Metoprolol Tartrate 50 Mg Tab PO 50 mg Q12HR ELISA Administration Midodrine 5 mg 02/12/25 03:39 Midodrine Hcl 2.5 Mg Tablet PO Q8H PRN LOW BP Mirtazapine 15 mg 02/12/25 21:00 02/22/25 22:10 Mirtazapine 15 Mg Tablet PO 15 mg HS ELISA Administration Miscellaneous Information 1 each 02/15/25 00:01 02/21/25 10:13 Order Clarification -Eplerenone 25 Mg Tablet Is Non-Formulary XX 03/17/25 00:00 Not Given CLARIFY ELISA Modafinil 200 mg 02/21/25 07:00 02/23/25 06:11 Modafinil (*Crx) 200 Mg Tablet PO 200 mg 0700 ELISA Administration Multivitamins/Calcium 1 tablet 02/18/25 09:00 02/23/25 08:47 Therapeutic Multivitamins/Minerals Tab (*Bkc) PO 1 tablet DAILY ELISA Administration Non-Formulary Medication 25 mg 02/12/25 09:00 Eplerenone PO 03/14/25 08:59 DAILY ELISA Silver Sulfadiazine 1 applic 02/14/25 09:00 02/23/25 08:48 Silver Sulfadiazine 1% Cr 50 Gm Jar (*Bkc) TOPICAL 1 applic DAILY ELISA Administration Radiology Results: ITS Impressions Chest X-Ray 02/12/25 06:03 IMPRESSION: 1. No acute cardiopulmonary findings given portable technique. Head/Neck CTA 02/12/25 06:45 IMPRESSION: CTA NECK: 1. No acute findings. CTA HEAD: 1. No acute findings. Carotid Doppler Study 02/12/25 10:44 IMPRESSION: 1. No hemodynamically significant ICA stenosis (i.e., if any stenosis, less than 50%). 2. Normal bilateral antegrade vertebral artery flow. Stenosis measured by Society of Radiologists in Ultrasound (SRU) criteria. Head CT 02/14/25 08:46 IMPRESSION: 1. Large old infarct in the expected distribution of right middle cerebral artery. Modified Barium Swallow 02/15/25 12:11 IMPRESSION: Oropharyngeal dysphagia with laryngeal penetration and aspiration. Please correlate with speech pathologist findings and specific feeding recommendations. Brain MRI 02/16/25 14:14 IMPRESSION: 1. 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 No acute intracranial process. 2. Increased white matter T2 hyperintensity kevin, right cerebral peduncle and right thalamus which suggests possible Wallerian degeneration related to the right middle cerebral artery infarct with differential including sequela of chronic small vessel ischemic disease. Venous Doppler Study 02/17/25 17:06 IMPRESSION: 1. Possible noncompressible deep venous thrombosis in the left posterior tibial and peroneal veins however specificity is decreased by the poor visualization of the vessels. No deep venous thrombosis at or proximal to the left popliteal vein. Labs Labs: Laboratory Results - last 24 hr 02/22/25 02/22/25 02/23/25 16:33 19:53 05:16 WBC 6.9 RBC 4.18 L Hgb 11.9 L Hct 38.0 L MCV 90.9 MCH 28.5 MCHC 31.3 L RDW 16.8 H Plt Count 255 MPV 10.4 Immature Gran % (Auto) 0.3 Neut % (Auto) 54.7 Lymph % (Auto) 32.0 Alfalfa % (Auto) 8.6 H Eos % (Auto) 4.1 Baso % (Auto) 0.3 Lymph # (Auto) 2.20 Alfalfa # (Auto) 0.6 Eos # (Auto) 0.3 Baso # (Auto) 0.0 Abs Immat Gran (auto) 0.02 Absolute Neuts (auto) 3.8 Absolute Nucleated RBC 0.000 Nucleated RBC % 0.0 Sodium 136 L Potassium 4.0 Chloride 97 L Carbon Dioxide 37 H Anion Gap 2 L BUN 26 H Creatinine 0.70 Estim Creat Clear Calc 83 Estimated GFR > 60 Glucose 106 POC Capillary Glucose 114 H 121 H Calcium 8.8 Magnesium Total Bilirubin AST ALT Alkaline Phosphatase Total Protein Albumin 02/23/25 02/23/25 02/23/25 07:42 10:06 11:22 WBC RBC Hgb Hct MCV MCH MCHC RDW Plt Count MPV Immature Gran % (Auto) Neut % (Auto) Lymph % (Auto) Alfalfa % (Auto) Eos % (Auto) Baso % (Auto) Lymph # (Auto) Alfalfa # (Auto) Eos # (Auto) Baso # (Auto) Abs Immat Gran (auto) Absolute Neuts (auto) Absolute Nucleated RBC Nucleated RBC % Sodium 134 L Potassium 3.9 Chloride 98 Carbon Dioxide 35 H Anion Gap 1 L BUN 25 H Creatinine 0.65 L Estim Creat Clear Calc 89 Estimated GFR > 60 Glucose 122 H POC Capillary Glucose 115 H 159 H Calcium 8.6 Magnesium 1.8 Total Bilirubin 0.4 AST 43 ALT 17 Alkaline Phosphatase 96 Total Protein 6.3 Albumin 3.0 L
[2025-02-23] MEDS: ATORVASTATIN 40 MG TABLET 80 MG PO (17:32)
[2025-02-23] MEDS: GABAPENTIN 100 MG CAPSULE PO (20:23)
[2025-02-23] MEDS: MIRTAZAPINE 15 MG TABLET PO (20:23)
[2025-02-23] MEDS: ACETAMINOPHEN 500 MG TABLET 1000 MG PO (20:23)
[2025-02-24] VITALS (10 sets, daily range): BP systolic 102–123; BP diastolic 53–73; PULSE 62–79; RESP 14–18; TEMP 36.4–36.7; O2SAT 97–100
[2025-02-24 05:45] LABS: Hematocrit 38.1 % (42.0-52.0); Hemoglobin 11.8 g/dL (14.0-18.0); Immature Granulocyte Percent A 0.3 % (0-0.5); Lymphocytes Absolute Auto 3.06 K/mm3 (0.9-3.2); Mean Corpuscular HGB Conc 31.0 g/dl (32-36); Mean Corpuscular Hemoglobin 28.4 pg (26-34); Mean Corpuscular Volume 91.6 fl (80-100); Nucleated Red Blood Cells Absolute Auto 0.000 K/mm3 (0.0-0.012); Nucleated Red Blood Cells Perc 0.0 % (0.0-0.2); Platelet Count Result 253 k/mm3 (150-375); Red Blood Count 4.16 M/mm3 (4.6-6.20); White Blood Count 7.6 K/mm3 (4.5-10.0)
[2025-02-24] MEDS: modafiniL (*CRX) 200 MG TABLET PO (05:54)
[2025-02-24] MEDS: LANSOPRAZOLE ODT 30 MG TAB.RAP.DR PO (05:54)
[2025-02-24 05:55] LABS: Anion Gap 3 mmol/L (4-12); Blood Urea Nitrogen 26 mg/dL (9-20); Calcium 8.6 mg/dL (8.4-10.2); Carbon Dioxide 34 mmol/L (22-30); Chloride 98 mmol/L (98-107); Estimated CRCL calculation 78 ml/min; Estimated Glomerular Filt Rate > 60; Glucose 96 mg/dL (65-110); Potassium 4.0 mmol/L (3.4-5.0); Sodium 135 mmol/L (137-145)
[2025-02-24] MEDS: ASPIRIN 81 MG CHEWABLE TABLET PO (09:02)
[2025-02-24] MEDS: DIVALPROEX SODIUM SPRINKLE 125 MG CAP.DR 500 MG PO ×2 (09:02→16:53)
[2025-02-24] MEDS: METOPROLOL TARTRATE 50 MG TAB PO ×2 (09:02→20:39)
[2025-02-24] MEDS: THERAPEUTIC MULTIVITAMINS/MINERALS TAB (*BKC) 1 TABLET PO (09:02)
[2025-02-24] MEDS: APIXABAN 5 MG TABLET PO ×2 (09:02→20:40)
[2025-02-24] MEDS: LIDOCAINE 5% PATCH 1 PATCH TRANSDERM (09:02)
[2025-02-24] MEDS: ACETAMINOPHEN 500 MG TABLET 1000 MG PO ×2 (12:10→20:40)
[2025-02-24] MEDS: SILVER SULFADIAZINE 1% CR 50 GM JAR (*BKC) 1 APPLIC TOPICAL (12:11)
--- NOTE | 2025-02-24 14:00 | P.PNIM_ITS ---
Progress Note: A&P Assessment and Plan (1) Acute alteration in mental status: Code(s): R41.82 - Altered mental status, unspecified Status: Acute Assessment and Plan: Altered mental status improved. Not yet back to prior baseline. No evidence of CVA on CT brain. 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 Changed keppra to depakote. Stopped tramadol * Continue depakote for possible seizure. * EEG procedure has been completed - awaiting neurology interpretation. * Interrogate loop recorder ([employer]) [address] with PVC's and PAC's, rate of 160's at 8:26 pm * Continue to monitor on telemetry. Had a 5 beat run of NSVT 02/18 (2) Hemiplegia: Code(s): G81.90 - Hemiplegia, unspecified affecting unspecified side Status: Acute Assessment and Plan: * according the family members this is from his previous stroke * PT OT evaluation greatly appreciated. * q2 turns * resumed gabapentin 100mg Hs instead of TID (3) Dysphagia: Code(s): R13.10 - Dysphagia, unspecified Status: Acute Assessment and Plan: Speech therapy consulted regarding aspiration risk * Noted coughing and choking episode * Thickened diet started on 02/[address] recommendations * Barium swallow study ordered -Recommended pureed and thickened liquids. Holding food in mouth. Alternating bites and sips, 1:1 supervision * Overall intake is poor. Discussed with family that since he is eating less than 50% of meals, not drinking supplements, he may need a feeding tube eventually. They are going to discuss it. Poor PO intake likely contributing to electrolyte abnormality which would increase risk of arrhythmias * Digester Operator following * Patient might need feeding tube * Family still deciding Palliative/Hospice vs inserting feeding tube with NH discharge (4) Hypomagnesemia: Code(s): E83.42 - Hypomagnesemia Status: Acute Assessment and Plan: * his magnesium level was 1.4 and it has been replaced. * Follow magnesium every 2 days (5) DM2 (diabetes mellitus, type 2): Code(s): E11.9 - Type 2 diabetes mellitus without complications Status: Acute Assessment and Plan: * metformin is on hold at this time due CT dye * Continuing empagliflozin * Accu-Cheks AC and HS with sliding scale insulin. * check A1c 5.4 * Blood sugars controlled (6) Pressure ulcer: Code(s): L89.90 - Pressure ulcer of unspecified site, unspecified stage Status: Acute Assessment and Plan: * wound care consult greatly be appreciated. * may consider specialty mattress. * may consider dietary consult for healing process (7) Hypokalemia: Code(s): E87.6 - Hypokalemia Status: Acute Assessment and Plan: resolved, K 4.0 (8) Pulmonary embolism: Code(s): I26.99 - Other pulmonary embolism without acute cor pulmonale Status: Acute Assessment and Plan: * continue with Eliquis and aspirin 02/17 Left LE venous doppler showing possible noncompressible DVT in the left posterior tibial and peroneal veins however specificity is decreased by the poor visualization of the vessels. No DVT at or proximal to the left popliteal vein. --Patient was off his Eliquis for 3 days and now has been resumed. continue Eliquis (9) Congestive heart failure: Code(s): I50.9 - Heart failure, unspecified Status: Acute Assessment and Plan: * continue with Eplerenone and Farxiga * continue metoprolol-- 100mg daily , continue lisinopril * Records requested from [facility] to confirm if he had a recent cath and for his prior echo. I spoke with cardiology and if heart failure is reduced from prior would need a cardiology consult. If unchanged can discharge with follow up with cardiology and electrophysiology for a possible ICD 02/15 TTE 1. Definity contrast administered improved wall motion interpretation. 2. Left ventricular chamber dimension is severely enlarged. 3. Left ventricular systolic function is severely globally reduced, estimated at 25-30. 4. There is moderate concentric increased left ventricular wall thickness. 5. Mid to apical anteroseptum and septum are akinetic. 6. E/e' 7 is not elevated. 7. Left atrial chamber dimension is mildly enlarged. 8. There is mild aortic valve sclerosis. 9. There is mild mitral valve regurgitation. 10. There is trace tricuspid valve regurgitation. 11. No pulmonary hypertension, estimated pulmonary arterial systolic pressure is 17 mmHg. Further cardiology workup contigent on family [place] about palliative care Plan Palliative care consult goal of care discussion still ongoing as family are yet to decided Subjective Date/time seen: 02/24/25 14:00 Interval history: Comfortable at bedside Poor oral intake family yet to decide Palliative/Hospice vs inseting tube feeds and discharge to half-way Discussed with the daughter and she stated they will make a decision tomorrow Review of Systems Review of Systems: All systems reviewed & are unremarkable except as noted in HPI and below (Subjective) Constitutional: Constitutional: Reports as per HPI and Reports no additional constitutional complaints Eyes: Eyes: Reports as per HPI and Reports no additional eye complaints ENT: Reports system reviewed and no additional complaints, except as documented and Reports Normal hearing present Cardiovascular: Cardiovascular: Reports no additional cardiovascular complaints Respiratory: Respiratory: Reports as per HPI and Reports no additional respiratory complaints Gastrointestinal: Gastrointestinal: Reports as per HPI and Reports no additional gastrointestinal complaints Musculoskeletal: Musculoskeletal: Reports no additional musculoskeletal complaints Integumentary/Breasts: Skin/Breast: Reports system reviewed and no additional complaints, except as docu Neurologic: Reports system reviewed and no additional complaints, except as documented, Reports Normal hearing present and Reports Abnormal speech present Psychiatric: Psychiatric: Reports no additional psychiatric complaints and Reports as per HPI Hematologic/Lymphatic: Hematologic/Lymphatic: Reports no additional hematologic/lymphatic complaints Allergic/Immunologic: Allergic/Immunologic: Reports no additional allergic/immunologic complaints Exam Narrative: APPEARANCE: Apart from left hip pain no acute distress EYES: EOMI HEENT: Normocephalic, atraumatic, OMM RESPIRATORY: No respiratory distress Clear to auscultation bilaterally with no rhonchi wheezing or rales. CARDIOVASCULAR: RRR, S1 and S2 without murmurs rubs or gallops. ABDOMINAL: Soft, nontender, nondistended, no rebound or guarding MUSCULOSKELETAl: Right hemiplegia. Aphasia NEURO: Awake and alert. Following commands, aphasic SKIN:: Warm, dry. No rashes lesions or abrasions PSYCHIATRIC: Normal affect/mood, Const: General: cooperative, comfortable, no acute distress, well developed, awake, Physically active and underweight Nutritional Appearance: underweight Orientation/consciousness: oriented to person, oriented to place, oriented to time and patient oriented x3 Other: A&O x3, dysarthria HENMT: Head: normal to inspection, No palpable skull fracture present, normocephalic, atraumatic and abrasion Ears: hearing grossly normal bilaterally Mouth: Yes moist mucous membranes Eyes: General: appearance normal, both eyes and all related structures Alignment and Position: alignment normal Periorbital: periorbital findings normal Eyelids: eyelids normal Pupils: Equal, round and reactive pupils present and Pupil accommodation reflex normal EOM: EOMs intact bilaterally Neck: Neck: normal visual inspection, full ROM, no lymphadenopathy, trachea midline and supple Chest: Chest palpation & inspection: normal inspection of the chest Resp: Effort & Inspection: normal respiratory effort Auscultation: clear to auscultation bilaterally Cardio: Palpation: normal PMI Rate: regular rate Rhythm: regular rhythm Heart sounds: S1 normal heart sound present and S2 normal heart sound present Peripheral pulses: Peripheral pulses 2+ throughout GI: Inspection: normal to inspection Auscultation: normal bowel sounds Rectal Exam: deferred : General: Yes no CVA tenderness Back/Spine/Pelvis: Back: no CVA tenderness Cervical Spine: cervical ROM normal Thoracic/Lumbar Spine: thoracic and lumbar spine normal to inspection Pelvis: no pain with anterior-posterior compression Skin: General skin exam: normal color Lesions: no lesions Rashes: no rashes Trauma: no lacerations or abrasions Wounds: no wounds Hair: normal Nails: normal Other: Pressure ulcer noted to sacral area unstageable. 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 Patient is forgetful at times. Patient has word searching at times. Extrem: General: normal to inspection and no edema Right upper extremity: normal to inspection and shoulder/upper arm Other: Left upper and left lower extremity flaccid from previous CVA Psych: Appearance: grossly normal Mental Status: mental status grossly normal Speech and movement: Normal speech and movement present Affect: normal affect Attitude: cooperative Thought process: Normal thought process present Objective Data Vital Signs Vital Signs: Vital Signs - 24 hr 02/23/25 16:00 02/23/25 20:23 02/23/25 21:15 Temperature 97.8 F Pulse Rate 68 84 81 Respiratory Rate 18 Blood Pressure 114/57 L Pulse Oximetry 94 Oxygen Delivery 02/23/25 21:23 02/23/25 21:23 02/24/25 00:00 Temperature Pulse Rate 81 65 Respiratory Rate Blood Pressure Pulse Oximetry Oxygen Delivery Room Air 02/24/25 04:00 02/24/25 06:00 02/24/25 08:05 Temperature 97.7 F Pulse Rate 63 62 79 Respiratory Rate 18 Blood Pressure 102/53 L Pulse Oximetry 97 Oxygen Delivery 02/24/25 09:00 02/24/25 09:02 02/24/25 12:06 Temperature Pulse Rate 75 72 Respiratory Rate Blood Pressure Pulse Oximetry Oxygen Delivery Room Air Intake/Output Intake/Output: Intake & Output 02/21/25 02/22/25 02/23/25 02/24/25 23:59 23:59 23:59 23:59 Intake Total 130 940 850 820 Output Total 150 900 200 Balance 130 790 -50 620 Meds/Results Medications: Active Medications Generic Name Dose Route Start Last Admin Trade Name Freq PRN Reason Stop Dose Admin Acetaminophen 1,000 mg 02/16/25 17:30 02/24/25 12:10 Acetaminophen 500 Mg Tablet PO 1,000 mg Q8HR PRN Administration fever or pain 1-3 Apixaban 5 mg 02/12/25 09:00 02/24/25 09:02 Apixaban 5 Mg Tablet PO 5 mg Q12HR ELISA Administration Aspirin 81 mg 02/21/25 09:00 02/24/25 09:02 Aspirin 81 Mg Chewable Tablet PO 81 mg DAILY ELISA Administration Atorvastatin Calcium 80 mg 02/12/25 18:00 02/23/25 17:32 Atorvastatin 40 Mg Tablet PO 80 mg QPM ELISA Administration Dextrose 12.5 gm 02/12/25 03:52 Dextrose 50% 25 Gm/50 Ml Syringe IV PUSH PRN PRN Hypoglycemia Protocol Divalproex Sodium 500 mg 02/15/25 17:55 02/24/25 09:02 Divalproex Sodium Sprinkle 125 Mg Cap.Dr PO 500 mg BID ELISA Administration Empagliflozin 25 mg 02/12/25 09:00 02/13/25 08:45 Empagliflozin 25 Mg Tablet BY MOUTH 25 mg On Hold: 02/13/25 18:50 DAILY ELISA Administration Gabapentin 100 mg 02/19/25 21:00 02/23/25 20:23 Gabapentin 100 Mg Capsule PO 100 mg HS ELISA Administration Glucagon 1 mg 02/12/25 03:52 Glucagon For Inj 1 Mg Vial IM PRN PRN Hypoglycemia Protocol Glucose 15 gm 02/12/25 03:52 Glucose Oral Gel 15 Gm Of Glucse In 37.5 Gm Tube PO PRN PRN Hypoglycemia Protocol Dextrose 1,000 mls @ 100 mls/hr 02/12/25 03:52 Dextrose 5% 1,000 Ml IVPB PRN PRN Hypoglycemia Protocol Insulin Aspart 1 - 2 units 02/12/25 21:00 02/23/25 21:00 Insulin Aspart (*Bkc) 100 Units/Ml SUB-Q Not Given HS ELISA Protocol Insulin Aspart 2 - 5 units 02/12/25 08:00 02/24/25 12:11 Insulin Aspart (*Bkc) 100 Units/Ml SUB-Q Not Given TIDWM ELISA Protocol Lansoprazole 30 mg 02/21/25 06:30 02/24/25 05:54 Lansoprazole Odt 30 Mg Tab.Rap. PO 30 mg DAILY@0630 ELISA Administration Lidocaine 1 patch 02/22/25 17:00 02/24/25 09:02 Lidocaine 5% Patch TRANSDERM 1 patch DAILY ELISA Administration Lisinopril 20 mg 02/12/25 09:00 02/24/25 09:02 Lisinopril 20 Mg Tablet PO 20 mg DAILY ELISA Administration Metoprolol Tartrate 50 mg 02/21/25 09:00 02/24/25 09:02 Metoprolol Tartrate 50 Mg Tab PO 50 mg Q12HR ELISA Administration Midodrine 5 mg 02/12/25 03:39 Midodrine Hcl 2.5 Mg Tablet PO Q8H PRN LOW BP Mirtazapine 15 mg 02/12/25 21:00 02/23/25 20:23 Mirtazapine 15 Mg Tablet PO 15 mg HS ELISA Administration Miscellaneous Information 1 each 02/15/25 00:01 02/21/25 10:13 Order Clarification -Eplerenone 25 Mg Tablet Is Non-Formulary XX 03/17/25 00:00 Not Given CLARIFY ELISA Modafinil 200 mg 02/21/25 07:00 02/24/25 05:54 Modafinil (*Crx) 200 Mg Tablet PO 200 mg 0700 ELISA Administration Multivitamins/Calcium 1 tablet 02/18/25 09:00 02/24/25 09:02 Therapeutic Multivitamins/Minerals Tab (*Bkc) PO 1 tablet DAILY ELISA Administration Non-Formulary Medication 25 mg 02/12/25 09:00 Eplerenone PO 03/14/25 08:59 DAILY ELISA Silver Sulfadiazine 1 applic 02/14/25 09:00 02/24/25 12:11 Silver Sulfadiazine 1% Cr 50 Gm Jar (*Bkc) TOPICAL 1 applic DAILY ELISA Administration Radiology Results: ITS Impressions Chest X-Ray 02/12/25 06:03 IMPRESSION: 1. No acute cardiopulmonary findings given portable technique. Head/Neck CTA 02/12/25 06:45 IMPRESSION: CTA NECK: 1. No acute findings. CTA HEAD: 1. No acute findings. Carotid Doppler Study 02/12/25 10:44 IMPRESSION: 1. No hemodynamically significant ICA stenosis (i.e., if any stenosis, less than 50%). 2. Normal bilateral antegrade vertebral artery flow. Stenosis measured by Society of Radiologists in Ultrasound (SRU) criteria. Head CT 02/14/25 08:46 IMPRESSION: 1. Large old infarct in the expected distribution of right middle cerebral ignacio ry. Modified Barium Swallow 02/15/25 12:11 IMPRESSION: Oropharyngeal dysphagia with laryngeal penetration and aspiration. Please correlate with speech pathologist findings and specific feeding recommendations. Brain MRI 02/16/25 14:14 IMPRESSION: 1. 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 No acute intracranial process. 2. Increased white matter T2 hyperintensity kevin, right cerebral peduncle and right thalamus which suggests possible Wallerian degeneration related to the right middle cerebral artery infarct with differential including sequela of chronic small vessel ischemic disease. Venous Doppler Study 02/17/25 17:06 IMPRESSION: 1. Possible noncompressible deep venous thrombosis in the left posterior tibial and peroneal veins however specificity is decreased by the poor visualization of the vessels. No deep venous thrombosis at or proximal to the left popliteal vein. Labs Labs: Laboratory Results - last 24 hr 02/23/25 02/23/25 02/24/25 17:03 21:20 05:21 WBC 7.6 RBC 4.16 L Hgb 11.8 L Hct 38.1 L MCV 91.6 MCH 28.4 MCHC 31.0 L RDW 16.9 H Plt Count 253 MPV 10.4 Immature Gran % (Auto) 0.3 Neut % (Auto) 47.1 Lymph % (Auto) 40.4 Tyler % (Auto) 8.6 H Eos % (Auto) 3.2 Baso % (Auto) 0.4 Lymph # (Auto) 3.06 Tyler # (Auto) 0.7 H Eos # (Auto) 0.2 Baso # (Auto) 0.0 Abs Immat Gran (auto) 0.02 Absolute Neuts (auto) 3.6 Absolute Nucleated RBC 0.000 Nucleated RBC % 0.0 Sodium 135 L Potassium 4.0 Chloride 98 Carbon Dioxide 34 H Anion Gap 3 L BUN 26 H Creatinine 0.73 Estim Creat Clear Calc 78 Estimated GFR > 60 Glucose 96 POC Capillary Glucose 108 H 150 H Calcium 8.6 02/24/25 02/24/25 07:53 11:28 WBC RBC Hgb Hct MCV MCH MCHC RDW Plt Count MPV Immature Gran % (Auto) Neut % (Auto) Lymph % (Auto) Tyler % (Auto) Eos % (Auto) Baso % (Auto) Lymph # (Auto) Tyler # (Auto) Eos # (Auto) Baso # (Auto) Abs Immat Gran (auto) Absolute Neuts (auto) Absolute Nucleated RBC Nucleated RBC % Sodium Potassium Chloride Carbon Dioxide Anion Gap BUN Creatinine Estim Creat Clear Calc Estimated GFR Glucose POC Capillary Glucose 89 166 H Calcium Quality VTE Prophylaxis VTE prophylaxis: pharmacologic ordered
[2025-02-24] MEDS: ATORVASTATIN 40 MG TABLET 80 MG PO (16:53)
[2025-02-24] MEDS: MIRTAZAPINE 15 MG TABLET PO (20:40)
[2025-02-24] MEDS: GABAPENTIN 100 MG CAPSULE PO (20:40)
[2025-02-25] VITALS (10 sets, daily range): BP systolic 119–144; BP diastolic 60–79; PULSE 66–89; RESP 16–18; TEMP 36.3–36.9; O2SAT 97–100
[2025-02-25] MEDS: LANSOPRAZOLE ODT 30 MG TAB.RAP.DR PO (06:53)
[2025-02-25] MEDS: modafiniL (*CRX) 200 MG TABLET PO (06:54)
[2025-02-25] MEDS: THERAPEUTIC MULTIVITAMINS/MINERALS TAB (*BKC) 1 TABLET PO (08:50)
[2025-02-25] MEDS: METOPROLOL TARTRATE 50 MG TAB PO ×2 (08:50→21:15)
[2025-02-25] MEDS: ACETAMINOPHEN 500 MG TABLET 1000 MG PO ×2 (08:51→21:16)
[2025-02-25] MEDS: LIDOCAINE 5% PATCH 1 PATCH TRANSDERM (08:51)
[2025-02-25] MEDS: APIXABAN 5 MG TABLET PO ×2 (08:51→21:16)
[2025-02-25] MEDS: ASPIRIN 81 MG CHEWABLE TABLET PO (08:51)
[2025-02-25] MEDS: DIVALPROEX SODIUM SPRINKLE 125 MG CAP.DR 500 MG PO ×2 (09:02→17:47)
--- NOTE | 2025-02-25 12:47 | P.PNIM_ITS ---
Progress Note: A&P Assessment and Plan (1) Acute alteration in mental status: Code(s): R41.82 - Altered mental status, unspecified Status: Acute Assessment and Plan: Altered mental status improved. Not yet back to prior baseline. No evidence of CVA on CT brain. 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 Changed keppra to depakote. Stopped tramadol * Continue depakote for possible seizure. * EEG procedure has been completed - awaiting neurology interpretation. * Interrogate loop recorder ([employer]) [address] with PVC's and PAC's, rate of 160's at 8:26 pm * Continue to monitor on telemetry. Had a 5 beat run of NSVT 02/18 (2) Hemiplegia: Code(s): G81.90 - Hemiplegia, unspecified affecting unspecified side Status: Acute Assessment and Plan: * according the family members this is from his previous stroke * PT OT evaluation greatly appreciated. * q2 turns * resumed gabapentin 100mg Hs instead of TID (3) Dysphagia: Code(s): R13.10 - Dysphagia, unspecified Status: Acute Assessment and Plan: Speech therapy consulted regarding aspiration risk * Noted coughing and choking episode * Thickened diet started on 02/[address] recommendations * Barium swallow study ordered -Recommended pureed and thickened liquids. Holding food in mouth. Alternating bites and sips, 1:1 supervision * Overall intake is poor. Discussed with family that since he is eating less than 50% of meals, not drinking supplements, he may need a feeding tube eventually. They are going to discuss it. Poor PO intake likely contributing to electrolyte abnormality which would increase risk of arrhythmias * Signal Engineer following * Patient might need feeding tube * Family still deciding Palliative/Hospice vs inserting feeding tube with NH discharge (4) Hypomagnesemia: Code(s): E83.42 - Hypomagnesemia Status: Acute Assessment and Plan: * his magnesium level was 1.4 and it has been replaced. * Follow magnesium every 2 days (5) DM2 (diabetes mellitus, type 2): Code(s): E11.9 - Type 2 diabetes mellitus without complications Status: Acute Assessment and Plan: * metformin is on hold at this time due CT dye * Continuing empagliflozin * Accu-Cheks AC and HS with sliding scale insulin. * check A1c 5.4 * Blood sugars controlled (6) Pressure ulcer: Code(s): L89.90 - Pressure ulcer of unspecified site, unspecified stage Status: Acute Assessment and Plan: * wound care consult greatly be appreciated. * may consider specialty mattress. * may consider dietary consult for healing process (7) Hypokalemia: Code(s): E87.6 - Hypokalemia Status: Acute Assessment and Plan: resolved, K 4.0 (8) Pulmonary embolism: Code(s): I26.99 - Other pulmonary embolism without acute cor pulmonale Status: Acute Assessment and Plan: * continue with Eliquis and aspirin 02/17 Left LE venous doppler showing possible noncompressible DVT in the left posterior tibial and peroneal veins however specificity is decreased by the poor visualization of the vessels. No DVT at or proximal to the left popliteal vein. --Patient was off his Eliquis for 3 days and now has been resumed. continue Eliquis (9) Congestive heart failure: Code(s): I50.9 - Heart failure, unspecified Status: Acute Assessment and Plan: * continue with Eplerenone and Farxiga * continue metoprolol-- 100mg daily , continue lisinopril * Records requested from [facility] to confirm if he had a recent cath and for his prior echo. I spoke with cardiology and if heart failure is reduced from prior would need a cardiology consult. If unchanged can discharge with follow up with cardiology and electrophysiology for a possible ICD 02/15 TTE 1. Definity contrast administered improved wall motion interpretation. 2. Left ventricular chamber dimension is severely enlarged. 3. Left ventricular systolic function is severely globally reduced, estimated at 25-30. 4. There is moderate concentric increased left ventricular wall thickness. 5. Mid to apical anteroseptum and septum are akinetic. 6. E/e' 7 is not elevated. 7. Left atrial chamber dimension is mildly enlarged. 8. There is mild aortic valve sclerosis. 9. There is mild mitral valve regurgitation. 10. There is trace tricuspid valve regurgitation. 11. No pulmonary hypertension, estimated pulmonary arterial systolic pressure is 17 mmHg. Further cardiology workup contigent on family [place] about palliative care Plan Palliative care consult goal of care discussion still ongoing as family are yet to decided Subjective Date/time seen: 02/25/25 12:47 Interval history: Comfortable at bedside Poor oral intake Family wanting to discuss options once they arrive today Review of Systems Review of Systems: All systems reviewed & are unremarkable except as noted in HPI and below (Subjective) Constitutional: Constitutional: Reports as per HPI and Reports no additional constitutional complaints Eyes: Eyes: Reports as per HPI and Reports no additional eye complaints ENT: Reports system reviewed and no additional complaints, except as documented and Reports Normal hearing present Cardiovascular: Cardiovascular: Reports no additional cardiovascular complaints Respiratory: Respiratory: Reports as per HPI and Reports no additional respiratory complaints Gastrointestinal: Gastrointestinal: Reports as per HPI and Reports no additional gastrointestinal complaints Musculoskeletal: Musculoskeletal: Reports no additional musculoskeletal complaints Integumentary/Breasts: Skin/Breast: Reports system reviewed and no additional complaints, except as docu Neurologic: Reports system reviewed and no additional complaints, except as documented, Reports Normal hearing present and Reports Abnormal speech present Psychiatric: Psychiatric: Reports no additional psychiatric complaints and Reports as per HPI Hematologic/Lymphatic: Hematologic/Lymphatic: Reports no additional hematologic/lymphatic complaints Allergic/Immunologic: Allergic/Immunologic: Reports no additional allergic/immunologic complaints Exam Narrative: APPEARANCE: Apart from left hip pain no acute distress EYES: EOMI HEENT: Normocephalic, atraumatic, OMM RESPIRATORY: No respiratory distress Clear to auscultation bilaterally with no rhonchi wheezing or rales. CARDIOVASCULAR: RRR, S1 and S2 without murmurs rubs or gallops. ABDOMINAL: Soft, nontender, nondistended, no rebound or guarding MUSCULOSKELETAl: Right hemiplegia. Aphasia NEURO: Awake and alert. Following commands, aphasic SKIN:: Warm, dry. No rashes lesions or abrasions PSYCHIATRIC: Normal affect/mood, Const: General: cooperative, comfortable, no acute distress, well developed, awake, Physically active and underweight Nutritional Appearance: underweight Orientation/consciousness: oriented to person, oriented to place, oriented to time and patient oriented x3 Other: A&O x3, dysarthria HENMT: Head: normal to inspection, No palpable skull fracture present, normocephalic, atraumatic and abrasion Ears: hearing grossly normal bilaterally Mouth: Yes moist mucous membranes Eyes: General: appearance normal, both eyes and all related structures Alignment and Position: alignment normal Periorbital: periorbital findings normal Eyelids: eyelids normal Pupils: Equal, round and reactive pupils present and Pupil accommodation reflex normal EOM: EOMs intact bilaterally Neck: Neck: normal visual inspection, full ROM, no lymphadenopathy, trachea midline and supple Chest: Chest palpation & inspection: normal inspection of the chest Resp: Effort & Inspection: normal respiratory effort Auscultation: clear to auscultation bilaterally Cardio: Palpation: normal PMI Rate: regular rate Rhythm: regular rhythm Heart sounds: S1 normal heart sound present and S2 normal heart sound present Peripheral pulses: Peripheral pulses 2+ throughout GI: Inspection: normal to inspection Auscultation: normal bowel sounds Rectal Exam: deferred : General: Yes no CVA tenderness Back/Spine/Pelvis: Back: no CVA tenderness Cervical Spine: cervical ROM normal Thoracic/Lumbar Spine: thoracic and lumbar spine normal to inspection Pelvis: no pain with anterior-posterior compression Skin: General skin exam: normal color Lesions: no lesions Rashes: no rashes Trauma: no lacerations or abrasions Wounds: no wounds Hair: normal Nails: normal Other: Pressure ulcer noted to sacral area unstageable. 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 Patient is forgetful at times. Patient has word searching at times. Extrem: General: normal to inspection and no edema Right upper extremity: normal to inspection and shoulder/upper arm Other: Left upper and left lower extremity flaccid from previous CVA Psych: Appearance: grossly normal Mental Status: mental status grossly normal Speech and movement: Normal speech and movement present Affect: normal affect Attitude: cooperative Thought process: Normal thought process present Objective Data Vital Signs Vital Signs: Vital Signs - 24 hr 02/24/25 14:00 02/24/25 16:05 02/24/25 20:00 Temperature 98.1 F Pulse Rate 73 74 Respiratory Rate 18 Blood Pressure 123/73 Pulse Oximetry 100 Oxygen Delivery Room Air 02/24/25 20:00 02/24/25 22:00 02/25/25 00:00 Temperature 97.6 F Pulse Rate 77 76 66 Respiratory Rate 14 Blood Pressure 113/57 L Pulse Oximetry 98 Oxygen Delivery 02/25/25 04:00 02/25/25 06:00 02/25/25 08:50 Temperature 98.4 F Pulse Rate 68 69 80 Respiratory Rate 16 Blood Pressure 119/60 Pulse Oximetry 100 Oxygen Delivery 02/25/25 09:00 Temperature Pulse Rate Respiratory Rate Blood Pressure Pulse Oximetry Oxygen Delivery Room Air Intake/Output Intake/Output: Intake & Output 02/22/25 02/23/25 02/24/25 02/25/25 23:59 23:59 23:59 23:59 Intake Total 931 016 0713 240 Output Total 150 900 300 Balance 790 -50 1090 240 Meds/Results Medications: Active Medications Generic Name Dose Route Start Last Admin Trade Name Freq PRN Reason Stop Dose Admin Acetaminophen 1,000 mg 02/16/25 17:30 02/25/25 08:51 Acetaminophen 500 Mg Tablet PO 1,000 mg Q8HR PRN Administration fever or pain 1-3 Apixaban 5 mg 02/12/25 09:00 02/25/25 08:51 Apixaban 5 Mg Tablet PO 5 mg Q12HR ELISA Administration Aspirin 81 mg 02/21/25 09:00 02/25/25 08:51 Aspirin 81 Mg Chewable Tablet PO 81 mg DAILY ELISA Administration Atorvastatin Calcium 80 mg 02/12/25 18:00 02/24/25 16:53 Atorvastatin 40 Mg Tablet PO 80 mg QPM ELISA Administration Dextrose 12.5 gm 02/12/25 03:52 Dextrose 50% 25 Gm/50 Ml Syringe IV PUSH PRN PRN Hypoglycemia Protocol Divalproex Sodium 500 mg 02/15/25 17:55 02/25/25 09:02 Divalproex Sodium Sprinkle 125 Mg Cap.Dr PO 500 mg BID ELISA Administration Empagliflozin 25 mg 02/12/25 09:00 02/13/25 08:45 Empagliflozin 25 Mg Tablet BY MOUTH 25 mg On Hold: 02/13/25 18:50 DAILY ELISA Administration Gabapentin 100 mg 02/19/25 21:00 02/24/25 20:40 Gabapentin 100 Mg Capsule PO 100 mg HS ELISA Administration Glucagon 1 mg 02/12/25 03:52 Glucagon For Inj 1 Mg Vial IM PRN PRN Hypoglycemia Protocol Glucose 15 gm 02/12/25 03:52 Glucose Oral Gel 15 Gm Of Glucse In 37.5 Gm Tube PO PRN PRN Hypoglycemia Protocol Dextrose 1,000 mls @ 100 mls/hr 02/12/25 03:52 Dextrose 5% 1,000 Ml IVPB PRN PRN Hypoglycemia Protocol Insulin Aspart 1 - 2 units 02/12/25 21:00 02/24/25 20:40 Insulin Aspart (*Bkc) 100 Units/Ml SUB-Q Not Given HS ELISA Protocol Insulin Aspart 2 - 5 units 02/12/25 08:00 02/25/25 08:53 Insulin Aspart (*Bkc) 100 Units/Ml SUB-Q Not [facility] Protocol Lansoprazole 30 mg 02/21/25 06:30 02/25/25 06:53 Lansoprazole Odt 30 Mg Tab.Rap. PO 30 mg DAILY@0630 ELISA Administration Lidocaine 1 patch 02/22/25 17:00 02/25/25 08:51 Lidocaine 5% Patch TRANSDERM 1 patch DAILY ELISA Administration Lisinopril 20 mg 02/12/25 09:00 02/25/25 08:51 Lisinopril 20 Mg Tablet PO 20 mg DAILY ELISA Administration Metoprolol Tartrate 50 mg 02/21/25 09:00 02/25/25 08:50 Metoprolol Tartrate 50 Mg Tab PO 50 mg Q12HR ELISA Administration Midodrine 5 mg 02/12/25 03:39 Midodrine Hcl 2.5 Mg Tablet PO Q8H PRN LOW BP Mirtazapine 15 mg 02/12/25 21:00 02/24/25 20:40 Mirtazapine 15 Mg Tablet PO 15 mg HS ELISA Administration Miscellaneous Information 1 each 02/15/25 00:01 02/21/25 10:13 Order Clarification -Eplerenone 25 Mg Tablet Is Non-Formulary XX 03/17/25 00:00 Not Given [facility] Modafinil 200 mg 02/21/25 07:00 02/25/25 06:54 Modafinil (*Crx) 200 Mg Tablet PO 200 mg 0700 ELISA Administration Multivitamins/Calcium 1 tablet 02/18/25 09:00 02/25/25 08:50 Therapeutic Multivitamins/Minerals Tab (*Bkc) PO 1 tablet DAILY ELISA Administration Non-Formulary Medication 25 mg 02/12/25 09:00 Eplerenone PO 03/14/25 08:59 DAILY ELISA Silver Sulfadiazine 1 applic 02/14/25 09:00 02/24/25 12:11 Silver Sulfadiazine 1% Cr 50 Gm Jar (*Bkc) TOPICAL 1 applic DAILY ELISA Administration Radiology Results: ITS Impressions Chest X-Ray 02/12/25 06:03 IMPRESSION: 1. No acute cardiopulmonary findings given portable technique. Head/Neck CTA 02/12/25 06:45 IMPRESSION: CTA NECK: 1. No acute findings. CTA HEAD: 1. No acute findings. Carotid Doppler Study 02/12/25 10:44 IMPRESSION: 1. No hemodynamically significant ICA stenosis (i.e., if any stenosis, less than 50%). 2. Normal bilateral antegrade vertebral artery flow. Stenosis measured by Society of Radiologists in Ultrasound (SRU) criteria. Head CT 02/14/25 08:46 IMPRESSION: 1. Large old infarct in the expected distribution of right middle cerebral artery. Modified Barium Swallow 02/15/25 12:11 IMPRESSION: Oropharyngeal dysphagia with laryngeal penetration and aspiration. Please correlate with speech pathologist findings and specific feeding recommendations. Brain MRI 02/16/25 14:14 IMPRESSION: 1. 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 No acute intracranial process. 2. Increased white matter T2 hyperintensity kevin, right cerebral peduncle and right thalamus which suggests possible Wallerian degeneration related to the right middle cerebral artery infarct with differential including sequela of chronic small vessel ischemic disease. Venous Doppler Study 02/17/25 17:06 IMPRESSION: 1. Possible noncompressible deep venous thrombosis in the left posterior tibial and peroneal veins however specificity is decreased by the poor visualization of the vessels. No deep venous thrombosis at or proximal to the left popliteal vein. Labs Labs: Laboratory Results - last 24 hr 02/24/25 02/24/25 02/25/25 16:00 20:27 07:58 POC Capillary Glucose 162 H 174 H 101 02/25/25 11:41 POC Capillary Glucose 142 H Quality VTE Prophylaxis VTE prophylaxis: pharmacologic ordered
[2025-02-25] MEDS: SILVER SULFADIAZINE 1% CR 50 GM JAR (*BKC) 1 APPLIC TOPICAL (13:40)
[2025-02-25] MEDS: ATORVASTATIN 40 MG TABLET 80 MG PO (17:47)
[2025-02-25] MEDS: MIRTAZAPINE 15 MG TABLET PO (21:16)
[2025-02-25] MEDS: GABAPENTIN 100 MG CAPSULE PO (21:16)
[2025-02-26] VITALS (7 sets, daily range): BP systolic 107–115; BP diastolic 56–62; PULSE 59–73; RESP 18–20; TEMP 36.4–36.7; O2SAT 91–98
[2025-02-26] MEDS: modafiniL (*CRX) 200 MG TABLET PO (05:27)
[2025-02-26] MEDS: LANSOPRAZOLE ODT 30 MG TAB.RAP.DR PO (05:27)
[2025-02-26] MEDS: APIXABAN 5 MG TABLET PO (08:43)
[2025-02-26] MEDS: ASPIRIN 81 MG CHEWABLE TABLET PO (08:43)
[2025-02-26] MEDS: METOPROLOL TARTRATE 50 MG TAB PO (08:43)
[2025-02-26] MEDS: THERAPEUTIC MULTIVITAMINS/MINERALS TAB (*BKC) 1 TABLET PO (08:43)
[2025-02-26] MEDS: DIVALPROEX SODIUM SPRINKLE 125 MG CAP.DR 500 MG PO ×2 (08:44→16:48)
[2025-02-26] MEDS: LIDOCAINE 5% PATCH 1 PATCH TRANSDERM (08:44)
[2025-02-26] MEDS: ACETAMINOPHEN 500 MG TABLET 1000 MG PO (08:47)
--- NOTE | 2025-02-26 10:56 | PCNFU ---
Nutrition Follow-Up Complete: Increased Protein needs as related to wounds as evidenced by pressure ulcers reported. Goal: adequate intake of at least 75% of meals/supplements Patient will continue current goal. Pt current nutrition is Pureed, Level 4/Heart Healthy with Stevenson BID/diet supplements BID. Last recorded weight is 78.1 kg, no new weight to report. Recommend reweigh. Bowel Motility: Last reported BM 02/22. Labs Reviewed: BUN 26, Na 135, Hgb 11.8, Hct 38.1 Meds Noted: Remeron, MVI, NovoLog, Protonix. Skin: Stage III-Pressure ulcer saccum Additional Notes: Diet order:Heart Healthy/Pureed diet, Level 4. Patient needs assist with meals. Oral Intake for breakfast today about 50% of meals. He is also receiving Stevenson BID for would healing which is providing an additional 80 kcal/ 7 gm glutamine/7 gm arginine/ 2.5 gm protein. Diet supplement Ensure High Protein BID providing 350 kcal and 20 gm protein. Speech therapy treatment today. Agree with diet orders. RD will monitor weight, labs, skin, diet orders, meds every 5 days.
[2025-02-26] MEDS: SILVER SULFADIAZINE 1% CR 50 GM JAR (*BKC) 1 APPLIC TOPICAL (11:50)
--- NOTE | 2025-02-26 11:58 | P.DS_ITS ---
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 Found unresponsive at the senior care, last known normal >4 hours prior to arrival. HOSPITAL COURSE: Initial Presentation: * Found with altered mentation and foaming at the mouth. * No new focal neurological deficits per family; left hemiplegia and facial droop are baseline. * No seizure history. * Not a candidate for tPA (outside window, on anticoagulation, no new deficits). * Family declined transfer to tertiary center after discussion. Workup: * Head CT:?No acute process; large chronic right MCA infarct with encephalomalacia. * CTA head/neck:?Atherosclerotic calcifications, no significant stenosis. * MRI brain:?Large chronic right MCA infarct, no acute infarct. * EEG:?Completed, pending neurology interpretation. * Echocardiogram:?Severely reduced LVEF (25-30%), severe LV enlargement, moderate concentric LVH, mild LAE, mild valvular regurgitation, no pulmonary hypertension. * Left LE Doppler:?Possible noncompressible DVT in left posterior tibial/peroneal veins, no proximal DVT. Hospital Course by Problem: * Acute Alteration in Mental Status (R41.82): * Initial concern for seizure vs. recurrent stroke vs. metabolic derangement. * No new stroke on imaging. * EEG performed; neurology recommended transition from Keppra (due to agitation) to Depakote ER 500 mg BID. * Tramadol discontinued. * Mental status improved but not yet at prior baseline. * Seizure Disorder (G40.909): * New-onset suspected seizure (foaming at mouth, unresponsiveness). * Started on Keppra, transitioned to Depakote due to behavioral side effects. * No further seizure-like events during admission. * Hemiplegia (G81.90): * Chronic left hemiplegia and facial droop from prior right MCA stroke. * PT/OT consulted for mobility and safety. * Gabapentin resumed for neuropathic pain. * Dysphagia (R13.10): * Speech therapy noted aspiration risk, coughing/choking with thin liquids. * Barium swallow: recommended pureed diet and thickened liquids, 1:1 supervision. * Poor oral intake, holding food in mouth, alternating bites/sips. * Family counseled regarding possible need for feeding tube if intake remains <50%; decision pending. * Congestive Heart Failure (I50.9): * Severe LV dysfunction (EF 25-30%), severe LV enlargement. * Continued on Eplerenone, Farxiga, metoprolol, lisinopril. * Monitored for arrhythmias; loop recorder interrogation showed brief SVT and NSVT. * Cardiology follow-up recommended; possible ICD if not palliative. * Pulmonary Embolism (I26.99): * History of PE, on Eliquis and aspirin. * Left LE Doppler: possible distal DVT, no proximal DVT. * Eliquis resumed after brief interruption. * Type 2 Diabetes Mellitus (E11.9): * Well controlled (A1c 5.4%). * Metformin held due to contrast; continued empagliflozin and sliding scale insulin. * Accu-Cheks AC/HS. * Hypomagnesemia (E83.42) and Hypokalemia (E87.6): * Initial Mg 1.4, K 2.7; both replaced and normalized. * Monitored and maintained on daily labs. * Pressure Ulcer (L89.90): * Wound care consulted. * Specialty mattress and dietary optimization for healing. * Regular repositioning (q2 turns). * Hyperlipidemia (E78.5): * Continued atorvastatin. * Hypertension (I10): * Continued metoprolol and lisinopril. * Depression (F32.A): * Continued home regimen. * Nutrition: * Dietitian involved due to poor PO intake and risk of malnutrition. * Family counseled regarding feeding tube vs. palliative approach. * Code Status: * Initially modified code (CPR, no intubation); discussed with patient/family that this is not recommended per guidelines. * Full code at discharge; further discussions pending. * Other: * Fall and aspiration precautions maintained. * Family involved in all major decisions. DISCHARGE CONDITION: * Improved from admission, but not at prior baseline. * No further seizures or acute neurological events. * Stable on current medications. * Tolerating pureed/thickened diet with supervision. * Ambulating with assistance; left hemiplegia unchanged. * Wound care and pressure ulcer management ongoing. DISCHARGE MEDICATIONS: * Depakote ER 500 mg BID (for seizure prophylaxis) * Gabapentin 100 mg HS * Eliquis (dose per prior regimen) * Aspirin 81 mg daily * Atorvastatin 80 mg daily * Metoprolol 100 mg daily * Lisinopril (dose per prior regimen) * Eplerenone (dose per prior regimen) * Empagliflozin (dose per prior regimen) * Sliding scale insulin * Other home medications as appropriate DISCHARGE INSTRUCTIONS: * Pureed diet with thickened liquids, 1:1 supervision for all meals. * Continue all medications as listed. * Daily weights, monitor for signs of fluid overload. * Fall and aspiration precautions. * Wound care as instructed. * Monitor for signs of recurrent seizure, stroke, or infection. * Family to decide on feeding tube vs. palliative/hospice care if oral intake remains poor. * Arrange for home health or nursing home as appropriate. FOLLOW-UP APPOINTMENTS: * Primary Care: within 1 week * Neurology: within 2 weeks * Cardiology: within 2 weeks (for CHF and arrhythmia management) * Wound care: as needed * Speech therapy/dietitian: as needed DISCHARGE TO: [Home with family / [facility] Facility / [facility] / Other ? to be specified] Time Spent with Patient Time attestation: Total time spent providing and/or coordinating discharge services: DS: Data Data Completed and Pending Labs on day of discharge: Labs from last 24 hours 02/26/25 02/25/25 02/25/25 08:18 20:06 17:00 POC Capillary Glucose 90 183 H 124 H Discharge Plan Discharge Attending physician on discharge: Linda Copeland Consulting providers: Bibiana Medrano; Lucas Yang; Priscila Prince; Linda Copeland Discharging Clinician: Linda Copeland Anticipated Discharge Date/Time: 02/26/25 11:29 Patient Disposition: NH [facility] Activity: as tolerated Diet: as tolerated and other - see discharge instructions Discharge Instructions: pureed diet and mildly thickened liquid crushed meds. Patient Instructions: Antibiotic Form Patient Language: Lithuanian Stand Alone Forms: General Discharge Information Follow-up/Referrals: Onel,John Kirk DO [Primary Care Provider, Unknown] Bibiana Medrano MD [Physician, Neurology] Referral Note: F/u with PCP in 3-5 days Discharge Medications: New metoprolol succinate 50 mg tablet extended release 24 hr 50 mg PO DAILY 30 Days Qty: 30 0RF divalproex 125 mg Capsule, Delayed Rel Sprinkle 500 mg PO BID 30 Days Qty: 240 1RF Continued atorvastatin 80 mg tablet 80 mg PO QPM dapagliflozin propanediol [Farxiga] 10 mg tablet 10 mg PO DAILY gabapentin 300 mg capsule 300 mg PO TID lansoprazole 30 mg capsule,delayed release(DR/EC) 30 mg PO DAILY lisinopril 20 mg tablet 20 mg PO DAILY metformin 500 mg tablet 500 mg PO DAILY midodrine 5 mg tablet 5 mg PO Q8H PRN (Reason: LOW BP) aspirin [Adult Aspirin Regimen] 81 mg tablet,delayed release (DR/EC) 81 mg PO DAILY mirtazapine 15 mg tablet 15 mg PO HS silver sulfadiazine 1 % cream 1 applic TOPICAL DAILY Rx Instructions: SACRAL WOUND Arginaid 4.5 gram-156 mg/9.2 gram powder in packet 4.5 g PO .WM eplerenone 25 mg tablet 25 mg PO DAILY Eliquis 5 mg tablet 5 mg PO BID acetaminophen 500 mg capsule 1,000 mg PO TID PRN (Reason: fever or pain) modafinil 200 mg tablet 200 mg PO QAM Discontinued metoprolol succinate 100 mg tablet extended release 24 hr 100 mg PO DAILY tramadol 50 mg tablet 50 mg PO Q6H PRN (Reason: pain) Date of admission: 02/13/25 17:38 Primary Care Provider: OnelJohn Admitting Provider: Linda Copeland Attending physician on admission: Linda Copeland Condition: Stable
--- NOTE | 2025-02-26 11:58 | PM.DS ---
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 Found unresponsive at the [facility], last known normal >4 hours prior to arrival. HOSPITAL COURSE: Initial Presentation: Found with altered mentation and foaming at the mouth. No new focal neurological deficits per family; left hemiplegia and facial droop are baseline. No seizure history. Not a candidate for tPA (outside window, on anticoagulation, no new deficits). Family declined transfer to tertiary center after discussion. Workup: Head CT:?No acute process; large chronic right MCA infarct with encephalomalacia. CTA head/neck:?Atherosclerotic calcifications, no significant stenosis. MRI brain:?Large chronic right MCA infarct, no acute infarct. EEG:?Completed, pending neurology interpretation. Echocardiogram:?Severely reduced LVEF (25-30%), severe LV enlargement, moderate concentric LVH, mild LAE, mild valvular regurgitation, no pulmonary hypertension. Left LE Doppler:?Possible noncompressible DVT in left posterior tibial/peroneal veins, no proximal DVT. Hospital Course by Problem: Acute Alteration in Mental Status (R41.82): Initial concern for seizure vs. recurrent stroke vs. metabolic derangement. No new stroke on imaging. EEG performed; neurology recommended transition from Keppra (due to agitation) to Depakote ER 500 mg BID. Tramadol discontinued. Mental status improved but not yet at prior baseline. Seizure Disorder (G40.909): New-onset suspected seizure (foaming at mouth, unresponsiveness). Started on Keppra, transitioned to Depakote due to behavioral side effects. No further seizure-like events during admission. Hemiplegia (G81.90): Chronic left hemiplegia and facial droop from prior right MCA stroke. PT/OT consulted for mobility and safety. Gabapentin resumed for neuropathic pain. Dysphagia (R13.10): Speech therapy noted aspiration risk, coughing/choking with thin liquids. Barium swallow: recommended pureed diet and thickened liquids, 1:1 supervision. Poor oral intake, holding food in mouth, alternating bites/sips. Family counseled regarding possible need for feeding tube if intake remains <50%; decision pending. Congestive Heart Failure (I50.9): Severe LV dysfunction (EF 25-30%), severe LV enlargement. Continued on Eplerenone, Farxiga, metoprolol, lisinopril. Monitored for arrhythmias; loop recorder interrogation showed brief SVT and NSVT. Cardiology follow-up recommended; possible ICD if not palliative. Pulmonary Embolism (I26.99): History of PE, on Eliquis and aspirin. Left LE Doppler: possible distal DVT, no proximal DVT. Eliquis resumed after brief interruption. Type 2 Diabetes Mellitus (E11.9): Well controlled (A1c 5.4%). Metformin held due to contrast; continued empagliflozin and sliding scale insulin. Accu-Cheks AC/HS. Hypomagnesemia (E83.42) and Hypokalemia (E87.6): Initial Mg 1.4, K 2.7; both replaced and normalized. Monitored and maintained on daily labs. Pressure Ulcer (L89.90): Wound care consulted. Specialty mattress and dietary optimization for healing. Regular repositioning (q2 turns). Hyperlipidemia (E78.5): Continued atorvastatin. Hypertension (I10): Continued metoprolol and lisinopril. Depression (F32.A): Continued home regimen. Nutrition: Dietitian involved due to poor PO intake and risk of malnutrition. Family counseled regarding feeding tube vs. palliative approach. Code Status: Initially modified code (CPR, no intubation); discussed with patient/family that this is not recommended per guidelines. Full code at discharge; further discussions pending. Other: Fall and aspiration precautions maintained. Family involved in all major decisions. DISCHARGE CONDITION: Improved from admission, but not at prior baseline. No further seizures or acute neurological events. Stable on current medications. Tolerating pureed/thickened diet with supervision. Ambulating with assistance; left hemiplegia unchanged. Wound care and pressure ulcer management ongoing. DISCHARGE MEDICATIONS: Depakote ER 500 mg BID (for seizure prophylaxis) Gabapentin 100 mg HS Eliquis (dose per prior regimen) Aspirin 81 mg daily Atorvastatin 80 mg daily Metoprolol 100 mg daily Lisinopril (dose per prior regimen) Eplerenone (dose per prior regimen) Empagliflozin (dose per prior regimen) Sliding scale insulin Other home medications as appropriate DISCHARGE INSTRUCTIONS: Pureed diet with thickened liquids, 1:1 supervision for all meals. Continue all medications as listed. Daily weights, monitor for signs of fluid overload. Fall and aspiration precautions. Wound care as instructed. Monitor for signs of recurrent seizure, stroke, or infection. Family to decide on feeding tube vs. palliative/hospice care if oral intake remains poor. Arrange for home health or penitentiary as appropriate. FOLLOW-UP APPOINTMENTS: Primary Care: within 1 week Neurology: within 2 weeks Cardiology: within 2 weeks (for CHF and arrhythmia management) Wound care: as needed Speech therapy/dietitian: as needed DISCHARGE TO: [Home with family / [facility] / [facility] / Other ? to be specified] Time Spent with Patient Time attestation: Total time spent providing and/or coordinating discharge services: DS: Data Data Completed and Pending Labs on day of discharge: Labs from last 24 hours 02/26/25 02/25/25 02/25/25 08:18 20:06 17:00 POC Capillary Glucose 90 183 H 124 H Discharge Plan Discharge Attending physician on discharge: Linda Copeland Consulting providers: Bibaina Medrano; Lucas Yang; Priscila Prince; Linda Copeland Discharging Clinician: Linda Copeland Anticipated Discharge Date/Time: 02/26/25 11:29 Patient Disposition: NH Long Term/Asst Living Activity: as tolerated Diet: as tolerated and other - see discharge instructions Discharge Instructions: pureed diet and mildly thickened liquid crushed meds. Patient Instructions: Antibiotic Form Patient Language: Azeri Stand Alone Forms: General Discharge Information Follow-up/Referrals: Onel,John Kirk DO [Primary Care Provider, Unknown] Bibiana Medrano MD [Physician, Neurology] Referral Note: F/u with PCP in 3-5 days Discharge Medications: New metoprolol succinate 50 mg tablet extended release 24 hr 50 mg PO DAILY 30 Days Qty: 30 0RF divalproex 125 mg Capsule, Delayed Rel Sprinkle 500 mg PO BID 30 Days Qty: 240 1RF Continued atorvastatin 80 mg tablet 80 mg PO QPM dapagliflozin propanediol [Farxiga] 10 mg tablet 10 mg PO DAILY gabapentin 300 mg capsule 300 mg PO TID lansoprazole 30 mg capsule,delayed release(DR/EC) 30 mg PO DAILY lisinopril 20 mg tablet 20 mg PO DAILY metformin 500 mg tablet 500 mg PO DAILY midodrine 5 mg tablet 5 mg PO Q8H PRN (Reason: LOW BP) aspirin [Adult Aspirin Regimen] 81 mg tablet,delayed release (DR/EC) 81 mg PO DAILY mirtazapine 15 mg tablet 15 mg PO HS silver sulfadiazine 1 % cream 1 applic TOPICAL DAILY Rx Instructions: SACRAL WOUND Arginaid 4.5 gram-156 mg/9.2 gram powder in packet 4.5 g PO .WM eplerenone 25 mg tablet 25 mg PO DAILY Eliquis 5 mg tablet 5 mg PO BID acetaminophen 500 mg capsule 1,000 mg PO TID PRN (Reason: fever or pain) modafinil 200 mg tablet 200 mg PO QAM Discontinued metoprolol succinate 100 mg tablet extended release 24 hr 100 mg PO DAILY tramadol 50 mg tablet 50 mg PO Q6H PRN (Reason: pain) Date of admission: 02/13/25 17:38 Primary Care Provider: Onel,John Kirk Admitting Provider: Linda Copeland Attending physician on admission: Linda Copeland Condition: Stable
--- NOTE | 2025-02-26 12:26 | PM.IMPN ---
Progress Note: A&P Assessment and Plan (1) Seizure disorder: Code(s): G40.909 - Epilepsy, unspecified, not intractable, without status epilepticus Status: Acute Plan Palliative care consult goal of care discussion still ongoing as family are yet to decided Subjective Date/time seen: 02/26/25 12:26 Interval history: Comfortable at bedside cardiology consulted for cardiomyopathy Review of Systems Review of Systems: All systems reviewed & are unremarkable except as noted in HPI and below (Subjective) Constitutional: Constitutional: Reports as per HPI and Reports no additional constitutional complaints Eyes: Eyes: Reports as per HPI and Reports no additional eye complaints ENT: Reports system reviewed and no additional complaints, except as documented and Reports Normal hearing present Cardiovascular: Cardiovascular: Reports no additional cardiovascular complaints Respiratory: Respiratory: Reports as per HPI and Reports no additional respiratory complaints Gastrointestinal: Gastrointestinal: Reports as per HPI and Reports no additional gastrointestinal complaints Musculoskeletal: Musculoskeletal: Reports no additional musculoskeletal complaints Integumentary/Breasts: Skin/Breast: Reports system reviewed and no additional complaints, except as docu Neurologic: Reports system reviewed and no additional complaints, except as documented, Reports Normal hearing present and Reports Abnormal speech present Psychiatric: Psychiatric: Reports no additional psychiatric complaints and Reports as per HPI Hematologic/Lymphatic: Hematologic/Lymphatic: Reports no additional hematologic/lymphatic complaints Allergic/Immunologic: Allergic/Immunologic: Reports no additional allergic/immunologic complaints Exam Narrative: APPEARANCE: Apart from left hip pain no acute distress EYES: EOMI HEENT: Normocephalic, atraumatic, OMM RESPIRATORY: No respiratory distress Clear to auscultation bilaterally with no rhonchi wheezing or rales. CARDIOVASCULAR: RRR, S1 and S2 without murmurs rubs or gallops. ABDOMINAL: Soft, nontender, nondistended, no rebound or guarding MUSCULOSKELETAl: Right hemiplegia. Aphasia NEURO: Awake and alert. Following commands, aphasic SKIN:: Warm, dry. No rashes lesions or abrasions PSYCHIATRIC: Normal affect/mood, Const: General: cooperative, comfortable, no acute distress, well developed, awake, Physically active and underweight Nutritional Appearance: underweight Orientation/consciousness: oriented to person, oriented to place, oriented to time and patient oriented x3 Other: A&O x3, dysarthria HENMT: Head: normal to inspection, No palpable skull fracture present, normocephalic, atraumatic and abrasion Ears: hearing grossly normal bilaterally Mouth: Yes moist mucous membranes Eyes: General: appearance normal, both eyes and all related structures Alignment and Position: alignment normal Periorbital: periorbital findings normal Eyelids: eyelids normal Pupils: Equal, round and reactive pupils present and Pupil accommodation reflex normal EOM: EOMs intact bilaterally Neck: Neck: normal visual inspection, full ROM, no lymphadenopathy, trachea midline and supple Chest: Chest palpation & inspection: normal inspection of the chest Resp: Effort & Inspection: normal respiratory effort Auscultation: clear to auscultation bilaterally Cardio: Palpation: normal PMI Rate: regular rate Rhythm: regular rhythm Heart sounds: S1 normal heart sound present and S2 normal heart sound present Peripheral pulses: Peripheral pulses 2+ throughout GI: Inspection: normal to inspection Auscultation: normal bowel sounds Rectal Exam: deferred : General: Yes no CVA tenderness Back/Spine/Pelvis: Back: no CVA tenderness Cervical Spine: cervical ROM normal Thoracic/Lumbar Spine: thoracic and lumbar spine normal to inspection Pelvis: no pain with anterior-posterior compression Skin: General skin exam: normal color Lesions: no lesions Rashes: no rashes Trauma: no lacerations or abrasions Wounds: no wounds Hair: normal Nails: normal Other: Pressure ulcer noted to sacral area unstageable. 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 Patient is forgetful at times. Patient has word searching at times. Extrem: General: normal to inspection and no edema Right upper extremity: normal to inspection and shoulder/upper arm Other: Left upper and left lower extremity flaccid from previous CVA Psych: Appearance: grossly normal Mental Status: mental status grossly normal Speech and movement: Normal speech and movement present Affect: normal affect Attitude: cooperative Thought process: Normal thought process present Objective Data Vital Signs Vital Signs: Vital Signs - 24 hr 02/25/25 15:26 02/25/25 16:05 02/25/25 19:58 Temperature 97.4 F L 97.8 F Pulse Rate 82 81 89 Respiratory Rate 18 18 Blood Pressure 132/77 144/79 H Pulse Oximetry 99 97 Oxygen Delivery 02/25/25 20:00 02/25/25 20:00 02/26/25 00:00 Temperature Pulse Rate 85 63 Respiratory Rate Blood Pressure Pulse Oximetry Oxygen Delivery Room Air 02/26/25 04:00 02/26/25 04:32 02/26/25 08:05 Temperature 97.6 F Pulse Rate 67 59 L 71 Respiratory Rate 18 Blood Pressure 107/56 L Pulse Oximetry 91 Oxygen Delivery 02/26/25 08:43 02/26/25 09:00 Temperature Pulse Rate 73 Respiratory Rate Blood Pressure Pulse Oximetry Oxygen Delivery Room Air Intake/Output Intake/Output: Intake & Output 02/23/25 02/24/25 02/25/25 02/26/25 23:59 23:59 23:59 23:59 Intake Total 850 1390 720 480 Output Total 900 300 400 Balance -50 1090 720 80 Meds/Results Medications: Active Medications Generic Name Dose Route Start Last Admin Trade Name Freq PRN Reason Stop Dose Admin Acetaminophen 1,000 mg 02/16/25 17:30 02/26/25 08:47 Acetaminophen 500 Mg Tablet PO 1,000 mg Q8HR PRN Administration fever or pain 1-3 Apixaban 5 mg 02/12/25 09:00 02/26/25 08:43 Apixaban 5 Mg Tablet PO 5 mg Q12HR ELISA Administration Aspirin 81 mg 02/21/25 09:00 02/26/25 08:43 Aspirin 81 Mg Chewable Tablet PO 81 mg DAILY ELISA Administration Atorvastatin Calcium 80 mg 02/12/25 18:00 02/25/25 17:47 Atorvastatin 40 Mg Tablet PO 80 mg QPM ELISA Administration Dextrose 12.5 gm 02/12/25 03:52 Dextrose 50% 25 Gm/50 Ml Syringe IV PUSH PRN PRN Hypoglycemia Protocol Divalproex Sodium 500 mg 02/15/25 17:55 02/26/25 08:44 Divalproex Sodium Sprinkle 125 Mg Cap.Dr PO 500 mg BID ELISA Administration Empagliflozin 25 mg 02/12/25 09:00 02/13/25 08:45 Empagliflozin 25 Mg Tablet BY MOUTH 25 mg On Hold: 02/13/25 18:50 DAILY ELISA Administration Gabapentin 100 mg 02/19/25 21:00 02/25/25 21:16 Gabapentin 100 Mg Capsule PO 100 mg HS ELISA Administration Glucagon 1 mg 02/12/25 03:52 Glucagon For Inj 1 Mg Vial IM PRN PRN Hypoglycemia Protocol Glucose 15 gm 02/12/25 03:52 Glucose Oral Gel 15 Gm Of Glucse In 37.5 Gm Tube PO PRN PRN Hypoglycemia Protocol Dextrose 1,000 mls @ 100 mls/hr 02/12/25 03:52 Dextrose 5% 1,000 Ml IVPB PRN PRN Hypoglycemia Protocol Insulin Aspart 1 - 2 units 02/12/25 21:00 02/25/25 22:34 Insulin Aspart (*Bkc) 100 Units/Ml SUB-Q Not Given HS ELISA Protocol Insulin Aspart 2 - 5 units 02/12/25 08:00 02/26/25 08:44 Insulin Aspart (*Bkc) 100 Units/Ml SUB-Q Not Given TIDWM ELISA Protocol Lansoprazole 30 mg 02/21/25 06:30 02/26/25 05:27 Lansoprazole Odt 30 Mg Tab.Rap.Dr PO 30 mg DAILY@0630 ELISA Administration Lidocaine 1 patch 02/22/25 17:00 02/26/25 08:44 Lidocaine 5% Patch TRANSDERM 1 patch DAILY ELISA Administration Lisinopril 20 mg 02/12/25 09:00 02/26/25 08:43 Lisinopril 20 Mg Tablet PO 20 mg DAILY ELISA Administration Metoprolol Tartrate 50 mg 02/21/25 09:00 02/26/25 08:43 Metoprolol Tartrate 50 Mg Tab PO 50 mg Q12HR ELISA Administration Midodrine 5 mg 02/12/25 03:39 Midodrine Hcl 2.5 Mg Tablet PO Q8H PRN LOW BP Mirtazapine 15 mg 02/12/25 21:00 02/25/25 21:16 Mirtazapine 15 Mg Tablet PO 15 mg HS ELISA Administration Miscellaneous Information 1 each 02/15/25 00:01 02/26/25 08:45 Order Clarification -Eplerenone 25 Mg Tablet Is Non-Formulary XX 03/17/25 00:00 Not Given CLARIFY ELISA Modafinil 200 mg 02/21/25 07:00 02/26/25 05:27 Modafinil (*Crx) 200 Mg Tablet PO 200 mg 0700 ELISA Administration Multivitamins/Calcium 1 tablet 02/18/25 09:00 02/26/25 08:43 Therapeutic Multivitamins/Minerals Tab (*Bkc) PO 1 tablet DAILY ELISA Administration Non-Formulary Medication 25 mg 02/12/25 09:00 Eplerenone PO 03/14/25 08:59 DAILY ELISA Silver Sulfadiazine 1 applic 02/14/25 09:00 02/25/25 13:40 Silver Sulfadiazine 1% Cr 50 Gm Jar (*Bkc) TOPICAL 1 applic DAILY ELISA Administration Radiology Results: ITS Impressions Chest X-Ray 02/12/25 06:03 IMPRESSION: 1. No acute cardiopulmonary findings given portable technique. Head/Neck CTA 02/12/25 06:45 IMPRESSION: CTA NECK: 1. No acute findings. CTA HEAD: 1. No acute findings. Carotid Doppler Study 02/12/25 10:44 IMPRESSION: 1. No hemodynamically significant ICA stenosis (i.e., if any stenosis, less than 50%). 2. Normal bilateral antegrade vertebral artery flow. Stenosis measured by Society of Radiologists in Ultrasound (SRU) criteria. Head CT 02/14/25 08:46 IMPRESSION: 1. Large old infarct in the expected distribution of right middle cerebral artery. Modified Barium Swallow 02/15/25 12:11 IMPRESSION: Oropharyngeal dysphagia with laryngeal penetration and aspiration. Please correlate with speech pathologist findings and specific feeding recommendations. Brain MRI 02/16/25 14:14 IMPRESSION: 1. 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 No acute intracranial process. 2. Increased white matter T2 hyperintensity kevin, right cerebral peduncle and right thalamus which suggests possible Wallerian degeneration related to the right middle cerebral artery infarct with differential including sequela of chronic small vessel ischemic disease. Venous Doppler Study 02/17/25 17:06 IMPRESSION: 1. Possible noncompressible deep venous thrombosis in the left posterior tibial and peroneal veins however specificity is decreased by the poor visualization of the vessels. No deep venous thrombosis at or proximal to the left popliteal vein. Labs Labs: Laboratory Results - last 24 hr 02/25/25 02/25/25 02/26/25 17:00 20:06 08:18 POC Capillary Glucose 124 H 183 H 90 Quality VTE Prophylaxis VTE prophylaxis: pharmacologic ordered
--- NOTE | 2025-02-26 12:27 | P.PNIM_ITS ---
Progress Note: A&P Assessment and Plan (1) Seizure disorder: Code(s): G40.909 - Epilepsy, unspecified, not intractable, without status epilepticus Status: Acute Plan Assessment and Plan (1) Acute alteration in mental status: Code(s): R41.82 - Altered mental status, unspecified Status: Acute Assessment and Plan: Altered mental status improved. Not yet back to prior baseline. No evidence of CVA on CT brain. 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 Changed keppra to depakote. Stopped tramadol * Continue depakote for possible seizure. * EEG procedure has been completed - awaiting neurology interpretation. * Interrogate loop recorder ([place]) [address] with PVC's and PAC's, rate of 160's at 8:26 pm * Continue to monitor on telemetry. Had a 5 beat run of NSVT 02/18 (2) Hemiplegia: Code(s): G81.90 - Hemiplegia, unspecified affecting unspecified side Status: Acute Assessment and Plan: * according the family members this is from his previous stroke * PT OT evaluation greatly appreciated. * q2 turns * resumed gabapentin 100mg Hs instead of TID (3) Dysphagia: Code(s): R13.10 - Dysphagia, unspecified Status: Acute Assessment and Plan: Speech therapy consulted regarding aspiration risk * Noted coughing and choking episode * Thickened diet started on 02/[address] recommendations * Barium swallow study ordered -Recommended pureed and thickened liquids. Holding food in mouth. Alternating bites and sips, 1:1 supervision * Overall intake is poor. Discussed with family that since he is eating less than 50% of meals, not drinking supplements, he may need a feeding tube eventually. They are going to discuss it. Poor PO intake likely contributing to electrolyte abnormality which would increase risk of arrhythmias * [employer] following continue pureed diet and thickened liquid (4) Hypomagnesemia: Code(s): E83.42 - Hypomagnesemia Status: Acute Assessment and Plan: resolved (5) DM2 (diabetes mellitus, type 2): Code(s): E11.9 - Type 2 diabetes mellitus without complications Status: Acute Assessment and Plan: * metformin is on hold at this time due CT dye * Continuing empagliflozin * Accu-Cheks AC and HS with sliding scale insulin. * check A1c 5.4 * Blood sugars controlled (6) Pressure ulcer: Code(s): L89.90 - Pressure ulcer of unspecified site, unspecified stage Status: Acute Assessment and Plan: * wound care consult greatly be appreciated. * may consider specialty mattress. * may consider dietary consult for healing process (7) Hypokalemia: Code(s): E87.6 - Hypokalemia Status: Acute Assessment and Plan: resolved, K 4.0 (8) Pulmonary embolism: Code(s): I26.99 - Other pulmonary embolism without acute cor pulmonale Status: Acute Assessment and Plan: * continue with Eliquis and aspirin 02/17 Left LE venous doppler showing possible noncompressible DVT in the left posterior tibial and peroneal veins however specificity is decreased by the poor visualization of the vessels. No DVT at or proximal to the left popliteal vein. --Patient was off his Eliquis for 3 days and now has been resumed. continue Eliquis (9) Congestive heart failure: Code(s): I50.9 - Heart failure, unspecified Status: Acute Assessment and Plan: * continue with Eplerenone and Farxiga * continue metoprolol-- 100mg daily , continue lisinopril * Records requested from [facility] to confirm if he had a recent cath and for his prior echo. * ECHO EF 25-30 %, 42% from August per [facility] records * Cardiology consulted Family decided against hospice DVT prophylaxis on Eliquis awaiting cards eval for discharge Subjective Date/time seen: 02/26/25 12:27 Interval history: Comfortable at bedside cardiology consulted for cardiomyopathy Exam Narrative: APPEARANCE: comfortable at bedside EYES: EOMI HEENT: Normocephalic, atraumatic, OMM RESPIRATORY: No respiratory distress Clear to auscultation bilaterally with no rhonchi wheezing or rales. CARDIOVASCULAR: RRR, S1 and S2 without murmurs rubs or gallops. ABDOMINAL: Soft, nontender, nondistended, no rebound or guarding MUSCULOSKELETAl: Right hemiplegia. Aphasia NEURO: Awake and alert. Following commands, aphasic SKIN:: Warm, dry. No rashes lesions or abrasions PSYCHIATRIC: Normal affect/mood, Const: Other: A&O x3, dysarthria Skin: Other: Pressure ulcer noted to sacral area unstageable. No drainage noted Neuro: Other: Left lower extremity flaccid from previous CVA. Patient is forgetful at times. Patient has word searching at times. Extrem: Other: Left upper and left lower extremity flaccid from previous CVA Objective Data Vital Signs Vital Signs: Vital Signs - 24 hr 02/25/25 15:26 02/25/25 16:05 02/25/25 19:58 Temperature 97.4 F L 97.8 F Pulse Rate 82 81 89 Respiratory Rate 18 18 Blood Pressure 132/77 144/79 H Pulse Oximetry 99 97 Oxygen Delivery 02/25/25 20:00 02/25/25 20:00 02/26/25 00:00 Temperature Pulse Rate 85 63 Respiratory Rate Blood Pressure Pulse Oximetry Oxygen Delivery Room Air 02/26/25 04:00 02/26/25 04:32 02/26/25 08:05 Temperature 97.6 F Pulse Rate 67 59 L 71 Respiratory Rate 18 Blood Pressure 107/56 L Pulse Oximetry 91 Oxygen Delivery 02/26/25 08:43 02/26/25 09:00 Temperature Pulse Rate 73 Respiratory Rate Blood Pressure Pulse Oximetry Oxygen Delivery Room Air Intake/Output Intake/Output: Intake & Output 02/23/25 02/24/25 02/25/25 02/26/25 23:59 23:59 23:59 23:59 Intake Total 850 1390 720 480 Output Total 900 300 400 Balance -50 1090 720 80 Meds/Results Medications: Active Medications Generic Name Dose Route Start Last Admin Trade Name Freq PRN Reason Stop Dose Admin Acetaminophen 1,000 mg 02/16/25 17:30 02/26/25 08:47 Acetaminophen 500 Mg Tablet PO 1,000 mg Q8HR PRN Administration fever or pain 1-3 Apixaban 5 mg 02/12/25 09:00 02/26/25 08:43 Apixaban 5 Mg Tablet PO 5 mg Q12HR ELISA Administration Aspirin 81 mg 02/21/25 09:00 02/26/25 08:43 Aspirin 81 Mg Chewable Tablet PO 81 mg DAILY ELISA Administration Atorvastatin Calcium 80 mg 02/12/25 18:00 02/25/25 17:47 Atorvastatin 40 Mg Tablet PO 80 mg QPM ELISA Administration Dextrose 12.5 gm 02/12/25 03:52 Dextrose 50% 25 Gm/50 Ml Syringe IV PUSH PRN PRN Hypoglycemia Protocol Divalproex Sodium 500 mg 02/15/25 17:55 02/26/25 08:44 Divalproex Sodium Sprinkle 125 Mg Cap. PO 500 mg BID ELISA Administration Empagliflozin 25 mg 02/12/25 09:00 02/13/25 08:45 Empagliflozin 25 Mg Tablet BY MOUTH 25 mg On Hold: 02/13/25 18:50 DAILY ELISA Administration Gabapentin 100 mg 02/19/25 21:00 02/25/25 21:16 Gabapentin 100 Mg Capsule PO 100 mg HS ELISA Administration Glucagon 1 mg 02/12/25 03:52 Glucagon For Inj 1 Mg Vial IM PRN PRN Hypoglycemia Protocol Glucose 15 gm 02/12/25 03:52 Glucose Oral Gel 15 Gm Of Glucse In 37.5 Gm Tube PO PRN PRN Hypoglycemia Protocol Dextrose 1,000 mls @ 100 mls/hr 02/12/25 03:52 Dextrose 5% 1,000 Ml IVPB PRN PRN Hypoglycemia Protocol Insulin Aspart 1 - 2 units 02/12/25 21:00 02/25/25 22:34 Insulin Aspart (*Bkc) 100 Units/Ml SUB-Q Not Given HS ELISA Protocol Insulin Aspart 2 - 5 units 02/12/25 08:00 02/26/25 08:44 Insulin Aspart (*Bkc) 100 Units/Ml SUB-Q Not Given TIDWM ELISA Protocol Lansoprazole 30 mg 02/21/25 06:30 02/26/25 05:27 Lansoprazole Odt 30 Mg Tab.Shivani. PO 30 mg DAILY@0630 ELISA Administration Lidocaine 1 patch 02/22/25 17:00 02/26/25 08:44 Lidocaine 5% Patch TRANSDERM 1 patch DAILY ELISA Administration Lisinopril 20 mg 02/12/25 09:00 02/26/25 08:43 Lisinopril 20 Mg Tablet PO 20 mg DAILY ELISA Administration Metoprolol Tartrate 50 mg 02/21/25 09:00 02/26/25 08:43 Metoprolol Tartrate 50 Mg Tab PO 50 mg Q12HR ELISA Administration Midodrine 5 mg 02/12/25 03:39 Midodrine Hcl 2.5 Mg Tablet PO Q8H PRN LOW BP Mirtazapine 15 mg 02/12/25 21:00 02/25/25 21:16 Mirtazapine 15 Mg Tablet PO 15 mg HS ELISA Administration Miscellaneous Information 1 each 02/15/25 00:01 02/26/25 08:45 Order Clarification -Eplerenone 25 Mg Tablet Is Non-Formulary XX 03/17/25 00:00 Not Given CLARIFY ELISA Modafinil 200 mg 02/21/25 07:00 02/26/25 05:27 Modafinil (*Crx) 200 Mg Tablet PO 200 mg 0700 ELISA Administration Multivitamins/Calcium 1 tablet 02/18/25 09:00 02/26/25 08:43 Therapeutic Multivitamins/Minerals Tab (*Bkc) PO 1 tablet DAILY ELISA Administration Non-Formulary Medication 25 mg 02/12/25 09:00 Eplerenone PO 03/14/25 08:59 DAILY ELISA Silver Sulfadiazine 1 applic 02/14/25 09:00 02/25/25 13:40 Silver Sulfadiazine 1% Cr 50 Gm Jar (*Bkc) TOPICAL 1 applic DAILY ELISA Administration Radiology Results: ITS Impressions Chest X-Ray 02/12/25 06:03 IMPRESSION: 1. No acute cardiopulmonary findings given portable technique. Head/Neck CTA 02/12/25 06:45 IMPRESSION: CTA NECK: 1. No acute findings. CTA HEAD: 1. No acute findings. Carotid Doppler Study 02/12/25 10:44 IMPRESSION: 1. No hemodynamically significant ICA stenosis (i.e., if any stenosis, less than 50%). 2. Normal bilateral antegrade vertebral artery flow. Stenosis measured by Society of Radiologists in Ultrasound (SRU) criteria. Head CT 02/14/25 08:46 IMPRESSION: 1. Large old infarct in the expected distribution of right middle cerebral artery. Modified Barium Swallow 02/15/25 12:11 IMPRESSION: Oropharyngeal dysphagia with laryngeal penetration and aspiration. Please correlate with speech pathologist findings and specific feeding recommendations. Brain MRI 02/16/25 14:14 IMPRESSION: 1. 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 No acute intracranial process. 2. Increased white matter T2 hyperintensity kevin, right cerebral peduncle and right thalamus which suggests possible Wallerian degeneration related to the right middle cerebral artery infarct with differential including sequela of chronic small vessel ischemic disease. Venous Doppler Study 02/17/25 17:06 IMPRESSION: 1. Possible noncompressible deep venous thrombosis in the left posterior tibial and peroneal veins however specificity is decreased by the poor visualization of the vessels. No deep venous thrombosis at or proximal to the left popliteal vein. Labs Labs: Laboratory Results - last 24 hr 02/25/25 02/25/25 02/26/25 17:00 20:06 08:18 POC Capillary Glucose 124 H 183 H 90 Quality VTE Prophylaxis VTE prophylaxis: pharmacologic ordered
--- NOTE | 2025-02-26 14:29 | PM.CNCAR ---
Assessment and Plan Assessment and plan (1) Cardiomyopathy: Code(s): I42.9 - Cardiomyopathy, unspecified Status: Acute Assessment and Plan: Euvolemic. On Jardiance, Metoprolol, Lisinopril. Has [employer] loop recorder implanted at [facility] in August 2024. Discuss risk of sudden cardiac arrest with patient and patient's daughter and she states she wants to discuss it with her brother first if they would like to go with Life Vest. Then she will let us know. Will sign off, please call with any questions. He will f/u with his regular sales and marketing specialist Dr. Garcia at [place] upon discharge. (2) CAD (coronary artery disease), autologous vein bypass graft: Code(s): I25.810 - Atherosclerosis of coronary artery bypass graft(s) without angina pectoris Status: Acute (3) HTN (hypertension) with goal to be determined: Code(s): I10 - Essential (primary) hypertension Status: Acute Assessment and Plan: Stable. (4) Hyperlipidemia: Code(s): E78.5 - Hyperlipidemia, unspecified Status: Acute Assessment and Plan: On Atorvastatin. History of Present Illness History of Present Illness Consult date/time: 02/26/25 14:29 Reason For Visit: possible seizure Narrative: 80 yr old man admitted on 02/12/25 for mental status changes. He has a history of CAD, CABG, stroke in August 2024 went to [place] then transferred to [facility] hospital, DM, hypertension, dyslipidemia. His regular sales and marketing specialist is Dr. Garcia with [facility] at [place]. Since hospitalization an echo was done which showed on 02/12/25 EF 25-30%, and this is reason for consult to consider life vest or ICD. He had seizures and started on antiseizure medication. He is unable to walk due to stroke with paralysis of left side. Denies chest pain, sob, orthopnea, PND, edema, dizziness, palpitations. Review of Systems Review of Systems: All systems reviewed & are unremarkable except as noted in HPI and below Constitutional: Constitutional: Reports as per HPI, Denies chills and Denies fever(s) Cardiovascular: Cardiovascular: Reports as per HPI, Denies chest pain and Denies irregular heart rhythm Respiratory: Respiratory: Reports as per HPI and Denies dyspnea Gastrointestinal: Gastrointestinal: Reports as per HPI and Denies abdominal pain Genitourinary: Genitourinary: Reports as per HPI and Denies dysuria Musculoskeletal: Musculoskeletal: Reports as per HPI Neurologic: Reports as per HPI, Denies dizziness and Denies syncope [facility] Past Medical History Medical History (Updated 02/26/25 @ 14:36 by Berny Arreaga DO) Seizure disorder CABG (coronary artery bypass graft) planned Depression Hemiplegia left side Hyperlipidemia Pressure ulcer HTN (hypertension) with goal to be determined Chronic GERD Congestive heart failure Implantable loop recorder present Pulmonary embolism DM2 (diabetes mellitus, type 2) CVA (cerebral vascular accident) Family History Family History Mother Congestive heart failure Sibling Hypertension Social History Social History Social History: He resides that [facility] currently. 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 He is a retired red. Code status: Modify no intubation. Smoking status: Never smoker Alcohol intake: never Substance use: never Lack of Transportation: No Lack of Food: Never True Current Housing: I Have Housing Concerned About Future Housing: No Difficulty Paying Gas/Electric Bills: No Difficulty Paying for Meds: No Currently Unemployed: No Education: High School Diploma/GED Difficulty w/ Childcare or Family Care: No Spiritual care concerns: No Meds Home Medications and Allergies Home Medications ?Medication ?Instructions ?Recorded ?Confirmed ?Type acetaminophen 500 mg capsule 1,000 mg PO TID PRN fever or pain 02/12/25 02/12/25 History apixaban 5 mg tablet (Eliquis) 5 mg PO BID 02/12/25 02/12/25 History arginine-vitamin C-vitamin E oral 4.5 g PO .WM 02/12/25 02/12/25 History 4.5 gram-156 mg/9.2 gram powder pkt (Arginaid) aspirin 81 mg tablet,delayed 81 mg PO DAILY 02/12/25 02/12/25 History release (Adult Aspirin Regimen) atorvastatin 80 mg tablet 80 mg PO QPM 02/12/25 02/12/25 History dapagliflozin propanediol 10 mg 10 mg PO DAILY 02/12/25 02/12/25 History tablet (Farxiga) eplerenone 25 mg tablet 25 mg PO DAILY 02/12/25 02/12/25 History gabapentin 300 mg capsule 300 mg PO TID 02/12/25 02/12/25 History lansoprazole 30 mg capsule,delayed 30 mg PO DAILY 02/12/25 02/12/25 History release lisinopril 20 mg tablet 20 mg PO DAILY 02/12/25 02/12/25 History metformin 500 mg tablet 500 mg PO DAILY 02/12/25 02/12/25 History midodrine 5 mg tablet 5 mg PO Q8H PRN LOW BP 02/12/25 02/12/25 History mirtazapine 15 mg tablet 15 mg PO HS 02/12/25 02/12/25 History modafinil 200 mg tablet 200 mg PO QAM 02/12/25 02/12/25 History silver sulfadiazine 1 % topical 1 applic topical DAILY 02/12/25 02/12/25 History cream divalproex 125 mg capsule,delayed 500 mg (4 x 125 mg) PO BID 30 days 02/26/25 Rx release sprinkle #240 caps metoprolol succinate 50 mg 50 mg PO DAILY 30 days #30 tabs 02/26/25 Rx tablet,extended release 24 hr Allergies Allergy/AdvReac Type Severity Reaction Status Date / Time Sulfa (Sulfonamide Allergy Unknown Unknown Verified 02/11/25 22:21 Antibiotics) Vital Signs Vital Signs - 24 hr 02/25/25 15:26 02/25/25 16:05 02/25/25 19:58 Temperature 97.4 F L 97.8 F Pulse Rate 82 81 89 Respiratory Rate 18 18 Blood Pressure 132/77 144/79 H Pulse Oximetry 99 97 Oxygen Delivery 02/25/25 20:00 02/25/25 20:00 02/26/25 00:00 Temperature Pulse Rate 85 63 Respiratory Rate Blood Pressure Pulse Oximetry Oxygen Delivery Room Air 02/26/25 04:00 02/26/25 04:32 02/26/25 08:05 Temperature 97.6 F Pulse Rate 67 59 L 71 Respiratory Rate 18 Blood Pressure 107/56 L Pulse Oximetry 91 Oxygen Delivery 02/26/25 08:43 02/26/25 09:00 Temperature Pulse Rate 73 Respiratory Rate Blood Pressure Pulse Oximetry Oxygen Delivery Room Air Exam Const: General: cooperative, healthy appearing and comfortable Resp: Auscultation: clear to auscultation bilaterally, no crackles, no rales, no rhonchi and no wheezes Cardio: Rate: regular rate Rhythm: regular rhythm Heart sounds: no murmurs Peripheral pulses: dorsalis pedis present GI: GI Palp: No abdominal tenderness and Yes Soft to palpation Neuro: General: oriented to person and oriented to place Extrem: Right lower extremity: no edema Left lower extremity: no edema Results Labs and Meds 02/24/25 05:21 02/24/25 05:21 Lab results: Intake and Output 02/25/25 02/26/25 02/26/25 23:59 07:59 15:59 Intake Total 360 120 480 Output Total 400 Balance 360 -280 480 Intake: Oral 360 120 480 Output: Urine 400 Other: # Incontinent Voids 1 Number of Bowel Movements Today 1
--- NOTE | 2025-02-26 15:20 | P.DS_ITS ---
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 [facility], last known normal >4 hours prior to arrival. HOSPITAL COURSE: Initial Presentation: * Found with altered mentation and foaming at the mouth. * No new focal neurological deficits per family; left hemiplegia and facial droop are baseline. * No seizure history. * Not a candidate for tPA (outside window, on anticoagulation, no new deficits). * Family declined transfer to tertiary center after discussion. Workup: * Head CT:?No acute process; large chronic right MCA infarct with encephalomalacia. * CTA head/neck:?Atherosclerotic calcifications, no significant stenosis. * MRI brain:?Large chronic right MCA infarct, no acute infarct. * EEG:?Completed, pending neurology interpretation. * Echocardiogram (02/12/25):?Severely reduced LVEF (25-30%), severe LV enlargement, moderate concentric LVH, mild LAE, mild valvular regurgitation, no pulmonary hypertension. * Left LE Doppler:?Possible noncompressible DVT in left posterior tibial/peroneal veins, no proximal DVT. Hospital Course by Problem: * Acute Alteration in Mental Status / Seizure Disorder (R41.82, G40.909): * Initial concern for seizure vs. recurrent stroke vs. metabolic derangement. * No new stroke on imaging. * EEG performed; neurology recommended transition from Keppra (due to agitation) to Depakote ER 500 mg BID. * Tramadol discontinued. * Mental status improved but not yet at prior baseline. * No further seizure-like events during admission. * Hemiplegia (G81.90): * Chronic left hemiplegia and facial droop from prior right MCA stroke. * PT/OT consulted for mobility and safety. * Gabapentin resumed for neuropathic pain. * Dysphagia (R13.10): * Speech therapy noted aspiration risk, coughing/choking with thin liquids. * Barium swallow: recommended pureed diet and thickened liquids, 1:1 supervision. * Poor oral intake, holding food in mouth, alternating bites/sips. * Family counseled regarding possible need for feeding tube if intake remains <50%; decision pending. * Congestive Heart Failure / Cardiomyopathy (I50.9, I42.9): * Severe LV dysfunction (EF 25-30%), severe LV enlargement. * Continued on Eplerenone, Farxiga, metoprolol, lisinopril. * Monitored for arrhythmias; loop recorder interrogation showed brief SVT and NSVT. * Cardiology consulted; discussed risk of sudden cardiac arrest and recommended LifeVest/ICD however family wanted more time to think about it and noted they will follow up with outpatient with patient's primary cardiology at [facility] (Dr. Garcia, [place]). Encouraged to follow up * Pulmonary Embolism (I26.99): * History of PE, on Eliquis and aspirin. * Left LE Doppler: possible distal DVT, no proximal DVT. * Eliquis resumed after brief interruption. * Type 2 Diabetes Mellitus (E11.9): * Well controlled (A1c 5.4%). * Metformin held due to contrast; continued empagliflozin and sliding scale insulin. * Accu-Cheks AC/HS. * Hypomagnesemia (E83.42) and Hypokalemia (E87.6): * Initial Mg 1.4, K 2.7; both replaced and normalized. * Monitored and maintained on daily labs. * Pressure Ulcer (L89.90): * Wound care consulted. * Specialty mattress and dietary optimization for healing. * Regular repositioning (q2 turns). * Hyperlipidemia (E78.5): * Continued atorvastatin. * Hypertension (I10): * Continued metoprolol and lisinopril. * Depression (F32.A): * Continued home regimen. * Nutrition: * Dietitian involved due to poor PO intake and risk of malnutrition. * Family counseled regarding feeding tube vs. palliative approach. * Code Status: * Initially modified code (CPR, no intubation); discussed with patient/family that this is not recommended per guidelines. * Full code at discharge; further discussions pending. * Other: * Fall and aspiration precautions maintained. * Family involved in all major decisions. DISCHARGE CONDITION: * Improved from admission, but not at prior baseline. * No further seizures or acute neurological events. * Stable on current medications. * Tolerating pureed/thickened diet with supervision. * Ambulating with assistance; left hemiplegia unchanged. * Wound care and pressure ulcer management ongoing. DISCHARGE MEDICATIONS: * Depakote ER 500 mg BID (for seizure prophylaxis) * Gabapentin 100 mg HS * Eliquis (dose per prior regimen) * Aspirin 81 mg daily * Atorvastatin 80 mg daily * Metoprolol 100 mg daily * Lisinopril (dose per prior regimen) * Eplerenone (dose per prior regimen) * Empagliflozin (dose per prior regimen) * Sliding scale insulin * Other home medications as appropriate DISCHARGE INSTRUCTIONS: * Pureed diet with thickened liquids, 1:1 supervision for all meals. * Continue all medications as listed. * Daily weights, monitor for signs of fluid overload. * Fall and aspiration precautions. * Wound care as instructed. * Monitor for signs of recurrent seizure, stroke, or infection. * Family to decide on feeding tube vs. palliative/hospice care if oral intake remains poor. * Arrange for home health or correction as appropriate. FOLLOW-UP APPOINTMENTS: * Primary Care: within 1 week * Neurology: within 2 weeks * Cardiology: within 2 weeks (for CHF and arrhythmia management) * Wound care: as needed * Speech therapy/dietitian: as [facility] with [facility] Time attestation: Total time spent providing and/or coordinating discharge services: DS: Data Data Completed and Pending Labs on day of discharge: Labs from last 24 hours 02/26/25 02/26/25 02/25/25 12:42 08:18 20:06 POC Capillary Glucose 150 H 90 183 H 02/25/25 17:00 POC Capillary Glucose 124 H Discharge Plan Discharge Attending physician on discharge: Linda Copeland Consulting providers: Bibiana Medrano; Lucas Yang; Priscila Prince; Linda Copeland; Berny Arreaga Discharging Clinician: Linda Copeland Anticipated Discharge Date/Time: 02/26/25 11:29 Patient Disposition: NH Fdc/Asst Living Activity: as tolerated Diet: as tolerated and other - see discharge instructions Discharge Instructions: pureed diet and mildly thickened liquid crushed meds. Follow up with primary addiction counselor in regards to change in EF. Patient Instructions: Antibiotic Form Patient Language: Albanian Stand Alone Forms: General Discharge Information Follow-up/Referrals: Onel,John Kirk DO [Primary Care Provider, Unknown] Bibiana Medrano MD [Physician, Neurology] Referral Note: F/u with PCP in 3-5 days Discharge Medications: New metoprolol succinate 50 mg tablet extended release 24 hr 50 mg PO DAILY 30 Days Qty: 30 0RF divalproex 125 mg Capsule, Delayed Rel Sprinkle 500 mg PO BID 30 Days Qty: 240 1RF Continued atorvastatin 80 mg tablet 80 mg PO QPM dapagliflozin propanediol [Farxiga] 10 mg tablet 10 mg PO DAILY gabapentin 300 mg capsule 300 mg PO TID lansoprazole 30 mg capsule,delayed release(DR/EC) 30 mg PO DAILY lisinopril 20 mg tablet 20 mg PO DAILY metformin 500 mg tablet 500 mg PO DAILY midodrine 5 mg tablet 5 mg PO Q8H PRN (Reason: LOW BP) aspirin [Adult Aspirin Regimen] 81 mg tablet,delayed release (DR/EC) 81 mg PO DAILY mirtazapine 15 mg tablet 15 mg PO HS silver sulfadiazine 1 % cream 1 applic TOPICAL DAILY Rx Instructions: SACRAL WOUND Arginaid 4.5 gram-156 mg/9.2 gram powder in packet 4.5 g PO .WM eplerenone 25 mg tablet 25 mg PO DAILY Eliquis 5 mg tablet 5 mg PO BID acetaminophen 500 mg capsule 1,000 mg PO TID PRN (Reason: fever or pain) modafinil 200 mg tablet 200 mg PO QAM Discontinued metoprolol succinate 100 mg tablet extended release 24 hr 100 mg PO DAILY tramadol 50 mg tablet 50 mg PO Q6H PRN (Reason: pain) Date of admission: 02/13/25 17:38 Primary Care Provider: OnelJohn Admitting Provider: Linda Copeland Attending physician on admission: Linda Copeland Condition: Stable
--- NOTE | 2025-02-26 15:20 | PM.DS ---
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 [facility], last known normal >4 hours prior to arrival. HOSPITAL COURSE: Initial Presentation: Found with altered mentation and foaming at the mouth. No new focal neurological deficits per family; left hemiplegia and facial droop are baseline. No seizure history. Not a candidate for tPA (outside window, on anticoagulation, no new deficits). Family declined transfer to tertiary center after discussion. Workup: Head CT:?No acute process; large chronic right MCA infarct with encephalomalacia. CTA head/neck:?Atherosclerotic calcifications, no significant stenosis. MRI brain:?Large chronic right MCA infarct, no acute infarct. EEG:?Completed, pending neurology interpretation. Echocardiogram (02/12/25):?Severely reduced LVEF (25-30%), severe LV enlargement, moderate concentric LVH, mild LAE, mild valvular regurgitation, no pulmonary hypertension. Left LE Doppler:?Possible noncompressible DVT in left posterior tibial/peroneal veins, no proximal DVT. Hospital Course by Problem: Acute Alteration in Mental Status / Seizure Disorder (R41.82, G40.909): Initial concern for seizure vs. recurrent stroke vs. metabolic derangement. No new stroke on imaging. EEG performed; neurology recommended transition from Keppra (due to agitation) to Depakote ER 500 mg BID. Tramadol discontinued. Mental status improved but not yet at prior baseline. No further seizure-like events during admission. Hemiplegia (G81.90): Chronic left hemiplegia and facial droop from prior right MCA stroke. PT/OT consulted for mobility and safety. Gabapentin resumed for neuropathic pain. Dysphagia (R13.10): Speech therapy noted aspiration risk, coughing/choking with thin liquids. Barium swallow: recommended pureed diet and thickened liquids, 1:1 supervision. Poor oral intake, holding food in mouth, alternating bites/sips. Family counseled regarding possible need for feeding tube if intake remains <50%; decision pending. Congestive Heart Failure / Cardiomyopathy (I50.9, I42.9): Severe LV dysfunction (EF 25-30%), severe LV enlargement. Continued on Eplerenone, Farxiga, metoprolol, lisinopril. Monitored for arrhythmias; loop recorder interrogation showed brief SVT and NSVT. Cardiology consulted; discussed risk of sudden cardiac arrest and recommended LifeVest/ICD however family wanted more time to think about it and noted they will follow up with outpatient with patient's primary cardiology at [facility] (Dr. Garcia, [place]). Encouraged to follow up Pulmonary Embolism (I26.99): History of PE, on Eliquis and aspirin. Left LE Doppler: possible distal DVT, no proximal DVT. Eliquis resumed after brief interruption. Type 2 Diabetes Mellitus (E11.9): Well controlled (A1c 5.4%). Metformin held due to contrast; continued empagliflozin and sliding scale insulin. Accu-Cheks AC/HS. Hypomagnesemia (E83.42) and Hypokalemia (E87.6): Initial Mg 1.4, K 2.7; both replaced and normalized. Monitored and maintained on daily labs. Pressure Ulcer (L89.90): Wound care consulted. Specialty mattress and dietary optimization for healing. Regular repositioning (q2 turns). Hyperlipidemia (E78.5): Continued atorvastatin. Hypertension (I10): Continued metoprolol and lisinopril. Depression (F32.A): Continued home regimen. Nutrition: Dietitian involved due to poor PO intake and risk of malnutrition. Family counseled regarding feeding tube vs. palliative approach. Code Status: Initially modified code (CPR, no intubation); discussed with patient/family that this is not recommended per guidelines. Full code at discharge; further discussions pending. Other: Fall and aspiration precautions maintained. Family involved in all major decisions. DISCHARGE CONDITION: Improved from admission, but not at prior baseline. No further seizures or acute neurological events. Stable on current medications. Tolerating pureed/thickened diet with supervision. Ambulating with assistance; left hemiplegia unchanged. Wound care and pressure ulcer management ongoing. DISCHARGE MEDICATIONS: Depakote ER 500 mg BID (for seizure prophylaxis) Gabapentin 100 mg HS Eliquis (dose per prior regimen) Aspirin 81 mg daily Atorvastatin 80 mg daily Metoprolol 100 mg daily Lisinopril (dose per prior regimen) Eplerenone (dose per prior regimen) Empagliflozin (dose per prior regimen) Sliding scale insulin Other home medications as appropriate DISCHARGE INSTRUCTIONS: Pureed diet with thickened liquids, 1:1 supervision for all meals. Continue all medications as listed. Daily weights, monitor for signs of fluid overload. Fall and aspiration precautions. Wound care as instructed. Monitor for signs of recurrent seizure, stroke, or infection. Family to decide on feeding tube vs. palliative/hospice care if oral intake remains poor. Arrange for home health or half-way as appropriate. FOLLOW-UP APPOINTMENTS: Primary Care: within 1 week Neurology: within 2 weeks Cardiology: within 2 weeks (for CHF and arrhythmia management) Wound care: as needed Speech therapy/dietitian: as needed DISCHARGE TO: Laney Argueta Time Spent with Patient Time attestation: Total time spent providing and/or coordinating discharge services: DS: Data Data Completed and Pending Labs on day of discharge: Labs from last 24 hours 02/26/25 02/26/25 02/25/25 12:42 08:18 20:06 POC Capillary Glucose 150 H 90 183 H 02/25/25 17:00 POC Capillary Glucose 124 H Discharge Plan Discharge Attending physician on discharge: Linda Copeland Consulting providers: Bibiana Medrano; Lucas Yang; Priscila Prince; Linda Copeland; Berny Arreaga Discharging Clinician: Linda Copeland Anticipated Discharge Date/Time: 02/26/25 11:29 Patient Disposition: NH Snf/Asst Living Activity: as tolerated Diet: as tolerated and other - see discharge instructions Discharge Instructions: pureed diet and mildly thickened liquid crushed meds. Follow up with primary cyber analyst in regards to change in EF. Patient Instructions: Antibiotic Form Patient Language: Croatian Stand Alone Forms: General Discharge Information Follow-up/Referrals: Onel,John Kirk DO [Primary Care Provider, Unknown] Bibiana Medrano MD [Physician, Neurology] Referral Note: F/u with PCP in 3-5 days Discharge Medications: New metoprolol succinate 50 mg tablet extended release 24 hr 50 mg PO DAILY 30 Days Qty: 30 0RF divalproex 125 mg Capsule, Delayed Rel Sprinkle 500 mg PO BID 30 Days Qty: 240 1RF Continued atorvastatin 80 mg tablet 80 mg PO QPM dapagliflozin propanediol [Farxiga] 10 mg tablet 10 mg PO DAILY gabapentin 300 mg capsule 300 mg PO TID lansoprazole 30 mg capsule,delayed release(DR/EC) 30 mg PO DAILY lisinopril 20 mg tablet 20 mg PO DAILY metformin 500 mg tablet 500 mg PO DAILY midodrine 5 mg tablet 5 mg PO Q8H PRN (Reason: LOW BP) aspirin [Adult Aspirin Regimen] 81 mg tablet,delayed release (DR/EC) 81 mg PO DAILY mirtazapine 15 mg tablet 15 mg PO HS silver sulfadiazine 1 % cream 1 applic TOPICAL DAILY Rx Instructions: SACRAL WOUND Arginaid 4.5 gram-156 mg/9.2 gram powder in packet 4.5 g PO .WM eplerenone 25 mg tablet 25 mg PO DAILY Eliquis 5 mg tablet 5 mg PO BID acetaminophen 500 mg capsule 1,000 mg PO TID PRN (Reason: fever or pain) modafinil 200 mg tablet 200 mg PO QAM Discontinued metoprolol succinate 100 mg tablet extended release 24 hr 100 mg PO DAILY tramadol 50 mg tablet 50 mg PO Q6H PRN (Reason: pain) Date of admission: 02/13/25 17:38 Primary Care Provider: Onel,John Kirk Admitting Provider: Linda Copeland Attending physician on admission: Linda Copeland Condition: Stable
[2025-02-26] MEDS: ATORVASTATIN 40 MG TABLET 80 MG PO (16:48)
== END 2025-02-26 18:05 | DRG 100 ==
LOC: ANHED 21:44 → ANH3MED 02-12 00:03
PROVIDERS: General Practice; Nurse Practitioner; Nurse Practitioner Acute Care; Physician Assistant; Psychiatry & Neurology Neurology; Admitting Provider Internal Medicine; Emergency Provider Emergency Medicine; PCP Internal Medicine; Visit Provider Internal Medicine
DX: G40.909 Epilepsy, unspecified, not intractable, without status epilepticus (principal); I50.23 Acute on chronic systolic (congestive) heart failure; I69.354 Hemiplegia and hemiparesis following cerebral infarction affecting left non-dominant side; I42.9 Cardiomyopathy, unspecified; I82.442 Acute embolism and thrombosis of left tibial vein; I82.452 Acute embolism and thrombosis of left peroneal vein; R13.10 Dysphagia, unspecified; E11.9 Type 2 diabetes mellitus without complications; E83.42 Hypomagnesemia; L89.152 Pressure ulcer of sacral region, stage 2; E78.5 Hyperlipidemia, unspecified; F32.A Depression, unspecified; E87.6 Hypokalemia; Z86.711 Personal history of pulmonary embolism; I69.311 Memory deficit following cerebral infarction; I69.392 Facial weakness following cerebral infarction; Z79.01 Long term (current) use of anticoagulants; Z79.82 Long term (current) use of aspirin; Z95.1 Presence of aortocoronary bypass graft
CPT/HCPCS: 36415; 36600; 70450; 70496; 70498; 70551; 71045; 74230; 80048; 80053; 80061; 82306; 82607; 82746; 82805; 82948; 83036; 83735; 83921; 84100; 84443; 84484; 85018; 85025; 85610; 85730; 92507; 92523; 92526; 92610; 92611; 93005; 93880; 93971; 95816; 96375; 99212; 99285; A9270; C8929; G0463; J0360; J1953; J3475; J3480; J7040; J7050; J7120; Q9957; Q9967